=== PATIENT | male | born 1950 ===

== ENCOUNTER 2016-12-04 10:53 | Emergency (ER) | payer MEDICARE ==
[~2016-12-04] VITALS: Ht 177.8 cm; Wt 156.7 kg
[~2016-12-04 10:53] MED LIST: ALBU6.7H INH; AMLO10TA2 PO; ATOR10TA64 PO; BUSP10TA3 PO; CARV25TA2 PO; CETI-269 PO; EZET10TA PO; HYDR25TA PO; HYDR25TA85 PO; INSU100V12 SQ; INSU100V13 SQ; MELO-267 PO; MOME13HF4 INH; MONT10TA25 PO; OMEP-122 PO; OXYC-533 PO; SERT100T12 PO; TRAZ-170 PO
[2016-12-04 10:55] VITALS: BP 148/71; PULSE 58; RESP 16; TEMP 98.1; O2SAT 94; Ht 177.8 cm; Wt 156.7 kg
--- OUTSIDE RECORDS SUMMARY | 2016-12-04 10:57 | XMS REPORT | Referral Summary ---
Author Author [facility] Organization [facility] Address Unknown Phone Unavailable Encounter [facility] [id number] Date(s): 07/17/16 - 07/18/16 [facility] [address] [place] [id number] [phone] Discharge Diagnosis: Chest pain Discharge Diagnosis: DM (diabetes mellitus), type 2 Discharge Diagnosis: Dyslipidemia Discharge Diagnosis: Tobacco use Discharge Diagnosis: Morbid obesity Discharge Diagnosis: CAD (coronary artery disease) Discharge Disposition: 07 O/P AMA Attending Physician: Nicolas Mendez MD Admitting Physician: Nicolas Mendez MD Vital Signs 1 2 3 Most recent to oldest [Reference Range]: 5.83 ft (07/17/16 8:55 PM) Height FT 177.8 cm (07/17/16 8:55 PM) Height 340.17 lb (07/17/16 8:55 PM) Weight LBS 154.3 kg (07/17/16 8:55 PM) Weight, Measured 146 / 77 (07/18/16 9:26 AM) 129 / 71 (07/18/16 5:23 AM) 133 / 74 (07/18/16 1:53 AM) Blood Pressure Display 48.81 (07/17/16 8:56 PM) BMI 54 bpm *LOW* (07/18/16 9:26 AM) 56 bpm *LOW* (07/18/16 5:23 AM) 55 bpm *LOW* (07/18/16 1:53 AM) Peripheral Pulse Rate [60-100 bpm] 36.5 DegC (07/18/16 9:26 AM) 36.4 DegC (07/18/16 5:23 AM) 36.5 DegC (07/18/16 1:53 AM) Temperature Oral [35.8-37.3 DegC] Problem List Condition Effective Dates Status Health Status Informant CAD (coronary artery Active disease)(Confirmed)1 Hyperlipidemia(Confi Active rmed) Asthma(Confirmed) Active Hypertension(Confirm Active ed) Diabetes mellitus Active type 2, insulin dependent(Confirmed) Myocardial 2007 Resolved infarction(Confirmed ) Depression(Confirmed Active ) Obesity, Class III, Active BMI 40-49.9 (morbid obesity)(Confirmed) DJD (degenerative Active joint disease)(Confirmed) 1Per patient, 40% stenosis in two vessels seen on cath in 2006. No stents placed. Has not followed up with cardiology since. Allergies, Adverse Reactions, Alerts Substance Reaction Severity Status [id number] N&V - Nausea and vomiting Active Indocin N&V - Nausea and vomiting Active morphine N&V - Nausea and vomiting Active naproxen N&V - Nausea and vomiting Active Tape2 Blistering Moderate Active Toradol N&V - Nausea and vomiting Active 1Pt states he "does things he shouldn't do" 2paper tape Medications albuterol 0.083% inhalation solution 2.5 mg=3 mL, INH, q4hr, PRN: as needed for wheezing, # 25 EA, 0 Refill(s) Start Date: 07/17/16 Status: Ordered amLODIPine 10 mg oral tablet 10 mg=1 tab, PO, qDay, # 30 tab, 0 Refill(s) Start Date: 07/17/16 Status: Ordered atorvaSTATin 10 mg oral tablet 10 mg=1 tab, PO, qPM, # 30 tab, 0 Refill(s) Start Date: 07/17/16 Status: Ordered busPIRone 15 mg oral tablet See Instructions, 1 tab QAM, 1 tab QNOON, 2 tabs QHS, 0 Refill(s) Start Date: 07/17/16 Status: Ordered carvedilol 12.5 mg oral tablet 12.5 mg=1 tab, PO, qDay, # 180 tab, 0 Refill(s) Start Date: 07/17/16 Status: Ordered cetirizine 10 mg oral tablet 10 mg=1 tab, PO, qAM, # 30 tab, 0 Refill(s) Start Date: 07/17/16 Status: Ordered Dulera 100 mcg-5 mcg/inh inhalation aerosol 2 puff, INH, BID, # 13 g, 0 Refill(s) Start Date: 07/17/16 Status: Ordered HCTZ 25 mg oral tablet 25 mg=1 tab, PO, qDay, # 30 tab, 0 Refill(s) Start Date: 07/17/16 Status: Ordered hydrOXYzine hydrochloride 25 mg oral tablet 25 mg=1 tab, PO, TID, # 30 tab, 0 Refill(s) Start Date: 07/17/16 Status: Ordered Levemir 40 unit, SQ, qHS, 0 Refill(s) Start Date: 07/17/16 Status: Ordered meloxicam 15 mg oral tablet 15 mg=1 tab, PO, qDay, # 30 tab, 0 Refill(s) Start Date: 07/17/16 Status: Ordered montelukast 10 mg oral tablet 10 mg=1 tab, PO, qHS, # 30 tab, 0 Refill(s) Start Date: 07/17/16 Status: Ordered NovoLOG 15 unit, SQ, TIDac, 0 Refill(s) Start Date: 07/17/16 Status: Ordered omeprazole 20 mg oral delayed release capsule 40 mg=2 cap, PO, acBreakfst, # 30 cap, 0 Refill(s) Start Date: 07/17/16 Status: Ordered Percocet 10/325 oral tablet 1 tab, PO, q4hr, PRN: for pain, # 30 tab, 0 Refill(s) Start Date: 07/17/16 Status: Ordered sertraline 100 mg oral tablet 100 mg=1 tab, PO, qHS, # 30 tab, 0 Refill(s) Start Date: 07/17/16 Status: Ordered traZODone 100 mg oral tablet 100 mg=1 tab, PO, qHS, # 30 tab, 0 Refill(s) Start Date: 07/17/16 Status: Ordered Zetia 10 mg oral tablet 10 mg=1 tab, PO, qHS, # 30 tab, 0 Refill(s) Start Date: 07/17/16 Status: Ordered Results Hematology Most recent to 1 oldest [Reference Range]: WBC Count [4.0-10.5 6.0 x10^3 cmm x10^3 cmm] (07/18/16 6:35 AM) RBC Count [4.50-6.00 4.56 X10^6 cmm X10^6 cmm] (07/18/16 6:35 AM) Hemoglobin 10.4 g/dL [13.0-17.5 g/dL] *LOW* (07/18/16 6:35 AM) Hematocrit 34.4 % [42.0-52.0 %] *LOW* (07/18/16 6:35 AM) MCV [78-100 fL] 75.4 fL *LOW* (07/18/16 6:35 AM) MCH [27.0-31.0 pg] 22.8 pg *LOW* (07/18/16 6:35 AM) MCHC [32.0-36.0 30.2 g/dL g/dL] *LOW* (07/18/16 6:35 AM) RDW [11.5-14.0 %] 15.0 % *HI* (07/18/16 6:35 AM) Platelet Count 142 x10^3 cmm [150-450 x10^3 cmm] *LOW* (07/18/16 6:35 AM) MPV [8.0-11.7 fL] 9.8 fL (07/18/16 6:35 AM) Nucleated RBC's [0 0.4 #/100 WBC #/100 WBC] *HI* (07/17/16 6:58 PM) Nucleated RBC 0.0 x10^3 cmm Absolute [0 x10^3 (07/17/16 6:58 PM) cmm] Neutrophil % 69.9 % [43.0-65.0 %] *HI* (07/18/16 6:35 AM) Lymphocyte % 17.9 % [20.5-45.5 %] *LOW* (07/18/16 6:35 AM) Monocyte % [5.5-11.7 7.3 % %] (07/18/16 6:35 AM) Eosinophil % 4.2 % [0.9-2.9 %] *HI* (07/18/16 6:35 AM) Basophil % [0.2-1.0 0.5 % %] (07/18/16 6:35 AM) Immature Granulocyte 0.2 % (07/18/16 6:35 AM) Immature Grans 0.0 X10^3 Absolute [0.00-0.05 (07/18/16 6:35 AM) X10^3] Neutrophil Abs Auto 4.2 X10^3 [1.72-6.83 X10^3] (07/18/16 6:35 AM) Lymphocyte Abs Auto 1.1 X10^3 [0.84-4.83 X10^3] (07/18/16 6:35 AM) Monocyte Abs Auto 0.4 X10^3 [0.24-1.26 X10^3] (07/18/16 6:35 AM) Eosinophil Abs Auto 0.3 X10^3 [0.04-0.32 X10^3] (07/18/16 6:35 AM) Basophil Abs Auto 0.0 X10^3 [0.00-0.11 X10^3] (07/18/16 6:35 AM) Differential Type AUTOMATED (07/18/16 6:35 AM) Reticulocyte Count 1.4 % Automated [0.5-1.5 (07/17/16 7:00 PM) %] Absolute 62 mm3 Reticulocyte [24-84 (07/17/16 7:00 PM) mm3] Retic. HGB 23.4 pg Equivalent *LOW* [28.2-36.6 pg] (07/17/16 7:00 PM) Immature Retic 37.7 % Fraction [5.5-14.5 *HI* %] (07/17/16 7:00 PM) Retic Slide Review RETICULOCYTE COUNT MAY BE ERRONEOUS DUE TO INTERFERING SUBSTANCES (07/17/16 7:00 PM) Chemistry Most recent to 1 oldest [Reference Range]: Sodium [135-145 140 mmol/L mmol/L] (07/18/16 6:35 AM) Potassium [3.6-5.0 3.7 mmol/L mmol/L] (07/18/16 6:35 AM) Chloride [101-111 100 mmol/L mmol/L] *LOW* (07/18/16 6:35 AM) Carbon Dioxide Total 32 mmol/L [21-31 mmol/L] *HI* (07/18/16 6:35 AM) Anion Gap 8 mmol/L 1 (07/18/16 6:35 AM) Glucose Level 207 mg/dL [70-100 mg/dL] *HI* (07/18/16 6:35 AM) Blood Urea Nitrogen 12 mg/dL [6-20 mg/dL] (07/18/16 6:35 AM) Creatinine [0.5-1.2 0.7 mg/dL mg/dL] (07/18/16 6:35 AM) Calcium [8.5-10.5 8.8 mg/dL mg/dL] (07/18/16 6:35 AM) Total Protein 6.6 g/dL [6.0-8.0 g/dL] (07/17/16 6:58 PM) Albumin [3.2-5.5 3.7 g/dL g/dL] (07/17/16 6:58 PM) Alkaline Phosphatase 97 unit/L [42-121 unit/L] (07/17/16 6:58 PM) AST (SGOT) [10-42 10 unit/L unit/L] (07/17/16 6:58 PM) ALT (SGPT) [10-60 13 unit/L unit/L] (07/17/16 6:58 PM) Bilirubin Total 0.2 mg/dL [0.2-1.0 mg/dL] (07/17/16 6:58 PM) Calculated GFR [>60] >60.0 2 (07/18/16 6:35 AM) Magnesium [1.8-2.5 1.9 mg/dL mg/dL] (07/17/16 6:58 PM) Iron [42-135 mcg/dL] 23 mcg/dL *LOW* (07/17/16 7:00 PM) Total Iron Binding 334 mcg/dL Capacity Calculated (07/17/16 7:00 PM) [250-400 mcg/dL] Transferrin 7 % 3 Saturation (07/17/16 7:00 PM) Ferritin [10-130 14 ng/mL ng/mL] (07/17/16 7:00 PM) 1Result Comment: ANION GAP CALCULATION=NA-(CL+CO2) No reference range has been established. Value needs to be correlated with clinical evaluation. 2Result Comment: AVERAGE GFR FOR 60-69 YEARS OLD=85 mL/min/1.73 square meters CHRONIC KIDNEY DISEASE <60 mL/min/1.73 square meters KIDNEY FAILURE <15 mL/min/1.73 square meters MULTIPLY RESULT BY 1.210 IF PATIENT IS . GFR calculation (based on the modified MDRD Study Equation for IDMS calibrated creatinine) includes creatinine, age and sex only. This may NOT be accurate in cases of acute kidney failure, extremes in body size or muscle mass or unusually low or high creatine intake. 3Result Comment: NO REFERENCE RANGE ESTABLISHED Cardiac Studies Most recent to 1 oldest [Reference Range]: Cholesterol [140-200 132 mg/dL mg/dL] *LOW* (07/18/16 6:35 AM) High Density 28 mg/dL 1 Lipoprotein [40-67 *LOW* mg/dL] (07/18/16 6:35 AM) Triglycerides 169 mg/dL [35-150 mg/dL] *HI* (07/18/16 6:35 AM) VLDL Calculated 34 mg/dL [0-50 mg/dL] (07/18/16 6:35 AM) LDL Calculated 70 mg/dL 2 [0-130 mg/dL] (07/18/16 6:35 AM) LDL/HDL Ratio 2.50 3 (07/18/16 6:35 AM) Chol/HDL Ratio 4.7 4 (07/18/16 6:35 AM) nonHDL Cholesterol 104 mg/dL 5 (07/18/16 6:35 AM) Myoglobin [0-70 26 ng/mL 6 ng/mL] (07/17/16 9:53 PM) Cardiac Troponin T <0.01 ng/mL 7 [0.00-0.02 ng/mL] (07/18/16 6:35 AM) 1Result Comment: HDL CHOLESTEROL CORRELATES INVERSELY WITH RISK OF CORONARY HEART DISEASE. 2Result Comment: LDL CHOLESTEROL CORRELATES DIRECTLY WITH RISK OF CORONARY HEART DISEASE. 3Result Comment: BASED ON LDL/HDL RATIO: VALUE RISK MALES FEMALES 1.00 1.47 1/2 AVERAGE 3.55 3.22 AVERAGE 6.25 5.03 2X AVERAGE 7.99 6.14 3X AVERAGE 4Result Comment: CHOL/HDL RATIO IS MOST USEFUL IN WOMEN AND IN MEN OVER AGE 50. BASED ON CHOL/HDL RATIO: VALUE RISK <3.5 IDEAL <4.5 ACCEPTABLE 5.8 (MALE) AVG. FOR PT. WITH CHD 5.3 (FEMALE) AVG. FOR PT. WITH CHD 10 DOUBLE RISK 20 TRIPLE RISK 5Result Comment: nonHDL GOAL=LDL GOAL for this patient + 30 6Result Comment: DOUBLING OF SERUM MYOGLOBIN LEVEL WITHIN 6 HOURS OF THE ONSET OF SYMPTOMS IS CONSIDERED HIGHLY SUGGESTIVE OF AMI. 7Result Comment: NORMAL RANGE IS </=0.10 ng/mL. DIAGNOSTIC CUTOFF VALUE WHICH IS CONSIDERED POSITIVE FOR AMI IS >0.10 ng/mL. INTERPRET TROPONIN T RESULTS IN LIGHT OF THE TOTAL CLINICAL PRESENTATION, TROPONIN T RESULTS FROM SERIAL SAMPLES, DATA FROM ADDITIONAL TESTS AND OTHER APPROPRIATE INFORMATION. Coagulation Most recent to 1 oldest [Reference Range]: PT [11.5-14.5 13.40 second second] (07/17/16 6:58 PM) INR Calculation 1.05 ratio 1 [0.87-1.16 ratio] (07/17/16 6:58 PM) 1Result Comment: RECOMMENDED INR FOR ORAL ANTICOAGULANT FOR MECHANICAL HEART VALVES AND RECURRENT SYSTEMIC EMBOLISM: 2.5 TO 3.5...FOR ALL OTHER INDICATIONS: 2.0 TO 3.0. 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
--- OUTSIDE RECORDS SUMMARY | 2016-12-04 10:58 | XMS REPORT | Continuity of Care Document ---
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 Type 2 diabetes mellitus without complications 06/14/2016 06/19/2016 [facility] Chest pain, unspecified 06/19/2016 [facility] Hypothyroidism, unspecified 06/14/2016 06/19/2016 [facility] Essential (primary) hypertension 06/14/2016 06/19/2016 [facility] Other chest pain 06/19/2016 [facility] Hypertensive heart disease without heart failure 2015 [facility] Atherosclerotic heart disease of rosebud coronary artery without angina pectoris 06/19/2016 [facility] Old myocardial infarction 06/19/2016 [facility] Hyperlipidemia, unspecified 06/19/2016 [facility] Hypertensive disorder, systemic arterial (disorder) Active Problem 06/19/2016 [facility] Obesity (disorder) Active Problem 06/19/2016 Added based on documentation of BMI=48.2. [facility] Localized edema 06/19/2016 [facility] Type 2 diabetes mellitus with hyperglycemia 06/19/2016 [facility] Unspecified asthma, uncomplicated 06/19/2016 [facility] Other specified hypothyroidism 06/19/2016 [facility] Other specified anxiety disorders 06/19/2016 [facility] Bradycardia, unspecified 06/19/2016 [facility] Atrioventricular block, first degree 06/19/2016 [facility] Unspecified right bundle-branch block 06/19/2016 [facility] Family history of ischemic heart disease and other diseases of the circulatory system 06/19/2016 [facility] 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 Medications Medication Details Route Status Patient Instructions Ordering Provider Order Date Source hydroxyzine hydrochloride 25 mg oral tablet </br>=25 mg, 1 tab, PO, Daily, # 30 tab, 0 Refill(s) Active [facility] albuterol-ipratropium 3 mg-0.5 mg/3 ml inhalation solution </br>3 mL, Inhalation, four times per day, # 30 EA, 0 Refill(s) Active [facility] Dulera 100 mcg-5 mcg/inh inhalation aerosol </br>2 puff, Inhalation, BID, # 13 gm, 0 Refill(s) Active [facility] Acetaminophen 325 MG / Oxycodone Hydrochloride 10 MG Oral Tablet [Percocet 10/ 325] </br>2 tab, PO, Q6H, PRN for pain, 0 Refill(s) Active [facility] Zyrtec </br>Daily, 0 Refill(s) Active [facility] buspirone 10 mg oral tablet </br>=10 mg, 1 tab, PO, TID, # 270 tab, 0 Refill(s) Active [facility] omeprazole 20 mg oral enteric coated capsule </br>=20 mg, 1 cap, PO, BID, # 60 cap, 3 Refill(s) Active [facility] montelukast 10 mg oral tablet </br>=10 mg, 1 tab, PO, QPM, # 30 tab, 0 Refill(s) Active [facility] Sertraline </br>PO, Daily, 0 Refill(s) Active [facility] Hydrochlorothiazide </br>PO, Daily, 0 Refill(s) Active [facility] atorvastatin </br>PO, QHS, 0 Refill(s) Active [facility] meloxicam 15 mg oral tablet </br>=15 mg, 1 tab, PO, Daily, # 30 tab, 0 Refill(s) Active [facility] Amlodipine </br>PO, Daily, 0 Refill(s) Active [facility] carvedilol 25 mg oral tablet </br>=25 mg, 1 tab, PO, BID, # 60 tab, 0 Refill(s) Active [facility] ezetimibe 10 MG Oral Tablet [Zetia] </br>=10 mg, 1 tab, PO, Daily, # 30 tab, 0 Refill(s) Active [facility] trazodone 50 mg oral tablet </br>50 mg 1 tab, PO, QHS, # 30 tab, 0 Refill(s) Active [facility] Levemir </br>Subcutaneous, 0 Refill(s) Active [facility] levothyroxine 0.2 mg oral tablet </br>=200 mcg, 1 tab, PO, Daily, # 30 tab, 0 Refill(s), tab Active [facility] aspirin 81 mg oral tablet, chewable </br>=81 mg, 1 tab, Chewed, Daily, tablet, chewable Active [facility] Humalog 100 unit(s)/ml subcutaneous injection </br>=10 Units, 0.1 mL, Subcutaneous, AC, # 9 mL, 1 Refill(s), injection Active [facility] Aspirin </br>81 mg,=1 tab, tablet, chewable, Daily, Chewed, Start date 06/13/16 9:00:00< br></br>Notes: TIME CRITICAL MED IF SCHEDULED Active [facility] heparin </br>5,000 Units,=1 mL, injection, Q12H, Subcutaneous, Start date 06/12/16 21:00 :00
</br>Notes: TIME CRITICAL MED IF SCHEDULED Active [facility] Insulin Lispro </br>SLIDING SCALE, injection, Subcutaneous, ACHS, Start date 06/12/16 21:00:00< br></br>Notes: TIME CRITICAL MED IF SCHEDULED Active [facility] Albuterol / Ipratropium </br>3 mL, solution, Q4H, Nebulized, Start date 06/12/16 20:00:00 Active [facility] Levoxyl </br>100 mcg,=1 tab, tab, ONCE, PO, Start date 06/14/16 12:44:00, Stop date 12:44:00
</br>Notes: DO NOT ADMINISTER WITH MAGNESIUM, CALCIUM, ALUMINUM, OR IRON PRODUCTS Inactive [facility] Normal Saline 50 mL IVPB Flush </br>25 mL, injection, As Needed, IVPush, PRN Flush, Start date 06/13/16 0:49: 00 Active [facility] Percocet 10/325 </br>2 tab, tab, Q6H, PO, PRN Pain Severe (7-10), Start date 06/12/16 18:43:00< br></br>Notes: Not to exceed 4000 mg of acetaminophen TOTAL in 24 hours. TIME CRITICAL MED IF SCHEDULED Active [facility] Trazodone </br>100 mg,=2 tab, tab, QHS, PO, Start date 06/12/16 21:00:00 Active [facility] pantoprazole </br>40 mg,=1 tab, enteric coated tab, Daily, PO, Start date 06/12/16 18:42:00, No
</br>Notes: DO NOT CRUSH Active [facility] montelukast </br>10 mg,=1 tab, tab, QPM, PO, Start date 06/12/16 17:00:00 Active [facility] Piroxicam </br>20 mg,=2 cap, cap, Daily, PO, Start date 06/12/16 18:40:00
</br>Notes: * TIME CRITICAL MED IF SCHEDULED Active [facility] Insulin Glargine </br>40 Units,=0.4 mL, injection, QHS, Subcutaneous, Start date 06/12/16 21:00: 00
</br>Notes: TIME CRITICAL MED IF SCHEDULED Active [facility] Humalog </br>10 Units,=0.1 mL, injection, AC, Subcutaneous, Start date 06/12/16 18:35:00
</br>Notes: TIME CRITICAL MED IF SCHEDULED Active [facility] Hydroxyzine </br>25 mg,=1 cap, cap, TID, PO, Start date 06/12/16 18:35:00 Active [facility] Budesonide 0.16 MG/ACTUAT / formoterol fumarate 0.0045 MG/ACTUAT Metered Dose Inhaler </br>2 puff, inhaler, BID, Inhalation, Start date 06/12/16 20:00:00
</br> Notes: TIME CRITICAL MED IF SCHEDULED Active [facility] Zetia </br>10 mg,=1 tab, tab, Daily, PO, Start date 06/13/16 9:00:00 Active [facility] Claritin </br>10 mg,=1 tab, tab, Daily, PO, Start date 06/13/16 9:00:00 Active [facility] Buspirone </br>10 mg,=1 tab, tab, TID, PO, Start date 06/12/16 18:29:00 Active [facility] carvedilol </br>12.5 mg,=1 tab, tab, BID, PO, Start date 06/12/16 21:00:00
</br>Notes: TAKE WITH FOOD Active [facility] Thyroxine </br>200 mcg,=1 tab, tab, Daily, PO, Start date 06/13/16 12:02:00
</br>Notes : DO NOT ADMINISTER WITH MAGNESIUM, CALCIUM, ALUMINUM, OR IRON PRODUCTS Active [facility] No Known Medications No known medications Active [facility], [facility] Allergies, Adverse Reactions, Alerts Substance Category Reaction Severity Reaction type Status Date Reported Comments Source Fentanyl Assertion Drug allergy [facility] Indocin Assertion Drug allergy [facility] morphine Assertion Drug allergy [facility] naproxen Assertion Drug allergy [facility] Tape Assertion Drug allergy [facility] Toradol Assertion Drug allergy [facility] Indomethacin Assertion Drug allergy [facility] Morphine Assertion Drug allergy [facility] Naproxen Assertion Drug allergy [facility] Ketorolac Assertion Drug allergy [facility] Immunizations Immunization Date Given Site Status Last Updated Comments Source No data available for this section No data available for this section [facility] Results Order Name Results Value Reference Range Date Interpretation Comments Source Point Of Care-Glucose Glucose POC 205 mg/dL 64 - 108 [facility] Discharge Summary Discharge Summary Patient: ESSIE LOPEZ Age: 66 years Sex: Male : 54 Associated Diagnoses: None Author: Hernán Rivera Discharge Information Date of Admission: Admitted 06/12/2016, 06/14/2016. Attending Physician: Lawson Mckeon Primary Service: Green Medicine. Primary Diagnosis present or suspected on admission: Chest pain - [id number] R07.9 Secondary Diagnosis present or suspected on admission: Benign essential hypertension - [id number] I10 Type 2 diabetes mellitus with hemoglobin A1c goal of less than 7.0% - [id number] E11.9 Diagnosis aquired during hospitalization Subclinical hypothyroidism - [id number] E03.9 Discharge or Transfer Condition: At discharge, Improved and stable. Disposition: Left AMA or Discontinued Care. Services Provided in Hospital Procedures Stress echo Allergies Allergic Reactions (Selected) Severity Not Documented FentaNYL- No reactions were documented. Indocin- No reactions were documented. Morphine- No reactions were documented. Naproxen- No reactions were documented. Tape- No reactions were documented. Toradol- No reactions were documented. Medications OTHER MEDICATIONS (Selected) Inpatient Medications Ordered Claritin: 10 mg, 1 tab, PO, Daily HCTZ: 25 mg, 1 tab, PO, Daily HumaLO Units, 0.1 mL, Subcutaneous, AC Insulin Sliding Scale 1: SLIDING SCALE, Subcutaneous, ACHS Levoxyl: 100 mcg, 1 tab, PO, ONCE Normal Saline 50 mL IVPB Flush: 25 mL, IVPush, As Needed, PRN: Flush Percocet 10/325: 2 tab, PO, Q6H, PRN: Pain Severe (7-10) Symbicort 160 mcg - 4.5 mcg inh: 2 puff, Inhalation, BID Zetia: 10 mg, 1 tab, PO, Daily albuterol-ipratropium: 3 mL, Nebulized, Q4H amlodipine: 10 mg, 1 tab, PO, Daily aspirin: 81 mg, 1 tab, Chewed, Daily atorvastatin: 10 mg, 1 tab, PO, QHS busPIRone: 10 mg, 1 tab, PO, TID carvedilol: 12.5 mg, 1 tab, PO, BID heparin: 5,000 Units, 1 mL, Subcutaneous, Q12H hydrOXYzine: 25 mg, 1 cap, PO, TID insulin glargine: 40 Units, 0.4 mL, Subcutaneous, QHS levothyroxine: 200 mcg, 1 tab, PO, Daily montelukast: 10 mg, 1 tab, PO, QPM pantoprazole: 40 mg, 1 tab, PO, Daily piroxicam: 20 mg, 2 cap, PO, Daily sertraline: 100 mg, 1 tab, PO, Daily trazodone: 100 mg, 2 tab, PO, QHS Prescriptions Prescribed Humalog 100 unit(s)/ml subcutaneous injection: 10 Units, 0.1 mL, Subcutaneous, AC, 9 mL, 1 Refill(s) levothyroxine 0.2 mg oral tablet: 200 mcg, 1 tab, PO, Daily, 30 tab, 0 Refill(s) Documented Medications Documented Dulera 100 mcg-5 mcg/inh inhalation aerosol: 2 puff, Inhalation, BID, 13 gm, 0 Refill(s) HCTZ: PO, Daily, 0 Refill(s) Levemir: Subcutaneous, 0 Refill(s) Percocet-10/325 oral tablet: 2 tab, PO, Q6H, PRN: for pain, 0 Refill(s) Zetia 10 mg oral tablet: 10 mg, 1 tab, PO, Daily, 30 tab, 0 Refill(s) Zyrtec: Daily, 0 Refill(s) albuterol-ipratropium 3 mg-0.5 mg/3 ml inhalation solution: 3 mL, Inhalation, four times per day, 30 EA, 0 Refill(s) amlodipine: PO, Daily, 0 Refill(s) aspirin 81 mg oral tablet, chewable: 81 mg, 1 tab, Chewed, Daily atorvastatin: PO, QHS, 0 Refill(s) buspirone 10 mg oral tablet: 10 mg, 1 tab, PO, TID, 270 tab, 0 Refill(s) carvedilol 25 mg oral tablet: 25 mg, 1 tab, PO, BID, 60 tab, 0 Refill(s) hydroxyzine hydrochloride 25 mg oral tablet: 25 mg, 1 tab, PO, Daily, 30 tab, 0 Refill(s) meloxicam 15 mg oral tablet: 15 mg, 1 tab, PO, Daily, 30 tab, 0 Refill(s) montelukast 10 mg oral tablet: 10 mg, 1 tab, PO, QPM, 30 tab, 0 Refill(s) omeprazole 20 mg oral enteric coated capsule: 20 mg, 1 cap, PO, BID, 60 cap, 3 Refill(s) sertraline: PO, Daily, 0 Refill(s) trazodone 50 mg oral tablet: 50 mg, 1 tab, PO, QHS, 30 tab, 0 Refill(s). Discharge Diet: Diet Type: Cardiac. Activity: Ambulate. Discharge Activity Level: Resume as tolerated. Patient may: [employer]. Hospital Course Patient is a 66 year old male with a PMH of type 2 diabetes mellitus, hypertension, hyperlipidemia, CAD with h/o MA in 2007 (underwent cath, likely had 30-40% lesion per patient, no stents) and asthma who presented to the ED on 06/12/16 with chest pain and peripheral edema. In the ED, EKG did not show any ST-T changes, first troponin was negative, and patient was given 325 mg of aspirin. Patient was His troponins were negative x4. Echocardiogram was done due to peripheral edema and showed a left ventricular EF of 50-55%, mild LV hypertrophy, and mild RV dilation. His risk stratification work up included TSH, HbA1c, and FLP. HbA1c returned as 10.5 Patient was continued on his home insulin for his diabetes and SSI with accuchecks. He was told that his insulin regimen would need to be adjusted as outpatient for better control. His TSH returned 10.56 and T4 1.04; patient denied any symptoms of hypothyroidism. He was started on levothyroxine for subclinical hypothyroidism. Patient was continued on his home statin. He was also started on aspirin 81 mg daily which he had not been on at home. Recommend patient be evaluated with an outpatient sleep study for KOLBY. Discussed thoroughly with patient the need for establishing a PCP in [place] as he will need a sleep study, repeat thyroid labs, and better control of his diabetes. He and his daughter acknowledged the importance of this. Also discussed that patient will need to take an 81 mg aspirin daily. Risks and benefits of leaving were discussed with patient and daughter as results of the stress test were not back at the time. Both acknowledged this and patient signed form to leave AMA. His stress echo returned shortly after patient left and was negative for ischemia. Medication changes: - Levothyroxine 200 mcg daily for subclinical hypothyroidism - Aspirin 81 mg daily Results pending at discharge: stress echo No follow up appointment was scheduled for patient as he was going straight home to [place] on discharge. Stressed importance of establishing care with a PCP. Hernán Rivera MD PGY1 [phone] I agree with the above documentation. Thanks, Jayesh Mckeon DO 06/14/2016 [facility] Point Of Care-Glucose Glucose POC 277 mg/dL 64 - 108 [facility] Chemistry GFR -Niuean null >=60 mL/min/1.73m2 [facility] Hematology MPV 8.0 FL 7.4 - 10.4 06/14/2016 [facility] Student Note - Education Only Student Note - Education Only Patient: ESSIE LOPEZ Age: 66 years Sex: Male : 54 Associated Diagnoses: None Author: Cb Sena Subjective 14 system ROS negative except as otherwise stated above. Health Status Current medications: (Selected) Documented Medications Documented Dulera 100 mcg-5 mcg/inh inhalation aerosol: 2 puff, Inhalation, BID, 13 gm, 0 Refill(s) HCTZ: PO, Daily, 0 Refill(s) Levemir: Subcutaneous, 0 Refill(s) NovoLog: Subcutaneous, TIDAC, 0 Refill(s) Percocet-10/325 oral tablet: 2 tab, PO, Q6H, PRN: for pain, 0 Refill(s) Zetia 10 mg oral tablet: 10 mg, 1 tab, PO, Daily, 30 tab, 0 Refill(s) Zyrtec: Daily, 0 Refill(s) albuterol-ipratropium 3 mg-0.5 mg/3 ml inhalation solution: 3 mL, Inhalation, four times per day, 30 EA, 0 Refill(s) amlodipine: PO, Daily, 0 Refill(s) atorvastatin: PO, QHS, 0 Refill(s) buspirone 10 mg oral tablet: 10 mg, 1 tab, PO, TID, 270 tab, 0 Refill(s) carvedilol 25 mg oral tablet: 25 mg, 1 tab, PO, BID, 60 tab, 0 Refill(s) hydroxyzine hydrochloride 25 mg oral tablet: 25 mg, 1 tab, PO, Daily, 30 tab, 0 Refill(s) meloxicam 15 mg oral tablet: 15 mg, 1 tab, PO, Daily, 30 tab, 0 Refill(s) montelukast 10 mg oral tablet: 10 mg, 1 tab, PO, QPM, 30 tab, 0 Refill(s) omeprazole 20 mg oral enteric coated capsule: 20 mg, 1 cap, PO, BID, 60 cap, 3 Refill(s) sertraline: PO, Daily, 0 Refill(s) trazodone 50 mg oral tablet: 50 mg, 1 tab, PO, QHS, 30 tab, 0 Refill(s) Objective VS/Measurements Vital Signs 06/13/16 00:00 Temperature Temporal Artery 97.2 DegF Heart Rate 56 bpm LOW (Modified) Resp. Rate 18 BRMIN Systolic BP 148 mmHg HI Diastolic BP 76 mmHg Oxygen Saturation 96 % Oxygen Therapy Room air I/O 540/_ Physical Exam General: Alert and oriented, in no acute distress CV: 2/6 holosystolic murmur on the left sternal border Resp: CTAB Abdomen: Soft, non-distended, non-tender to palpation Results Review General results Today's results 06/14/16 05:30 Sodium 138 mmol/L Potassium 3.9 mmol/L Chloride 99 mmol/L CO2 27 mmol/L Anion Gap 12 mmol/L Glucose 287 mg/dL HI BUN 14 mg/dL Creatinine 0.84 mg/dL LOW 3/cmm Hemoglobin 11.3 g/dL LOW Hematocrit 35.7 % LOW 3/cmm Impression and Plan A/P Patient is a 66 y/o who presents with chest pain Chest pain - DDx: ACS (UA/NSTEMI) vs GERD vs musculoskeletal - EKG no ST-T changes and troponins negative x3 - PATRICK risk score of 97 which is low. - TYE risk score of 2 which is low, suggests 8% risk of all cause mortality/ new or recurrent MA/ severe recurrent ischemia, at 14 days - Pt has a h/o MA 8 yrs back (likely NSTEMI). He does have strong family h/o CAD. He also has not had a recent stress test or cardiology follow up since MA. - Will plan for stress echo today - Continue coreg, atorvastatin, ezetimibe - Hold coreg tomorrow morning for stress test - Continue PPI and his pain meds - NTG PRN for chest pain Pedal edema - Likely from rt heart failure 2/2 KOLBY vs venous insufficiency vs less likely hypothyroidism/renal problems - Echo to evaluate cardiac function. - TSH elevated at 10.56 but T4 wnl; will start levothyroxine 100 mcg daily Subclinical hypothyroidism - TSH elevated at 10.56 but T4 wnl; will start levothyroxine 100 mcg daily Suspected sleep apnea - Will need outpatient sleep study Benign essential hypertension - Continue home meds: coreg, amlodipine, HCTZ, Type 2 diabetes, uncontrolled - HbA1c 10.5 - Continue home insulin: Humalog (changed from novalog) 10 U TIDAC and Lantus ( changed from levemir) 40 U qHS - SSI level 1 and accuchecks - Will adjust insulin doses after one full day of hospitalization but ultimately patient will need follow up with a PCP as an outpatient for optimization Dyslipidemia - Continue atorvastatin 10 mg qHS and ezetimibe 10 mg daily Asthma - Not in exacerbation - Continue symbicort while inpatient and duonebs q4h PRN Depression/Anxiety - Continue home meds: Sertrailne, buspirone, trazodone, OA bilateral knee s/p TKR s/p wound infection - Follows with his orthopedics in [place] - Continue pain meds: Percocet 10-325 2 tabs q6h PRN CODE: FULL Diet: cardiac/consistent carb DVT ppx: Heparin, SCDs IVF: none Antibiotics: None Disposition: pending stress test today Cb LORENZO 06/14/2016 [facility] Inpatient Progress Note Inpatient Progress Note Patient: ESSIE LOPEZ Age: 66 years Sex: Male : 54 Associated Diagnoses: None Author: Hernán Rivera Subjective Patient sleeping comfortably in chair. Reports he did not sleep well last night as the unit was noisy. Denies chest pain. No other complaints. 10 point ROS completed and negative except as stated above. Health Status Allergies: Allergic Reactions (Selected) Severity Not Documented FentaNYL- No reactions were documented. Indocin- No reactions were documented. Morphine- No reactions were documented. Naproxen- No reactions were documented. Tape- No reactions were documented. Toradol- No reactions were documented. Objective VS/Measurements Vital Signs 06/14/16 06:00 Temperature Oral 98.5 DegF Heart Rate 68 bpm Resp. Rate 19 BRMIN Systolic BP 135 mmHg Diastolic BP 78 mmHg Mean Arterial Pressure 97 mmHg Oxygen Saturation 97 % Oxygen Therapy Room air General: Alert and oriented, No acute distress. Eye: Pupils are equal, round and reactive to light, Extraocular movements are intact, Normal conjunctiva. HENT: Normocephalic, Normal hearing, Oral mucosa is moist. Respiratory: Lungs are clear to auscultation, Respirations are non-labored, Breath sounds are equal. Cardiovascular: Normal rate, Regular rhythm, No murmur, 1+ pitting peripheral edema. Gastrointestinal: Soft, Non-tender, Non-distended, Normal bowel sounds. Integumentary: Warm, Dry. Neurologic: Alert, Oriented, No focal defects. Results Review Last Vital Signs 06/14/16 05:38:25 Heart Rate 61 bpm Respiratory Rate 16 BRMIN 98.5 DegF BP Primary (Right Arm) 135/78 BP Optional () / Height 177.5 cm Weight 155.5 kg BMI 49.4 kg/m2 Last Lab Results BMP: (Date 06/14/16 ) Hematology Tests: (Date) Others: (Date) Lipid Profile: ( Date 06/13/16) Sodium 138 mmol/L Hgb 11.3 (06/14/16) TSH 10.79 (06/13/16) Triglycerides 140 mg/ dL Potassium 3.9 mmol/L HgbA1C 10.5 (06/13/16) CPK () Cholesterol 151 mg/dL Phosphorus WBC 5.70 (06/14/16) AST 15 /ALT 21 (06/13/16) HDL 34 mg/dL Magnesium 1.9 mg/dL PLT 160 (06/14/16) Tropinin () LDL 89 mg/dL Creatinine 0.84 mg/dL INR 1.0 (06/12/16) Albumin 4.2 (06/13/16) BUN 14 mg/dL Ur MAB/Cr () CrCl 0.74 ml/min Impression and Plan 66 yo M with h/o HTN, DM, HLD, h/o MA 8 yrs ago presented with chest pain: Chest pain - DDx: ACS (UA/NSTEMI) vs GERD vs musculoskeletal - EKG no ST-T changes and troponins negative x3 - PATRICK risk score of 97 which is low. - 1.2% risk of mortality in current admission - 3.2-3.5% risk of mortality in 6 months - 6.8% risk of MA or in 1 yr - TYE risk score of 2 which suggests 8% risk of all cause mortality/ new or recurrent MA/ severe recurrent ischemia, at 14 days - Pt has a h/o MA 8 yrs back (likely NSTEMI). He does have strong family h/o CAD. He also has not had a recent stress test or cardiology follow up since MA. - Continue coreg, atorvastatin, ezetimibe - Coreg held this morning for stress test today - Continue PPI and his pain meds - NTG PRN for chest pain Pedal edema - Likely from rt heart failure (? 2/2 KOLBY) vs venous insufficiency vs less likely hypothyroidism/renal problems - Echo to evaluate cardiac function, results pending. - TSH elevated at 10.56 but T4 wnl; increased levothyroxine to 200 mcg daily Subclinical hypothyroidism - TSH elevated at 10.56 but T4 wnl; increased levothyroxine dose to 200 mcg daily Suspected sleep apnea - Will need outpatient sleep study Benign essential hypertension - Continue home meds: coreg, amlodipine, HCTZ, Type 2 diabetes, uncontrolled - HbA1c 10.5 - Continue home insulin: Humalog (changed from novalog) 10 U TIDAC and Lantus ( changed from levemir) 40 U qHS - SSI level 1 and accuchecks - Patient will need to follow up with PCP to adjust home regimen Dyslipidemia - Continue atorvastatin 10 mg qHS and ezetimibe 10 mg daily Asthma - Not in exacerbation - Continue symbicort while inpatient and duonebs q4h PRN Depression/Anxiety - Continue home meds: Sertrailne, buspirone, trazodone, OA bilateral knee s/p TKR s/p wound infection - Follows with his orthopedics in [place] - Continue pain meds: Percocet 10-325 2 tabs q6h PRN CODE: FULL Diet: cardiac/consistent carb DVT ppx: Heparin, SCDs IVF: none Antibiotics: None Disposition: pending stress test today Hernán Rivera MD PGY1 [phone] 06/14/2016 [facility] Point Of Care-Glucose Oper ID [id number] 06/14/2016 [facility] Point Of Care-Glucose Glucose POC 278 mg/dL 64 - 108 08/2016 [facility] Urinalysis UA Bacteria 3+ *ABN* (06/13/16 1:53 PM) 2015 [facility] Urine Drug Screen U Oxycodone Positive *NA* (06/13/16 1:53 PM) 2015 [facility] Student Note - Education Only Student Note - Education Only Patient: ESSIE LOPEZ Age: 66 years Sex: Male : 54 Associated Diagnoses: None Author: Cb Sena Discharge Information Date of Admission: Admitted 06/12/2016. Attending Physician: Lawson Mckeon Primary Service: Green Medicine. Discharge or Transfer Condition: At discharge. Services Provided in Hospital Procedures Order Profile (Selected) Inpatient Orders Ordered Echocardiogram Nurse Notification: Completed Perform EKG: Hospital Course Mr Lopez is a 66 yo M with a PMH of HTN, DM type 2, dyslipidemia, CAD with h/ o MA in 2007 (underwent cath, likely had 30-40% lesion per patient, no stents), asthma, depression, anxiety, OA s/p bilateral TKR with h/o hardware infection Rt knee (MSSA). He presents to the ED with complaints of chest pain which started this afternoon. His pain is retrosternal, started when he was resting and watching TV, 7/10 when it started and 3/10 now, pressure like sensation and felt like his previous MA, radiating along his left arm/forearm, lasted for 15 min and then resolved spontaneously but came back again after an hour and is persisting now even though it has decreased in intensity. This was associated with some SOB which the patient thinks is from his asthma. He was treated with symbicort. His EKG, troponins, and CXR were unremarkable. PATRICK score of 97 low , TYE score of 2 low. Aspirin, and NTG were given. TSH was elevated and treated with levothyroxine. A stress echo was completed Recommend sleep study done outpatient. Cb Sena MSV 06/13/2016 [facility] Chemistry Troponin-T null <=0.03 ng/mL 06/13/2016 [facility] Endocrinology Labs T4 Free 1.01 ng/dL 0.60 - 1.60 2015 [facility] Inpatient Progress Note Inpatient Progress Note Patient: ESSIE LOPEZ Age: 66 years Sex: Male : [birth year] Associated Diagnoses: None Author: Hernán Rivera Subjective Patient doing well this morning. No complaints. Denies chest pain since admission. He is from [place] and reports he does not have a PCP; also states he has not been on aspirin in the past. 10 point ROS completed and negative except as stated above. Health Status Allergies: Allergic Reactions (Selected) Severity Not Documented FentaNYL- No reactions were documented. Indocin- No reactions were documented. Morphine- No reactions were documented. Naproxen- No reactions were documented. Tape- No reactions were documented. Toradol- No reactions were documented. Objective VS/Measurements Vital Signs 06/13/16 05:00 Temperature Oral 98.2 DegF Heart Rate 55 bpm LOW Resp. Rate 17 BRMIN Systolic BP 125 mmHg Diastolic BP 75 mmHg Mean Arterial Pressure 92 mmHg BP Site Left Arm Cuff Size Adult Long Cuff Oxygen Saturation 94 % Oxygen Therapy Room air General: Alert and oriented, No acute distress. Eye: Pupils are equal, round and reactive to light, Extraocular movements are intact, Normal conjunctiva. HENT: Normocephalic, Normal hearing, Oral mucosa is moist. Respiratory: Lungs are clear to auscultation, Respirations are non-labored, Breath sounds are equal. Cardiovascular: Normal rate, Regular rhythm, No murmur, 1+ pitting peripheral edema. Gastrointestinal: Soft, Non-tender, Non-distended, Normal bowel sounds. Integumentary: Warm, Dry. Neurologic: Alert, Oriented, No focal defects. Results Review Last Vital Signs 06/13/16 04:55:48 Heart Rate 53 bpm Respiratory Rate 14 BRMIN 98.2 DegF BP Primary (Left Arm) 125/75 BP Optional () / Height 177.5 cm Weight 155.5 kg BMI 49.4 kg/m2 Last Lab Results BMP: (Date 06/13/16 ) Hematology Tests: (Date) Others: (Date) Lipid Profile: ( Date 06/13/16) Sodium 138 mmol/L Hgb 12.1 (06/13/16) TSH 10.79 (06/13/16) Triglycerides 140 mg/ dL Potassium 3.5 mmol/L HgbA1C 10.5 (06/13/16) CPK () Cholesterol 151 mg/dL Phosphorus WBC 6.30 (06/13/16) AST 15 /ALT 21 (06/13/16) HDL 34 mg/dL Magnesium 1.9 mg/dL PLT 147 (06/13/16) Tropinin () LDL 89 mg/dL Creatinine 0.74 mg/dL INR 1.0 (06/12/16) Albumin 4.2 (06/13/16) BUN 12 mg/dL Ur MAB/Cr () CrCl 103.74 ml/min Impression and Plan 66 yo M with h/o HTN, DM, HLD, h/o MA 8 yrs ago presented with chest pain: Chest pain - DDx: ACS (UA/NSTEMI) vs GERD vs musculoskeletal - EKG no ST-T changes and troponins negative x3 - PATRICK risk score of 97 which is low. - 1.2% risk of mortality in current admission - 3.2-3.5% risk of mortality in 6 months - 6.8% risk of MA or in 1 yr - TYE risk score of 2 which suggests 8% risk of all cause mortality/ new or recurrent MA/ severe recurrent ischemia, at 14 days - Pt has a h/o MA 8 yrs back (likely NSTEMI). He does have strong family h/o CAD. He also has not had a recent stress test or cardiology follow up since MA. - Will plan for stress echo tomorrow - Continue coreg, atorvastatin, ezetimibe - Hold coreg tomorrow morning for stress test - Continue PPI and his pain meds - NTG PRN for chest pain Pedal edema - Likely from rt heart failure (? 2/2 KOLBY) vs venous insufficiency vs less likely hypothyroidism/renal problems - Echo to evaluate cardiac function. - TSH elevated at 10.56 but T4 wnl; will start levothyroxine 100 mcg daily Subclinical hypothyroidism - TSH elevated at 10.56 but T4 wnl; will start levothyroxine 100 mcg daily Suspected sleep apnea - Will need outpatient sleep study Benign essential hypertension - Continue home meds: coreg, amlodipine, HCTZ, Type 2 diabetes, uncontrolled - HbA1c 10.5 - Continue home insulin: Humalog (changed from novalog) 10 U TIDAC and Lantus ( changed from levemir) 40 U qHS - SSI level 1 and accuchecks - Will adjust insulin doses after one full day of hospitalization but ultimately patient will need follow up with a PCP as an outpatient for optimization Dyslipidemia - Continue atorvastatin 10 mg qHS and ezetimibe 10 mg daily Asthma - Not in exacerbation - Continue symbicort while inpatient and duonebs q4h PRN Depression/Anxiety - Continue home meds: Sertrailne, buspirone, trazodone, OA bilateral knee s/p TKR s/p wound infection - Follows with his orthopedics in [place] - Continue pain meds: Percocet 10-325 2 tabs q6h PRN CODE: FULL Diet: cardiac/consistent carb DVT ppx: Heparin, SCDs IVF: none Antibiotics: None Disposition: pending stress test tomorrow Hernán Rivera MD PGY1 [phone] I agree with the above documentation. 06/13/2016 [facility] Chemistry ALBUMIN 4.2 g/dL 3.5 - 4.8 06/13/2016 [facility] Endocrinology Labs HGB A1C 10.5 % 4.6 - 6.2 06/13/2016 [facility] Hematology [place] % 7.9 % 1.0 - 9.0 06/13/2016 [facility] Chemistry Troponin-T null <=0.03 ng/mL 06/13/2016 [facility] Chemistry Pro B-Type Natriuretic Peptide 9 pg/mL 2015 [facility] Coagulation APTT 33.9 s 24.0 - 36.5 06/12/2016 [facility] Hematology WBC 6.30 10^3/cmm 4.30 - [id number] 06/12/2016 [facility] Point Of Care-Glucose Oper ID [id number] 06/12/2016 [facility] History and Physical History and Physical Patient: ESSIE LOPEZ Age: 66 years Sex: Male : [birth year] Associated Diagnoses: None Author: Paloma Sweeney Visit Information Visit type: New symptom. Accompanied by: Family member. Source of history: Self, Family member. Referral source: Emergency department. History limitation: None. Chief Complaint Chest pain x 4 hrs History of Present Illness Mr Lopez is a 66 yo M with a PMH of HTN, DM type 2, dyslipidemia, CAD with h/ o MA in 2007 (underwent cath, likely had 30-40% lesion per patient, no stents), asthma, depression, anxiety, OA s/p bilateral TKR with h/o hardware infection Rt knee (MSSA). He presents to the ED with complaints of chest pain which started this afternoon. His pain is retrosternal, started when he was resting and watching TV, 7/10 when it started and 3/10 now, pressure like sensation and felt like his previous MA, radiating along his left arm/forearm, lasted for 15 min and then resolved spontaneously but came back again after an hour and is persisting now even though it has decreased in intensity. This was associated with some SOB which the patient thinks is from his asthma. He denies any palpitations, syncope, dizziness, easy fatiguability. He thinks that his leg swellling is getting worse. He denies any nausea, vomiting, pain abdomen, urinary problems. Pt gives h/o snoring at night and waking up in morning with headaches. Per daughter she has heard him on oneor two occasions where he stops breathing for some time. Patient is from [place] and is visiting his daughter and friends here. He last saw a physician 3 months ago. He is not on aspirin as he takes NSAIDs for his knee pain. PMH: HTN, DM type 2, dyslipidemia, CAD with h/o MA in 2007 (underwent cath, likely had 30-40% lesion per patient, no stents), asthma, depression, anxiety, OA s/p bilateral TKR with h/o hardware infection Rt knee (MSSA) PSH: TKS, foot surgery for fracture Allergies: Morphine, fentanyl (vomiting), paper tape (rash), naproxen/toradol/ indomethacin (vomiting) Meds: As below FH: Significant family history of CAD in mom (diagnosed in her 50s), dad ( diagnosed in his 50s), brothers, uncles. DM, HTN and stroke in family. SH: Denies tobacco use, quit alcohol 25 yrs ago, denies any drug use. Visiting his daughter here from [place]. Review of Systems Constitutional: No fever, No chills. Eye: No recent visual problem. Ear/Nose/Mouth/Throat: No decreased hearing, No sore throat. Respiratory: Shortness of air, No cough, No sputum production, No hemoptysis. Cardiovascular: Peripheral edema, No tachycardia, No syncope. Chest pain: Midsternal. Gastrointestinal: No nausea, No vomiting, No diarrhea, No constipation, No heartburn, No abdominal pain. Genitourinary: No dysuria. Hematology/Lymphatics: No bruising tendency, No bleeding tendency. Endocrine: No excessive thirst, No polyuria, No cold intolerance, No heat intolerance, No excessive hunger. Immunologic: No recurrent fevers. Musculoskeletal: Joint pain. Integumentary: No rash. Neurologic: Alert and oriented X4, No confusion, No numbness, No tingling, No headache. Psychiatric: Anxiety, Depression, Not suicidal. Health Status Allergies: Allergic Reactions (Selected) Severity Not Documented FentaNYL- No reactions were documented. Indocin- No reactions were documented. Morphine- No reactions were documented. Naproxen- No reactions were documented. Tape- No reactions were documented. Toradol- No reactions were documented. Current medications: (Selected) Inpatient Medications Ordered Normal Saline Flush: 10 mL, IVPush, As Needed, PRN: Flush Documented Medications Documented Dulera 100 mcg-5 mcg/inh inhalation aerosol: 2 puff, Inhalation, BID, 13 gm, 0 Refill(s) HCTZ: PO, Daily, 0 Refill(s) Levemir: Subcutaneous, 0 Refill(s) NovoLog: Subcutaneous, TIDAC, 0 Refill(s) Percocet-10/325 oral tablet: 2 tab, PO, Q6H, PRN: for pain, 0 Refill(s) Zetia 10 mg oral tablet: 10 mg, 1 tab, PO, Daily, 30 tab, 0 Refill(s) Zyrtec: Daily, 0 Refill(s) albuterol-ipratropium 3 mg-0.5 mg/3 ml inhalation solution: 3 mL, Inhalation, four times per day, 30 EA, 0 Refill(s) amlodipine: PO, Daily, 0 Refill(s) atorvastatin: PO, QHS, 0 Refill(s) buspirone 10 mg oral tablet: 10 mg, 1 tab, PO, TID, 270 tab, 0 Refill(s) carvedilol 25 mg oral tablet: 25 mg, 1 tab, PO, BID, 60 tab, 0 Refill(s) hydroxyzine hydrochloride 25 mg oral tablet: 25 mg, 1 tab, PO, Daily, 30 tab, 0 Refill(s) meloxicam 15 mg oral tablet: 15 mg, 1 tab, PO, Daily, 30 tab, 0 Refill(s) montelukast 10 mg oral tablet: 10 mg, 1 tab, PO, QPM, 30 tab, 0 Refill(s) omeprazole 20 mg oral enteric coated capsule: 20 mg, 1 cap, PO, BID, 60 cap, 3 Refill(s) sertraline: PO, Daily, 0 Refill(s) trazodone 50 mg oral tablet: 50 mg, 1 tab, PO, QHS, 30 tab, 0 Refill(s) Problem list: All Problems Obesity, unspecified / E66.9 / Confirmed Histories Family History: No family history items have been selected or recorded. Procedure history: No active procedure history items have been selected or recorded. Social History No Data Available . Physical Examination VS/Measurements Vital Signs 06/12/16 14:42 Temperature Route Oral Temperature Oral 98.0 DegF Heart Rate 66 bpm Resp. Rate 18 BRMIN Systolic BP 120 mmHg Diastolic BP 71 mmHg Oxygen Saturation 93 % Oxygen Therapy Room air , Bariatric Measurements : Bariatric View 06/12/16 14:42 Weight 152 kg Height 177.5 cm Body Mass Index 48.2 kg/m2 , Measurements from flowsheet : Weights and Measurements 06/12/16 14:42 Weight 152 kg Height 177.5 cm Body Mass Index 48.2 kg/m2 Weight Obtained Stated Weight General: Alert and oriented, No acute distress. Eye: Pupils are equal, round and reactive to light. HENT: Normocephalic. Neck: Supple, No carotid bruit, No jugular venous distention, No thyromegaly. Respiratory: Lungs are clear to auscultation, Respirations are non-labored, Breath sounds are equal. Cardiovascular: Normal rate, Regular rhythm, No murmur, 2+ edema. Gastrointestinal: Soft, Non-tender, Non-distended, Normal bowel sounds. Genitourinary: No costovertebral angle tenderness. Musculoskeletal s/p TKR bilateral. Small ulceration over Rt knee. . Integumentary: Warm. Neurologic: Alert, Oriented, No focal defects. Cognition and Speech: Oriented. Health Maintenance Health Maintenance Pending (in the next year) OverDue Immunization - Influenza due 05/03/16 and every 1 yr Due Immunization - Tetanus due 06/12/16 and every 10 yr Immunization - Zoster due 06/12/16 One-time only Screening - Colorectal Cancer due 06/12/16 Variable frequency Screening - Depression due 06/12/16 Variable frequency Screening - HIV due 06/12/16 One-time only Satisfied (in the past 1 year) Satisfied Screening - Diabetes on 06/12/16. Satisfied by SYSTEM Review / Management Results review: Lab results 06/12/16 15:02 Sodium 138 mmol/L Potassium 4.0 mmol/L Chloride 97 mmol/L CO2 25 mmol/L Anion Gap 16 mmol/L GLUCOSE 222 mg/dL HI BUN 16 mg/dL Creatinine 0.78 mg/dL LOW BUN/CREA RATIO 20.5 HI GFR -Niuean >90 mL/min/1.73m2 GFR Non -Niuean >90 mL/min/1.73m2 CALCIUM 9.1 mg/dL CALC. OSMO 294 mOsm/kg MAGNESIUM 1.9 mg/dL Pro B-Type Natriuretic Peptide 9 pg/mL NA Troponin-T <0.01 ng/mL 3/cmm 6/cmm Hemoglobin 11.9 g/dL LOW Hematocrit 36.8 % LOW MCV 76.5 FL LOW MCH 24.6 PG LOW MCHC 32.2 g/dL 3/cmm MPV 8.7 FL RDW 16.6 % HI Gran % 68.7 % Lymph % 19.2 % LOW [place] % 7.7 % Eos % 3.5 % Baso % 0.9 % 3/cmm 3/cmm 3/cmm 3/cmm 3/cmm NRBC Auto 0.0 /100WBC NA PROTHROMBIN 10.6 sec INR 1.0 NA APTT 33.9 sec 06/12/16 14:39 GLUCOSE 255 mg/dL HI Oper ID [id number] . XR chest Impression: Low lung volume. Bibasilar subsegmental atelectasis. No consolidation. EKG: Rate 66 bpm, normal sinus rhythm, left axis deviation, normal durations and intervals, left anterior fascicular block, no evidence of chamber enlargement, no ST-T changes Impression and Plan 66 yo M with h/o HTN, DM, HLD, h/o MA 8 yrs ago presented with chest pain: Chest pain - DDx: ACS (UA/NSTEMI) vs GERD vs musculoskeletal - Vitals stable, EKG no ST-T changes and trop x 1 negative - PATRICK risk score of 97 which is low. - 1.2% risk of mortality in current admission - 3.2-3.5% risk of mortality in 6 months - 6.8% risk of MA or in 1 yr - TYE risk score of 2 which suggests 8% risk of all cause mortality/ new or recurrent MA/ severe recurrent ischemia, at 14 days - Pt has a h/o MA 8 yrs back (likely NSTEMI). He does have strong family h/o CAD. Based on the risk scores and these history, he needs admission to rule out ACS. He will need an ischemic eval with either stress echo/MPI as outpatient. - Pt received 324 mg ASA in ED - Will do serial EKGs and trend trops - Will risk stratify with A1c, TSH and lipid panel - Will continue coreg, atorvastatin, ezetimibe - Will also continue PPI and his pain meds - NTG PRN for chest pain Pedal edema - Likely from rt heart failure (? 2/2 KOLBY) vs venous insufficiency vs less likely hypothyroidism/renal problems - Will get echo to evaluate cardiac function. Will also check TSH, UA for proteinuria Suspected sleep apnea - Pt will need outpatient sleep study Benign essential hypertension - BP normal in ED - Will continue home meds: coreg, amlodipine, HCTZ, Type 2 diabetes - Will check A1c - Will continue home insulin: Humalog (changed from novalog) 10 U TIDAC and Lantus (changed from levemir) 40 U qHS - SSI level 1 Dyslipidemia - Will continue atorvastatin 10 mg qHS and ezetimibe 10 mg daily Asthma - Not in exacerbation - Will change his home dulera to symbicort while he is inpatient. Will add duonebs q4h PRN Depression/Anxiety - Will continue home meds : Sertrailne, buspirone, trazodone, OA bilateral knee s/p TKR s/p wound infection - Follows with his orthopedician in [place] - Continue pain meds: Percocet 10 q4h PRN CODE: FULL Diet: cardiac/consistent carb DVT ppx: Heparin, SCDs IVFluids: none Abx: None Nicotine replacement: Not required as patient does not smoke Paloma Sweeney MD PGY2 Internal medicine [phone] 06/12/2016 [facility] XR Chest 2 Views [id number] XR Chest 2 Views [id number] Name: ESSIE LOPEZ Diagnostic Radiology Accession Number Exam Exam Date/Time Ordering Physician [id number] XR Chest 2 Views 06/12/2016 16:55 CDT Peter Prieto Prasad CPT code 85563 Reason For Exam (XR Chest 2 Views) chest pain Report XR Chest 2 Views [id number] Reason for exam: chest pain Comparison: None. Findings: Low lung volume. Bibasilar subsegmental atelectasis. No consolidation. No pleural effusion or pneumothorax. Normal cardiac size. Tortuous and atherosclerotic thoracic aorta. Mild multilevel degenerative changes of the spine. No acute osseous abnormality. Impression: Low lung volume. Bibasilar subsegmental atelectasis. No consolidation. Dr. Thony Dawson and the staff radiologist have jointly reviewed and interpreted the above examination. Final Report Dictating Physician: Thony Dawson Resident Physician: Thony Dawson ELECTRONIC SIGNATURE Signed: 06.13.2016 13:51 Signed by: Antelmo Bass M.D. Technologist: Jackie Parsons RT(R)(CT),Bertha Mcgraw RT(R)(CT) 06/12/2016 [facility] ED Note - Provider ED Note - Provider Patient: ESSIE LOPEZ Age: 66 years Sex: Male : [birth year] Associated Diagnoses: None Author: Tyson Rosales Basic Information History source: Patient. History limitation: None. Additional information: Chief Complaint from Nursing Triage Note : Chief Complaint 06/12/16 14:42 Chief Complaint PT C/O CHEST PAIN THAT RADIATES DOWN LEFT ARM, DIAPHORESIS. . 1500 Provider in Triage Evaluation CC: _Chest pain x 1/2 hr ago HPI: _While sitting and watching TV, developed pressure-type chest pain with nausea and sob. But has sob always due to asthma. Radiates to Left arm. Diaphoresis +. No leg pain. Had MA 8 yrs ago. Pain better now. PE: _Lungs - CTA(b), no r,r,w; Heart - S1S2, no m,r,g; LEs - NT calf, no pitting edema. Impression: _ Orders: _EKG, CXR, labs ordered Disposition: _ History of Present Illness 52-year-old male with past medical history significant for MA 8 years ago (no stents placed ) as well as diabetes, hypertension, dyslipidemia, who is from [place] currently here visiting friends presents to ER chief complaint of chest pain that he describes as a pressure-like sensation that is midsternal radiating down his left arm which began approximately 30 minutes prior to arrival all he was sitting on the couch watching TV. He notes that this pain is similar to his previous MA. Pain is nonpositional, nonpleuritic, nonexertional. He has not taken any medications at home. He denies any numbness, tingling, weakness, nausea, vomiting, abdominal pain. Review of Systems Constitutional symptoms: Negative except as documented in HPI. Skin symptoms: Negative except as documented in HPI. Eye symptoms: Negative except as documented in HPI. Respiratory symptoms: Negative except as documented in HPI. Cardiovascular symptoms: Negative except as documented in HPI. Gastrointestinal symptoms: Negative except as documented in HPI. Genitourinary symptoms: Negative except as documented in HPI. Musculoskeletal symptoms: Negative except as documented in HPI. Neurologic symptoms: Negative except as documented in HPI. Psychiatric symptoms: Negative except as documented in HPI. Health Status Allergies: Allergic Reactions (Selected) Severity Not Documented FentaNYL- No reactions were documented. Indocin- No reactions were documented. Morphine- No reactions were documented. Naproxen- No reactions were documented. Tape- No reactions were documented. Toradol- No reactions were documented.. Past Medical/ Family/ Social History PMH: MA in 2007, DM, HTN, DLD PSH: R total knee 1 year ago Tobacco: denies Alcohol: denies Drugs: denies Physical Examination Vital Signs Vital Signs 06/12/16 14:42 Temperature Route Oral Temperature Oral 98.0 DegF Heart Rate 66 bpm Resp. Rate 18 BRMIN Systolic BP 120 mmHg Diastolic BP 71 mmHg Oxygen Saturation 93 % Oxygen Therapy Room air . Weights and Measurements 06/12/16 14:42 Weight 152 kg Height 177.5 cm Body Mass Index 48.2 kg/m2 Weight Obtained Stated Weight . Oxygen Saturation 06/12/16 14:42 Oxygen Saturation 93 % . General: Alert, no acute distress. Skin: Warm, dry, intact. Head: Normocephalic, atraumatic. Neck: Supple, trachea midline, no JVD. Eye: Pupils are equal, round and reactive to light, extraocular movements are intact, normal conjunctiva. Ears, nose, mouth and throat: Oral mucosa moist, no pharyngeal erythema or exudate. Cardiovascular: Regular rate and rhythm, No murmur. Respiratory: Lungs are clear to auscultation, respirations are non-labored, breath sounds are equal, Symmetrical chest wall expansion. Gastrointestinal: Soft, Nontender, Non distended, Normal bowel sounds, No organomegaly, obese abdomen. Back: Normal range of motion, Normal alignment, no step-offs. Neurological: Alert and oriented to person, place, time, and situation, No focal neurological deficit observed, CN II-XII intact, normal sensory observed, normal motor observed, normal speech observed, normal coordination observed. Medical Decision Making Documents reviewed: Emergency department nurses' notes, emergency department records, prior records. Orders Launch Orders Laboratory: PT/APTT (Order): Stat, 06/12/16 14:59, Blood, Nurse Collect BNP (Order): Stat, ST, 06/12/16 14:59, Blood Troponin-T (Order): Stat, 06/12/16 14:59, Blood, Nurse Collect Magnesium level (Order): Stat, 06/12/16 14:59, Blood, Nurse Collect BMP (Order): Stat, 06/12/16 14:59, Blood, Nurse Collect CBC w/auto diff (Order): Stat, 06/12/16 14:59, Blood, Nurse Collect Radiology: XR Chest 2 Views [id number] (Order): Stat, 06/12/16 14:59, chest pain, ED Location Triage/Lobby, Launch Orders Dietary: Diet Order (Order): 06/12/16 17:35, NPO (Nothing by Mouth), Except Meds Patient Care: Chest Pain, AMI Quality Measures (Order): 06/12/16 17:35 Blood Pressure (Order): 06/12/16 17:35, ONCE, Manual blood pressure in both arms Peripheral IV Insertion (Order): 06/12/16 17:35 Oxygen Non-RT (Order): Routine, 06/12/16 17:35, 2, Minimum Pulse Ox (%): 96, Nasal Cannula, Titrate to oxygen saturation greater than 95%. Use non- rebreather mask if oxygen saturation is less than 90%., Constant Indicator O2 Sat Nursing (Order): 06/12/16 17:35 Geospatial Program Management Officer (Order): 06/12/16 17:35 Pharmacy: aspirin (Order): 324 mg, Chewed, ONCE . Results review: Lab results : All Laboratory 06/12/16 15:02 Sodium 138 mmol/L Potassium 4.0 mmol/L Chloride 97 mmol/L CO2 25 mmol/L Anion Gap 16 mmol/L Glucose 222 mg/dL HI BUN 16 mg/dL Creatinine 0.78 mg/dL LOW BUN/Creat Ratio 20.5 HI GFR -Niuean >90 mL/min/1.73m2 GFR Non -Ni[place]an >90 mL/min/1.73m2 Calcium 9.1 mg/dL Osmo (Calc) 294 mOsm/kg Magnesium 1.9 mg/dL Pro B-Type Natriuretic Peptide 9 pg/mL NA Troponin-T <0.01 ng/mL 3/cmm 6/cmm Hemoglobin 11.9 g/dL LOW Hematocrit 36.8 % LOW MCV 76.5 FL LOW MCH 24.6 PG LOW MCHC 32.2 g/dL 3/cmm MPV 8.7 FL RDW 16.6 % HI Gran % 68.7 % Lymph % 19.2 % LOW [place] % 7.7 % Eos % 3.5 % Baso % 0.9 % 3/cmm 3/cmm 3/cmm 3/cmm 3/cmm NRBC Auto 0.0 /100WBC NA Protime 10.6 sec INR 1.0 NA APTT 33.9 sec 06/12/16 14:39 Glucose POC 255 mg/dL HI Road Tester ID [id number] . Chest X-Ray: No acute disease process, interpretation by Emergency Physician, Impression: Low lung volume. Bibasilar subsegmental atelectasis. No consolidation. Dr. Thony Dawson . Reexamination/ Reevaluation Time: 06/12/16 17:43:00 . Assessment: Labs and diagnostic studies as above. These results have been discussed with the patient. Plan to admit to medicine for further evaluation. Medicine [facility] has been consulted and will accept admission. This plan has been discussed with the patient who verbalizes agreement and understanding. . Time: 06/12/16 18:44:00 . Assessment: BRITTNY to inpatient medicine team. Tyson Rosales MD Emergency Medicine PGY-2 . Impression and Plan Other chest pain (LRL27-OB R07.89) CAD Plan Condition: Improved. Disposition: Admit: Time 06/12/16 18:44:00, to Inpatient Unit. Counseled: Patient, Regarding diagnosis, Regarding diagnostic results, Regarding treatment plan, Regarding prescription, Patient indicated understanding of instructions. Attending Attestation Teaching-Supervisory Addendum I participated in the following activities of this patients care: the medical history, the physical exam, medical decision making. I personally performed: supervision of the patient's care, the medical history, the physical exam, the medical decision making. The case was discussed with: the resident. Results interpretation: I agree with the study interpretation in this patient's care. pt here [facility] , hx of CAD- states MA in 2007, no intervention. notes l sided cp starting at rest today that was similar to prior MA, minmal pain now. vitals noted, On exam, afebrile, non toxic, VSS. CTA B, RRR, no edema, ecg - no acute findings, trop neg, however given multiple risks and hx of MA will admit for ACS r/o Attending Signature: Gabi Bhandari Attending Physical Exam Vital Signs Vital Signs 06/12/16 14:42 Temperature Route Oral Temperature Oral 98.0 DegF Heart Rate 66 bpm Resp. Rate 18 BRMIN Systolic BP 120 mmHg Diastolic BP 71 mmHg Oxygen Saturation 93 % Oxygen Therapy Room air . Weights and Measurements 06/12/16 14:42 Weight 152 kg Height 177.5 cm Body Mass Index 48.2 kg/m2 Weight Obtained Stated Weight . Oxygen Saturation 06/12/16 14:42 Oxygen Saturation 93 % . 06/12/2016 [facility] Vital Signs Vital Sign Value Date Comments Source Oxygen Saturation 94 % 2015 [facility] Resp. Rate 16 BRMIN 2015 [facility] Heart Rate 80 bpm 06/14/2016 [facility] Systolic BP 136 mmHg 2015 [facility] Diastolic BP 88 mmHg 2015 [facility] Oxygen Therapy Room air
</br>(06/14/16 12:26 PM) 06/14/2016 [facility] Oxygen Saturation 94 % 2015 [facility] Temperature Oral 97.5 [degF] 06/14/2016 [facility] Heart Rate 78 bpm 06/14/2016 [facility] Resp. Rate 16 BRMIN 2015 [facility] Systolic BP 133 mmHg 2015 [facility] Diastolic BP 84 mmHg 2015 [facility] Oxygen Therapy Room air
</br>(06/14/16 8:58 AM) 06/14/2016 [facility] Temperature Oral 97.5 [degF] 06/14/2016 [facility] Resp. Rate 17 BRMIN 2015 [facility] Oxygen Saturation 97 % 2015 [facility] Oxygen Therapy Room air
</br>(06/14/16 6:00 AM) 06/14/2016 [facility] Mean Arterial Pressure 97 mmHg 06/14/2016 [facility] Temperature Oral 98.5 [degF] 06/14/2016 [facility] Systolic BP 135 mmHg 2015 [facility] Diastolic BP 78 mmHg 2015 [facility] Mean Arterial Pressure 105 mmHg 06/14/2016 [facility] Cuff Size Adult Long Cuff
</br>(06/14/16 12:00 AM ) 06/14/2016 [facility] BP Site Right Arm
</br>(06/14/16 12:00 AM) 06/14/2016 [facility] Mean Arterial Pressure 112 mmHg 06/14/2016 [facility] Cuff Size Adult Long Cuff
</br>(06/13/16 8:00 PM) 06/14/2016 [facility] BP Site Right Arm
</br>(06/13/16 8:00 PM) 06/14/2016 [facility] Cuff Size Adult Long Cuff
</br>(06/13/16 4:42 PM) 06/13/2016 [facility] BP Site Right Arm
</br>(06/13/16 4:42 PM) 06/13/2016 [facility] Temperature Temporal Artery 97.2 [degF] 06/13/2016 [facility] Temperature Temporal Artery 98.5 [degF] 06/13/2016 [facility] Mean Arterial Pressure 85 mmHg 06/12/2016 [facility] Systolic BP 115 mmHg 2015 [facility] Diastolic BP 70 mmHg 2015 [facility] Heart Rate 77 bpm 06/12/2016 [facility] Oxygen Therapy Room air
</br>(06/12/16 6:19 PM) 06/12/2016 [facility] Oxygen Saturation 96 % 2015 [facility] Resp. Rate 20 BRMIN 2015 [facility] Heart Rate 66 bpm 06/12/2016 [facility] Resp. Rate 18 BRMIN 2015 [facility] Oxygen Saturation 93 % 2015 [facility] Systolic BP 120 mmHg 2015 [facility] Diastolic BP 71 mmHg 2015 [facility] Temperature Oral 98.0 [degF] 06/12/2016 [facility] Temperature Route Oral
</br>(06/12/16 2:42 PM) 06/12/2016 [facility] Oxygen Therapy Room air
</br>(06/12/16 2:42 PM) 06/12/2016 [facility] Encounters Location Location Details Encounter Type Encounter Number Reason For Visit Attending Provider ADM Date DC Date Status Source [facility] Emergency [id number] Fátima Bhandari 06/12/2016 06/13/2016 [facility] OBSERVATION [id number] Lawson Mckeon 201506/14/2016 [facility] [id number] Inpatient [id number] Jane Everardo 07/08/2016 07/10/2016 Active Randolph MD[facility] Procedures Procedure Code Date Perfomer Comments Source No data available for this section [facility] Echo [facility] Nuc Stress test [facility] Plan of Care Social History Assessment and Plan Date Assessment and Plan Source Author:Rani Mistry Title:ED Discharge Instructions Date:06/12/[address] [address] Emergency Department [phone] Emergency Department Discharge Instructions Name : ESSIE LOPEZ Visit Date: 06/12/2016 2:37 PM Reason For Visit: Headache; Chest pain; CP Case Management Discharge: [employer] Discharge Form Disposition: Admitted Admission Type: Med/Tele Admission Transport Mode: Wheelchair Inpatient Room Number: 228 Acuity at Disposition: Stable Diagnosis: chest pain Vital Signs Assessed: Recently assessed Pain Assessed: Recently assessed ED IV Discontinuation: No Valuables and Belongings v1 Valuables/Belongings Check On: Arrival Valuables and Belongings Admit/DC Clothing: With patient Weapons Declared (Valuables/Belongings): No Comment: Emergency Department Care Providers: Thank you for the opportunity to provide your emergency medical care. It is important that you understand that emergency medical services are not a substitute for complete medical care. For your protection, make arrangements to see the doctor indicated below. All smokers are encouraged to stop smoking. If you would like help, talk to your doctor or call The [place] Tobacco Quitline at 3-242-YZRVNOW (3-234-114- 3206). If you have thoughts about committing suicide or otherwise hurting yourself, please call 791 or call Crisis Line at . If your primary care provider is a [facility] physician or you would like to establish care at [facility] please call [phone] to schedule an appointment. If you are a new patient you may have to wait up to 60 days for a scheduled appointment. If you need to establish care sooner, you may want to look for other options. PAYMENT GUIDELINES FOR [facility] PATIENTS: [facility] now requires all self-pay and partial [facility] discount patients to make a down payment before receiving non-emergency care. In most cases, your down payment will be 25 percent of your charges. If you currently receive a 100% [facility] discount , these new guidelines do not apply to you. We accept puente, check, Visa and MasterCard. If you are a self-pay patient and would like to discuss discounted services or Medicaid, please contact [facility] at [phone]. Remember: at the time of your appointment, you must present a photo ID as well as your insurance card or the required down payment, or your appointment will be rescheduled for another day. If you have commercial insurance and [facility] is not on your list of providers, please call your insurance company and make your follow-up appointment with your PCP or a provider who takes your insurance. ESSIE LOPEZ has been given the following list of patient education materials, prescriptions and follow-up instructions: Follow-up Instructions: Patient Education Materials : Prescription leaflets: Prescriptions : No Prescriptions given this visit Comment: Your Upcoming Appointments/Erin proximas citas Please bring all home medications to every visit with us at [facility]. Your safety and education around medications is our goal. (Prescription , non prescription and herbal supplements) Date Time Location Appointment Type Provider No Appointments found Future Orders Placed Today/ Ordenes de Doctor Order Name Details Ordering Provider EKG 12 Lead Requested Start Date/Time: 06/12/16 20:00:00 Cardiology Reason For Exam: Chest Pain 786.50 EKG Priority: Routine Future Order: No Schedule on Requested Date: No Stop Date/Time: 06/12/16 20:00:00 Paloma Sweeney EKG 12 Lead Requested Start Date/Time: 06/12/16 14:35:00 Cardiology Reason For Exam: Chest Pain 786.50 EKG Priority: Stat Future Order: No Schedule on Requested Date: No Stop Date/Time: 06/12/16 14:35:00 [facility], Protocol Major procedures/tests performed during your ED visit: Laboratory Orders Name Status Details APTT/PT Completed Stat, 06/12/16 14:59:00, Blood, 152 kg BMP Completed Stat, 06/12/16 14:59:00, Blood, 152 kg CBC Completed Stat, 06/12/16 14:59:00, Blood, 152 kg Mg level Completed Stat, 06/12/16 14:59:00, Blood, 152 kg POC Glu Completed Blood, Collected Y/N, 06/12/16 14:39:53, Stat, RT, 06/12/16 14:39:53 ProBNP Completed Stat, ST, 06/12/16 14:59:00, Blood Troponin-T Completed Stat, 06/12/16 14:59:00, Blood, 152 kg Radiology Orders Name Status Details XR Chest 2 Views [id number] Ordered Stat, 06/12/16 14:59:00, chest pain, ED Location Triage/Lobby [ ] (If checked) Do not drive or operate heavy machinery for 12 hours. The exam and treatment that you received today has been provided on an emergency basis only. If your problem worsens or new symptoms appear, contact your doctor or return to this facility for further care. YOU MUST MAKE A FOLLOW-UP APPOINTMENT IN THE CLINIC LISTED ABOVE TO RECEIVE YOUR TEST RESULTS! [facility] with [facility] Sign up today for [facility] for access to your health records 25/03. [employer] allows you to: Request an appointment Check your lab results Communicate with your providers and care team See provider notes from your visit View immunization records View current medication Sign up Today! Ask your healthcare provider or a [facility] associate for help, or email [email or web address]. [email or web address] JOHN Kaba DANIEL M, have received the attached patient education materials/ instructions and have verbalized understanding/Yo recibi educacion, materiales instrucciones de paciente y se me a explicado verbalmente para mi propia comprension: Patient/Guardian Signature Date Firma de paciente/guardian Fecha Witness Signature Date Firma de Testigo Fecha [facility] Author:Tyson Rosales Title:Chest Pain *ED Date:06/12/16 Impression and Plan Other chest pain (MQZ45-OR R07.89) CAD Plan Condition: Improved. Disposition: Admit: Time 06/12/16 18:44:00, to Inpatient Unit. Counseled: Patient, Regarding diagnosis, Regarding diagnostic results, Regarding treatment plan, Regarding prescription, Patient indicated understanding of instructions. [facility] Author:Hernán Rivera Title:Discharge Summary* ([facility]) Date:06/14/16 Patient: ESSIE LOPEZ Age: 66 years Sex: Male : 54 Associated Diagnoses: None Author: Hernán Rivera Discharge Information Date of Admission: Admitted 06/12/2016, 06/14/2016. Attending Physician: Lawson Mckeon Primary Service: Green Medicine. Primary Diagnosis present or suspected on admission: Chest pain - CZZ95-[id number] R07.9 Secondary Diagnosis present or suspected on admission: Benign essential hypertension - [id number] I10 Type 2 diabetes mellitus with hemoglobin A1c goal of less than 7.0% - [id number]-[id number] E11.9 Diagnosis aquired during hospitalization Subclinical hypothyroidism - BPU60-GP E03.9 Discharge or Transfer Condition: At discharge, Improved and stable. Disposition: Left AMA or Discontinued Care. Services Provided in Hospital Procedures Stress echo Allergies Allergic Reactions (Selected) Severity Not Documented FentaNYL- No reactions were documented. Indocin- No reactions were documented. Morphine- No reactions were documented. Naproxen- No reactions were documented. Tape- No reactions were documented. Toradol- No reactions were documented. Medications OTHER MEDICATIONS (Selected) Inpatient Medications Ordered Claritin: 10 mg, 1 tab, PO, Daily HCTZ: 25 mg, 1 tab, PO, Daily HumaLO Units, 0.1 mL, Subcutaneous, AC Insulin Sliding Scale 1: SLIDING SCALE, Subcutaneous, ACHS Levoxyl: 100 mcg, 1 tab, PO, ONCE Normal Saline 50 mL IVPB Flush: 25 mL, IVPush, As Needed, PRN: Flush Percocet 10/325: 2 tab, PO, Q6H, PRN: Pain Severe (7-10) Symbicort 160 mcg - 4.5 mcg inh: 2 puff, Inhalation, BID Zetia: 10 mg, 1 tab, PO, Daily albuterol-ipratropium: 3 mL, Nebulized, Q4H amlodipine: 10 mg, 1 tab, PO, Daily aspirin: 81 mg, 1 tab, Chewed, Daily atorvastatin: 10 mg, 1 tab, PO, QHS busPIRone: 10 mg, 1 tab, PO, TID carvedilol: 12.5 mg, 1 tab, PO, BID heparin: 5,000 Units, 1 mL, Subcutaneous, Q12H hydrOXYzine: 25 mg, 1 cap, PO, TID insulin glargine: 40 Units, 0.4 mL, Subcutaneous, QHS levothyroxine: 200 mcg, 1 tab, PO, Daily montelukast: 10 mg, 1 tab, PO, QPM pantoprazole: 40 mg, 1 tab, PO, Daily piroxicam: 20 mg, 2 cap, PO, Daily sertraline: 100 mg, 1 tab, PO, Daily trazodone: 100 mg, 2 tab, PO, QHS Prescriptions Prescribed Humalog 100 unit(s)/ml subcutaneous injection: 10 Units, 0.1 mL, Subcutaneous, AC, 9 mL, 1 Refill(s) levothyroxine 0.2 mg oral tablet: 200 mcg, 1 tab, PO, Daily, 30 tab, 0 Refill(s) Documented Medications Documented Dulera 100 mcg-5 mcg/inh inhalation aerosol: 2 puff, Inhalation, BID, 13 gm, 0 Refill(s) HCTZ: PO, Daily, 0 Refill(s) Levemir: Subcutaneous, 0 Refill(s) Percocet-10/325 oral tablet: 2 tab, PO, Q6H, PRN: for pain, 0 Refill(s) Zetia 10 mg oral tablet: 10 mg, 1 tab, PO, Daily, 30 tab, 0 Refill(s) Zyrtec: Daily, 0 Refill(s) albuterol-ipratropium 3 mg-0.5 mg/3 ml inhalation solution: 3 mL, Inhalation, four times per day, 30 EA, 0 Refill(s) amlodipine: PO, Daily, 0 Refill(s) aspirin 81 mg oral tablet, chewable: 81 mg, 1 tab, Chewed, Daily atorvastatin: PO, QHS, 0 Refill(s) buspirone 10 mg oral tablet: 10 mg, 1 tab, PO, TID, 270 tab, 0 Refill(s) carvedilol 25 mg oral tablet: 25 mg, 1 tab, PO, BID, 60 tab, 0 Refill(s) hydroxyzine hydrochloride 25 mg oral tablet: 25 mg, 1 tab, PO, Daily, 30 tab, 0 Refill(s) meloxicam 15 mg oral tablet: 15 mg, 1 tab, PO, Daily, 30 tab, 0 Refill(s) montelukast 10 mg oral tablet: 10 mg, 1 tab, PO, QPM, 30 tab, 0 Refill(s) omeprazole 20 mg oral enteric coated capsule: 20 mg, 1 cap, PO, BID, 60 cap, 3 Refill(s) sertraline: PO, Daily, 0 Refill(s) trazodone 50 mg oral tablet: 50 mg, 1 tab, PO, QHS, 30 tab, 0 Refill(s). Discharge Diet: Diet Type: Cardiac. Activity: Ambulate. Discharge Activity Level: Resume as tolerated. Patient may: Fred Méndez Shampoo. Hospital Course Patient is a 66 year old male with a PMH of type 2 diabetes mellitus, hypertension, hyperlipidemia, CAD with h/o MA in 2007 (underwent cath, likely had 30-40% lesion per patient, no stents) and asthma who presented to the ED on 06/12/16 with chest pain and peripheral edema. In the ED, EKG did not show any ST-T changes, first troponin was negative, and patient was given 325 mg of aspirin. Patient was His troponins were negative x4. Echocardiogram was done due to peripheral edema and showed a left ventricular EF of 50-55%, mild LV hypertrophy, and mild RV dilation. His risk stratification work up included TSH, HbA1c, and FLP. HbA1c returned as 10.5 Patient was continued on his home insulin for his diabetes and SSI with accuchecks. He was told that his insulin regimen would need to be adjusted as outpatient for better control. His TSH returned 10.56 and T4 1.04; patient denied any symptoms of hypothyroidism. He was started on levothyroxine for subclinical hypothyroidism. Patient was continued on his home statin. He was also started on aspirin 81 mg daily which he had not been on at home. Recommend patient be evaluated with an outpatient sleep study for KOLBY. Discussed thoroughly with patient the need for establishing a PCP in [place] as he will need a sleep study, repeat thyroid labs, and better control of his diabetes. He and his daughter acknowledged the importance of this. Also discussed that patient will need to take an 81 mg aspirin daily. Risks and benefits of leaving were discussed with patient and daughter as results of the stress test were not back at the time. Both acknowledged this and patient signed form to leave AMA. His stress echo returned shortly after patient left and was negative for ischemia. Medication changes: - Levothyroxine 200 mcg daily for subclinical hypothyroidism - Aspirin 81 mg daily Results pending at discharge: stress echo No follow up appointment was scheduled for patient as he was going straight home to [place] on discharge. Stressed importance of establishing care with a PCP. Hernán Rivera MD PGY1 [phone] I agree with the above documentation. Thanks, Jayesh Mckeon DO Addendum by Lawson Mckeon on June 14, 2016 20:08 [facility] Author:Hernán Rivera Title:Inpatient Clinical Summary Date:06/14/16 [facility] Patient Discharge Instructions Visit Information/Informacion de Visita Name/Nombre:ESSIE LOPEZ Date of /Fecha de Nacimiento: 1950 12:00 AM Current Date/Time/Fecha/Hora Actual: 06/14/16 13:36:46 Physicians/Medicos Clinic Provider/Proveedor de Clinica: Resident Provider: Paloma Sweeney Attending Provider: Lawson Mckeon Discharge Diagnosis/Diagnstico al ser dado de mauri: Benign essential hypertension; Chest pain; Subclinical hypothyroidism; Type 2 diabetes mellitus with hemoglobin A1c goal of less than 7.0% [facility] would like to thank you for allowing us to assist you with your healthcare needs. The following includes patient education materials and information regarding your injury/illness. [facility] quisieran agradecerle por permitirnos ayudarlo con erin necesidades sobre omer cuidado de kurt. A continuacin incluimos materiales para la educacin al paciente e informacin sobre omer candice/enfermedad. Medication List/Lista de Medicamentos Please take only the medications listed below/Por favor tome slo los medicamentos mostrados a continuacin Continue These Medications: acetaminophen-oxycodone (Percocet-10/325 oral tablet) 2 tab By Mouth Every 6 Hours as needed for for pain albuterol-ipratropium (albuterol-ipratropium 3 mg-0.5 mg/3 ml inhalation solution) 3 mL Inhalation four times per day amlodipine By Mouth daily aspirin (aspirin 81 mg oral tablet, chewable) 81 mg Chewed daily atorvastatin By Mouth at bedtime busPIRone (buspirone 10 mg oral tablet) 10 mg By Mouth 3 times per day carvedilol (carvedilol 25 mg oral tablet) 25 mg By Mouth twice per day cetirizine (Zyrtec) daily ezetimibe (Zetia 10 mg oral tablet) 10 mg By Mouth daily formoterol-mometasone (Dulera 100 mcg-5 mcg/inh inhalation aerosol) 2 puff Inhalation twice per day hydrochlorothiazide (HCTZ) By Mouth daily hydrOXYzine (hydroxyzine hydrochloride 25 mg oral tablet) 25 mg By Mouth daily insulin detemir (Levemir) SC meloxicam (meloxicam 15 mg oral tablet) 15 mg By Mouth daily montelukast (montelukast 10 mg oral tablet) 10 mg By Mouth every evening omeprazole (omeprazole 20 mg oral enteric coated capsule) 20 mg By Mouth twice per day 3 Refills sertraline By Mouth daily trazodone (trazodone 50 mg oral tablet) 50 mg By Mouth at bedtime Fill New Prescriptions: insulin lispro (Humalog 100 unit(s)/ml subcutaneous injection) 10 Units SC before meals 1 Refills levothyroxine (levothyroxine 0.2 mg oral tablet) 200 mcg By Mouth daily Please contact your primary care physician to discuss all medications. Por favor comunquese con omer doctor de cabecera para discutir todos erin medicamentos Additional Patient Information/Informacion Adicional del Paciente: Height: 5 ft 10 in Weight: 342 lb 13 oz Blood Pressure: 136/88 mmHg Future Orders Placed Today/Ordenes de Doctor Order Name Details Ordering Provider Discharge Patient Request Requested Start Date/Time: 06/14/16 13:36:00 Discharge Location: Left AMA Discharge Diet: Low Sodium Diet Discharge Activity: Frequent Rest Periods Hernán Rivera If you haven't been contacted for an appointment within two weeks, please call for [facility] or for [place]. Por favor llame al [facility] o [place] , en cristobal no lo hayan llamado dentro de dos semanas para darle kathy marek. Your Upcoming Appointments/Erin proximas citas Please bring all home medications to every visit with us at [facility]. Your safety and education around medications is our goal. (Prescription , non prescription and herbal supplements) Date Time Location Appointment Type Provider No Appointments found ESSIE LOPEZ has been given the following list of follow-up instructions, prescriptions, and patient education materials/ se le holloway dado la siguiente lista de instrucciones de seguimiento, recetas y materiales de educacin al paciente: Patient Follow-up Information/Informacion de seguimiento del paciente Prescription leaflets, if any, will display below/ Si hay algunas recetas, se mostrarn a continuacin Patient Instructions/Instrucciones para el Paciente All smokers are encouraged to stop smoking. If you would like help, talk to your doctor or call The [place] Tobacco Quitline at 0-667-VXDINOW (6-624-475- 8411). If you have thoughts about committing suicide or otherwise hurting yourself, please call 911 or call Crisis Line at . Take Charge of Your Health with [facility] Sign up today for [facility] for access to your health records 25/03. [facility] allows you to: Request an appointment Check your lab results Communicate with your providers and care team See provider notes from your visit View immunization records View current medication Sign up Today! Ask your healthcare provider or a [facility] associate for help, or email [email or web address]. [email or web address] Author:Hernán Rivera Title:Progress Note Date:06/14/16 Impression and Plan 66 yo M with h/o HTN, DM, HLD, h/o MA 8 yrs ago presented with chest pain: Chest pain - DDx: ACS (UA/NSTEMI) vs GERD vs musculoskeletal - EKG no ST-T changes and troponins negative x3 - PATRICK risk score of 97 which is low. - 1.2% risk of mortality in current admission - 3.2-3.5% risk of mortality in 6 months - 6.8% risk of MA or in 1 yr - TYE risk score of 2 which suggests 8% risk of all cause mortality/ new or recurrent MA/ severe recurrent ischemia, at 14 days - Pt has a h/o MA 8 yrs back (likely NSTEMI). He does have strong family h/o CAD. He also has not had a recent stress test or cardiology follow up since MA. - Continue coreg, atorvastatin, ezetimibe - Coreg held this morning for stress test today - Continue PPI and his pain meds - NTG PRN for chest pain Pedal edema - Likely from rt heart failure (? 2/2 KOLBY) vs venous insufficiency vs less likely hypothyroidism/renal problems - Echo to evaluate cardiac function, results pending. - TSH elevated at 10.56 but T4 wnl; increased levothyroxine to 200 mcg daily Subclinical hypothyroidism - TSH elevated at 10.56 but T4 wnl; increased levothyroxine dose to 200 mcg daily Suspected sleep apnea - Will need outpatient sleep study Benign essential hypertension - Continue home meds: coreg, amlodipine, HCTZ, Type 2 diabetes, uncontrolled - HbA1c 10.5 - Continue home insulin: Humalog (changed from novalog) 10 U TIDAC and Lantus ( changed from levemir) 40 U qHS - SSI level 1 and accuchecks - Patient will need to follow up with PCP to adjust home regimen Dyslipidemia - Continue atorvastatin 10 mg qHS and ezetimibe 10 mg daily Asthma - Not in exacerbation - Continue symbicort while inpatient and duonebs q4h PRN Depression/Anxiety - Continue home meds: Sertrailne, buspirone, trazodone, OA bilateral knee s/p TKR s/p wound infection - Follows with his orthopedics in [place] - Continue pain meds: Percocet 10-325 2 tabs q6h PRN CODE: FULL Diet: cardiac/consistent carb DVT ppx: Heparin, SCDs IVF: none Antibiotics: None Disposition: pending stress test today Hernán Rivera MD PGY1 [phone] [facility] Author:Paloma Sweeney Title:ACS rule out Date:06/12/16 Patient: ESSIE LOPEZ Age: 66 years Sex: Male : 54 Associated Diagnoses: None Author: Paloma Sweeney Visit Information Visit type: New symptom. Accompanied by: Family member. Source of history: Self, Family member. Referral source: Emergency department. History limitation: None. Chief Complaint Chest pain x 4 hrs History of Present Illness Mr John is a 66 yo M with a PMH of HTN, DM type 2, dyslipidemia, CAD with h/ o MA in 2007 (underwent cath, likely had 30-40% lesion per patient, no stents), asthma, depression, anxiety, OA s/p bilateral TKR with h/o hardware infection Rt knee (MSSA). He presents to the ED with complaints of chest pain which started this afternoon. His pain is retrosternal, started when he was resting and watching TV, 7/10 when it started and 3/10 now, pressure like sensation and felt like his previous MA, radiating along his left arm/forearm, lasted for 15 min and then resolved spontaneously but came back again after an hour and is persisting now even though it has decreased in intensity. This was associated with some SOB which the patient thinks is from his asthma. He denies any palpitations, syncope, dizziness, easy fatiguability. He thinks that his leg swellling is getting worse. He denies any nausea, vomiting, pain abdomen, urinary problems. Pt gives h/o snoring at night and waking up in morning with headaches. Per daughter she has heard him on oneor two occasions where he stops breathing for some time. Patient is from [place] and is visiting his daughter and friends here. He last saw a physician 3 months ago. He is not on aspirin as he takes NSAIDs for his knee pain. PMH: HTN, DM type 2, dyslipidemia, CAD with h/o MA in 2007 (underwent cath, likely had 30-40% lesion per patient, no stents), asthma, depression, anxiety, OA s/p bilateral TKR with h/o hardware infection Rt knee (MSSA) PSH: TKS, foot surgery for fracture Allergies: Morphine, fentanyl (vomiting), paper tape (rash), naproxen/toradol/ indomethacin (vomiting) Meds: As below FH: Significant family history of CAD in mom (diagnosed in her 50s), dad ( diagnosed in his 50s), brothers, uncles. DM, HTN and stroke in family. SH: Denies tobacco use, quit alcohol 25 yrs ago, denies any drug use. Visiting his daughter here from [place]. Review of Systems Constitutional: No fever, No chills. Eye: No recent visual problem. Ear/Nose/Mouth/Throat: No decreased hearing, No sore throat. Respiratory: Shortness of air, No cough, No sputum production, No hemoptysis. Cardiovascular: Peripheral edema, No tachycardia, No syncope. Chest pain: Midsternal. Gastrointestinal: No nausea, No vomiting, No diarrhea, No constipation, No heartburn, No abdominal pain. Genitourinary: No dysuria. Hematology/Lymphatics: No bruising tendency, No bleeding tendency. Endocrine: No excessive thirst, No polyuria, No cold intolerance, No heat intolerance, No excessive hunger. Immunologic: No recurrent fevers. Musculoskeletal: Joint pain. Integumentary: No rash. Neurologic: Alert and oriented X4, No confusion, No numbness, No tingling, No headache. Psychiatric: Anxiety, Depression, Not suicidal. Health Status Allergies: Allergic Reactions (Selected) Severity Not Documented FentaNYL- No reactions were documented. Indocin- No reactions were documented. Morphine- No reactions were documented. Naproxen- No reactions were documented. Tape- No reactions were documented. Toradol- No reactions were documented. Current medications: (Selected) Inpatient Medications Ordered Normal Saline Flush: 10 mL, IVPush, As Needed, PRN: Flush Documented Medications Documented Dulera 100 mcg-5 mcg/inh inhalation aerosol: 2 puff, Inhalation, BID, 13 gm, 0 Refill(s) HCTZ: PO, Daily, 0 Refill(s) Levemir: Subcutaneous, 0 Refill(s) NovoLog: Subcutaneous, TIDAC, 0 Refill(s) Percocet-10/325 oral tablet: 2 tab, PO, Q6H, PRN: for pain, 0 Refill(s) Zetia 10 mg oral tablet: 10 mg, 1 tab, PO, Daily, 30 tab, 0 Refill(s) Zyrtec: Daily, 0 Refill(s) albuterol-ipratropium 3 mg-0.5 mg/3 ml inhalation solution: 3 mL, Inhalation, four times per day, 30 EA, 0 Refill(s) amlodipine: PO, Daily, 0 Refill(s) atorvastatin: PO, QHS, 0 Refill(s) buspirone 10 mg oral tablet: 10 mg, 1 tab, PO, TID, 270 tab, 0 Refill(s) carvedilol 25 mg oral tablet: 25 mg, 1 tab, PO, BID, 60 tab, 0 Refill(s) hydroxyzine hydrochloride 25 mg oral tablet: 25 mg, 1 tab, PO, Daily, 30 tab, 0 Refill(s) meloxicam 15 mg oral tablet: 15 mg, 1 tab, PO, Daily, 30 tab, 0 Refill(s) montelukast 10 mg oral tablet: 10 mg, 1 tab, PO, QPM, 30 tab, 0 Refill(s) omeprazole 20 mg oral enteric coated capsule: 20 mg, 1 cap, PO, BID, 60 cap, 3 Refill(s) sertraline: PO, Daily, 0 Refill(s) trazodone 50 mg oral tablet: 50 mg, 1 tab, PO, QHS, 30 tab, 0 Refill(s) Problem list: All Problems Obesity, unspecified / E66.9 / Confirmed Histories Family History: No family history items have been selected or recorded. Procedure history: No active procedure history items have been selected or recorded. Social History Social & Psychosocial Habits No Data Available . Physical Examination VS/Measurements Vital Signs 06/12/16 14:42 Temperature Route Oral Temperature Oral 98.0 DegF Heart Rate 66 bpm Resp. Rate 18 BRMIN Systolic BP 120 mmHg Diastolic BP 71 mmHg Oxygen Saturation 93 % Oxygen Therapy Room air , Bariatric Measurements : Bariatric View 06/12/16 14:42 Weight 152 kg Height 177.5 cm Body Mass Index 48.2 kg/m2 , Measurements from flowsheet : Weights and Measurements 06/12/16 14:42 Weight 152 kg Height 177.5 cm Body Mass Index 48.2 kg/m2 Weight Obtained Stated Weight General: Alert and oriented, No acute distress. Eye: Pupils are equal, round and reactive to light. HENT: Normocephalic. Neck: Supple, No carotid bruit, No jugular venous distention, No thyromegaly. Respiratory: Lungs are clear to auscultation, Respirations are non-labored, Breath sounds are equal. Cardiovascular: Normal rate, Regular rhythm, No murmur, 2+ edema. Gastrointestinal: Soft, Non-tender, Non-distended, Normal bowel sounds. Genitourinary: No costovertebral angle tenderness. Musculoskeletal s/p TKR bilateral. Small ulceration over Rt knee. . Integumentary: Warm. Neurologic: Alert, Oriented, No focal defects. Cognition and Speech: Oriented. Psychiatric: Cooperative, Appropriate mood & affect, Non-suicidal. Health Maintenance Health Maintenance Pending (in the next year) OverDue Immunization - Influenza due 05/03/16 and every 1 yr Due Immunization - Tetanus due 06/12/16 and every 10 yr Immunization - Zoster due 06/12/16 One-time only Screening - Colorectal Cancer due 06/12/16 Variable frequency Screening - Depression due 06/12/16 Variable frequency Screening - HIV due 06/12/16 One-time only Satisfied (in the past 1 year) Satisfied Screening - Diabetes on 06/12/16. Satisfied by SYSTEM Review / Management Results review: Lab results 06/12/16 15:02 Sodium 138 mmol/L Potassium 4.0 mmol/L Chloride 97 mmol/L CO2 25 mmol/L Anion Gap 16 mmol/L GLUCOSE 222 mg/dL HI BUN 16 mg/dL Creatinine 0.78 mg/dL LOW BUN/CREA RATIO 20.5 HI GFR -[place] >90 mL/min/1.73m2 GFR Non -[place] >90 mL/min/1.73m2 CALCIUM 9.1 mg/dL CALC. OSMO 294 mOsm/kg MAGNESIUM 1.9 mg/dL Pro B-Type Natriuretic Peptide 9 pg/mL NA Troponin-T WBC 6.30 10^3/cmm RBC 4.81 10^6/cmm Hemoglobin 11.9 g/dL LOW Hematocrit 36.8 % LOW MCV 76.5 FL LOW MCH 24.6 PG LOW MCHC 32.2 g/dL Plt 166 10^3/cmm MPV 8.7 FL RDW 16.6 % HI Gran % 68.7 % Lymph % 19.2 % LOW [place] % 7.7 % Eos % 3.5 % Baso % 0.9 % Gran 4.3 10^3/cmm Lymph 1.2 10^3/cmm [place] 0.5 10^3/cmm Eos 0.20 10^3/cmm Baso 0.10 10^3/cmm NRBC Auto 0.0 /100WBC NA PROTHROMBIN 10.6 sec INR 1.0 NA APTT 33.9 sec 06/12/16 14:39 GLUCOSE 255 mg/dL RI Oper ID [id number] . XR chest Impression: Low lung volume. Bibasilar subsegmental atelectasis. No consolidation. EKG: Rate 66 bpm, normal sinus rhythm, left axis deviation, normal durations and intervals, left anterior fascicular block, no evidence of chamber enlargement, no ST-T changes Impression and Plan 66 yo M with h/o HTN, DM, HLD, h/o MA 8 yrs ago presented with chest pain: Chest pain - DDx: ACS (UA/NSTEMI) vs GERD vs musculoskeletal - Vitals stable, EKG no ST-T changes and trop x 1 negative - PATRICK risk score of 97 which is low. - 1.2% risk of mortality in current admission - 3.2-3.5% risk of mortality in 6 months - 6.8% risk of MA or in 1 yr - TYE risk score of 2 which suggests 8% risk of all cause mortality/ new or recurrent MA/ severe recurrent ischemia, at 14 days - Pt has a h/o MA 8 yrs back (likely NSTEMI). He does have strong family h/o CAD. Based on the risk scores and these history, he needs admission to rule out ACS. He will need an ischemic eval with either stress echo/MPI as outpatient. - Pt received 324 mg ASA in ED - Will do serial EKGs and trend trops - Will risk stratify with A1c, TSH and lipid panel - Will continue coreg, atorvastatin, ezetimibe - Will also continue PPI and his pain meds - NTG PRN for chest pain Pedal edema - Likely from rt heart failure (? 2/2 KOLBY) vs venous insufficiency vs less likely hypothyroidism/renal problems - Will get echo to evaluate cardiac function. Will also check TSH, UA for proteinuria Suspected sleep apnea - Pt will need outpatient sleep study Benign essential hypertension - BP normal in ED - Will continue home meds: coreg, amlodipine, HCTZ, Type 2 diabetes - Will check A1c - Will continue home insulin: Humalog (changed from novalog) 10 U TIDAC and Lantus (changed from levemir) 40 U qHS - SSI level 1 Dyslipidemia - Will continue atorvastatin 10 mg qHS and ezetimibe 10 mg daily Asthma - Not in exacerbation - Will change his home dulera to symbicort while he is inpatient. Will add duonebs q4h PRN Depression/Anxiety - Will continue home meds : Sertrailne, buspirone, trazodone, OA bilateral knee s/p TKR s/p wound infection - Follows with his orthopedician in [place] - Continue pain meds: Percocet 10 q4h PRN CODE: FULL Diet: cardiac/consistent carb DVT ppx: Heparin, SCDs IVFluids: none Abx: None Nicotine replacement: Not required as patient does not smoke Paloma Sweeney MD PGY2 Internal medicine [phone] I have reviewed the history, physical, impression and plan with the resident and/or student team while at the patient's bedside during rounds. I have interviewed and examined the patient. I have directed the plan of care. Please see resident note for further details. Please see admission H&P for PMHx, PSHx, FHx, SHx, ROS. I agree with the above documentation. Pt with CP, lots of rf's & poor fu (no insurance). Will order stress test. Addendum by Lawson Mckeon on June 13, 2016 16:45 [facility] Family History Value Date Source Advance Directives Order Name Results Value Date Source
--- OUTSIDE RECORDS SUMMARY | 2016-12-04 10:59 | XMS REPORT ---
Author Author [facility] Organization [facility] Address [address] [place], [place] [id number] Phone [phone] Summary purpose CCDA Sent to [facility] Chief Complaint and Reason for Visit Admit Diagnosis 1 PAIN IN CHEST Problem list No authorized problems tracked for continuity of care are available for this visit. Encounters No authorized problems tracked for encounter diagnoses are available for this visit. Medications No medications recorded for this patient visit Allergies, adverse reactions, alerts Allergen Category Ingredient Status Reaction Severity Onset naproxen Drug naproxen Active Indocin Drug Indocin Active Indocin Drug indomethacin Active Toradol Drug Toradol Active Toradol Drug ketorolac Active morphine Drug morphine Active fentanyl Drug fentanyl Active paper tape Miscellaneous paper tape Active Immunizations No immunizations recorded for this patient visit Relevant diagnostic tests and/or laboratory data RESULTS CBC [id number]:25:00 Result Normal Range Units WBC 7.23 4.5-10.5 x 103/uL Lymphocyte % L 19.1 20.5-51.1 % Monocyte % 7.6 1.7-9.3 % Neutrophil % 70.1 42.2-75.2 % Lymphocyte # 1.38 1.2-3.4 x 103/uL Monocyte # 0.55 0.1-0.6 x 103/uL Neutrophil # 5.07 1.4-6.5 x 103/uL RBC 4.70 4.00-6.00 x 106/uL Hemoglobin 11.0 11.0-18.0 g/dl Hematocrit 35.1 35.0-60.0 % MCV L 74.7 80.0-99.9 FL MCH L 23.4 27.0-31.0 pg MCHC L 31.3 33.0-37.0 g/dl RDW 15.5 % Platelets 181 150-450 x 103/uL MPV 10.7 7.8-11.0 FL Chemistry Group [id number]:00 Result Normal Range Units Sodium 137 128-145 mmol/L Potassium L 3.0 3.6-5.1 mmol/L CO2 28 18-33 mmol/L Chloride 98 98-108 mmol/L Glucose H 175 73-118 mg/dl Calcium 8.5 8.0-10.3 mg/dl BUN 12 7-22 mg/dl Creatinine 0.8 0.6-1.2 mg/dl CKMB < 1.0 0.0-4.3 ng/ml Myoglobin 50.0 0.0-107 ng/ml Troponin < 0.05 0.00-0.40 ng/ml History of procedures Procedure Code Code Type Description Date Performed Performing Physician 16054 CPT-4 ELECTROCARDIOGRAM, TRACING 07-14-2016 NOEMI BIANCHI 05859 CPT-4 COMPLETE CBC W/AUTO DIFF WBC 07-14-2016 NOEMI BIANCHI 12230 CPT-4 METABOLIC PANEL TOTAL CA 07-14-2016 NOEMI BIANCHI 64648 CPT-4 CREATINE, MB FRACTION 07-14-2016 NOEMI BIANCHI 49540 CPT-4 ASSAY OF TROPONIN, QUANT 07-14-2016 NOEMI BIANCHI 80060 CPT-4 ASSAY OF MYOGLOBIN 07-14-2016 NOEMI BIANCHI 65435 CPT-4 CHEST X-RAY 07-14-2016 NOEMI BIANCHI 10013 CPT-4 ROUTINE VENIPUNCTURE 07-14-2016 NOEMI BIANCHI 25622 CPT-4 EMERGENCY DEPT VISIT 07-14-2016 NOEMI BIANCHI 23033 CPT-4 PLACE NEEDLE IN VEIN 07-14-2016 NOEMI BIANCHI Functional status Cognitive Status Finding Observation Time Level of Consciousne Alert [id number]:00 Oriented to Person Yes 56-90-388140:[address] Yes 70-28-195443:00 Oriented to Time Yes 81-00-985477:00 Vital signs Type Value Date Respirations 20 [id number]:00 Pulse 52 70-67-604252:00 O2 Saturation 92% 27-37-837023:00 Systolic Blood Press 138mm/HG 51-58-633213:00 Diastolic Blood Pres 68mm/HG 77-75-651230:00 Temperature (Fahr) 97.9Degrees 05-22-449825:00 Height 70in 41-95-930523:00 Weight 335LB 54-43-222729:00 Social history Type Value Smoking Status NEVER SMOKER Treatment Plan No treatment plan text is available for this visit. Hospital discharge instructions No discharge instruction text is available for this visit.
--- OUTSIDE RECORDS SUMMARY | 2016-12-04 10:59 | XMS REPORT | Continuity of Care Document ---
Author Author Hien Turner [facility] Hien Turner [facility] Address Unknown Phone Unavailable Support Name Relationship Address Phone CHLOE HERNANDEZ D.O. Caregiver [employer] [address] [place] [address] Unavailable BHUPENDRA LOPEZ Next Of Kin [address] [facility] [id number] [place] [address] Insurance Providers Guarantor Lazaro Lopez Address [address] [place] [address] Payer [employer] Medicare Policy Number [id number] Subscriber's Name Lazaro Lopez Relationship 01 Self / Same As Patient Chief Complaint and Reason for Visit Chief Complaint Knee Injury Reason for Visit Contusion of right knee Problems Active Problems Medical Problem Onset Date Status CAD (coronary artery disease) Unknown Chronic Contusion of right knee Unknown Acute Diabetes Unknown Chronic Hyperlipidemia Unknown Hypertension Unknown Chronic Hypoxia Unknown Morbid obesity Unknown Past Problems Medical Problem Onset Date Chest pain Unknown Chest pain Unknown Chest pain Unknown Hx of coronary artery disease Unknown Hx of coronary artery disease Unknown Hx of diabetes mellitus Unknown Hx of diabetes mellitus Unknown Hx of essential hypertension Unknown Medications Current Home Medications Medication Dose Units Route Directions Days Qty Instructions Start Date Albuterol (Proventil Inhaler Hfa) 6.7 Gm Aers 6.7 Gm Inhalation Daily as needed for Wheezing 05/30/16 Amlodipine Besylate 10 Mg Tab 10 Mg Oral Daily 05/30/16 Atorvastatin Calcium 10 Mg Tab 10 Mg Oral Bedtime 05/30/16 Buspirone Hcl 10 Mg Tab 10 Mg Oral Three Times A Day for Not Specified 1 am and noon, 2 hs 05/30/16 Carvedilol 12.5 Mg Tab 12.5 Mg Oral Daily 05/30/16 Cetirizine Hcl 10 Mg Tab 10 Mg Oral Daily 09/28/16 Ezetimibe (Zetia) 10 Mg Tab 10 Mg Oral Bedtime 05/30/16 Hydrochlorothiazide (Hctz) 25 Mg Tab 25 Mg Oral Daily 05/30/16 Hydrocodone-Acetaminophen ([place]) 5/325 Tab 1 Tab Oral Three Times A Day as needed for 10 Tablet 10/15/16 Hydroxyzine Hcl 25 Mg Tab 25 Mg Oral Three Times A Day as needed for Itching 05/30/16 Insulin Aspart (Novolog Flexpen) Flexpen Inj 10 Unit Subcutaneously Three Times Daily With Meals 05/30/16 Insulin Detemir (Levemir Insulin) 100 Units/1 Ml Inj 40 Units Subcutaneously Bedtime 05/30/16 Meloxicam 15 Mg Tab 15 Mg Oral Daily 05/30/16 Mometasone Furoate/Formoterol Fumar (Dulera 100MCG/5MCG) 13 Gm Inh 2 Aer Inhalation Twice A Day 13 Gram 05/30/16 Montelukast Sodium 10 Mg Tab 10 Mg Oral Bedtime 05/30/16 Omeprazole 40 Mg Cap 40 Mg Oral Daily 05/30/16 Sertraline Hcl 100 Mg Tab 100 Mg Oral Daily 05/30/16 Trazodone Hcl 100 Mg Tab 100 Mg Oral Bedtime 05/30/16 Social History Social History Problem Response Recorded Date/Time Onset Date Status Hx Alcohol Use Yes 05/30/2016 12:14pm Not Applicable Not Applicable Smoking Status Never smoker 10/15/2016 11:50am Not Applicable Not Applicable Query Response Start Date Stop Date Smoking Status Never smoker Hospital Discharge Instructions No hospital discharge instructions. Plan of Care Discharge Date 10/15/16 12:35pm Disposition 01 HOME, SELF-CARE Condition at Discharge Stable Instructions/Education Provided Contusion in Adults (ED) Prescriptions See Medication Section Additional Instructions/Education Patient instructed to elevate and ice the knee is much as possible. Bear weight as possible. Tylenol for pain take other medications as prescribed. Followup with PCP in one to 5 days. Functional Status No functional status results. Allergies, Adverse Reactions, Alerts Allergen Type Severity Reaction Status Last Updated Fentanyl ([id number]) Adverse Reaction Unknown Nausea/Vomiting Active Indomethacin ([id number]) Adverse Reaction Unknown Nausea/Vomiting Active 05/31/16 Morphine ([id number]) Adverse Reaction Unknown Nausea/Vomiting Active Naproxen ([id number]) Adverse Reaction Unknown Nausea/Vomiting Active Ketorolac Tromethamine ([id number]) Adverse Reaction Unknown Nausea/ Vomiting Active 05/30/16 Paper tape Adverse Reaction Unknown BLISTERS Active 05/30/16 Immunizations No immunization records. Vital Signs Acute Vital Signs Vital Response Date/Time Blood Pressure 175/85 mm Hg 10/15/2016 12:32pm Blood Pressure Mean 115 mm Hg 10/15/2016 12:32pm Temperature (Fahrenheit) 97.9 degrees F (96.0 - 99.9) 10/15/2016 11:41am Temperature (Calculated Celsius) 36.82715 degrees C 10/15/2016 11:41am Temperature Source Oral 06/01/2016 4:00pm Temperature Source Oral 10/15/2016 11:41am Pulse Pulse Rate (adult) 67 bpm (60 - 100) 07/06/2016 6:24pm Pulse Rate: ED 56 bpm 10/15/2016 12:32pm Respiratory Rate 17 breaths per minute (10 - 20) 10/15/2016 12:32pm Height (Feet) 5 ft 10/15/2016 11:41am Height (Inches) 10.0 in. 10/15/2016 11:41am Weight (Pounds) 330.0 lbs 10/15/2016 11:41am Height 5 ft 10 in 10/15/2016 11:41am Weight 330 lb 10/15/2016 11:41am Body Mass Index 47.3 kg/m^2 10/15/2016 11:41am Results Laboratory Results Test Name Result Units Flags Reference Collection Date/Time Result Date/ Time Comments Prothrombin Time 10.8 SECONDS 9.0-12.0 05/30/2016 10:00am 05/30/2016 10 :41am Prothromb Time International Ratio 1.00 L 2.0-3.0 THERAPEUTIC 2015 10:00am 05/30/2016 10:41am Activated Partial Thromboplast Time 29.2 SECONDS 24.0-37.0 05/30/2016 10 :00am 05/30/2016 10:41am D-Dimer Quantitative (PE/DVT) 354 ng/mL <230 05/30/2016 10:00am 2015 10:41am Results <230 ng/mL yeild a negative predictability for DVT or PE Bedside Glucose 307 mg/dL H 70-120 06/01/2016 2:03pm 06/01/2016 2:05pm Notify Nurse Cholesterol Level 139 mg/dL 120-200 05/31/2016 5:30am 05/31/2016 6: 22am Triglycerides Level 116 mg/dL 45-150 05/31/2016 5:30am 05/31/2016 6: 22am LDL Cholesterol 83 mg/dL 25-100 05/31/2016 5:30am 05/31/2016 6:22am HDL Cholesterol 33 mg/dL L 40-80 05/31/2016 5:30am 05/31/2016 6:22am VLDL Cholesterol 23.2 5-40 05/31/2016 5:30am 05/31/2016 6:22am Cholesterol Ratio (LDL/HDL) 4.212 05/31/2016 5:30am 05/31/2016 6: 22am Lipase 27 U/L 8-57 05/30/2016 10:00am 05/30/2016 10:41am Total Creatine Kinase 50 U/L 10-180 05/30/2016 9:45pm 05/30/2016 10: 05pm Creatine Kinase MB 0.9 ng/mL 0.0-6.0 05/30/2016 9:45pm 05/30/2016 10: 14pm White Blood Count 6.8 K/uL 5.0-10.0 07/06/2016 7:28pm 07/06/2016 7: 42pm Red Blood Count 4.85 M/uL 4.60-5.40 07/06/2016 7:28pm 07/06/2016 7: 42pm Hemoglobin 11.6 g/dL L 14.0-18.0 07/06/2016 7:28pm 07/06/2016 7:42pm Hematocrit 36.5 % L 40.0-54.0 07/06/2016 7:28pm 07/06/2016 7:42pm Mean Corpuscular Volume 75.3 fL L 80.0-94.0 07/06/2016 7:28pm 2015 7:42pm Mean Corpuscular Hemoglobin 23.9 pg L 26.0-33.0 07/06/2016 7:28pm 2015 7:42pm Mean Corpuscular Hemoglobin Concent 31.8 g/dL 31.0-36.0 07/06/2016 7: 07/06/2016 7:42pm Red Cell Distribution Width 15.1 % H 11.5-14.5 07/06/2016 7:2015 7:42pm RDW Standard Deviation 41.1 fL 35.1-43.9 07/06/2016 7:07/06/2016 7 :42pm Platelet Count 190 K/uL 130-400 07/06/2016 7:07/06/2016 7:42pm Mean Platelet Volume 10.4 fL 7.0-11.0 07/06/2016 7:07/06/2016 7: 42pm Neutrophils (%) (Auto) 67.8 % 42.0-75.0 07/06/2016 7:07/06/2016 7: 42pm Lymphocytes (%) (Auto) 20.7 % 16.0-44.0 07/06/2016 7:07/06/2016 7: 42pm Monocytes (%) (Auto) 7.2 % 2.0-9.0 07/06/2016 7:07/06/2016 7:42pm Eosinophils (%) (Auto) 3.4 % 0-7.0 07/06/2016 7:07/06/2016 7:42pm Basophils (%) (Auto) 0.6 % 0-1 07/06/2016 7:07/06/2016 7:42pm Immature Granulocyte % (Auto) 0.3 % 0-0.5 07/06/2016 7:07/06/2016 7:42pm Nucleated Red Blood Cells % 0.0 /100WBC 0-0 07/06/2016 7:2015 7:42pm Neutrophils # (Auto) 4.6 K/uL 1.9-8.0 07/06/2016 7:07/06/2016 7: 42pm Lymphocytes # (Auto) 1.4 K/uL 0.9-5.2 07/06/2016 7:07/06/2016 7: 42pm Monocytes # (Auto) 0.5 K/uL 0.16-1.0 07/06/2016 7:07/06/2016 7: 42pm Eosinophils # (Auto) 0.2 K/uL 0-0.8 07/06/2016 7:28pm 07/06/2016 7: 42pm Basophils # (Auto) 0.0 K/uL 0-0.2 07/06/2016 7:28pm 07/06/2016 7:42pm Immature Granulocyte # (Auto) 0.02 K/uL 0-0.40 07/06/2016 7:28pm 2015 7:42pm Nucleated Red Blood Cells # 0.00 K/uL 0.0-0.012 07/06/2016 7:28pm 07/06 7:42pm Random Glucose 285 mg/dL H 65-115 07/06/2016 7:28pm 07/06/2016 8:16pm Blood Urea Nitrogen 25 mg/dL 8-25 07/06/2016 7:pm 07/06/2016 8:16pm Creatinine 0.92 mg/dL 0.9-1.6 07/06/2016 7:28pm 07/06/2016 8:16pm Glomerular Filtration Rate Calc 82.83 mL/min 07/06/2016 7:2015 8:16pm MULTIPLY RESULT BY 1.210 IF THE PATIENT IS -SAO [place]OMEAN Units are mL/min/1.73 m2 > 60 Normal kidney function 30-59 Moderately decreased kidney function 15-29 Severely decreased kidney function <15 End-stage kidney failure BUN/Creatinine Ratio 27.2 07/06/2016 7:28pm 07/06/2016 8:16pm Sodium Level 136 mEq/L 133-145 07/06/2016 7:07/06/2016 8:16pm Potassium Level 3.3 mEq/L L 3.5-5.1 07/06/2016 7:07/06/2016 8:16pm Chloride Level 102 mEq/L 98-116 07/06/2016 7:07/06/2016 8:16pm Carbon Dioxide Level 27 mEq/L 22-34 07/06/2016 7:07/06/2016 8: 16pm Anion Gap 10.3 6-13 07/06/2016 7:07/06/2016 8:16pm Calcium Level 9.0 mg/dL 8.2-10.6 07/06/2016 7:2807/06/2016 8:16pm Total Protein 7.1 gm/dL 6.0-8.4 07/06/2016 7:28pm 07/06/2016 8:16pm Albumin 3.9 gm/dL 3.2-5.0 07/06/2016 7:28pm 07/06/2016 8:16pm Globulin 3.2 gm/dL H 2.0-3.0 07/06/2016 7:28pm 07/06/2016 8:16pm Albumin/Globulin Ratio 1.2 L 1.4-2.4 07/06/2016 7:28pm 07/06/2016 8: 16pm Total Bilirubin 0.4 mg/dL 0.1-1.3 07/06/2016 7:28pm 07/06/2016 8:16pm Alkaline Phosphatase 90 U/L 35-125 07/06/2016 7:28pm 07/06/2016 8:16pm Aspartate Amino Transf (AST/SGOT) 17 U/L 5-40 07/06/2016 7:28pm 2015 8:16pm Alanine Aminotransferase (ALT/SGPT) 20 U/L 5-40 07/06/2016 7:28pm 07/06 8:16pm Troponin I 0.00 ng/mL 0.0-0.02 07/06/2016 7:28pm 07/06/2016 8:21pm Procedures Procedure Status Date Provider(s) THER/PROPH/DIAG INJ IV PUSH Completed 05/30/16 BUDDY SANCHES M.D. Encounters Encounter Location Arrival/Admit Date Discharge/Depart Date Attending Provider Departed Emergency Room [facility] 10/15/16 11:41am 12:35pm CHLOE HERNANDEZ D.O. Departed Emergency Room [facility] 07/06/16 6:12pm 9:28pm CARLTON HUTSON M.D. Discharged Inpatient (obs) [facility] 05/30/16 12:14pm 5:55pm JUAN BOWDEN M.D. Recent Diagnosis
--- OUTSIDE RECORDS SUMMARY | 2016-12-04 10:59 | XMS REPORT | Continuity of Care Document ---
Author Author [facility] Organization [facility] Address Unknown Phone Unavailable Care Team Providers Care Coil Winder Strap Name Role Phone No Pcp, Na Primary Care Physician Unavailable Source Comments Some departments are not documenting in the electronic medical record. If you do not see the information that you expected, contact Release of Information in the Health Information Management department at [phone] for further assistance in locating additional records.[facility] Active Allergies and Adverse Reactions Allergen Noted Date Severity Reactions Comments Fentanyl 07/07/2016 Low VOMITING Indomethacin 07/07/2016 Low VOMITING Morphine 07/07/2016 Low HEADACHE, VOMITING Naproxen 07/07/2016 Low VOMITING Other 07/07/2016 High BLISTERS Paper tape Toradol 07/07/2016 Low VOMITING Current Medications Prescription Sig. Disp. Refills Start End Date Status Date oxyCODONE/acetaminophen Take 2 Tabs by mouth Active (PERCOCET; ENDOCET) every 4 hours as needed 10/325 mg tablet for Pain insulin aspart (NOVOLOG Inject 10 Units under the Active FLEXPEN) 100 unit/mL skin three times daily injection PEN with meals. traZODone (DESYREL) 100 Take 100 mg by mouth at Active mg tablet bedtime daily. ezetimibe (ZETIA) 10 mg Take 10 mg by mouth at Active tablet bedtime daily. carvedilol (COREG) 12.5 Take 12.5 mg by mouth Active mg tablet daily. Take with food. amLODIPine (NORVASC) 10 Take 10 mg by mouth Active mg tablet daily. meloxicam (MOBIC) 15 mg Take 15 mg by mouth Active tablet daily. atorvastatin (LIPITOR) 10 Take 10 mg by mouth at Active mg tablet bedtime daily. hydroCHLOROthiazide Take 25 mg by mouth Active (HYDRODIURIL) 25 mg daily. tablet sertraline (ZOLOFT) 100 Take 100 mg by mouth at Active mg tablet bedtime daily. montelukast (SINGULAIR) Take 10 mg by mouth at Active 10 mg tablet bedtime daily. omeprazole DR(+) Take 40 mg by mouth daily Active (PRILOSEC) 20 mg capsule before breakfast. busPIRone (BUSPAR) 10 mg Take 1 tablet by mouth Active tablet daily in the morning, 1 tablet by mouth daily at noon, and 2 tablets by mouth daily at bedtime cetirizine (ZYRTEC) 10 mg Take 10 mg by mouth Active tablet daily. Mometasone-Formoterol Inhale 2 Puffs by mouth Active 100-5 mcg/actuation HFAA into the lungs twice daily. albuterol 0.5% Inhale 2.5 mg solution by Active (PROVENTIL; VENTOLIN) 2.5 nebulizer as directed mg/0.5 mL nebulizer every 4 hours as needed solution for Shortness of Breath or Wheezing. hydrOXYzine pamoate Take 25 mg by mouth three Active (VISTARIL) 25 mg capsule times daily. insulin detemir(+) Inject 40 Units under the Active (LEVEMIR) 100 unit/mL skin at bedtime daily. soln Active Problems Not on file Social History Tobacco Use Types Packs/Day Years Used Date Never Smoker Alcohol Use Drinks/Week oz/Week Comments No ETOH 15 years ago Last Filed Vital Signs Vital Sign Reading Time Taken Blood Pressure 109/79 07/24/2016 2:30 PM [employer]IST Pulse 59 07/24/2016 2:30 PM [employer]IST Temperature 36.8 C (98.2 F) 07/24/2016 12:48 PM A[employer]IST Respiratory Rate - - Height 1.778 m (5' 10") 07/07/2016 12:53 AM CDT Weight 151.955 kg (335 lb) 07/07/2016 12:53 AM CDT Body Mass Index 48.07 07/07/2016 12:53 AM CDT Oxygen Saturation 94% 07/24/2016 2:29 PM [employer]IST Plan of Care Health Maintenance Due Date Last Done Comments Hepatitis C Screening 1952 Physical (Comprehensive) 1959 Exam Pertussis Vaccine 1963 Tetanus Vaccine 1969 Colorectal Cancer 2002 Screening Shingles Vaccine 2012 Influenza Vaccine 05/03/2017 Results from Last 3 Months Not on file
--- OUTSIDE RECORDS SUMMARY | 2016-12-04 10:59 | XMS REPORT | Continuity of Care Document ---
Author Author [facility] Address [address] [place] [address] Care Team Providers Care Senior Medical Director Name Role Phone Unavailable Unavailable Insurance Providers Payer Name Policy Number Subscriber Name Relationship Self-Pay Self-Pay LAZARO WEBB Self Advance Directives Directive Response Recorded Date/Time Advance Directive Information: AD BROCHURE GIVEN TO PT 06/05/16 5:01pm Chief Complaint and Reason for Visit Reason for Visit CHESTPAINS Problems Active Medical Problems Problem Onset Date Recorded Date Status Unstable angina Unknown 06/05/16 Active Medications Current Home Medications Medication Dose Units Route Directions Days/Qty Instructions Start Date MEDICATION RECONCILIATION (Medication Reconciliation) 1 EACH EA 1 EACH BY MOUTH ONE TIME ONLY Albuterol Sulfate (Proair Hfa) 8.5 GM HFA.AER.AD 2 PUFF IH EVERY 4 HOURS PRN DYSPNEA/WHEEZING Amlodipine Besylate* (Norvasc*) 10 MG TABLET 10 MG BY MOUTH DAILY Atorvastatin (Lipitor) 10 MG TABLET 10 MG BY MOUTH BEDTIME Buspirone (Buspar) 10 MG TAB 10 MG BY MOUTH MORNIGN/NOON PT ALSO TAKES 20 MG AT BEDTIME Buspirone (Buspar) 10 MG TAB 20 MG BY MOUTH BEDTIME PT ALSO TAKES 10 MG IN MORNING AND AT NOON Carvedilol* (Coreg*) 6.25 MG UD.TAB 6.25 MG BY MOUTH TWICE DAILY WITH MEALS Cetirizine HCl (Zyrtec) 10 MG TABLET 10 MG BY MOUTH DAILY Ezetimibe (Zetia) 10 MG TAB 10 MG BY MOUTH BEDTIME Hctz* (Hydrochlorothiazide*) 25 MG TABLET 25 MG BY MOUTH MORNING INSULIN ASPART 100 Units/ML (Novolog=Humalog) 100 UNITS/ML INJ 10 UNITS SUBCUTANEO THREE TIMES DAILY BEFORE MEALS Insulin Detemir (Levemir) 100 UNITS/ML UNITS 40 UNITS SUBCUTANEO BEDTIME Isosorbide Mononitrate ER (Imdur) 15 MG TAB.ER.24H 15 MG BY MOUTH DAILY Losartan* (Cozaar*) 50 MG TABLET 50 MG BY MOUTH DAILY Meloxicam* (Mobic*) 15 MG TABLET 15 MG BY MOUTH MORNING Mometasone/Formoterol (Dulera 100 Mcg/5 Mcg Inhaler) 13 GM HFA.AER.AD 2 PUFF IH TWICE DAILY Montelukast* (Singulair*) 10 MG TAB 10 MG BY MOUTH BEDTIME Nitroglycerin (Nitro-Dur) 0.4 MG/HR PATCH.TD24 1 PATCH TOPICALLY DAILY Nitroglycerin Sl (Nitrostat) 0.4 MG TAB.SUBL 0.4 MG SUBLINGUAL 1 TABLET PRN Q 5 MIN X 3 PRN CHEST PAIN Omeprazole (Prilosec 20MG CAP) 20 MG UD.CAP 40 MG BY MOUTH DAILY AT 0600 Sertraline HCl (Zoloft) 100 MG TABLET 100 MG BY MOUTH BEDTIME Tramadol HCl 50 MG TABLET 1 TAB BY MOUTH Q8H PRN PRN MILD TO MODERATE PAIN Social History No social history. Hospital Discharge Instructions No hospital discharge instructions. Plan of Care Discharge Date 06/07/16 Disposition HOME/SELF CARE Prescriptions See Medications Section Functional Status Query Response Date Recorded Mobility: Independent June 06, 2016 7:15pm Toileting: Independent June 05, 2016 5:09pm Bath: Independent June 05, 2016 5:09pm Oral Care: Independent June 05, 2016 5:09pm Dressing: Independent June 05, 2016 5:09pm Eating: Independent June 05, 2016 5:09pm Food Preparation: Independent June 05, 2016 5:09pm Housekeeping: Independent June 05, 2016 5:09pm Transportation: Independent June 05, 2016 5:09pm Allergies, Adverse Reactions, Alerts Allergen Type Severity Reaction Status Last Updated MORPHINE Allergy Unknown Active 06/05/16 INDOMETHACIN Allergy Unknown Active 06/05/16 NAPROXEN Allergy Unknown Active 06/05/16 FENTANYL Allergy Unknown Active 06/05/16 KETOROLAC Allergy Unknown Active 06/05/16 PAPER TAPE Allergy Unknown Active 06/05/16 Immunizations Name Date Given Type *Flu Shot: Historical *Tetanus Shot: Less than 5 Years Historical Vital Signs Vital Reading Collection Date/Time Result Blood Pressure 06/07/16 1:17am 138/75 Blood Pressure Source 06/07/16 1:17am Brachial Patient Temperature 06/07/16 1:17am 97.6 Temperature Source 06/07/16 1:17am Temporal Respiratory Rate 06/07/16 1:17am 20 Pulse Rate 06/07/16 1:17am 63 Pulse Location 06/07/16 1:17am Monitor Bedside Pulse Oximetry 06/07/16 1:17am 90 Height 06/06/16 10:19am 177.8 cm Height 06/06/16 10:19am 5 ft 10 in Weight 06/06/16 10:19am 154.221 kg Weight 06/06/16 10:19am 340 lb Body Mass Index 06/06/16 10:19am 48.8 Results [place] [id number] ED PHYSICIAN DOCUMENTATION Patient Name: LAZARO WEBB : 54 Unit #: [id number] Patient's Service Date: 06/05/16 ED Physician: Prasad Martinez MD Primary Physician: History of Present Illness General Chief Complaint Chest Pain Stated Complaint CHESTPAINS Time Seen by Provider 1519 Source patient Exam Limitations no limitations History of Present Illness Initial Comments Lazaro was sitting in his chair when he had chest pain that felt like his previous GA. this was 8 years ago. He says there was not sufficient blockage to need a stent. He also has diabetes. Location chest Context present at rest Quality pressure Severity moderate Duration minutes Timing one episode, continuous Modifying Factors nothing worsens, improved with ntg. Associated Symptoms arm pain Allergies Coded Allergies: FENTANYL (06/05/16) INDOMETHACIN (From INDOCIN) (06/05/16) KETOROLAC (From TORADOL) (06/05/16) MORPHINE (06/05/16) NAPROXEN (06/05/16) Uncoded Allergies: PAPER TAPE (06/05/16) Review of Systems Review of Systems Was ROS Completed? Yes Constitutional Denies fever, Denies chills, Denies diaphoresis Eyes Denies eye pain ENT Denies ear pain, Denies nose pain, Denies throat pain Respiratory Denies cough, Denies short of breath Cardiovascular Reports chest pain, Denies palpitations Gastrointestinal Reports nausea, Denies abdominal pain, Denies constipation, Denies diarrhea, Denies vomiting Genitourinary Denies dysuria Musculoskeletal Denies neck pain, Denies back pain Skin Denies rash Neurological Denies headache, Denies numbness, Denies weakness (focal) Psychiatric Reports anxiety, Reports depression Hematologic/Lymphatic Denies easy bleeding, Denies easy bruising, Denies other (anemia) Past Medical History Past Medical History Medical History asthma, diabetes, hyperlipemia, hypertension, anxiety, insomnia , depression Surgical History two total knee, and bilateral elbows, and a wrist and ankle, and a heart cath. Psychosocial History depression Family History Significant Family History asthma, cancer, diabetes, heart disease < age 50, hypertension, heart disease > age 50, lung disease, renal disease, seizures, stroke, vascular disease Social History Smoker Never smoker Alcohol (Age 13 & Up) quit drinking Drugs (Age 13 & Up) denies drug use Physical Exam Physical Exam Exam Limitations no limitations Nursing Assessment Reviewed Yes Initial Vital Signs Vital Signs Result Date Time Pulse Ox 94 06/05 1507 B/P 157/79 06/05 1507 Temp 97.8 06/05 1507 Pulse 64 06/05 1507 Resp 16 06/05 1507 O2 Delivery Nasal Cannula 06/05 1530 O2 Flow Rate 2 06/05 1530 Constitutional no apparent distress Eyes bilateral eyes PERRL, bilateral eyes EOMI, bilateral eyes pupils equal Ear, Nose, Throat hearing grossly normal, normal TM (R), normal TM (L), nasal exam WNL, oral exam WNL Respiratory no respiratory distress, normal breath sounds, no accessory muscle use, chest non-tender Cardiovascular regular rate/rhythm, no murmur, no edema Gastrointestinal soft, non tender, normal bowel sounds Musculoskeletal gait WNL, normal strength, no vertebral tenderness Skin normal color, warm/dry, good capillary refill Neurological no motor deficit, no sensory deficit Results Results Labs Laboratory Tests 06/05 06/05 06/05 06/05 1510 1510 1510 1515 Chemistry Sodium (135 - 150 mmol/L) 139 Potassium (3.4 - 5.2 mmol/L) 3.5 Chloride (100 - 112 mmol/L) 100 Carbon Dioxide (21 - 33 meq/L) 31 Anion Gap (8 - 16 mmol/L) 8 BUN (5 - 21 mg/dl) 14 Creatinine (0.60 - 1.30 mg/dl) 0.96 GFR Calculation (> 60 mL/Min) > 60 Glucose (70 - 99 mg/dl) 338 H POC Glucose (70 - 99 mg/dl) 346 H Calcium (8.6 - 10.5 mg/dl) 8.4 L Total Bilirubin (0.0 - 1.2 mg/dl) 0.3 AST (6 - 37 U/L) 18 ALT (12 - 78 U/L) 31 Alkaline Phosphatase (46 - 116 U/L) 107 Troponin I (0.00 - 0.05 ng/ml) < 0.02 B-Natriuretic Peptide (<100 pg/ml) 27.9 Total Protein (6.4 - 8.2 g/dl) 6.9 Albumin (3.3 - 4.5 g/dl) 3.6 Albumin/Globulin Ratio (0.7 - 2.0) 1.1 Coagulation PT (11.9 - 14.4 Seconds) 12.0 INR (0.87 - 1.13) 0.89 APTT (23.9 - 34.0 Seconds) 22.6 L Hematology WBC (4.5 - 11.0 10^3/uL) 7.6 RBC (4.70 - 6.00 10^6/uL) 5.19 Hgb (13.5 - 17.5 g/dl) 12.6 L Hct (41 - 53 %) 39.5 L MCV (80 - 100 fL) 76.1 L MCH (25.0 - 34.0 pg) 24.2 L MCHC (31.0 - 36.0 g/dL) 31.8 RDW (11.0 - 15.0 %) 16.4 H Plt Count (130 - 400 10^3/uL) 128 L MPV (7.0 - 11.0 fL) 8.3 Neutrophils (Manual) (50 - 65 %) 77 H Neutrophils # (1.0 - 8.0 #) 5.9 Lymphocytes (Manual) (15 - 45 %) 16 Lymphocytes # (1.0 - 3.0 #) 1.2 Monocytes (Manual) (0 - 10 %) 5 Monocytes # (0.0 - 1.0 #) 0.4 Eosinophils (Manual) (0 - 5 %) 2 Eosinophils # (0.0 - 0.4 #) 0.2 Basophils # (0.0 - 0.2 #) 0.0 Hypochromasia 2+ Anisocytosis 1+ Microcytosis 1+ EKG EKG Time of EKG 1508 Rate 67 Rhythm normal sinus Merom normal axis ST Findings nonspecific ST findings Intervals normal QRS interval, normal QT interval, long UT interval Summary nonspecific findings Progress Note Medications Medications Medications Given in ED Sig/Tolu Start time Last Medication Dose Route Stop Time Status Admin/ Admin Dose Aspirin 324 MG ONE ONE 06/05 1516 DC (Aspirin Chewable 81 BY MOUTH 06/05 1517 1524 MG TAB) 324 MG Clopidogrel Bisulfate 300 MG X1ED STA 06/05 1521 DC (Plavix) BY MOUTH 06/05 1522 1526 300 MG PRN Medications Given in ED Sig/Tolu Start time Last Medication Dose Route Stop Time Status Admin/ Admin Dose Nitroglycerin 0.4 MG Q 5 MIN PRN 06/05 1516 AC (Nitrostat 0.4 MG SL SUBLINGUAL 1525 TAB) 0.4 MG Consults Consults Time of Consult 1617 Discussed With Wilmer Paul Departure Departure Clinical Impression Primary Impression: Unstable angina Time of Disposition 1618 Disposition [facility] Condition Improved Smoking Education Indicated No Prasad Martinez MD Electronically Signed 06/05/16 1618 Procedures No Known History of Procedures. Encounters Encounter Location Arrival/Admit Date Discharge/Depart Date Attending Provider Discharged Inpatient [facility] 06/05/16 3:06pm 06/07/16 2:20am Wilmer Paul Encounter Diagnosis Onset Date Unstable angina
--- OUTSIDE RECORDS SUMMARY | 2016-12-04 11:00 | XMS REPORT | Referral Summary ---
Author Author [facility] Organization [facility] Address Unknown Phone Unavailable Care Team Providers Care Fiberglasser Name Role Phone No PCP, States Primary Care Physician [phone] Encounter VC Date(s): 10/10/16 - 10/10/16 [facility] [address] [place] [address] Discharge Diagnosis: Chest pain Discharge Diagnosis: Chest pain Discharge Diagnosis: Left against medical advice Discharge Disposition: Left Against Medical Advice Attending Physician: Rupert Shrestha MD Admitting Physician: Zoran Marin III, MD Vital Signs Most recent to 1 oldest [Reference Range]: Temperature Oral 36.5 degC [35.8-37.3 degC] (10/10/16 12:02 PM) Peripheral Pulse 63 bpm Rate [60-100 bpm] (10/10/16 12:02 PM) Heart Rate Monitored 62 bpm [60-100 bpm] (10/10/16 3:33 PM) Respiratory Rate 16 br/min [14-20 br/min] (10/10/16 3:33 PM) Blood Pressure 159/98 mmHg [90-140/60-90 mmHg] *HI* (10/10/16 3:33 PM) Mean Arterial 119 mmHg Pressure, Cuff (10/10/16 3:33 PM) SpO2 97 % (10/10/16 3:33 PM) Problem List Condition Effective Dates Status Health Status Informant Acute myocardial Active patient infarction(Confirmed ) Acute Active pain(Confirmed) Anxiety(Confirmed) Active patient Arthritis(Confirmed) Active patient Asthma(Confirmed) Active patient At risk for unstable Active blood glucose level(Confirmed)1 Bleeding Active precautions(Confirme d)2 Depression(Confirmed Active patient ) Diabetes(Confirmed) Active patient High Active patient cholesterol(Confirme d) HTN Active patient (hypertension)(Confi rmed) Insomnia(Confirmed) Active patient Knowledge Active deficit(Confirmed)3 Tissue perfusion Active alteration(Confirmed )4 1Problem added automatically by system based on initiation of At Risk for Unstable Blood Glucose Plan of Care 2Problem added automatically by system based on initiation of Bleeding Precautions Plan of Care 3Problem added automatically by system based on initiation of Knowledge Deficit Plan of Care 4Problem added automatically by system based on initiation of Tissue Perfusion Cerebral Plan of Care Allergies, Adverse Reactions, Alerts Substance Reaction Severity Status fentaNYL violently ill and ORTEGA Active Indocin Vomit Severe Active morphine violently ill and ORTEGA Active naproxen Vomit Severe Active Tape1 Active Toradol vomit Severe Active 1paper tape Medications albuterol 2.5 mg/3 mL (0.083%) inhalation solution 2.5 mg 3 mL, NEB, q4hr, as needed for wheezing, 0 Refill(s) Start Date: 01/16/16 Status: Ordered amLODIPine 10 mg, Oral, Daily, 0 Refill(s) Start Date: 02/23/15 Status: Ordered aspirin 81 mg oral tablet, chewable 81 mg 1 tabs, Oral, Daily, 0 Refill(s) Start Date: 01/17/16 Status: Ordered atorvastatin 10 mg, Oral, Bedtime (once a day), 0 Refill(s) Start Date: 06/28/16 Status: Ordered busPIRone 10 mg, Oral, BID, qAM & Noon, 0 Refill(s) Start Date: 10/07/14 Status: Ordered busPIRone 20 mg, Oral, Bedtime (once a day), 0 Refill(s) Start Date: 01/14/16 Status: Ordered carvedilol 25 mg, Oral, Daily, 0 Refill(s) Start Date: 06/28/16 Status: Ordered cetirizine 10 mg, Oral, Daily, 0 Refill(s) Start Date: 10/07/14 Status: Ordered Dulera 100 mcg-5 mcg/inh inhalation aerosol 2 puffs, Inhalation, BID, # 13 g, 0 Refill(s) Start Date: 02/23/15 Status: Ordered ezetimibe 10 mg, Oral, Bedtime (once a day), 0 Refill(s) Start Date: 06/28/16 Status: Ordered hydrochlorothiazide 25 mg, Oral, Daily, 0 Refill(s) Start Date: 10/07/14 Status: Ordered Levemir 40 units, SubCutaneous, Bedtime (once a day), 0 Refill(s) Start Date: 06/28/16 Status: Ordered montelukast 10 mg, Oral, Bedtime (once a day), 0 Refill(s) Start Date: 10/07/14 Status: Ordered NovoLOG 15 units, SubCutaneous, TIDAC, 0 Refill(s) Start Date: 06/28/16 Status: Ordered omeprazole 40 mg, Oral, Daily, 0 Refill(s) Start Date: 10/07/14 Status: Ordered Percocet 10/325 oral tablet 2 tabs, Oral, q4hr, as needed for pain, 0 Refill(s) Start Date: 06/28/16 Status: Ordered Proventil HFA 2 puffs, Inhalation, q6hr, as needed for wheezing, 0 Refill(s) Start Date: 02/23/15 Status: Ordered sertraline 100 mg, Oral, Bedtime (once a day), 0 Refill(s) Start Date: 10/07/14 Status: Ordered traZODone 100 mg, Oral, Bedtime (once a day), 0 Refill(s) Start Date: 06/28/16 Status: Ordered Vistaril 25 mg, Oral, TID, 0 Refill(s) Start Date: 10/07/14 Status: Ordered Results Hematology Most recent to 1 oldest [Reference Range]: WBC [4.8-10.8 7.6 10*3/uL 10*3/uL] (10/10/16 12:19 PM) RBC [4.60-6.20] 5.18 (10/10/16 12:19 PM) Hgb [14.0-18.0 10.9 gm/dL gm/dL] *LOW* (10/10/16 12:19 PM) Hct [42.0-52.0 %] 36.9 % *LOW* (10/10/16 12:19 PM) MCV [82.0-99.0 fL] 71.2 fL *LOW* (10/10/16 12:19 PM) MCH [27.0-32.0 pg] 21.0 pg *LOW* (10/10/16 12:19 PM) MCHC [32.0-36.0 29.5 gm/dL gm/dL] *LOW* (10/10/16) RDW [11.5-14.5 %] 17.1 % *HI* (10/10/16 PM) Platelet [150-400 182 10*3/uL 10*3/uL] (10/10/16) MPV [9.4-12.3 fL] 10.2 fL (10/10/16 PM) Immature 0.1 % Granulocytes (10/10/16) [0.0-1.0 %] Neutrophils [51-75 77 % %] *HI* (10/10/16) Lymphocytes [20-46 15 % %] *LOW* (10/10/16) Monocytes [4-11 %] 6 % (10/10/16 PM) Eosinophils [0-4 %] 2 % (10/10/16) Basophils [0-2 %] 0 % (10/10/16 PM) Neutro Absolute 5.87 [1.90-7.00] (10/10/16 PM) Lymph Absolute 1.14 [0.80-3.30] (10/10/16 PM) [place]orne Absolute 0.45 [0.30-1.00] (10/10/16 PM) Eos Absolute 0.13 [0.00-0.50] (10/10/16 PM) Baso Absolute 0.02 [0.00-0.20] (10/10/16 PM) Hypochrom Occasional *ABN* (10/10/16 PM) Microcyte Present *ABN* (10/10/16 PM) Ovalocytes Occasional *ABN* (10/10/16 PM) Nucleated RBC 0.0 /100 WBC Automated [0 /100 (10/10/16: PM) WBC] Differential Scanned Slide (10/10/16) Chemistry Most recent to 1 oldest [Reference Range]: Sodium Lvl [136-144 138 mEq/L mEq/L] (10/10/16 PM) Potassium Lvl 3.3 mEq/L [3.6-5.1 mEq/L] *LOW* (10/10/16) Chloride [99-109 104 mEq/L mEq/L] (10/10/16 PM) CO2 [22-32 mEq/L] 26 mEq/L (10/10/16 PM) AGAP [3-20] 8 (10/10/16 PM) BUN [4-20 mg/dL] 12 mg/dL (10/10/16 PM) Glucose Lvl [70-100 246 mg/dL mg/dL] *HI* (10/10/16) Creatinine Lvl 0.68 mg/dL [0.64-1.27 mg/dL] (10/10/16 PM) eGFR [>60] >60 1 (10/10/16) Calcium Lvl 8.8 mg/dL [8.6-10.0 mg/dL] (10/10/16 PM) Albumin Lvl [3.5-4.8 3.7 gm/dL gm/dL] (10/10/16 PM) Total Protein 6.9 gm/dL [6.1-7.9 gm/dL] (10/10/16 PM) Globulin [1.9-4.3 3.2 gm/dL gm/dL] (10/10/16 PM) ALT [17-63 U/L] 14 U/L *LOW* (10/10/16) AST [15-41 U/L] 15 U/L (10/10/16 PM) Alk Phos [26-104 97 U/L U/L] (10/10/16 PM) Bili Total [0.2-1.2 0.4 mg/dL 2 mg/dL] (10/10/16 PM) Troponin [<0.06 <0.05 ng/mL ng/mL] (10/10/16 PM) 1Result Comment: Multiply eGFR results by 1.21 for race. 2Result Comment: Naproxen, specifically the metabolite O-desmethylnaproxen, may cause spurious elevation in Total Bilirubin levels. Immunizations No data available for this section Procedures Procedure Date Related Diagnosis Body Site Catheterization Left Heart with Coronary 01/16/16 Angiography1 Cardiac catheterization2 Elbow joint operations Foot joint operations Total knee replacement3 1auto-populated from documented surgical case 2x2 3bilateral Social History Social History Type Response Smoking Status Never smoker Assessment and Plan No data available for this section
--- OUTSIDE RECORDS SUMMARY | 2016-12-04 11:00 | XMS REPORT | Continuity of Care Document ---
Author Author [facility] Address Unknown Phone Unavailable Support Name Relationship Address Phone BUDDY SANCHES M.D. Caregiver [facility] [address], [address] [address] Unavailable SALLIE BURRELL M.D. Caregiver [address] [place] [address] Unavailable JUAN BOWDEN M.D. Caregiver Unknown Unavailable BHUPENDRA LOPEZ Next Of Kin [address] [facility] [address] [place] [address] Insurance Providers Guarantor Lazaro Lopez Address [address] [place] [address] Payer [facility] Medicare Policy Number [id number] Subscriber's Name Lazaro Lopez Relationship 01 Self / Same As Patient Advance Directives Directive Response Recorded Date/Time Patient Resuscitation Status Full Code 05/30/16 12:14pm Advance Directives Yes 05/30/16 12:14pm Living Will Yes 05/30/16 12:14pm Health Care Power of Excel Specialist Yes 05/30/16 12:14pm Problems Active Problems Medical Problem Onset Date Status CAD (coronary artery disease) Unknown Chronic Diabetes Unknown Chronic Hyperlipidemia Unknown Hypertension Unknown Chronic Hypoxia Unknown Morbid obesity Unknown Past Problems Medical Problem Onset Date Chest pain Unknown Chest pain Unknown Hx [...] Mg Tab 10 Mg Oral Daily 05/30/16 Ezetimibe (Zetia) 10 Mg Tab 10 Mg Oral Bedtime 05/30/16 Hydrochlorothiazide (Hctz) 25 Mg Tab 25 Mg Oral Daily 05/30/16 Hydroxyzine Hcl 25 Mg Tab 25 Mg [...] Mg Cap 40 Mg Oral Daily 05/30/16 Oxycodone/Acetaminophen (Percocet 10/325 Mg) 1 Ea Tab 2 Ea Oral Q4-6HRPRN as needed for Pain 50 Tablet for pain 05/30/16 Sertraline Hcl 100 Mg Tab 100 Mg Oral Daily 05/30/16 Trazodone Hcl 100 Mg Tab 100 Mg Oral Bedtime 05/30/16 Social History Social History Problem Response Recorded Date/Time Onset Date Status Hx Alcohol Use Yes 05/30/2016 12:14pm Not Applicable Not Applicable Smoking Status Never smoker 05/30/2016 1:40pm Not Applicable Not Applicable Query Response Start Date Stop Date Smoking Status Never smoker Hospital Discharge Instructions Medication Information Medication information Medications taken today: hctz hydroxyzine humalog meloxicam furoate omeprazole sertraline buspar percocet aspirin Discharge Instructions Provider Instructions Dismiss Date: Jun 01, 2016 Dismiss: Home Diet: Return to Previous Activity: As Tolerated F/U Appt: 7-10 Days Discharge Instructions 1.CAD stable 2.Hypoxia arrangements pending for home O2 3. 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 Prescription for Tramadol 50mg provied in place of the Percocet until this can be obtained from personal physician Nursing Instructions Physician Follow-up Appointment: pcp Call for Appointment: Yes Other reasons to notify your Doctor: suggest stress test but could not be done in a timely manor see [place] lead caster helper Diet: Return to Previous Activity: As Tolerated Chest Pain handouts: How can I manage stress, HD: On the road/recovery Smoking Cessation Brochure given to patient: No Pain Management Brochure given: Yes Medications returned: N/A Valuables returned from Safe: N/A Hearing Aid(s) returned: N/A Assisstive Device(s) Returned: N/A Glasses returned: N/A Denture(s) Returned: N/A Handouts Given: [employer] Plan(s) based on screenings Preventative Blood Pressure Follow-up plan: BP is Pre-Hypertensive, follow-up with Primary Care Provider Plan of Care Discharge Date 06/01/16 5:55pm Disposition 01 HOME, SELF-CARE Prescriptions See Medication Section Care Plan and Goals See Discharge Instructions Section Functional Status Query Response Date Recorded Overall Activities Daily Living Ability/Staff Support Independ/No setup help May 30, 2016 12:14pm Toileting Ability/Staff Support Independ/No setup help June 01, 2016 4:30pm Oral Care Ability/Staff Support Independ/No setup help June 01, 2016 4:30pm Upper Body Dressing Ability/Staff Support Independ/No setup help June 01, 2016 4:30pm Lower Body Dressing Ability/Staff Support Independ/No setup help June 01, 2016 4:30pm Memory Description 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 June 01, 2016 4:30pm Cognitive Skills Independent June 01, 2016 4:30pm Making self understood Understood June 01, 2016 4:30pm Allergies, Adverse Reactions, Alerts Allergen Type Severity Reaction Status Last Updated Fentanyl ([id number]) Adverse Reaction Unknown Nausea/Vomiting Active Indomethacin ([id number]) Adverse Reaction Unknown Nausea/Vomiting Active 05/31/16 Morphine ([id number]) Adverse Reaction Unknown Nausea/Vomiting Active Naproxen ([id number]) Adverse Reaction Unknown Nausea/Vomiting Active Ketorolac Tromethamine ([id number]) Adverse Reaction Unknown Nausea/ Vomiting Active 05/30/16 Paper tape Adverse Reaction Unknown BLISTERS Active 05/30/16 Immunizations Query Response on File Recorded Date/Time History Of Heart Disease Diabetes 05/30/16 12:14pm Pneumonia Vaccine Received Yes 05/30/16 12:14pm Had a Tetanus Toxoid Vaccination less than 10yrs ago Yes 05/30/16 12:14pm Vital Signs Acute Vital Signs Vital Response Date/Time Blood Pressure 151/82 mm Hg 06/01/2016 4:00pm Blood Pressure Mean 105 mm Hg 06/01/2016 4:00pm Temperature (Fahrenheit) 98.3 degrees F (96.0 - 99.9) 06/01/2016 4:00pm Temperature (Calculated Celsius) 36.37664 degrees C 06/01/2016 4:00pm Temperature Source Oral 06/01/2016 4:00pm Temperature Source Oral 05/30/2016 9:55am Pulse Pulse Rate (adult) 66 bpm (60 - 100) 06/01/2016 4:00pm Pulse Rate: ED 63 bpm 05/30/2016 12:00pm Respiratory Rate 33 breaths per minute (10 - 20) 06/01/2016 4:00pm Height (Feet) 5 ft 05/30/2016 12:14pm Height (Inches) 10.0 in. 05/30/2016 12:14pm Weight (Pounds) 340.0 lbs 06/01/2016 4:00am Height 5 ft 10 in 05/30/2016 9:55am Weight 340 lb 06/01/2016 4:00am Body Mass Index 48.8 kg/m^2 06/01/2016 4:00am Results Laboratory Results Test Name Result Units Flags Reference Collection Date/Time Result Date/ Time Comments White Blood Count 6.4 K/uL 5.0-10.0 05/30/2016 10:00am 05/30/2016 10: 43am Red Blood Count 4.92 M/uL 4.60-5.40 05/30/2016 10:00am 05/30/2016 10: 43am Hemoglobin 12.1 g/dL L 14.0-18.0 05/30/2016 10:00am 05/30/2016 10:43am Hematocrit 38.1 % L 40.0-54.0 05/30/2016 10:0005/30/2016 10:43am Mean Corpuscular Volume 77.4 fL L 80.0-94.0 05/30/2016 10:002015 10:43am Mean Corpuscular Hemoglobin 24.6 pg L 26.0-33.0 05/30/2016 10:0005/30 10:43am Mean Corpuscular Hemoglobin Concent 31.8 g/dL 31.0-36.0 05/30/2016 10: 00am 05/30/2016 10:43am Red Cell Distribution Width 14.8 % H 11.5-14.5 05/30/2016 10:002015 10:43am RDW Standard Deviation 41.0 fL 35.1-43.9 05/30/2016 10:0005/30/2016 10:43am Platelet Count 156 K/uL 130-400 05/30/2016 10:0005/30/2016 10:43am Mean Platelet Volume 10.5 fL 7.0-11.0 05/30/2016 10:00am 05/30/2016 10: 43am Neutrophils (%) (Auto) 74.2 % 42.0-75.0 05/30/2016 10:0005/30/2016 10:43am Lymphocytes (%) (Auto) 16.5 % 16.0-44.0 05/30/2016 10:00am 05/30/2016 10:43am Monocytes (%) (Auto) 4.9 % 2.0-9.0 05/30/2016 10:00am 05/30/2016 10: 43am Eosinophils (%) (Auto) 3.3 % 0-7.0 05/30/2016 10:0005/30/2016 10: 43am Basophils (%) (Auto) 0.6 % 0-1 05/30/2016 10:0005/30/2016 10:43am Immature Granulocyte % (Auto) 0.5 % 0-0.5 05/30/2016 10:002015 10:43am Nucleated Red Blood Cells % 0.0 /100WBC 0-0 05/30/2016 10:002015 10:43am Neutrophils # (Auto) 4.7 K/uL 1.9-8.0 05/30/2016 10:00am 05/30/2016 10: 43am Lymphocytes # (Auto) 1.1 K/uL 0.9-5.2 05/30/2016 10:00am 05/30/2016 10: 43am Monocytes # (Auto) 0.3 K/uL 0.16-1.0 05/30/2016 10:00am 05/30/2016 10: 43am Eosinophils # (Auto) 0.2 K/uL 0-0.8 05/30/2016 10:00am 05/30/2016 10: 43am Basophils # (Auto) 0.0 K/uL 0-0.2 05/30/2016 10:00am 05/30/2016 10: 43am Immature Granulocyte # (Auto) 0.03 K/uL 0-0.40 05/30/2016 10:00am 05/30 10:43am Nucleated Red Blood Cells # 0.00 K/uL 0.0-0.012 05/30/2016 10:00am 10:43am Prothrombin Time 10.8 SECONDS 9.0-12.0 05/30/2016 10:00am 05/30/2016 10 :41am Prothromb Time International Ratio 1.00 L 2.0-3.0 THERAPEUTIC 2015 10:00am 05/30/2016 10:41am Activated Partial Thromboplast Time 29.2 SECONDS 24.0-37.0 05/30/2016 10 :00am 05/30/2016 10:41am D-Dimer Quantitative (PE/DVT) 354 ng/mL <230 05/30/2016 10:00am 2015 10:41am Results <230 ng/mL valdemar a negative predictability for DVT or PE Random Glucose 425 mg/dL H 65-115 05/30/2016 10:00am 05/30/2016 10:41am Bedside Glucose 307 mg/dL H 70-120 06/01/2016 2:03pm 06/01/2016 2:05pm Notify Nurse Blood Urea Nitrogen 19 mg/dL 8-25 05/30/2016 10:00am 05/30/2016 10: 41am Creatinine 0.74 mg/dL L 0.9-1.6 05/30/2016 10:0005/30/2016 10:41am Glomerular Filtration Rate Calc 106.83 mL/min 05/30/2016 10:00 10:41am MULTIPLY RESULT BY 1.210 IF THE PATIENT IS -BRAZILIAN Units are mL/min/1.73 m2 > 60 Normal kidney function 30-59 Moderately decreased kidney function 15-29 Severely decreased kidney function <15 End-stage kidney failure BUN/Creatinine Ratio 25.7 05/30/2016 10:0005/30/2016 10:41am Sodium Level 135 mEq/L 133-145 05/30/2016 10:0005/30/2016 10:41am Potassium Level 3.5 mEq/L 3.5-5.1 05/30/2016 10:0005/30/2016 10: 41am Chloride Level 102 mEq/L 98-116 05/30/2016 10:00am 05/30/2016 10:41am Carbon Dioxide Level 27 mEq/L 22-34 05/30/2016 10:00am 05/30/2016 10: 41am Anion Gap 9.5 6-13 05/30/2016 10:00am 05/30/2016 10:41am Calcium Level 8.5 mg/dL 8.2-10.6 05/30/2016 10:00am 05/30/2016 10:41am Cholesterol Level 139 mg/dL 120-200 05/31/2016 5:30am 05/31/2016 6: 22am Triglycerides Level 116 mg/dL 45-150 05/31/2016 5:30am 05/31/2016 6: 22am LDL Cholesterol 83 mg/dL 25-100 05/31/2016 5:30am 05/31/2016 6:22am HDL Cholesterol 33 mg/dL L 40-80 05/31/2016 5:30am 05/31/2016 6:22am VLDL Cholesterol 23.2 5-40 05/31/2016 5:30am 05/31/2016 6:22am Cholesterol Ratio (LDL/HDL) 4.212 05/31/2016 5:3005/31/2016 6: 22am Total Protein 7.0 gm/dL 6.0-8.4 05/30/2016 10:00am 05/30/2016 10:41am Albumin 3.7 gm/dL 3.2-5.0 05/30/2016 10:00am 05/30/2016 10:41am Globulin 3.3 gm/dL H 2.0-3.0 05/30/2016 10:00am 05/30/2016 10:41am Albumin/Globulin Ratio 1.1 L 1.4-2.4 05/30/2016 10:00am 05/30/2016 10: 41am Total Bilirubin 0.4 mg/dL 0.1-1.3 05/30/2016 10:00am 05/30/2016 10: 41am Alkaline Phosphatase 87 U/L 35-125 05/30/2016 10:00am 05/30/2016 10: 41am Aspartate Amino Transf (AST/SGOT) 17 U/L 5-40 05/30/2016 10:00am 2015 10:41am Alanine Aminotransferase (ALT/SGPT) 22 U/L 5-40 05/30/2016 10:00am 10:41am Troponin I 0.00 ng/mL 0.0-0.02 05/30/2016 9:45pm 05/30/2016 10:14pm Lipase 27 U/L 8-57 05/30/2016 10:00am 05/30/2016 10:41am Total Creatine Kinase 50 U/L 10-180 05/30/2016 9:45pm 05/30/2016 10: 05pm Creatine Kinase MB 0.9 ng/mL 0.0-6.0 05/30/2016 9:45pm 05/30/2016 10: 14pm Procedures No known history of procedures. Encounters Encounter Location Arrival/Admit Date Discharge/Depart Date Attending Provider Discharged Inpatient (obs) Hien Turner [facility] 05/30/16 12:14pm 5:55pm JUAN BOWDEN M.D.
--- OUTSIDE RECORDS SUMMARY | 2016-12-04 11:00 | XMS REPORT | Referral Summary ---
Author Author [facility] Organization [facility] Address Unknown Phone Unavailable Care Team Providers Care Embedded Processor Name Role Phone No PCP, Pt States Primary Care Physician [phone] Encounter Date(s): 10/28/16 - 10/28/[address] [facility] [address], [place] [address] Discharge Diagnosis: Injury of left knee Discharge Disposition: -Home or Self Care Attending Physician: Hugo Wells DO Admitting Physician: Hugo Wells DO Vital Signs Most recent to 1 oldest [Reference Range]: Temperature Oral 36.7 degC [35.8-37.3 degC] (10/28/16 2:29 PM) Peripheral Pulse 64 bpm Rate [60-100 bpm] (10/28/16 2:29 PM) Respiratory Rate 18 br/min [14-20 br/min] (10/28/16 2:29 PM) Blood Pressure 128/80 mmHg [90-140/60-90 mmHg] (10/28/16 2:29 PM) SpO2 93 % (10/28/16 2:29 PM) Problem List Condition Effective Dates Status [...] 0 Refill(s) Start Date: 10/07/14 Status: Ordered oxyCODONE-acetaminophen 5 mg-325 mg oral tablet 1 tabs, Oral, q4hr, Pain, X 2 days, # 12 tabs, 0 Refill(s) Start Date: 10/28/16 Stop Date: 10/30/16 Status: Ordered Percocet 10/325 oral tablet 2 [...] Refill(s) Start Date: 10/07/14 Status: Ordered Results No data available for this section Immunizations No data available for this section [...]
--- OUTSIDE RECORDS SUMMARY | 2016-12-04 11:01 | XMS REPORT | Referral Summary ---
Author Author [facility] Organization [facility] Address Unknown Phone Unavailable Care Team Providers Care Adult Family Home Program Manager Name Role Phone No PCP, States Primary Care Physician [phone] Encounter VC Date(s): 07/13/16 - 07/13/16 [facility] [address] [place] [id number] Discharge Diagnosis: Chest pain Discharge Disposition: 01-Home or Self Care Attending Physician: Katie Alan MD Admitting Physician: Katie Alan MD Vital Signs Most recent to 1 oldest [Reference Range]: Temperature Oral 36.8 degC [35.8-37.3 degC] (07/13/16 4:41 PM) Peripheral Pulse 57 bpm Rate [60-100 bpm] *LOW* (07/13/16 8:31 PM) Heart Rate Monitored 62 bpm [60-100 bpm] (07/13/16 7:35 PM) Respiratory Rate 18 br/min [14-20 br/min] (07/13/16 8:31 PM) Blood Pressure 133/78 mmHg [90-140/60-90 mmHg] (07/13/16 8:31 PM) Mean Arterial 91 mmHg Pressure, Cuff (07/13/16 7:35 PM) SpO2 97 % (07/13/16 8:31 PM) Problem List Condition Effective Dates Status Health Status Informant Acute myocardial Active patient infarction(Confirmed ) Acute Active pain(Confirmed) Anxiety(Confirmed) Active patient Arthritis(Confirmed) Active patient Asthma(Confirmed) Active patient At risk for unstable Active blood glucose level(Confirmed)1 Bleeding Active precautions(Confirme d)2 Depression(Confirmed Active patient ) Diabetes(Confirmed) Active patient High Active patient cholesterol(Confirme d) HTN Active patient (hypertension)(Confi rmed) Insomnia(Confirmed) Active patient Knowledge Active deficit(Confirmed)3 1Problem added automatically by system based on initiation of At Risk for Unstable Blood Glucose Plan of Care 2Problem added automatically by system based on initiation of Bleeding Precautions Plan of Care 3Problem added automatically by system based on initiation of Knowledge Deficit Plan of Care Allergies, Adverse Reactions, Alerts Substance Reaction Severity Status Indocin Vomit Severe Active naproxen Vomit Severe Active Tape1 Active Toradol vomit Severe Active 1paper tape Medications albuterol 2.5 mg/3 mL (0.083%) inhalation solution 2.5 mg 3 mL, Inhalation, q4hr, as needed for wheezing, 0 Refill(s) [...] 0 Refill(s) Start Date: 06/28/16 Status: Ordered meloxicam 15 mg, Oral, Daily, 0 Refill(s) Start Date: 10/07/14 Status: Ordered montelukast 10 mg, Oral, Bedtime (once a day), 0 Refill(s) Start Date: 10/07/14 Status: Ordered NovoLOG 10 units, SubCutaneous, TIDAC, 0 Refill(s) Start Date: [...] to 1 oldest [Reference Range]: WBC [4.8-10.8 6.5 10*3/uL 10*3/uL] (07/13/16 5:22 PM) RBC [4.60-6.20] 4.82 (07/13/16 5:22 PM) Hgb [14.0-18.0 11.3 gm/dL gm/dL] *LOW* (07/13/16 5:22 PM) Hct [42.0-52.0 %] 36.0 % *LOW* (07/13/16 5:22 PM) MCV [82.0-99.0 fL] 74.7 fL *LOW* (07/13/16 5:22 PM) MCH [27.0-32.0 pg] 23.4 pg *LOW* (07/13/16 5:22 PM) MCHC [32.0-36.0 31.4 gm/dL gm/dL] *LOW* (07/13/16 5:22 PM) RDW [11.5-14.5 %] 15.1 % *HI* (07/13/16 5:22 PM) Platelet [150-400 190 10*3/uL 10*3/uL] (07/13/16 5:22 PM) MPV [9.4-12.3 fL] 10.6 fL (07/13/16 5:22 PM) Immature 0.2 % Granulocytes (07/13/16:22 PM) [0.0-1.0 %] Neutrophils [51-75 69 % %] (07/13/16 5:22 PM) Lymphocytes [20-46 19 % %] *LOW* (07/13/16:22 PM) Monocytes [4-11 %] 8 % (07/13/16:22 PM) Eosinophils [0-4 %] 3 % (07/13/16:22 PM) Basophils [0-2 %] 1 % (07/13/16:22 PM) Neutro Absolute 4.51 10*3 [1.90-7.00 10*3] (07/13/16:22 PM) Lymph Absolute 1.26 10*3 [0.80-3.30 10*3] (07/13/16 5:22 PM) [place] Absolute 0.51 10*3 [0.30-1.00 10*3] (07/13/16 5:22 PM) Eos Absolute 0.20 10*3 [0.00-0.50 10*3] (07/13/16 5:22 PM) Baso Absolute 0.03 10*3 [0.00-0.20 10*3] (07/13/16:22 PM) Chemistry Most recent to 1 oldest [Reference Range]: Sodium Lvl [136-144 138 mEq/L mEq/L] (07/13/16:22 PM) Potassium Lvl 3.3 mEq/L [3.6-5.1 mEq/L] *LOW* (07/13/16:22 PM) Chloride [99-109 104 mEq/L mEq/L] (07/13/16 5:22 PM) CO2 [22-32 mEq/L] 26 mEq/L (07/13/16:22 PM) AGAP [3-20] 8 (07/13/16 5:22 PM) BUN [4-20 mg/dL] 13 mg/dL (07/13/16 5:22 PM) Glucose Lvl [70-100 156 mg/dL mg/dL] *HI* (07/13/16 5:22 PM) Creatinine Lvl 0.77 mg/dL [0.64-1.27 mg/dL] (07/13/16 5:22 PM) eGFR [>60] >60 1 (07/13/16 5:22 PM) Calcium Lvl 8.7 mg/dL [8.6-10.0 mg/dL] (07/13/16 5:22 PM) Albumin Lvl [3.5-4.8 3.7 gm/dL gm/dL] (07/13/16 5:22 PM) Total Protein 6.6 gm/dL [6.1-7.9 gm/dL] (07/13/16 5:22 PM) Globulin [1.9-4.3 2.9 gm/dL gm/dL] (07/13/16 5:22 PM) ALT [17-63 U/L] 18 U/L (07/13/16 5:22 PM) AST [15-41 U/L] 16 U/L (07/13/16 5:22 PM) Alk Phos [26-104 90 U/L U/L] (07/13/16 5:22 PM) Bili Total [0.2-1.2 0.4 mg/dL 2 mg/dL] (07/13/16 5:22 PM) Troponin [<0.06 <0.05 ng/mL ng/mL] (07/13/16 5:22 PM) Troponin-POC Negative (07/13/16 7:54 PM) 1Result Comment: Multiply eGFR results by [...]
--- OUTSIDE RECORDS SUMMARY | 2016-12-04 11:01 | XMS REPORT ---
Author Author [facility] Organization [facility] Address [address] [place], [place] [id number] Phone [phone] Summary purpose CCDA Sent to [facility] Chief Complaint and Reason for Visit Admit Diagnosis 1 CHEST PAIN Problem list Condition Status Certainty Chronicity Onset Discharge Planning Active Practical Matters - Inadequate/impractical home care resources and support Active Encounters The following conditions tracked for encounter diagnoses were recorded for this visit: Finding or Diagnosis Status Certainty Chronicity Onset Cardiovascular - Actual/potential for altered Active Medications Discharge Medications Status Medication Directions Current albuterol sulfate 5 mg/mL (0.5 %) solution for nebulization 1 each inhalation FOUR TIMES A DAY Current amLODIPine (NORVASC) 10 mg: TABLET 10 MG oral ONE TIME A DAY Current amLODIPine 10 mg tablet 1 tab(s) oral ONE TIME A DAY Current atorvastatin 10 mg tablet 1 tab(s) oral BEDTIME Current busPIRone 10 mg tablet 1 tab(s) oral BEFORE BREAKFAST AND LUNCH Current busPIRone 10 mg tablet 2 tab(s) oral BEDTIME Current carvedilol 25 mg tablet 1 tab(s) oral ONE TIME A DAY Current cetirizine 10 mg tablet 1 tab(s) oral ONE TIME A DAY Current Dulera 100 mcg-5 mcg/actuation HFA aerosol inhaler 2 puff(s) inhalation TWO TIMES A DAY Current hydrochlorothiazide 25 mg tablet 1 tab(s) oral ONE TIME A DAY Current hydrOXYzine HCl 25 mg tablet 1 tab(s) oral THREE TIMES A DAY Current Levemir 100 unit/mL subcutaneous solution 40 unit(s) subcutaneous BEDTIME Current meloxicam 15 mg tablet 1 tab(s) oral ONE TIME A DAY Current montelukast 10 mg tablet 1 tab(s) oral BEDTIME Current Novolog 100 unit/mL subcutaneous solution 10 unit(s) subcutaneous AFTER MEALS Current omeprazole 20 mg capsule,delayed release 2 capsule(s) oral ONE TIME A DAY Current Percocet 10 mg-325 mg tablet 2 tab(s) oral oral EVERY FOUR HOURS NEEDED for pain Current sertraline 100 mg tablet 1 tab(s) oral BEDTIME Current traZODone 50 mg tablet 2 tab(s) oral BEDTIME Current Zetia 10 mg tablet 1 tab(s) oral BEDTIME Allergies, adverse reactions, alerts Allergen Category Ingredient Status Reaction Severity Onset naproxen Drug naproxen Active Indocin Drug Indocin Active Indocin Drug indomethacin Active Toradol Drug Toradol Active Toradol Drug ketorolac Active morphine Drug morphine Active fentanyl Drug fentanyl Active paper tape Miscellaneous paper tape Active Immunizations No immunizations recorded for this patient visit Relevant diagnostic tests and/or laboratory data RESULTS CBC :35:00 Result Normal Range Units WBC 5.21 4.5-10.5 x 103/uL Lymphocyte % 21.7 20.5-51.1 % Monocyte % 8.1 1.7-9.3 % Neutrophil % 65.0 42.2-75.2 % Lymphocyte # L 1.13 1.2-3.4 x 103/uL Monocyte # 0.42 0.1-0.6 x 103/uL Neutrophil # 3.39 1.4-6.5 x 103/uL RBC 4.47 4.00-6.00 x 106/uL Hemoglobin L 10.7 11.0-18.0 g/dl Hematocrit L 34.4 35.0-60.0 % MCV L 77.0 80.0-99.9 FL MCH L 23.9 27.0-31.0 pg MCHC L 31.1 33.0-37.0 g/dl RDW 15.6 % Platelets 153 150-450 x 103/uL MPV 11.0 7.8-11.0 FL :30:00 Result Normal Range Units WBC 6.54 4.5-10.5 x 103/uL Lymphocyte % L 16.5 20.5-51.1 % Monocyte % 8.0 1.7-9.3 % Neutrophil % 70.7 42.2-75.2 % Lymphocyte # L 1.08 1.2-3.4 x 103/uL Monocyte # 0.52 0.1-0.6 x 103/uL Neutrophil # 4.63 1.4-6.5 x 103/uL RBC 4.52 4.00-6.00 x 106/uL Hemoglobin 11.0 11.0-18.0 g/dl Hematocrit L 34.9 35.0-60.0 % MCV L 77.2 80.0-99.9 FL MCH L 24.3 27.0-31.0 pg MCHC L 31.5 33.0-37.0 g/dl RDW 15.6 % Platelets 160 150-450 x 103/uL MPV 10.0 7.8-11.0 FL Chemistry Group :35:00 Result Normal Range Units Sodium 134 128-145 mmol/L Potassium 3.8 3.6-5.1 mmol/L CO2 26 18-33 mmol/L Chloride 102 98-108 mmol/L Glucose H 195 73-118 mg/dl Calcium 8.5 8.0-10.3 mg/dl BUN 11 7-22 mg/dl Creatinine 0.8 0.6-1.2 mg/dl ALP 75 42-141 U/L ALT 20 10-47 U/L AST 22 11-38 U/L Bilirubin Total 0.5 0.2-1.6 mg/dl Albumin 3.4 3.3-5.5 g/dl Protein Total 6.4 6.4-8.1 g/dl CKMB < 1.0 0.0-4.3 ng/ml Myoglobin 47.6 0.0-107 ng/ml Troponin < 0.05 0.00-0.40 ng/ml :05:00 Result Normal Range Units CKMB < 1.0 0.0-4.3 ng/ml Myoglobin 54.9 0.0-107 ng/ml Troponin < 0.05 0.00-0.40 ng/ml :30:00 Result Normal Range Units Sodium 142 128-145 mmol/L Potassium 4.0 3.6-5.1 mmol/L CO2 27 18-33 mmol/L Chloride 99 98-108 mmol/L Glucose H 142 73-118 mg/dl Calcium 8.9 8.0-10.3 mg/dl BUN 12 7-22 mg/dl Creatinine 0.9 0.6-1.2 mg/dl ALP 75 42-141 U/L ALT 34 10-47 U/L AST 20 11-38 U/L Bilirubin Total 0.6 0.2-1.6 mg/dl Albumin 3.7 3.3-5.5 g/dl Protein Total 7.0 6.4-8.1 g/dl CKMB < 1.0 0.0-4.3 ng/ml Myoglobin 56.6 0.0-107 ng/ml Troponin < 0.05 0.00-0.40 ng/ml Coagulation Group [id number]:30:00 Result Normal Range Units Protime 10.5 9.5-12.5 Sec INR 1.0 < 2.0 Reference Lab [id number]:35:00 Result Normal Range Units Protein Total 6.4 6.4-8.1 g/dl [id number]:30:00 Result Normal Range Units Protein Total 7.0 6.4-8.1 g/dl History of procedures Procedure Code Code Type Description Date Performed Performing Physician [id number] CPT-4 HOSPITAL OBSERVATION PER [place] 07-01-2016 [place] [id number] CPT-4 EMERGENCY DEPT VISIT 07-01-2016 [place] [id number] CPT-4 PLACE NEEDLE IN VEIN 07-01-2016 [place] [id number] CPT-4 THER/PROPH/DIAG INJ, SC/IM 07-02-2016 [place] [id number] CPT-4 THER/PROPH/DIAG INJ, SC/IM 07-02-2016 [place] [id number] CPT-4 THER/PROPH/DIAG INJ, SC/IM 07-02-2016 [place] [id number] CPT-4 COMPLETE CBC W/AUTO DIFF WBC 07-02-2016 [place] [id number] CPT-4 COMPREHEN METABOLIC PANEL 07-02-2016 [place] [id number] CPT-4 ELECTROCARDIOGRAM, TRACING 07-02-2016 K[place]T SHAYE [id number] CPT-4 CREATINE, MB FRACTION 07-02-2016 K[place]T SHAYE 07317 CPT-4 ASSAY OF TROPONIN, QUANT 07-02-2016 [place] [id number] CPT-4 ASSAY OF MYOGLOBIN 07-02-2016 [place] [id number] CPT-4 COMPLETE CBC W/AUTO DIFF WBC 07-01-2016 [place] [id number] CPT-4 COMPREHEN METABOLIC PANEL 07-01-2016 [place] [id number] CPT-4 PROTHROMBIN TIME 07-01-2016 [place] [id number] CPT-4 CREATINE, MB FRACTION 07-01-2016 [place] [id number] CPT-4 ASSAY OF TROPONIN, QUANT 07-01-2016 [place] [id number] CPT-4 ASSAY OF MYOGLOBIN 07-01-2016 [place] [id number] CPT-4 CREATINE, MB FRACTION 07-01-2016 [place] [id number] CPT-4 ASSAY OF TROPONIN, QUANT 07-01-2016 [place] [id number] CPT-4 ASSAY OF MYOGLOBIN 07-01-2016 [place] [id number] CPT-4 CHEST X-RAY 07-01-2016 KURT CR [id number] CPT-4 INSULIN INJECTION 07-02-2016 KURT CR [id number] CPT-4 ENOXAPARIN NA INJ 07-02-2016 KURT CR [id number] CPT-4 ENOXAPARIN NA INJ 07-02-2016 [place] [id number] CPT-4 ROUTINE VENIPUNCTURE 07-02-2016 [place] [id number] CPT-4 ROUTINE VENIPUNCTURE 07-01-2016 [place] [id number] CPT-4 ROUTINE VENIPUNCTURE 07-01-2016 KURT CR [id number] CPT-4 INSULIN INJECTION 07-01-2016 KURT CR [id number] CPT-4 ENOXAPARIN NA INJ 07-01-2016 KURT CR [id number] CPT-4 ENOXAPARIN NA INJ 07-01-2016 KURT CR Functional status Cognitive Status Finding Observation Time Level of Consciousne Alert :30 Oriented to Person Yes [id number]:[address] Yes [id number] Oriented to Time Yes [id number]:30 Vital signs Type Value Date Respirations 20 [id number]:20 Pulse 60 09-12-749020:34 O2 Saturation 96% :30 Systolic Blood Press 132mm/HG :20 Diastolic Blood Pres 75mm/HG :20 Temperature (Fahr) 98.1Degrees :20 Height 70in 67-90-640855:55 Weight 335LB 29-51-995704:55 Social history Type Value Smoking Status NEVER SMOKER Treatment Plan No treatment plan text is available for this visit. Hospital discharge instructions Diagnosis Chest pain Diet 1800 DAMARI ADA Activity Level Up as tolerated Flu Vaccine Given Current/Not Needed Pneumonia Vaccine Gi Current/Not Needed Follow up with PCP Appointment Date and within 72 hours
--- OUTSIDE RECORDS SUMMARY | 2016-12-04 11:01 | XMS REPORT ---
Author Author [employer], SYSTEM Organization Unknown Address Unknown Phone Unavailable Care Team Providers Care Computer Information Systems Instructor Name Role Phone PP Unavailable Reason For Visit Chief Complaint FALL RT KNEE PAIN Social History Functional Status Vital Signs Results DX Radiology from 12/05/2015 8:00 PMKNEE RIGHT 3 VIEWS History: s/p TKA with fall and right knee pain . Technique: 3 view knee performed. Priors: None. Findings: No acute fractures or subluxations are identified. There is no joint effusion. There postsurgical change of a total knee arthroplasty which appears intact Impression: Total knee arthroplasty without evidence of acute fracture. Electronically signed by: Moises Corrigan MD Dictated: 12/06/2015 09:57 Problems Encounter Diagnosis No relevant problems exist. Encounters Encounter Diagnosis No relevant problems exist. Plan of Care Procedures No relevant procedures performed. Immunizations No immunizations administered or ordered. Hospital Course Hospital Discharge Instructions Allergies, Adverse Reactions, Alerts * Latex Allergy has not been assessed. * IV Contrast Allergy has not been assessed. Medication Medication reconciliation has not been performed.
--- OUTSIDE RECORDS SUMMARY | 2016-12-04 11:02 | XMS REPORT | Continuity Of Care Document ---
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 Name Role Phone Mayito LUJAN MD AT UNASSIGNED, PHYSICIAN Unavailable Unavailable Results Lab Results Visit/Account #[id number] (July 13, 2016 10:05pm - July 14, 2016 12: 25am) Test Result Date/Time 86236-3: COMPLETE BLOOD COUNT WITH DIFF WHITE BLOOD COUNT(4.0-11.0 10E3/UL) 7.1 10E3/UL July 13, 2016 10:12pm RED BLOOD COUNT(4.50-5.90 10E6/UL) 5.08 10E6/UL July 13, 2016 10:12pm HEMOGLOBIN(13.5-17.5 G/DL) 11.5 G/DL July 13, 2016 10:12pm HEMATOCRIT(41.0-53.0 %) 37.8 % July 13, 2016 10:12pm MEAN CORPUSCULAR VOLUME(82.0-100.0 FL) 74.4 FL July 13, 2016 10:12pm 35966-4: MEAN CORPUSCULAR HEMOGLOBIN(26.0-34.0 PG) 22.6 PG July 13, 2016 10:12pm MEAN CORPUSCULAR HGB CONC(31.5-36.5 G/DL) 30.4 G/DL July 13, 2016 10:12pm RED CELL DISTRIBUTION WIDTH(11.5-14.5 %) 15.0 % July 13, 2016 10:12pm 777-3: PLATELET COUNT(150-450 10E3/UL) 179 10E3/UL July 13, 2016 10:12pm MEAN PLATELET VOLUME(8.2-12.4 FL) 10.1 FL July 13, 2016 10:12pm 770-8: NEUTROPHILS % (AUTO)(40-70 %) 66 % July 13, 2016 10:12pm LYMPHOCYTES % (AUTO)(15-45 %) 23 % July 13, 2016 10:12pm 5905-5: MONOCYTES % (AUTO)(2-10 %) 6 % July 13, 2016 10:12pm 713-8: EOSINOPHILS % (AUTO)(0-6 %) 4 % July 13, 2016 10:12pm 706-2: BASOPHILS % (AUTO)(0-1 %) 1 % July 13, 2016 10:12pm 50343-0: IMMATURE GRANS % (AUTO)(0-0 %) 0 % July 13, 2016 10:12pm NUCLEATED RBCS (AUTO)(0-0 %) 0 % July 13, 2016 10:12pm 751-8: NEUTROPHILS # (AUTO)(2.5-7.5 10E3/UL) 4.7 10E3/UL July 13, 2016 10:12pm 22015-8: LYMPHOCYTES # (AUTO)(1.0-4.0 10E3/UL) 1.7 10E3/UL July 13, 2016 10:12pm 742-7: MONOCYTES # (AUTO)(0.2-0.8 10E3/UL) 0.5 10E3/UL July 13, 2016 10:12pm 711-2: EOSINOPHILS # (AUTO)(0.0-0.4 10E3/UL) 0.3 10E3/UL July 13, 2016 10:12pm 704-7: BASOPHILS # (AUTO)(0.0-0.2 10E3/UL) 0.0 10E3/UL July 13, 2016 10:12pm IMMATURE GRANS # (AUTO)(0.0-0.0 10E3/UL) 0.0 10E3/UL July 13, 2016 10:12pm DIFF TYPE AUTOMATED July 13, 2016 10:12p 05739-9: PROTHROMBIN TIME WITH INR PROTHROMBIN TIME(12.1-14.0 SEC) 12.9 SEC July 13, 2016 10:12pm 09503-9: INR 0.97 Result Comments: INR reference interval applies to patients on anticoagulant therapy. Suggested INR therapeutic range for oral anticoagulant therapy: (Stabilized anticoagulated patients) Routine Therapy: 2.0 to 3.0 Recurrent Myocardial Infarction: 2.5 to 3.5 Mechanical Prosthetic Valves: 2.5 to 3.5 July 13, 2016 10:12pm PARTIAL THROMBOPLASTIN TIME PARTIAL THROMBOPLASTIN TIME(22.2-37.4 SEC) 29.5 SEC July 13, 2016 10:12p 35019-9: COMPLETE METABOLIC PROFILE GLUCOSE(70-110 MG/DL) 158 MG/DL July 13, 2016 10:12pm BLOOD UREA NITROGEN(6-20 MG/DL) 12 MG/DL July 13, 2016 10:12pm CREATININE(0.50-1.20 MG/DL) 0.78 MG/DL July 13, 2016 10:12p 60038-3: EST GLOMERULAR FILTRATION RATE(Greater than or equal to 60) Greater than or equal to 60 Result Comments: If the patient is of -[place]ian descent/extraction multiply the eGFR value by 1.212 to obtain the actual eGFR. >=60 mg/dL Normal 30-59 mg/dL Moderate Kidney Disease 15-29 mg/dL Severe Kidney Disease <15 mg/dL Kidney Failure July 13, 2016 10:12pm BUN CREATININE RATIO(10.0-20.0 RATIO) 15.0 RATIO July 13, 2016 10:12pm SODIUM(135-145 MMOL/L) 140 MMOL/L July 13, 2016 10:12pm POTASSIUM(3.6-5.0 MMOL/L) 3.6 MMOL/L July 13, 2016 10:12pm CHLORIDE(101-111 MMOL/L) 103 MMOL/L July 13, 2016 10:12pm CO2(21-31 MMOL/L) 28 MMOL/L July 13, 2016 10:12pm ANION GAP(8-18) 13 July 13, 2016 10:12pm OSMO CALCULATED(270.0-290.0) 282.5 July 13, 2016 10:12pm CALCIUM(8.5-10.5 MG/DL) 9.1 MG/DL July 13, 2016 10:12pm BILIRUBIN,TOTAL(0.1-1.2 MG/DL) 0.6 MG/DL July 13, 2016 10:12pm ALKALINE PHOSPHATASE(42-121 IU/L) 87 IU/L July 13, 2016 10:12pm ASPARTATE AMINO TRANSFERASE(10-42 IU/L) 22 IU/L July 13, 2016 10:12pm ALANINE AMINOTRANSFERASE(10-60 IU/L) 18 IU/L July 13, 2016 10:12pm TOTAL PROTEIN(6.4-8.2 G/DL) 7.5 G/DL July 13, 2016 10:12pm ALBUMIN(3.5-5.5 G/DL) 4.0 G/DL July 13, 2016 10:12pm GLOBULIN(2.4-3.6) 3.5 July 13, 2016 10:12pm ALBUMIN/GLOBULIN RATIO(0.9-1.8 RATIO) 1.1 RATIO July 13, 2016 10:12pm 53329-0: CARDIAC TROPONIN I 33045-4: CARDIAC TROPONIN I(0.01-0.04 NG/ML) Less than 0.01 NG/ML Result Comments: REFERENCE RANGES: NEGATIVE < 0.04 NG/ML POSSIBLE MYCARDIAL INVOLVEMENT >/=0.04 NG/ML INTERPRET TROPONIN I RESULT IN LIGHT OF THE TOTAL CLINICAL PRESENTATION INCLUDING CLINICAL HISTORY. ANY CONDITION RESULTING IN MYOCARDIAL INJURY CAN POTENTIALLY ELEVATE TROPONIN I LEVELS ABOVE EXPECTED NORMAL RANGES. NOTE NEW REFERENCE RANGE July 13, 2016 10:12pm Allergies and Adverse Reactions Allergies and Adverse Reactions Patient Unit Number: [id number] Agent Type Reaction Severity Status MORPHINE Drug Allergy Unknown Unknown Active INDOMETHACIN Drug Allergy Unknown Unknown Active NAPROXEN Drug Allergy Unknown Unknown Active FENTANYL Drug Allergy Unknown Unknown Active KETOROLAC Drug Allergy Unknown Unknown Active PAPER TAPE Allergy Unknown Unknown Active Problem List Problem List No problem list recorded. Plan of Care Plan Of Care No Plan Of Care Data. Vital Signs Vital Signs Visit/Account #[id number] (July 13, 2016 10:05pm - July 14, 2016 12: 25am) Sign First Result Last Result Code(s) Temperature in Fahrenheit Temperature (Fahrenheit): 97.7 [degF] On July 13, 2016 10:02pm 8310-5 Body Temperature Weight in Kilograms Weight (Kilograms): 152.6 kg On July 13, 2016 10:02pm 3141-9 Weight Measured 04847-6 Body weight measured in kilograms Functional Status Functional and Cognitive Status No Functional Status Data Medications Home Medications - Medications that the patient was taking prior to arrival at the hospital Visit/Account #[id number] (July 13, 2016 10:05pm - July 14, 2016 12: 25am) Medication Route Sig/Schedule Precondition/Indication Comments/Instructions Codes NOVOLOG(INSULIN ASPART) 1000 UNIT/10 ML INJECTION Dose: 10 UNIT SUBCUTANEOUSLY 3 TIMES DAILY WITH MEALS Insulin, Aspart, Human 100 UNT/ML Injectable Solution [NovoLog] (RxNorm): 534298 NOVOLOG (INSULIN ASPART) NDC: 07939072006 LEVEMIR FLEXTOUCH(INSULIN DETEMIR) 100 UNIT/1 ML INSULN.PEN Dose: 40 UNIT SUBCUTANEOUSLY AT BEDTIME 3 ML insulin detemir 100 UNT/ML Pen Injector [Levemir] (RxNorm): 910483 LEVEMIR FLEXTOUCH (INSULIN DETEMIR) NDC: 17419860729 DESYREL(TraZODone HCL) 50 MG TABLET Dose: 100 MG ORAL AT BEDTIME Trazodone Hydrochloride 50 MG Oral Tablet (RxNorm): 670853 DESYREL (TraZODone HCL) NDC: 35751775475 ZETIA(EZETIMIBE) 10 MG TAB Dose: 10 MG ORAL DAILY ezetimibe 10 MG Oral Tablet [Zetia] (RxNorm): 104440 ZETIA (EZETIMIBE) NDC: 90855449251 COREG(CARVEDILOL) 25 MG TABLET Dose: 25 MG ORAL DAILY AT BKFST carvedilol 25 MG Oral Tablet [Coreg] (RxNorm): 164281 COREG (CARVEDILOL) NDC: 78779176316 NORVASC(AmLODIpine BESYLATE) 10 MG TAB Dose: 10 MG ORAL DAILY Amlodipine 10 MG Oral Tablet [Norvasc] (RxNorm): 765936 NORVASC (AmLODIpine BESYLATE) NDC: 28852364806 MOBIC(MELOXICAM) 15 MG TABLET Dose: 15 MG ORAL DAILY meloxicam 15 MG Oral Tablet [Mobic] (RxNorm): 806405 MOBIC (MELOXICAM) NDC: 57847477188 LIPITOR(ATORVASTATIN) 10 MG TAB Dose: 10 MG ORAL AT BEDTIME atorvastatin 10 MG Oral Tablet [Lipitor] (RxNorm): 193493 LIPITOR (ATORVASTATIN) NDC: 44555047363 MICROZIDE(HYDROCHLOROTHIAZIDE) 25 MG TABLET Dose: 25 MG ORAL DAILY Hydrochlorothiazide 25 MG Oral Tablet (RxNorm): 609496 MICROZIDE (HYDROCHLOROTHIAZIDE) NDC: 43037677720 ZOLOFT(SERTRALINE HCL) 100 MG TAB Dose: 100 MG ORAL AT BEDTIME Sertraline 100 MG Oral Tablet [Zoloft] (RxNorm): 862077 ZOLOFT (SERTRALINE HCL) NDC: 57841897113 MONTELUKAST SODIUM(MONTELUKAST SODIUM) 10 MG TABLET Dose: 10 MG ORAL AT BEDTIME montelukast 10 MG Oral Tablet (RxNorm): 530889 MONTELUKAST SODIUM (MONTELUKAST SODIUM) NDC: 08125755283 OMEPRAZOLE(OMEPRAZOLE) 20 MG CAPSULE.DR Dose: 40 MG ORAL DAILY Omeprazole 20 MG Delayed Release Oral Capsule (RxNorm): 451120 OMEPRAZOLE (OMEPRAZOLE) NDC: 35540361683 BUSPAR(BusPIRone) 10 MG TAB Dose: 10 MG ORAL TWICE A DAY Rx Instructions: *TAKES AM AND NOON* buspirone hydrochloride 10 MG Oral Tablet (RxNorm): 152315 BUSPAR (BusPIRone) NDC: 15059099354 BUSPAR(BusPIRone) 10 MG TAB Dose: 20 MG ORAL AT BEDTIME buspirone hydrochloride 10 MG Oral Tablet (RxNorm): 348526 BUSPAR (BusPIRone) NDC: 57602204377 CETIRIZINE HCL(CETIRIZINE HCL) 10 MG TABLET Dose: 10 MG ORAL DAILY cetirizine hydrochloride 10 MG Oral Tablet (RxNorm): 3461469 CETIRIZINE HCL (CETIRIZINE HCL) NDC: 67713248439 PERCOCET 10-325 MG TABLET(OxyCODONE HCL/ACETAMINOPHEN) 1 EACH TABLET Dose: 2 TAB ORAL EVERY 4 HOURS Acetaminophen 325 MG / Oxycodone Hydrochloride 10 MG Oral Tablet (RxNorm): 4813178 PERCOCET 10-325 MG TABLET (OxyCODONE HCL/ACETAMINOPHEN) NDC: 18616227085 Dulera 100 Mcg/5 Mcg Inhaler(MOMETASONE/FORMOTEROL) 13 GM HFA.AER.AD Dose: 2 PUFF INHALATION TWICE A DAY Dulera 100 Mcg/5 Mcg Inhaler (MOMETASONE/FORMOTEROL) NDC: 32166690539 PROVENTIL 0.083 % NEB (for Prescriptions)(ALBUTEROL SULF) 2.5 MG/3 ML VIAL.NEB Dose: 2.5 MG INHALED 4 TIMES DAILY Albuterol 0.83 MG/ML Inhalant Solution (RxNorm): 981647 PROVENTIL 0.083 % NEB (for Prescriptions) (ALBUTEROL SULF) NDC: 73317406298 Hydroxyzine(HydrOXYzine HCL) 25 MG TAB Dose: 25 MG ORAL 3 TIMES A DAY Hydroxyzine (HydrOXYzine HCL) NDC: 32793952236 COREG(CARVEDILOL) 12.5 MG TABLET Dose: 12.5 MG ORAL DAILY carvedilol 12.5 MG Oral Tablet [Coreg] (RxNorm): 962502 COREG (CARVEDILOL) NDC: 39960369246 Inpatient/Ordered Medications - Medications administered during hospital visit Visit/Account #[id number] (July 13, 2016 10:05pm - July 14, 2016 12: 25am) Medication Route Sig/Schedule Precondition/Indication Comments/Instructions Codes ASPIRIN 324 MG TAB Dose: 324 MG ORAL NOW Special Dose Instructions: CHEW Aspirin 81 MG Chewable Tablet (RxNorm): 241179 (ASPIRIN) NDC: 66703762991 NITROQUICK(NITROGLYCERIN) 0.4 MG/TAB TAB Dose: 1 TAB SUBLINGUAL Q5M PRN Reason: CHEST PAIN Label Comments: MAY INCREASE FALL RISK Special Dose Instructions: X 3 DOSES Nitroglycerin 0.4 MG Sublingual Tablet [Nitrostat] (RxNorm): 887997 NITROQUICK (NITROGLYCERIN) NDC: 65850867341 NITROBID 2% OINT(NITROGLYCERIN) 1 GM OINTMENT Dose: 0 GM TOPICALLY NOW Label Comments: MAY INCREASE FALL RISK Special Dose Instructions: APPLY 1 INCH TO CHEST WALL Nitroglycerin 0.02 MG/MG Topical Ointment [Nitro-Bid] (RxNorm): 580774 NITROBID 2% OINT (NITROGLYCERIN) NDC: 53245063551 PERCOCET 10/325 MG(OxyCODONE/ACETAMINOPHEN) 1 TAB TAB Dose: 1 TAB ORAL NOW Label Comments: MAX REC DOSE ACETAMINOPHEN: 4000MG/24HRS MAY INCREASE FALL RISK Acetaminophen 325 MG / Oxycodone Hydrochloride 10 MG Oral Tablet (RxNorm): 3813537 PERCOCET 10/325 MG (OxyCODONE/ACETAMINOPHEN) [facility]: [id number] History Of Encounters Encounters Visit/Account #[id number] (July 13, 2016 10:05pm - July 14, 2016 12: 25am) Account Status Physican Of Record Reason For Visit Visit Diagnosis Start Date/Time Stop Date/Time ER MARIA D LUJAN MD CHEST PRESSURE Not Available Jul 13, 2016 10:05pm Jul 14, 2016 12:25am History of Procedures Procedure List No procedures recorded. Discharge Instructions Discharge Instructions Visit/Account #[id number] (July 13, 2016 10:05pm - July 14, 2016 12: 25am) DISCHARGE INSTRUCTIONS Physician Documentation Social History Social History No Social History Data. Immunizations Immunizations Patient Unit Number: [id number] Immunizations No immunizations recorded.
--- OUTSIDE RECORDS SUMMARY | 2016-12-04 11:03 | XMS REPORT ---
Author Author GENERATED, SYSTEM Organization Unknown Address Unknown Phone Unavailable Care Team Providers Care Air Quality Instrument Specialist Name Role Phone UNASSIGNED DOCTOR , DOCTOR PP [phone] Reason For Visit Reason for Visit from 05/17/2016 4:47 PM:* Pt Stated Reason for Adm : chest pain Chief Complaint CHEST PAIN Social History Social History from 05/17/2016 4:47 PM:* Tobacco Use? : Never Smoker Functional Status Functional Status from 05/17/2016 11:52 PM:* LOC : Alert * Oriented To : Person,Place,Time,Event * Weight Bearing Status : Full * Assist Level : Independent * # Assists : Independent Functional Status from 05/17/2016 4:47 PM:* LOC : Alert * Oriented To : Person,Place,Time,Event * Weight Bearing Status : Full * Assist Level : Independent * # Assists : Independent Vital Signs Hospital Vital Signs from 05/18/2016 8:11 AM:* Height : 5/10 ft,in Hospital Vital Signs from 05/18/2016 7:43 AM:* Height : 5/10 ft,in * Temperature : 98.0 F * Pulse : 56 * Respirations : 18 * BP : 137/83 Hospital Vital Signs from 05/18/2016 2:02 AM:* Height : 5/10 ft,in * Temperature : 98.1 F * Pulse : 53 * Respirations : 18 * BP : 137/74 Hospital Vital Signs from 05/17/2016 11:52 PM:* Heart Rate : 55 Hospital Vital Signs from 05/17/2016 11:14 PM:* Height : 5/10 ft,in * Temperature : 98.2 F * Pulse : 62 * Respirations : 20 * BP : 129/70 Hospital Vital Signs from 05/17/2016 7:35 PM:* Height : 5/10 ft,in Hospital Vital Signs from 05/17/2016 4:47 PM:* Weight : 154.7/ kg * Height : 5/10 ft,in Hospital Vital Signs from 05/17/2016 4:25 PM:* Weight : 154.7/ kg * Height : 5/10 ft,in * Temperature : 96.6 F * Pulse : 48 * Respirations : 20 * BP : 139/71 Results Chemistry from 05/18/2016 1:28 AMSODIUM 140 MMOL/L (136-145 MMOL/L) POTASSIUM 3.3 MMOL/L L (3.5-5.1 MMOL/L) CHLORIDE 101 MMOL/L (98-107 MMOL/L) TCO2 34.3 MMOL/L H (21.0-32.0 MMOL/L) *ANION GAP 4.7 MMOL/L L (8.0-16.0 MMOL/L) BUN 11 MG/DL (7-18 MG/DL) CREATININE 0.85 MG/DL (0.70-1.30 MG/DL) *BUN/CREATININE RATIO 12.9 (9.1-17.0 ) GLUCOSE 244 MG/DL H (65-99 MG/DL) *GFR EST NON AFR DJIBOUTIAN >90 ML/MIN *GFR EST AFR AMER >90 ML/MIN CALCIUM 8.5 MG/DL (8.5-10.1 MG/DL) TROPONIN-I <0.017 NG/ML (0.000-0.056 NG/ML) Chemistry from 05/17/2016 8:03 PMTROPONIN-I <0.017 NG/ML (0.000-0.056 NG/ML) CHOLESTEROL 128 MG/DL (50-199 MG/DL) TRIGLYCERIDES 149 MG/DL (0-149 MG/DL) HDL CHOLESTEROL 34 MG/DL L (40-60 MG/DL) *LDL (CALCULATED) CHOL 64 MG/DL (0-99 MG/DL) Hematology from 05/18/2016 1:28 AMWBC 6.3 X10e3/UL (3.6-11.2 X10e3/UL) RBC 4.94 X10e6/UL (4.06-5.63 X10e6/UL) HEMOGLOBIN 12.2 G/DL L (12.5-16.3 G/DL) HEMATOCRIT 38.6 % (36.7-47.1 %) *MCV 78.1 FL L (80.0-100.0 FL) *MCH 24.6 PG L (27.0-33.0 PG) *MCHC 31.5 G/DL L (32.0-36.0 G/DL) *RDW 16.0 % (12.3-17.0 %) *RDWSD 43.8 (37.1-47.8 ) PLATELET 139 X10e3/UL L (159-386 X10e3/UL) *MPV 8.6 FL (7.4-10.4 FL) AUTOMATED DIFF PERFORMED SEGS 69.2 % *LYMPHOCYTES 18.8 % *MONOCYTES 7.3 % *EOSINOPHILS 3.6 % *BASOPHILS 1.1 % *ABSOLUTE NEUTROPHILS 4.40 X10e3/UL (1.80-7.80 X10e3/UL) *ABSOLUTE LYMPHOCYTES 1.20 X10e3/UL (1.00-3.00 X10e3/UL) *ABSOLUTE MONOCYTES 0.50 X10e3/UL (0.30-1.00 X10e3/UL) *ABSOLUTE EOSINOPHILS 0.20 X10e3/UL (0.00-0.50 X10e3/UL) *ABSOLUTE BASOPHILS 0.10 X10e3/UL (0.00-0.20 X10e3/UL) MICROCYTIC 1+ Problems Encounter Diagnosis * Acute Pain Status:Active. * Fall Risk Status:Active. * Skin Integrity Impairment Risk Status:Active. Encounters Encounter Diagnosis * Acute Pain Status:Active. * Fall Risk Status:Active. * Skin Integrity Impairment Risk Status:Active. Plan of Care Treatment Plan from 05/18/2016 9:00 AM:* Care Management Note : Patient admitted under outpatient observation status after presenting to the ED w/ c/o chest pain w/ radiation to L arm associated w/ nausea et diaphoresis. POC will include cardiac monitoring w/ serial troponins, which are negative x 3. Will await further POC from Dr. Anaya. Patient is outpatient observation status appropriate at this time. Treatment Plan from 05/17/2016 4:45 PM:* Care Management Note : Pt is from [place] and is known to ED staff due to visits by pt and pt's adult daughter and pt getting angry when his demands are not met. Pt and daughter known to travel to multiple providers in [place] and [place]. [employer] on pt shows in the past year, he has received 25 narcotic prescriptions from 23 different providers filled at 12 different pharmacies. PCP is at [facility] in [place]. Today, pt states they have no money and he refuses to eat anything at the hospital unless we feed daughter too. Pt expects his daughter to stay in hospital with him. Pt also states they have a vehicle here but do not have gas money to get back home. JONA Moreno, Freight Elevator Operator and SW updated. Procedures No relevant procedures performed. Immunizations No immunizations administered or ordered. Hospital Course Hospital Discharge Instructions Allergies, Adverse Reactions, Alerts * paper tape (as Environmental allergen) causes Rash. * naproxen causes Moderate Nausea. * Indocin causes Moderate Nausea. * fentanyl causes Moderate Nausea. * Toradol causes Moderate Nausea. * morphine causes Moderate Nausea. * No Latex Allergy. * No IV Contrast Allergy. Medication Medication reconciliation has not been performed.
--- OUTSIDE RECORDS SUMMARY | 2016-12-04 11:03 | XMS REPORT | Continuity Of Care Document ---
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50-5.90 10E6/UL) 4.78 10E6/UL June 29, 2016 5:40pm 4.58 10E6/UL June 30, 2016 8:36am HEMOGLOBIN(13.5-17.5 G/DL) 11.5 G/DL June 29, 2016 5:40pm 10.8 G/DL June 30, 2016 8:36am HEMATOCRIT(41.0-53.0 %) 36.5 % June 29, 2016 5:40pm 34.7 % June 30, 2016 8:36am MEAN CORPUSCULAR VOLUME(82.0-100.0 FL) 76.4 FL June 29, 2016 5:40pm 75.8 FL June 30, 2016 8:36am 07734-4: MEAN CORPUSCULAR HEMOGLOBIN(26.0-34.0 PG) 24.1 PG June 29, 2016 5:40pm 23.6 PG June 30, 2016 8:36am MEAN CORPUSCULAR HGB CONC(31.5-36.5 G/DL) 31.5 G/DL June 29, 2016 5:40pm 31.1 G/DL June 30, 2016 8:36am RED CELL DISTRIBUTION WIDTH(11.5-14.5 %) 15.3 % June 29, 2016 5:40pm 15.4 % June 30, 2016 8:36am 777-3: PLATELET COUNT(150-450 10E3/UL) 167 10E3/UL June 29, 2016 5:40pm 135 10E3/UL June 30, 2016 8:36am MEAN PLATELET VOLUME(8.2-12.4 FL) 10.9 FL June 29, 2016 5:40pm 10.0 FL June 30, 2016 8:36am 770-8: NEUTROPHILS % (AUTO)(40-70 %) 67 % June 29, 2016 5:40pm 66 % June 30, 2016 8:36am LYMPHOCYTES % (AUTO)(15-45 %) 20 % June 29, 2016 5:40pm 21 % June 30, 2016 8:36am 5905-5: MONOCYTES % (AUTO)(2-10 %) 9 % June 29, 2016 5:40pm 8 % June 30, 2016 8:36am 713-8: EOSINOPHILS % (AUTO)(0-6 %) 4 % June 29, 2016 5:40pm 4 % June 30, 2016 8:36am 706-2: BASOPHILS % (AUTO)(0-1 %) 1 % June 29, 2016 5:40pm 1 % June 30, 2016 8:36am 60743-5: IMMATURE GRANS % (AUTO)(0-0 %) 1 % June 29, 2016 5:40pm 0 % June 30, 2016 8:36am NUCLEATED RBCS (AUTO)(0-0 %) 0 % June 29, 2016 5:40pm 0 % June 30, 2016 8:36am 751-8: NEUTROPHILS # (AUTO)(2.5-7.5 10E3/UL) 4.2 10E3/UL June 29, 2016 5:40pm 3.1 10E3/UL June 30, 2016 8:36am 99486-8: LYMPHOCYTES # (AUTO)(1.0-4.0 10E3/UL) 1.2 10E3/UL June 29, 2016 5:40pm 1.0 10E3/UL June 30, 2016 8:36am 742-7: MONOCYTES # (AUTO)(0.2-0.8 10E3/UL) 0.6 10E3/UL June 29, 2016 5:40pm 0.4 10E3/UL June 30, 2016 8:36am 711-2: EOSINOPHILS # (AUTO)(0.0-0.4 10E3/UL) 0.2 10E3/UL June 29, 2016 5:40pm 0.2 10E3/UL June 30, 2016 8:36am 704-7: BASOPHILS # (AUTO)(0.0-0.2 10E3/UL) 0.0 10E3/UL June 29, 2016 5:40pm 0.0 10E3/UL June 30, 2016 8:36am IMMATURE GRANS # (AUTO)(0.0-0.0 10E3/UL) 0.0 10E3/UL June 29, 2016 5:40pm 0.0 10E3/UL June 30, 2016 8:36am DIFF TYPE AUTOMATED June 29, 2016 5:40pm AUTOMATED June 30, 2016 8:36am 81163-0: PROTHROMBIN TIME WITH INR PROTHROMBIN TIME(12.1-14.0 SEC) 13.1 SEC June 29, 2016 5:40pm 89452-8: INR 0.99 Result Comments: INR reference interval applies to patients on anticoagulant therapy. Suggested INR therapeutic range for oral anticoagulant therapy: (Stabilized anticoagulated patients) Routine Therapy: 2.0 to 3.0 Recurrent Myocardial Infarction: 2.5 to 3.5 Mechanical Prosthetic Valves: 2.5 to 3.5 June 29, 2016 5:40pm PARTIAL THROMBOPLASTIN TIME PARTIAL THROMBOPLASTIN TIME(22.2-37.4 SEC) 31.2 SEC June 29, 2016 5:40pm 70363-3: COMPLETE METABOLIC PROFILE GLUCOSE(70-110 MG/DL) 225 MG/DL June 29, 2016 5:40pm 240 MG/DL June 30, 2016 8:36am BLOOD UREA NITROGEN(6-20 MG/DL) 16 MG/DL June 29, 2016 5:40pm 15 MG/DL June 30, 2016 8:36am CREATININE(0.50-1.20 MG/DL) 0.87 MG/DL June 29, 2016 5:40pm 0.74 MG/DL June 30, 2016 8:36am 38888-4: EST GLOMERULAR FILTRATION RATE(Greater than or equal to 60) Greater than or equal to 60 Result Comments: If the patient is of -[place] descent/extraction multiply the eGFR value by 1.212 to obtain the actual eGFR. >=60 mg/dL Normal 30-59 mg/dL Moderate Kidney Disease 15-29 mg/dL Severe Kidney Disease <15 mg/dL Kidney Failure June 29, 2016 5:40pm Greater than or equal to 60 Result Comments: If the patient is of -[place] descent/extraction multiply the eGFR value by 1.212 to obtain the actual eGFR. >=60 mg/dL Normal 30-59 mg/dL Moderate Kidney Disease 15-29 mg/dL Severe Kidney Disease <15 mg/dL Kidney Failure June 30, 2016 8:36am BUN CREATININE RATIO(10.0-20.0 RATIO) 18.0 RATIO June 29, 2016 5:40pm 20.0 RATIO June 30, 2016 8:36am SODIUM(135-145 MMOL/L) 137 MMOL/L June 29, 2016 5:40pm 136 MMOL/L June 30, 2016 8:36am POTASSIUM(3.6-5.0 MMOL/L) 3.7 MMOL/L June 29, 2016 5:40pm 3.5 MMOL/L June 30, 2016 8:36am CHLORIDE(101-111 MMOL/L) 100 MMOL/L June 29, 2016 5:40pm 100 MMOL/L June 30, 2016 8:36am CO2(21-31 MMOL/L) 29 MMOL/L June 29, 2016 5:40pm 29 MMOL/L June 30, 2016 8:36am ANION GAP(8-18) 12 June 29, 2016 5:40pm 11 June 30, 2016 8:36am OSMO CALCULATED(270.0-290.0) 282.0 June 29, 2016 5:40pm 280.7 June 30, 2016 8:36am CALCIUM(8.5-10.5 MG/DL) 9.1 MG/DL June 29, 2016 5:40pm 8.7 MG/DL June 30, 2016 8:36am BILIRUBIN,TOTAL(0.1-1.2 MG/DL) 0.4 MG/DL June 29, 2016 5:40pm 0.4 MG/DL June 30, 2016 8:36am ALKALINE PHOSPHATASE(42-121 IU/L) 78 IU/L June 29, 2016 5:40pm 72 IU/L June 30, 2016 8:36am ASPARTATE AMINO TRANSFERASE(10-42 IU/L) 23 IU/L June 29, 2016 5:40pm 16 IU/L June 30, 2016 8:36am ALANINE AMINOTRANSFERASE(10-60 IU/L) 25 IU/L June 29, 2016 5:40pm 23 IU/L June 30, 2016 8:36am TOTAL PROTEIN(6.4-8.2 G/DL) 7.2 G/DL June 29, 2016 5:40pm 6.7 G/DL June 30, 2016 8:36am ALBUMIN(3.5-5.5 G/DL) 3.9 G/DL June 29, 2016 5:40pm 3.5 G/DL June 30, 2016 8:36am GLOBULIN(2.4-3.6) 3.3 June 29, 2016 5:40pm 3.2 June 30, 2016 8:36am ALBUMIN/GLOBULIN RATIO(0.9-1.8 RATIO) 1.2 RATIO June 29, 2016 5:40pm 1.1 RATIO June 30, 2016 8:36am 54717-4: [place]IAC [place] I 29132-8: CARDIAC TROPONIN I(0.01-0.04 NG/ML) Less than 0.01 NG/ML Result Comments: REFERENCE RANGES: NEGATIVE < 0.04 NG/ML POSSIBLE MYCARDIAL INVOLVEMENT >/=0.04 NG/ML INTERPRET TROPONIN I RESULT IN LIGHT OF THE TOTAL CLINICAL PRESENTATION INCLUDING CLINICAL HISTORY. ANY CONDITION RESULTING IN MYOCARDIAL INJURY CAN POTENTIALLY ELEVATE TROPONIN I LEVELS ABOVE EXPECTED NORMAL RANGES. NOTE NEW REFERENCE RANGE June 29, 2016 5:40pm Less than 0.01 NG/ML Result Comments: REFERENCE RANGES: NEGATIVE < 0.04 NG/ML POSSIBLE MYCARDIAL INVOLVEMENT >/=0.04 NG/ML INTERPRET TROPONIN I RESULT IN LIGHT OF THE TOTAL CLINICAL PRESENTATION INCLUDING CLINICAL HISTORY. ANY CONDITION RESULTING IN MYOCARDIAL INJURY CAN POTENTIALLY ELEVATE TROPONIN I LEVELS ABOVE EXPECTED NORMAL RANGES. NOTE NEW REFERENCE RANGE June 30, 2016 8:36am Less than 0.01 NG/ML Result Comments: REFERENCE RANGES: NEGATIVE < 0.04 NG/ML POSSIBLE MYCARDIAL INVOLVEMENT >/=0.04 NG/ML INTERPRET TROPONIN I RESULT IN LIGHT OF THE TOTAL CLINICAL PRESENTATION INCLUDING CLINICAL HISTORY. ANY CONDITION RESULTING IN MYOCARDIAL INJURY CAN POTENTIALLY ELEVATE TROPONIN I LEVELS ABOVE EXPECTED NORMAL RANGES. NOTE NEW REFERENCE RANGE June 30, 2016 3:13pm Less than 0.01 NG/ML Result Comments: REFERENCE RANGES: NEGATIVE < 0.04 NG/ML POSSIBLE MYCARDIAL INVOLVEMENT >/=0.04 NG/ML INTERPRET TROPONIN I RESULT IN LIGHT OF THE TOTAL CLINICAL PRESENTATION INCLUDING CLINICAL HISTORY. ANY CONDITION RESULTING IN MYOCARDIAL INJURY CAN POTENTIALLY ELEVATE TROPONIN I LEVELS ABOVE EXPECTED NORMAL RANGES. NOTE NEW REFERENCE RANGE June 30, 2016 8:23pm 61760-6: LIPID PROFILE TRIGLYCERIDES(35-160 MG/DL) 214 MG/DL June 30, 2016 6:22am CHOLESTEROL(0-200 MG/DL) 129 MG/DL June 30, 2016 6:22am LDL CHOLESTEROL,DIRECT(0-99 MG/DL) 68 MG/DL June 30, 2016 6:22am VLDL CHOLESTEROL(1-53 MG/DL) 43 MG/DL June 30, 2016 6:22am HDL CHOLESTEROL(29-71 MG/DL) 23 MG/DL June 30, 2016 6:22am CHOL/HDL RATIO(0.0-4.4 RATIO) 5.6 RATIO June 30, 2016 6:22am 02983-5: GLYCOHEMOGLOBIN A1C 4548-4: %A1C(4.6-6.2 %) 10.2 % June 30, 2016 6:22am Allergies and Adverse Reactions Allergies and Adverse Reactions Patient Unit Number: [id number] Agent Type Reaction Severity Status MORPHINE Drug Allergy Unknown Unknown Active INDOMETHACIN Drug Allergy Unknown Unknown Active NAPROXEN Drug Allergy Unknown Unknown Active FENTANYL Drug Allergy Unknown Unknown Active KETOROLAC Drug Allergy Unknown Unknown Active PAPER TAPE Allergy Unknown Unknown Active Problem List Problem List Visit/Account #[id number] (June 29, 2016 5:30pm - July 01, 2016 4:49pm) Acute Problems: Code/Condition Comments Documented Start Date Documented Resolved Date Code (s) Chest pain ICD10: R07.9 Chest pain ICD9: 786.50 Chest pain SNOMED: 05043959 Chest pain Plan of Care Plan Of Care Visit/Account #[id number] (June 29, 2016 5:30pm - July 01, 2016 4:49pm) Patient Instructions Instructions Cardiac Stress Test DI for Chest Pain Nitroglycerin Sublingual Vital Signs Vital Signs Visit/Account #[id number] (June 29, 2016 5:30pm - July 01, 2016 4:49pm) Sign First Result Last Result Code(s) Body Mass Index Body Mass Index (BMI): 48.0 kg/m2 On June 29, 2016 5:36pm 06297-4 BMI (body mass index) Body Mass Index as a Calculated Value 48.2 kg/m2 On June 29, 2016 5:36pm 09245-6 BMI (body mass index) Blood Pressure 141/ 78 mm[Hg] On June 30, 2016 12:15am 130/ 80 mm[Hg] On July 01, 2016 10:30am 8480-6 BP Systolic Body Surface Area as a Calculated Value 2.6 m2 On June 29, 2016 5:36pm 3140-1 BSA (body surface area) Height (Feet/Inches) 5 [ft_us] 10 [in_us] On June 29, 2016 5:36pm Heart Rate/Pulse Pulse Rate (adult): 63 /min On June 30, 2016 12:15am Pulse Rate (adult): 52 /min On July 01, 2016 10:30am 8867-4 Heart Rate 8893-0 Pulse rate Respiratory Rate Respiratory Rate: 18 /min On June 30, 2016 12:15am Respiratory Rate: 16 /min On July 01, 2016 6:12am 9279-1 Respiratory rate Temperature in Fahrenheit Temperature (Fahrenheit): 98.0 [degF] On June 29, 2016 5:36pm Temperature (Fahrenheit): 97.8 [degF] On July 01, 2016 10:30am 8310-5 Body Temperature Weight in Kilograms Weight (Kilograms): 152.27 kg On June 29, 2016 5:36pm 3141-9 Weight Measured 94373-9 Body weight measured in kilograms Functional Status Functional and Cognitive Status No Functional Status Data Medications Home Medications - Medications that the patient was taking prior to arrival at the hospital Visit/Account #[id number] (June 29, 2016 5:30pm - July 01, 2016 4:49pm) Medication Route Sig/Schedule Precondition/Indication Comments/Instructions Codes NOVOLOG(INSULIN ASPART) 1000 UNIT/10 ML INJECTION Dose: 10 UNIT SUBCUTANEOUSLY 3 TIMES DAILY WITH MEALS Insulin, Aspart, Human 100 UNT/ML Injectable Solution [NovoLog] (RxNorm): 785067 NOVOLOG (INSULIN ASPART) NDC: 23625643016 LEVEMIR FLEXTOUCH(INSULIN DETEMIR) 100 UNIT/1 ML INSULN.PEN Dose: 40 UNIT SUBCUTANEOUSLY AT BEDTIME 3 ML insulin detemir 100 UNT/ML Pen Injector [Levemir] (RxNorm): 170100 LEVEMIR FLEXTOUCH (INSULIN DETEMIR) NDC: 16704342558 DESYREL(TraZODone HCL) 50 MG TABLET Dose: 100 MG ORAL AT BEDTIME Trazodone Hydrochloride 50 MG Oral Tablet (RxNorm): 834900 DESYREL (TraZODone HCL) NDC: 21037046694 ZETIA(EZETIMIBE) 10 MG TAB Dose: 10 MG ORAL DAILY ezetimibe 10 MG Oral Tablet [Zetia] (RxNorm): 130136 ZETIA (EZETIMIBE) NDC: 64912891722 COREG(CARVEDILOL) 25 MG TABLET Dose: 25 MG ORAL DAILY AT [facility] carvedilol 25 MG Oral Tablet [Coreg] (RxNorm): 542999 COREG (CARVEDILOL) NDC: 78403468356 NORVASC(AmLODIpine BESYLATE) 10 MG TAB Dose: 10 MG ORAL DAILY Amlodipine 10 MG Oral Tablet [Norvasc] (RxNorm): 384756 NORVASC (AmLODIpine BESYLATE) NDC: 17285900003 MOBIC(MELOXICAM) 15 MG TABLET Dose: 15 MG ORAL DAILY meloxicam 15 MG Oral Tablet [Mobic] (RxNorm): 888552 MOBIC (MELOXICAM) NDC: 49529387606 LIPITOR(ATORVASTATIN) 10 MG TAB Dose: 10 MG ORAL AT BEDTIME atorvastatin 10 MG Oral Tablet [Lipitor] (RxNorm): 199828 LIPITOR (ATORVASTATIN) NDC: 30669886418 MICROZIDE(HYDROCHLOROTHIAZIDE) 25 MG TABLET Dose: 25 MG ORAL DAILY Hydrochlorothiazide 25 MG Oral Tablet (RxNorm): 643012 MICROZIDE (HYDROCHLOROTHIAZIDE) NDC: 09672133659 ZOLOFT(SERTRALINE HCL) 100 MG TAB Dose: 100 MG ORAL AT BEDTIME Sertraline 100 MG Oral Tablet [Zoloft] (RxNorm): 340971 ZOLOFT (SERTRALINE HCL) NDC: 51911301373 MONTELUKAST SODIUM(MONTELUKAST SODIUM) 10 MG TABLET Dose: 10 MG ORAL AT BEDTIME montelukast 10 MG Oral Tablet (RxNorm): 962270 MONTELUKAST SODIUM (MONTELUKAST SODIUM) NDC: 19688759235 OMEPRAZOLE(OMEPRAZOLE) 20 MG CAPSULE.DR Dose: 40 MG ORAL DAILY Omeprazole 20 MG Delayed Release Oral Capsule (RxNorm): 464202 OMEPRAZOLE (OMEPRAZOLE) NDC: 05615499582 BUSPAR(BusPIRone) 10 MG TAB Dose: 10 MG ORAL TWICE A DAY Rx Instructions: *TAKES AM AND NOON* buspirone hydrochloride 10 MG Oral Tablet (RxNorm): 076125 BUSPAR (BusPIRone) NDC: 09869918115 BUSPAR(BusPIRone) 10 MG TAB Dose: 20 MG ORAL AT BEDTIME buspirone hydrochloride 10 MG Oral Tablet (RxNorm): 468978 BUSPAR (BusPIRone) NDC: 99817321579 CETIRIZINE HCL(CETIRIZINE HCL) 10 MG TABLET Dose: 10 MG ORAL DAILY cetirizine hydrochloride 10 MG Oral Tablet (RxNorm): 4460002 CETIRIZINE HCL (CETIRIZINE HCL) NDC: 69420219856 PERCOCET 10-325 MG TABLET(OxyCODONE HCL/ACETAMINOPHEN) 1 EACH TABLET Dose: 2 TAB ORAL EVERY 4 HOURS Acetaminophen 325 MG / Oxycodone Hydrochloride 10 MG Oral Tablet (RxNorm): 8877284 PERCOCET 10-325 MG TABLET (OxyCODONE HCL/ACETAMINOPHEN) NDC: 21808305660 Dulera 100 Mcg/5 Mcg Inhaler(MOMETASONE/FORMOTEROL) 13 GM HFA.AER.AD Dose: 2 PUFF INHALATION TWICE A DAY Dulera 100 Mcg/5 Mcg Inhaler (MOMETASONE/FORMOTEROL) NDC: 36388301439 PROVENTIL 0.083 % NEB (for Prescriptions)(ALBUTEROL SULF) 2.5 MG/3 ML VIAL.NEB Dose: 2.5 MG INHALED 4 TIMES DAILY Albuterol 0.83 MG/ML Inhalant Solution (RxNorm): 102895 PROVENTIL 0.083 % NEB (for Prescriptions) (ALBUTEROL SULF) NDC: 25105724080 Hydroxyzine(HydrOXYzine HCL) 25 MG TAB Dose: 25 MG ORAL 3 TIMES A DAY Hydroxyzine (HydrOXYzine HCL) NDC: 73364400246 Inpatient/Ordered Medications - Medications administered during hospital visit Visit/Account #[id number] (June 29, 2016 5:30pm - July 01, 2016 4:49pm) Medication Route Sig/Schedule Precondition/Indication Comments/Instructions Codes ASPIRIN 324 MG TAB Dose: 324 MG ORAL NOW Label Comments: Chewed if no intolerance to aspirin and not aspirin taken today Aspirin 81 MG Chewable Tablet (RxNorm): 042229 (ASPIRIN) NDC: 49344131606 NITROQUICK(NITROGLYCERIN) 0.4 MG/TAB TAB Dose: 1 TAB SUBLINGUAL NOW Label Comments: *DOSE 1* Do NOT give until approved by physician. Give every 3-5 minutes if needed for ongoing symptons. Max of 3 doses. Do NOT give unless: Heart rate 50-100 beats per minute SBP is greater than 90 mmHg and/or no lower than 20 mmHg below baseline Do NOT give if: inferior AL or RV infarction recent phosphodesterase inhibito use (e.g. Viagra, Levitra, Revatio) within last 24 hours or Cialis within last 48 hours. Nitroglycerin 0.4 MG Sublingual Tablet [Nitrostat] (RxNorm): 541017 NITROQUICK (NITROGLYCERIN) NDC: 59472696143 NITROQUICK(NITROGLYCERIN) 0.4 MG/TAB TAB Dose: 1 TAB SUBLINGUAL NOW Label Comments: *DOSE 3* Give every 3-5 minutes if needed for ongoing symptons. Max of 3 doses. Do NOT give unless: Heart rate 50-100 beats per minute SBP is greater than 90 mmHg and/or no lower than 20 mmHg below baseline Do NOT give if: inferior AL or RV infarction recent phosphodesterase inhibito use (e.g. Viagra, Levitra, Revatio) within last 24 hours or Cialis within last 48 hours. Nitroglycerin 0.4 MG Sublingual Tablet [Nitrostat] (RxNorm): 131010 NITROQUICK (NITROGLYCERIN) NDC: 89826310783 PERCOCET 10/325 MG(OxyCODONE/ACETAMINOPHEN) 1 TAB TAB Dose: 1 TAB ORAL NOW Label Comments: MAX REC DOSE ACETAMINOPHEN: 4000MG/24HRS MAY INCREASE FALL RISK Acetaminophen 325 MG / Oxycodone Hydrochloride 10 MG Oral Tablet (RxNorm): 4604356 PERCOCET 10/325 MG (OxyCODONE/ACETAMINOPHEN) NDC: 10244135010 LIPITOR(ATORVASTATIN) 10 MG TAB Dose: 10 MG ORAL AT BEDTIME Label Comments: TERATOGENIC. WOMEN SHOULD NOT HANDLE OR CRUSH. atorvastatin 10 MG Oral Tablet [Lipitor] (RxNorm): 291261 LIPITOR (ATORVASTATIN) NDC: 62128177209 ZETIA(EZETIMIBE) 10 MG TAB Dose: 10 MG ORAL DAILY ezetimibe 10 MG Oral Tablet [Zetia] (RxNorm): 383675 ZETIA (EZETIMIBE) NDC: 76501520652 COREG(CARVEDILOL) 25 MG TAB Dose: 25 MG ORAL WITH BREAKFAST & SUPPER Label Comments: MAY INCREASE FALL RISK TAKE WITH FOOD carvedilol 25 MG Oral Tablet [Coreg] (RxNorm): 649502 COREG (CARVEDILOL) NDC: 62751754588 NORVASC(AmLODIpine BESYLATE) 10 MG TAB Dose: 10 MG ORAL DAILY Label Comments: MAY INCREASE FALL RISK Amlodipine 10 MG Oral Tablet [Norvasc] (RxNorm): 875767 NORVASC (AmLODIpine BESYLATE) NDC: 25239887021 LEVEMIR(INSULIN DETEMIR) 1000 UNITS/10 ML INJECTION Dose: 0.4 ML SUBCUTANEOUSLY AT BEDTIME Label Comments: Do NOT refrigerate. * Syringe expires in 24 hours. insulin detemir 100 UNT/ML Injectable Solution [Levemir] (RxNorm): 949717 LEVEMIR (INSULIN DETEMIR) NDC: 51935425092 DESYREL(TraZODone HCL) 100 MG TAB Dose: 100 MG ORAL AT BEDTIME Label Comments: MAY INCREASE FALL RISK Trazodone Hydrochloride 100 MG Oral Tablet (RxNorm): 681438 DESYREL (TraZODone HCL) NDC: 91306029299 ZOLOFT(SERTRALINE HCL) 100 MG TAB Dose: 100 MG ORAL DAILY Label Comments: MAY INCREASE FALL RISK Sertraline 100 MG Oral Tablet [Zoloft] (RxNorm): 240631 ZOLOFT (SERTRALINE HCL) NDC: 11340191316 BUSPAR(BusPIRone) 10 MG TAB Dose: 10 MG ORAL TWICE A DAY Label Comments: MAY INCREASE FALL RISK Special Dose Instructions: Takes AM and noon buspirone hydrochloride 10 MG Oral Tablet (RxNorm): 282312 BUSPAR (BusPIRone) NDC: 35805036324 PERCOCET 10/325 MG(OxyCODONE/ACETAMINOPHEN) 1 TAB TAB Dose: 2 TAB ORAL Q4H PRN Reason: MODERATE TO SEVERE PAIN Label Comments: MAX REC DOSE ACETAMINOPHEN: 4000MG/24HRS MAY INCREASE FALL RISK Acetaminophen 325 MG / Oxycodone Hydrochloride 10 MG Oral Tablet (RxNorm): 6139873 PERCOCET 10/325 MG (OxyCODONE/ACETAMINOPHEN) NDC: 75388391365 HumaLOG(INSULIN HUM LISPRO) 300 UNIT/3 ML INJECTION Dose: 0.1 ML SUBCUTANEOUSLY 3 TIMES DAILY WITH MEALS Label Comments: <rapid acting insulin> *protect from light* Give IMMEDIATELY before a meal. *expires 28 days after dispense date* Insulin Lispro 100 UNT/ML Injectable Solution [Humalog] (RxNorm): 760980 HumaLOG (INSULIN HUM LISPRO) NDC: 52278417902 PROTONIX(PANTOPRAZOLE SOD) 40 MG TAB Dose: 40 MG ORAL 60 MIN BEFORE BKFST pantoprazole 40 MG Delayed Release Oral Tablet [Protonix] (RxNorm): 082517 PROTONIX (PANTOPRAZOLE SOD) NDC: 19390756214 VENTOLIN 0.5% NEB(ALBUTEROL SULF) 2.5 MG/0.5 ML INHALER Dose: 0.5 ML INHALED 4 TIMES DAILY Albuterol 1 MG/ML Inhalant Solution (RxNorm): 617911 VENTOLIN 0.5% NEB (ALBUTEROL SULF) NDC: 83743397810 SYMBICORT 160(BUDESONIDE/FORMOTEROL) 60 PUFF/6 GM INHALER Dose: 0.2 GM INHALED TWICE DAILY Label Comments: SHAKE WELL FOR 5 SECONDS BEFORE EACH USE Special Dose Instructions: substitution for dulera SYMBICORT 160 (BUDESONIDE/FORMOTEROL) NDC: 55111179315 ASPIRIN 81 MG TAB Dose: 81 MG ORAL DAILY Aspirin 81 MG Chewable Tablet (RxNorm): 187905 (ASPIRIN) NDC: 02713139372 HEPARIN PF 5000 UNIT/0.5 ML SYRINGE Dose: 0.5 ML SUBCUTANEOUSLY EVERY 12 HOURS 0.5 ML heparin sodium, porcine 00049 UNT/ML Cartridge (RxNorm): 0489141 (HEPARIN PF) NDC: 84931932542 Discharge Medications - Medications that patient should continue to take. Review with physician Visit/Account #[id number] (June 29, 2016 5:30pm - July 01, 2016 4:49pm) Medication Route Sig/Schedule Precondition/Indication Comments/Instructions Codes NOVOLOG(INSULIN ASPART) 1000 UNIT/10 ML INJECTION Dose: 10 UNIT SUBCUTANEOUSLY 3 TIMES DAILY WITH MEALS Insulin, Aspart, Human 100 UNT/ML Injectable Solution [NovoLog] (RxNorm): 071136 NOVOLOG (INSULIN ASPART) NDC: 32524991213 LEVEMIR FLEXTOUCH(INSULIN DETEMIR) 100 UNIT/1 ML INSULN.PEN Dose: 40 UNIT SUBCUTANEOUSLY AT BEDTIME 3 ML insulin detemir 100 UNT/ML Pen Injector [Levemir] (RxNorm): 043034 LEVEMIR FLEXTOUCH (INSULIN DETEMIR) NDC: 76782130432 DESYREL(TraZODone HCL) 50 MG TABLET Dose: 100 MG ORAL AT BEDTIME Trazodone Hydrochloride 50 MG Oral Tablet (RxNorm): 920236 DESYREL (TraZODone HCL) NDC: 48734206570 ZETIA(EZETIMIBE) 10 MG TAB Dose: 10 MG ORAL DAILY ezetimibe 10 MG Oral Tablet [Zetia] (RxNorm): 308168 ZETIA (EZETIMIBE) NDC: 56849258478 COREG(CARVEDILOL) 25 MG TABLET Dose: 25 MG ORAL DAILY AT BKFST carvedilol 25 MG Oral Tablet [Coreg] (RxNorm): 534096 COREG (CARVEDILOL) NDC: 29058030561 NORVASC(AmLODIpine BESYLATE) 10 MG TAB Dose: 10 MG ORAL DAILY Amlodipine 10 MG Oral Tablet [Norvasc] (RxNorm): 305568 NORVASC (AmLODIpine BESYLATE) NDC: 34005734954 MOBIC(MELOXICAM) 15 MG TABLET Dose: 15 MG ORAL DAILY meloxicam 15 MG Oral Tablet [Mobic] (RxNorm): 282200 MOBIC (MELOXICAM) NDC: 71263137595 LIPITOR(ATORVASTATIN) 10 MG TAB Dose: 10 MG ORAL AT BEDTIME atorvastatin 10 MG Oral Tablet [Lipitor] (RxNorm): 431129 LIPITOR (ATORVASTATIN) NDC: 43826978887 MICROZIDE(HYDROCHLOROTHIAZIDE) 25 MG TABLET Dose: 25 MG ORAL DAILY Hydrochlorothiazide 25 MG Oral Tablet (RxNorm): 279239 MICROZIDE (HYDROCHLOROTHIAZIDE) NDC: 97157279612 ZOLOFT(SERTRALINE HCL) 100 MG TAB Dose: 100 MG ORAL AT BEDTIME Sertraline 100 MG Oral Tablet [Zoloft] (RxNorm): 893849 ZOLOFT (SERTRALINE HCL) NDC: 23256124398 MONTELUKAST SODIUM(MONTELUKAST SODIUM) 10 MG TABLET Dose: 10 MG ORAL AT BEDTIME montelukast 10 MG Oral Tablet (RxNorm): 607091 MONTELUKAST SODIUM (MONTELUKAST SODIUM) NDC: 67656030596 OMEPRAZOLE(OMEPRAZOLE) 20 MG CAPSULE.DR Dose: 40 MG ORAL DAILY Omeprazole 20 MG Delayed Release Oral Capsule (RxNorm): 644068 OMEPRAZOLE (OMEPRAZOLE) NDC: 87332395466 BUSPAR(BusPIRone) 10 MG TAB Dose: 10 MG ORAL TWICE A DAY Rx Instructions: *TAKES AM AND NOON* buspirone hydrochloride 10 MG Oral Tablet (RxNorm): 057643 BUSPAR (BusPIRone) NDC: 09977087950 BUSPAR(BusPIRone) 10 MG TAB Dose: 20 MG ORAL AT BEDTIME buspirone hydrochloride 10 MG Oral Tablet (RxNorm): 600002 BUSPAR (BusPIRone) NDC: 80691830623 CETIRIZINE HCL(CETIRIZINE HCL) 10 MG TABLET Dose: 10 MG ORAL DAILY cetirizine hydrochloride 10 MG Oral Tablet (RxNorm): 1505962 CETIRIZINE HCL (CETIRIZINE HCL) NDC: 07729966598 PERCOCET 10-325 MG TABLET(OxyCODONE HCL/ACETAMINOPHEN) 1 EACH TABLET Dose: 2 TAB ORAL EVERY 4 HOURS Acetaminophen 325 MG / Oxycodone Hydrochloride 10 MG Oral Tablet (RxNorm): 2326547 PERCOCET 10-325 MG TABLET (OxyCODONE HCL/ACETAMINOPHEN) NDC: 78049404543 Dulera 100 Mcg/5 Mcg Inhaler(MOMETASONE/FORMOTEROL) 13 GM HFA.AER.AD Dose: 2 PUFF INHALATION TWICE A DAY Dulera 100 Mcg/5 Mcg Inhaler (MOMETASONE/FORMOTEROL) NDC: 32261197573 PROVENTIL 0.083 % NEB (for Prescriptions)(ALBUTEROL SULF) 2.5 MG/3 ML VIAL.NEB Dose: 2.5 MG INHALED 4 TIMES DAILY Albuterol 0.83 MG/ML Inhalant Solution (RxNorm): 700720 PROVENTIL 0.083 % NEB (for Prescriptions) (ALBUTEROL SULF) NDC: 00194990200 Hydroxyzine(HydrOXYzine HCL) 25 MG TAB Dose: 25 MG ORAL 3 TIMES A DAY Hydroxyzine (HydrOXYzine HCL) NDC: 93275118724 NITROGLYCERIN(NITROGLYCERIN) 0.4 MG TAB.SUBL Dose: 0.4 MG SUBLINGUAL Q5M CHEST PAIN Nitroglycerin 0.4 MG Sublingual Tablet [Nitrostat] (RxNorm): 898260 NITROGLYCERIN (NITROGLYCERIN) NDC: 33221005641 History Of Encounters Encounters Visit/Account #[id number] (June 29, 2016 5:30pm - July 01, 2016 4:49pm) Account Status 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 Discharge Instructions Discharge Instructions Visit/Account #[id number] (June 29, 2016 5:30pm - July 01, 2016 4:49pm) DISCHARGE INSTRUCTIONS Physician Documentation PROVIDER INSTRUCTIONS Discharge Diet ADA 1800 Joseph Discharge Activity/Weight Bearing Status As tolerated Other Discharge Instructions A prescription for nitroglycerin has been faxed to the local [facility] (listed as sure preferred pharmacy). If you have more chest discomfort you should sit down or lie down and put one nitroglycerin under your tongue. If the pain has not resolved and 5 minutes (by the clock goes) he may repeat the nitroglycerin does but if it is still persisting after 5 more minutes go to the closest emergency room. REASON TO CALL PROVIDER Notify Physician if: Increase shortness of breath, fever over 100.5 by mouth, recurring chest pain or other problems. FOLLOW UP APPOINTMENTS Follow Up Appointment Date/Time: Dr. Faria in [place], preferably within the next 2 weeks. Records from this hospitalization may be obtained by signing an information release request from your doctor. The fax number for health information is [phone]. Social History Social History No Social History Data. Immunizations Immunizations Patient Unit Number: [id number] Immunizations No immunizations recorded.
--- OUTSIDE RECORDS SUMMARY | 2016-12-04 11:03 | XMS REPORT | Continuity of Care Document ---
Author Author [facility] Hien Turner [facility] Address Unknown Phone Unavailable Support Name Relationship Address Phone SALLIE BURRELL M.D. Caregiver [address] [place] [address] Unavailable SALLIE BURRELL M.D. Caregiver [address] [place] [address] Unavailable CARLTON HUTSON M.D. Caregiver [facility] [address] [address] Unavailable BHUPENDRA LOPEZ Next Of Kin [address] [facility] [address] [place] [address] Insurance Providers Guarantor Lazaro Lopez Address [address] [place] [address] Payer [employer] Medicare Policy Number [id number] Subscriber's Name Lazaro Lopez Relationship 01 Self / Same As Patient Chief Complaint and Reason for Visit Chief Complaint Chest Pain Reason for Visit CAD (coronary artery disease) Chest pain Problems Active Problems Medical Problem Onset Date [...] Applicable Not Applicable Smoking Status Never smoker 07/06/2016 6:16pm Not Applicable Not Applicable Query Response Start Date Stop Date Smoking Status Never smoker Hospital Discharge Instructions No hospital discharge instructions. Plan of Care Discharge Date 07/06/16 9:28pm Disposition 07 AGAINST MEDICAL ADVICE Condition at Discharge Improved/Stable Prescriptions See Medication Section Functional Status No functional status results. Allergies, Adverse Reactions, Alerts Allergen Type Severity Reaction Status Last Updated Fentanyl ([id number]) Adverse Reaction Unknown Nausea/Vomiting Active Indomethacin ([id number]) Adverse Reaction Unknown Nausea/Vomiting Active 05/31/16 Morphine ([id number]) Adverse Reaction Unknown Nausea/Vomiting Active Naproxen ([id number]) Adverse Reaction Unknown Nausea/Vomiting Active Ketorolac Tromethamine ([id number]) Adverse Reaction Unknown Nausea/ Vomiting Active 05/30/16 Paper tape Adverse Reaction Unknown BLISTERS Active 05/30/16 Immunizations No immunization records. Vital Signs Acute Vital Signs Vital Response Date/Time Blood Pressure 135/74 mm Hg 07/06/2016 9:15pm Blood Pressure Mean 94 mm Hg 07/06/2016 9:15pm Temperature (Fahrenheit) 97.6 degrees F (96.0 - 99.9) 07/06/2016 6:13pm Temperature (Calculated Celsius) 36.61266 degrees C 07/06/2016 6:13pm Temperature Source Oral 06/01/2016 4:00pm Temperature Source Oral 07/06/2016 6:13pm Pulse Pulse Rate (adult) 67 bpm (60 - 100) 07/06/2016 6:24pm Pulse Rate: ED 74 bpm 07/06/2016 9:15pm Respiratory Rate 18 breaths per minute (10 - 20) 07/06/2016 9:15pm Height (Feet) 5 ft 07/06/2016 6:13pm Height (Inches) 10.0 in. 07/06/2016 6:13pm Weight (Pounds) 335.0 lbs 07/06/2016 6:13pm Height 5 ft 10 in 07/06/2016 6:13pm Weight 335 lb 07/06/2016 6:13pm Body Mass Index 48.1 kg/m^2 07/06/2016 6:13pm Results Laboratory Results Test Name Result Units [...] Random Glucose 285 mg/dL H 65-115 07/06/2016 7:pm 07/06/2016 8:16pm Blood Urea Nitrogen 25 mg/dL 8-25 07/06/2016 7:07/06/2016 8:16pm Creatinine 0.92 mg/dL 0.9-1.6 07/06/2016 7:28pm 07/06/2016 8:16pm Glomerular Filtration Rate Calc 82.83 mL/min 07/06/2016 7:2015 8:16pm MULTIPLY RESULT BY 1.210 IF THE PATIENT IS -POLISH Units are mL/min/1.73 m2 > 60 Normal [...] 8: 16pm Anion Gap 10.3 6-13 07/06/2016 7:2807/06/2016 8:16pm Calcium Level 9.0 mg/dL 8.2-10.6 07/06/2016 [...] Discharge/Depart Date Attending Provider Departed Emergency Room [facility] 07/06/16 6:12pm 9:28pm SALLIE BURRELL M.D. Discharged Inpatient (obs) [facility] 05/30/16 12:14pm 5:55pm JUAN BOWDEN M.D. Recent Diagnosis
--- OUTSIDE RECORDS SUMMARY | 2016-12-04 11:03 | XMS REPORT | Referral Summary ---
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 Role Phone No PCP, Pt States Primary Care Physician [phone] Encounter VC Date(s): 06/28/16 - 06/29/16 [facility] [address] [place] [address] [phone] Discharge Disposition: 01-Home or Self Care Attending Physician: Devyn Sellers MD Admitting Physician: Devyn Sellers MD Vital Signs Most recent to 1 oldest [Reference Range]: Temperature Temporal 36.2 degC Artery [36.3-37.8 *LOW* degC] (06/29/16 3:30 PM) Peripheral Pulse 54 bpm Rate [60-100 bpm] *LOW* (06/28/16 8:41 PM) Heart Rate Monitored 89 bpm [60-100 bpm] (06/29/16 3:30 PM) Respiratory Rate 22 br/min [14-20 br/min] *HI* (06/29/16 1:00 PM) Blood Pressure 128/68 mmHg [90-140/60-90 mmHg] (06/29/16 3:30 PM) Mean Arterial 97 mmHg Pressure, Cuff (06/29/16 12:00 PM) SpO2 98 % (06/29/16 3:30 PM) Problem List Condition Effective Dates Status [...] to 1 oldest [Reference Range]: WBC [4.8-10.8 6.8 10*3/uL 10*3/uL] (06/29/16 3:34 AM) RBC [4.60-6.20] 4.63 (06/29/16 3:34 AM) Hgb [14.0-18.0 11.1 gm/dL gm/dL] *LOW* (06/29/16 3:34 AM) Hct [42.0-52.0 %] 35.6 % *LOW* (06/29/16 3:34 AM) MCV [82.0-99.0 fL] 76.9 fL *LOW* (06/29/16 3:34 AM) MCH [27.0-32.0 pg] 24.0 pg *LOW* (06/29/16 3:34 AM) MCHC [32.0-36.0 31.2 gm/dL gm/dL] *LOW* (06/29/16 3:34 AM) RDW [11.5-14.5 %] 15.4 % *HI* (06/29/16 3:34 AM) Platelet [150-400 138 10*3/uL 10*3/uL] *LOW* (06/29/16 3:34 AM) MPV [9.4-12.3 fL] 10.2 fL (06/29/16 3:34 AM) Coagulation Most recent to 1 oldest [Reference Range]: INR [0.9-1.2] 1.1 (06/28/16 8:50 PM) PTT [25.0-35.0 43.7 seconds seconds] *HI* (06/29/16 9:14 AM) Chemistry Most recent to 1 oldest [Reference Range]: Sodium Lvl [136-144 138 mEq/L mEq/L] (06/29/16 3:34 AM) Potassium Lvl 3.5 mEq/L [3.6-5.1 mEq/L] *LOW* (06/29/16 3:34 AM) Chloride [99-109 102 mEq/L mEq/L] (06/29/16 3:34 AM) CO2 [22-32 mEq/L] 29 mEq/L (06/29/16 3:34 AM) AGAP [3-20] 7 (06/29/16 3:34 AM) BUN [4-20 mg/dL] 13 mg/dL (06/29/16 3:34 AM) Glucose Lvl [70-100 211 mg/dL mg/dL] *HI* (06/29/16 3:34 AM) Creatinine Lvl 0.81 mg/dL [0.64-1.27 mg/dL] (06/29/16 3:34 AM) eGFR [>60] >60 1 (06/29/16 3:34 AM) Calcium Lvl 9.1 mg/dL [8.6-10.0 mg/dL] (06/29/16 3:34 AM) Albumin Lvl [3.5-4.8 3.6 gm/dL gm/dL] (06/28/16 8:50 PM) Total Protein 6.3 gm/dL [6.1-7.9 gm/dL] (06/28/16 8:50 PM) Globulin [1.9-4.3 2.7 gm/dL gm/dL] (06/28/16 8:50 PM) ALT [17-63 U/L] 21 U/L (06/28/16 8:50 PM) AST [15-41 U/L] 20 U/L (06/28/16 8:50 PM) Alk Phos [26-104 79 U/L U/L] (06/28/16 8:50 PM) Bili Total [0.2-1.2 0.6 mg/dL 2 mg/dL] (06/28/16 8:50 PM) Magnesium Lvl 1.8 mg/dL [1.8-2.5 mg/dL] (06/28/16 8:50 PM) BNP [0-99 pg/mL] 48 pg/mL (06/28/16 8:50 PM) Troponin [<0.06 <0.05 ng/mL ng/mL] (06/29/16 9:14 AM) Blood Glucose, 209 mg/dL Capillary [74-106 *HI* mg/dL] (06/29/16 12:27 PM) Chol [0-200 mg/dL] 132 mg/dL (06/29/16 3:34 AM) Trig [0-150 mg/dL] 219 mg/dL *HI* (06/29/16 3:34 AM) HDL [>40 mg/dL] 26 mg/dL *ABN* (06/29/16 3:34 AM) LDL [0-100 mg/dL] 62 mg/dL (06/29/16 3:34 AM) VLDL Cholesterol 44 mg/dL [0-30 mg/dL] *HI* (06/29/16 3:34 AM) Cardiac Risk 5.1 [0.0-5.7] (06/29/16 3:34 AM) T4 Free [0.6-1.1 0.9 ng/dL ng/dL] (06/28/16 8:50 PM) TSH with Reflex Free 6.50 T4 [0.35-5.50] *HI* (06/28/16 8:50 PM) Hgb A1c [4.1-5.6 %] 10.7 % *HI* (06/28/16 8:50 PM) eAvg Glucose 260.4 mg/dL (06/28/16 8:50 PM) 1Result Comment: Multiply eGFR results by [...]
--- OUTSIDE RECORDS SUMMARY | 2016-12-04 11:03 | XMS REPORT | Referral Summary ---
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 Name Role Phone No PCP, States Primary Care Physician [phone] Encounter VC Date(s): 09/01/16 - 09/02/16 [facility] [address] [place] [address] Discharge Disposition: 01-Home or Self Care Attending Physician: Maia Flynn MD Admitting Physician: Maia Flynn MD Vital Signs Most recent to 1 oldest [Reference Range]: Temperature Oral 36.8 degC [35.8-37.3 degC] (09/02/16 10:04 AM) Peripheral Pulse 60 bpm Rate [60-100 bpm] (09/02/16 10:04 AM) Heart Rate Monitored 57 bpm [60-100 bpm] *LOW* (09/01/16 12:00 PM) Respiratory Rate 18 br/min [14-20 br/min] (09/02/16 10:04 AM) Blood Pressure 110/64 mmHg [90-140/60-90 mmHg] (09/02/16 10:04 AM) Mean Arterial 95 mmHg Pressure, Cuff (09/01/16 12:00 PM) SpO2 93 % (09/02/16 10:04 AM) Remote Telemetry Ongoing (09/02/16 10:12 AM) Problem List Condition Effective Dates Status Health [...] to 1 oldest [Reference Range]: WBC [4.8-10.8 5.5 10*3/uL 10*3/uL] (09/01/16 9:45 AM) RBC [4.60-6.20] 4.59 *LOW* (09/01/16 9:45 AM) Hgb [14.0-18.0 10.3 gm/dL gm/dL] *LOW* (09/01/16 9:45 AM) Hct [42.0-52.0 %] 34.1 % *LOW* (09/01/16 9:45 AM) MCV [82.0-99.0 fL] 74.3 fL *LOW* (09/01/16 9:45 AM) MCH [27.0-32.0 pg] 22.4 pg *LOW* (09/01/16 9:45 AM) MCHC [32.0-36.0 30.2 gm/dL gm/dL] *LOW* (09/01/16 9:45 AM) RDW [11.5-14.5 %] 16.5 % *HI* (09/01/16 9:45 AM) Platelet [150-400 168 10*3/uL 10*3/uL] (09/01/16 9:45 AM) MPV [9.4-12.3 fL] 9.6 fL (09/01/16 9:45 AM) Neutrophils [51-75 70 % %] (09/01/16 9:45 AM) Lymphocytes [20-46 18 % %] *LOW* (09/01/16 9:45 AM) Monocytes [4-11 %] 6 % (09/01/16 9:45 AM) Eosinophils [0-4 %] 4 % (09/01/16 9:45 AM) Basophils [0-2 %] 2 % (09/01/16 9:45 AM) Neutro Absolute 3.85 [1.90-7.00] (09/01/16 9:45 AM) Lymph Absolute 0.99 [0.80-3.30] (09/01/16 9:45 AM) Granite Absolute 0.33 [0.30-1.00] (09/01/16 9:45 AM) Eos Absolute 0.22 [0.00-0.50] (09/01/16 9:45 AM) Baso Absolute 0.11 [0.00-0.20] (09/01/16 9:45 AM) Giant Platelets Occasional *ABN* (09/01/16 9:45 AM) Hypochrom Occasional *ABN* (09/01/16 9:45 AM) Polychrom Occasional *ABN* (09/01/16 9:45 AM) Microcyte Present *ABN* (09/01/16 9:45 AM) Ovalocytes Occasional *ABN* (09/01/16 9:45 AM) Nucleated RBC 0.0 /100 WBC Automated [0 /100 (09/01/16 9:45 AM) WBC] Differential Reviewed (09/01/16 9:45 AM) Chemistry Most recent to 1 oldest [Reference Range]: Sodium Lvl [136-144 138 mEq/L mEq/L] (09/01/16 9:45 AM) Potassium Lvl 3.7 mEq/L [3.6-5.1 mEq/L] (09/01/16 9:45 AM) Chloride [99-109 104 mEq/L mEq/L] (09/01/16 9:45 AM) CO2 [22-32 mEq/L] 26 mEq/L (09/01/16 9:45 AM) AGAP [3-20] 8 (09/01/16 9:45 AM) BUN [4-20 mg/dL] 15 mg/dL (09/01/16 9:45 AM) Glucose Lvl [70-100 217 mg/dL mg/dL] *HI* (09/01/16 9:45 AM) Creatinine Lvl 0.79 mg/dL [0.64-1.27 mg/dL] (09/01/16 9:45 AM) eGFR [>60] >60 1 (09/01/16 9:45 AM) Calcium Lvl 8.8 mg/dL [8.6-10.0 mg/dL] (09/01/16 9:45 AM) Albumin Lvl [3.5-4.8 3.6 gm/dL gm/dL] (09/01/16 9:45 AM) Total Protein 6.5 gm/dL [6.1-7.9 gm/dL] (09/01/16 9:45 AM) Globulin [1.9-4.3 2.9 gm/dL gm/dL] (09/01/16 9:45 AM) ALT [17-63 U/L] 16 U/L *LOW* (09/01/16 9:45 AM) AST [15-41 U/L] 16 U/L (09/01/16 9:45 AM) Alk Phos [26-104 81 U/L U/L] (09/01/16 9:45 AM) Bili Total [0.2-1.2 0.5 mg/dL 2 mg/dL] (09/01/16 9:45 AM) Troponin [<0.06 <0.05 ng/mL ng/mL] (09/01/16 6:22 PM) Blood Glucose, 229 mg/dL Capillary [74-106 *HI* mg/dL] (09/02/16 11:19 AM) Chol [0-200 mg/dL] 117 mg/dL (09/02/16 9:28 AM) Trig [0-150 mg/dL] 211 mg/dL *HI* (09/02/16 9:28 AM) HDL [>40 mg/dL] 26 mg/dL *ABN* (09/02/16 9:28 AM) LDL [0-100 mg/dL] 49 mg/dL (09/02/16 9:28 AM) VLDL Cholesterol 42 mg/dL [0-30 mg/dL] *HI* (09/02/16 9:28 AM) Cardiac Risk 4.5 [0.0-5.7] (09/02/16 9:28 AM) TSH with Reflex Free 2.17 T4 [0.35-5.50] (09/02/16 9:28 AM) Hgb A1c [4.1-5.6 %] 9.5 % *HI* (09/02/16 9:28 AM) eAvg Glucose 226.0 mg/dL (09/02/16 9:28 AM) 1Result Comment: Multiply eGFR results by 1.21 [...]
[2016-12-04] MEDS ORDERED: CARV6.252 PO (11:17)
--- NOTE | 2016-12-04 11:28 | NUR ---
DR MENDOZA IN
--- OUTSIDE RECORDS SUMMARY | 2016-12-04 11:33 | XMS REPORT | Continuity of Care Document ---
Author Author Pili Urrutia Pili Address Unknown Phone Unavailable Care Team Providers Care Staff Training And Development Manager Name Role Phone [employer] Unavailable Unavailable Problems Problem Status Onset Date Classification Date Reported Comments Source Chest pain (finding) 2015 Diagnosis 07/14/2016 [facility]. Type 2 diabetes mellitus without complications 06/14/2016 06/19/2016 [facility] Chest pain, unspecified 06/19/2016 [facility] Hypothyroidism, unspecified 06/14/2016 06/19/2016 [facility] Essential (primary) hypertension 06/14/2016 06/19/2016 [facility] Other chest pain 06/19/2016 [facility] Hypertensive heart disease without heart failure 2015 [facility] Atherosclerotic heart disease of [place] coronary artery without angina pectoris 06/19/2016 [facility] Old myocardial infarction 06/19/2016 [facility] Hyperlipidemia, unspecified 06/19/2016 [facility] Hypertensive disorder, systemic arterial (disorder) Active Problem 06/19/2016 [facility] Obesity (disorder) Active Problem 06/19/2016 Added based on documentation of BMI=48.2. [facility] Localized edema 06/19/2016 [facility] Type 2 diabetes mellitus with hyperglycemia 06/19/2016 [facility] Unspecified asthma, uncomplicated 06/19/2016 [facility] Other specified hypothyroidism 06/19/2016 [facility] Other specified anxiety disorders 06/19/2016 [facility] Bradycardia, unspecified 06/19/2016 [facility] Atrioventricular block, first degree 06/19/2016 [facility] Unspecified right bundle-branch block 06/19/2016 [facility] Family history of ischemic heart disease and other diseases of the circulatory system 06/19/2016 [facility] 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 Medications Medication Details Route Status Patient Instructions Ordering Provider Order Date Source hydroxyzine hydrochloride 25 mg oral tablet </br>=25 mg, 1 tab, PO, Daily, # 30 tab, 0 Refill(s) Active [facility] albuterol-ipratropium 3 mg-0.5 mg/3 ml inhalation solution </br>3 mL, Inhalation, four times per day, # 30 EA, 0 Refill(s) Active [facility] Dulera 100 mcg-5 mcg/inh inhalation aerosol </br>2 puff, Inhalation, BID, # 13 gm, 0 Refill(s) Active [facility] Acetaminophen 325 MG / Oxycodone Hydrochloride 10 MG Oral Tablet [Percocet 10/ 325] </br>2 tab, PO, Q6H, PRN for pain, 0 Refill(s) Active [facility] Zyrtec </br>Daily, 0 Refill(s) Active [facility] buspirone 10 mg oral tablet </br>=10 mg, 1 tab, PO, TID, # 270 tab, 0 Refill(s) Active [facility] omeprazole 20 mg oral enteric coated capsule </br>=20 mg, 1 cap, PO, BID, # 60 cap, 3 Refill(s) Active [facility] montelukast 10 mg oral tablet </br>=10 mg, 1 tab, PO, QPM, # 30 tab, 0 Refill(s) Active [facility] Sertraline </br>PO, Daily, 0 Refill(s) Active [facility] Hydrochlorothiazide </br>PO, Daily, 0 Refill(s) Active [facility] atorvastatin </br>PO, QHS, 0 Refill(s) Active [facility] meloxicam 15 mg oral tablet </br>=15 mg, 1 tab, PO, Daily, # 30 tab, 0 Refill(s) Active [facility] Amlodipine </br>PO, Daily, 0 Refill(s) Active [facility] carvedilol 25 mg oral tablet </br>=25 mg, 1 tab, PO, BID, # 60 tab, 0 Refill(s) Active [facility] ezetimibe 10 MG Oral Tablet [Zetia] </br>=10 mg, 1 tab, PO, Daily, # 30 tab, 0 Refill(s) Active [facility] trazodone 50 mg oral tablet </br>50 mg 1 tab, PO, QHS, # 30 tab, 0 Refill(s) Active [facility] Levemir </br>Subcutaneous, 0 Refill(s) Active [facility] levothyroxine 0.2 mg oral tablet </br>=200 mcg, 1 tab, PO, Daily, # 30 tab, 0 Refill(s), tab Active [facility] aspirin 81 mg oral tablet, chewable </br>=81 mg, 1 tab, Chewed, Daily, tablet, chewable Active [facility] Humalog 100 unit(s)/ml subcutaneous injection </br>=10 Units, 0.1 mL, Subcutaneous, AC, # 9 mL, 1 Refill(s), injection Active [facility] Aspirin </br>81 mg,=1 tab, tablet, chewable, Daily, Chewed, Start date 06/13/16 9:00:00< br></br>Notes: TIME CRITICAL MED IF SCHEDULED Active [facility] heparin </br>5,000 Units,=1 mL, injection, Q12H, Subcutaneous, Start date 06/12/16 21:00 :00
</br>Notes: TIME CRITICAL MED IF SCHEDULED Active [facility] Insulin Lispro </br>SLIDING SCALE, injection, Subcutaneous, ACHS, Start date 06/12/16 21:00:00< br></br>Notes: TIME CRITICAL MED IF SCHEDULED Active [facility] Albuterol / Ipratropium </br>3 mL, solution, Q4H, Nebulized, Start date 06/12/16 20:00:00 Active [facility] Levoxyl </br>100 mcg,=1 tab, tab, ONCE, PO, Start date 06/14/16 12:44:00, Stop date 12:44:00
</br>Notes: DO NOT ADMINISTER WITH MAGNESIUM, CALCIUM, ALUMINUM, OR IRON PRODUCTS Inactive [facility] Normal Saline 50 mL IVPB Flush </br>25 mL, injection, As Needed, IVPush, PRN Flush, Start date 06/13/16 0:49: 00 Active [facility] Percocet 10/325 </br>2 tab, tab, Q6H, PO, PRN Pain Severe (7-10), Start date 06/12/16 18:43:00< br></br>Notes: Not to exceed 4000 mg of acetaminophen TOTAL in 24 hours. TIME CRITICAL MED IF SCHEDULED Active [facility] Trazodone </br>100 mg,=2 tab, tab, QHS, PO, Start date 06/12/16 21:00:00 Active [facility] pantoprazole </br>40 mg,=1 tab, enteric coated tab, Daily, PO, Start date 06/12/16 18:42:00, No
</br>Notes: DO NOT CRUSH Active [facility] montelukast </br>10 mg,=1 tab, tab, QPM, PO, Start date 06/12/16 17:00:00 Active [facility] Piroxicam </br>20 mg,=2 cap, cap, Daily, PO, Start date 06/12/16 18:40:00
</br>Notes: * TIME CRITICAL MED IF SCHEDULED Active [facility] Insulin Glargine </br>40 Units,=0.4 mL, injection, QHS, Subcutaneous, Start date 06/12/16 21:00: 00
</br>Notes: TIME CRITICAL MED IF SCHEDULED Active [facility] Humalog </br>10 Units,=0.1 mL, injection, AC, Subcutaneous, Start date 06/12/16 18:35:00
</br>Notes: TIME CRITICAL MED IF SCHEDULED Active [facility] Hydroxyzine </br>25 mg,=1 cap, cap, TID, PO, Start date 06/12/16 18:35:00 Active [facility] Budesonide 0.16 MG/ACTUAT / formoterol fumarate 0.0045 MG/ACTUAT Metered Dose Inhaler </br>2 puff, inhaler, BID, Inhalation, Start date 06/12/16 20:00:00
</br> Notes: TIME CRITICAL MED IF SCHEDULED Active [facility] Zetia </br>10 mg,=1 tab, tab, Daily, PO, Start date 06/13/16 9:00:00 Active [facility] Claritin </br>10 mg,=1 tab, tab, Daily, PO, Start date 06/13/16 9:00:00 Active [facility] Buspirone </br>10 mg,=1 tab, tab, TID, PO, Start date 06/12/16 18:29:00 Active [facility] carvedilol </br>12.5 mg,=1 tab, tab, BID, PO, Start date 06/12/16 21:00:00
</br>Notes: TAKE WITH FOOD Active [facility] Thyroxine </br>200 mcg,=1 tab, tab, Daily, PO, Start date 06/13/16 12:02:00
</br>Notes : DO NOT ADMINISTER WITH MAGNESIUM, CALCIUM, ALUMINUM, OR IRON PRODUCTS Active [facility] No Known Medications No known medications Active [facility] Allergies, Adverse Reactions, Alerts Substance Category Reaction Severity Reaction type Status Date Reported Comments Source Fentanyl Assertion Drug allergy [facility] Indocin Assertion Drug allergy [facility] morphine Assertion Drug allergy [facility] naproxen Assertion Drug allergy [facility] Tape Assertion Drug allergy [facility] Toradol Assertion Drug allergy [facility] Indomethacin Assertion Drug allergy [facility] Morphine Assertion Drug allergy [facility] Naproxen Assertion Drug allergy [facility] Ketorolac Assertion Drug allergy [facility] Immunizations Immunization Date Given Site Status Last Updated Comments Source No data available for this section No data available for this section [facility] Results Order Name Results Value Reference Range Date Interpretation Comments Source Point Of Care-Glucose Glucose POC 205 mg/dL 64 - 108 [facility] Discharge Summary Discharge Summary Patient: ESSIE LOPEZ Age: 66 years Sex: Male : 52 Associated Diagnoses: None Author: Hernán Rivera Discharge Information Date of Admission: Admitted 06/12/2016, 06/14/2016. Attending Physician: Lawson Mckeon Primary Service: Green Medicine. Primary Diagnosis present or suspected on admission: Chest pain - EKH10-DW R07.9 Secondary Diagnosis present or suspected on admission: Benign essential hypertension - ZDS80-CY I10 Type 2 diabetes mellitus with hemoglobin A1c goal of less than 7.0% - ROP21-QU E11.9 Diagnosis aquired during hospitalization Subclinical hypothyroidism - ATZ46-LT E03.9 Discharge or Transfer Condition: At discharge, [...] diabetes mellitus, hypertension, hyperlipidemia, CAD with h/o MO in 2007 (underwent cath, likely had 30-40% [...] the need for establishing a PCP in [place] as he will need a sleep study, [...] as he was going straight home to [place] on discharge. Stressed importance of establishing care with a PCP. Hernán Rivera MD PGY1 [phone] I agree with the above documentation. Thanks, Jayesh Mckeon DO 06/14/2016 [facility] Point Of Care-Glucose Glucose POC 277 mg/dL 64 - 108 [facility] Chemistry GFR -Chinese null >=60 mL/min/1.73m2 [facility] Hematology MPV 8.0 FL 7.4 - 10.4 06/14/2016 [facility] Student Note - Education Only Student [...] of all cause mortality/ new or recurrent MO/ severe recurrent ischemia, at 14 days - Pt has a h/o MO 8 yrs back (likely NSTEMI). He does have strong family h/o CAD. He also has not had a recent stress test or cardiology follow up since MO. - Will plan for stress echo today [...] pending stress test today Cb LORENZO 06/14/2016 [facility] Inpatient Progress Note Inpatient Progress Note [...] M with h/o HTN, DM, HLD, h/o MO 8 yrs ago presented with chest pain: Chest pain - DDx: ACS (UA/NSTEMI) vs GERD vs musculoskeletal - EKG no ST-T changes and troponins negative x3 - PATRICK risk score of 97 which is low. - 1.2% risk of mortality in current admission - 3.2-3.5% risk of mortality in 6 months - 6.8% risk of MO or in 1 yr - TYE risk score of 2 which suggests 8% risk of all cause mortality/ new or recurrent MO/ severe recurrent ischemia, at 14 days - Pt has a h/o MO 8 yrs back (likely NSTEMI). He does have strong family h/o CAD. He also has not had a recent stress test or cardiology follow up since MO. - Continue coreg, atorvastatin, ezetimibe - Coreg [...] stress test today Hernán Rivera MD PGY1 [phone] 06/14/2016 [facility] Point Of Care-Glucose Oper ID [id number] 06/14/2016 [facility] Point Of Care-Glucose Glucose POC 278 mg/dL 64 - 108 08/2016 [facility] Urinalysis UA Bacteria 3+ *ABN* (06/13/16 1:53 PM) 2015 [facility] Urine Drug Screen U Oxycodone Positive *NA* (06/13/16 1:53 PM) 2015 [facility] Student Note - Education Only Student [...] type 2, dyslipidemia, CAD with h/ o MO in 2007 (underwent cath, likely had 30-40% [...] like sensation and felt like his previous MO, radiating along his left arm/forearm, lasted for 15 min and then resolved spontaneously but came back again after an hour and is persisting now even though it has decreased in intensity. This was associated with some SOB which the patient thinks is from his asthma. He was treated with symbicort. His EKG, troponins, and CXR were unremarkable. PATRIKC score of 97 low , TYE score of 2 low. Aspirin, and NTG were given. TSH was elevated and treated with levothyroxine. A stress echo was completed Recommend sleep study done outpatient. Cb Sena MSV 06/13/2016 [facility] Chemistry Troponin-T null <=0.03 ng/mL 06/13/2016 [facility] Endocrinology Labs T4 Free 1.01 ng/dL 0.60 - 1.60 2015 [facility] Inpatient Progress Note Inpatient Progress Note Patient: ESSIE LOPEZ Age: 66 years Sex: Male : [birth year] Associated Diagnoses: None Author: Hernán Rivera Subjective Patient doing well this morning. No complaints. Denies chest pain since admission. He is from [place] and reports he does not have a [...] M with h/o HTN, DM, HLD, h/o MO 8 yrs ago presented with chest pain: Chest pain - DDx: ACS (UA/NSTEMI) vs GERD vs musculoskeletal - EKG no ST-T changes and troponins negative x3 - PATRICK risk score of 97 which is low. - 1.2% risk of mortality in current admission - 3.2-3.5% risk of mortality in 6 months - 6.8% risk of MO or in 1 yr - TYE risk score of 2 which suggests 8% risk of all cause mortality/ new or recurrent MO/ severe recurrent ischemia, at 14 days - Pt has a h/o MO 8 yrs back (likely NSTEMI). He does have strong family h/o CAD. He also has not had a recent stress test or cardiology follow up since MO. - Will plan for stress echo tomorrow [...] stress test tomorrow Hernán Rivera MD PGY1 [phone] I agree with the above documentation. 06/13/2016 [facility] Chemistry ALBUMIN 4.2 g/dL 3.5 - 4.8 06/13/2016 [facility] Endocrinology Labs HGB A1C 10.5 % 4.6 - 6.2 06/13/2016 [facility] Hematology Graves % 7.9 % 1.0 - 9.0 06/13/2016 [facility] Chemistry Troponin-T null <=0.03 ng/mL 06/13/2016 [facility] Chemistry Pro B-Type Natriuretic Peptide 9 pg/mL 2015 [facility] Coagulation APTT 33.9 s 24.0 - 36.5 06/12/2016 [facility] Hematology WBC 6.30 10^3/cmm 4.30 - [phone] 06/12/2016 [facility] Point Of Care-Glucose Oper ID [id number] 06/12/2016 [facility] History and Physical History and Physical [...] type 2, dyslipidemia, CAD with h/ o MO in 2007 (underwent cath, likely had 30-40% [...] like sensation and felt like his previous MO, radiating along his left arm/forearm, lasted for [...] breathing for some time. Patient is from [place] and is visiting his daughter and friends here. He last saw a physician 3 months ago. He is not on aspirin as he takes NSAIDs for his knee pain. PMH: HTN, DM type 2, dyslipidemia, CAD with h/o MO in 2007 (underwent cath, likely had 30-40% [...] mg/dL LOW BUN/CREA RATIO 20.5 HI GFR -Chinese >90 mL/min/1.73m2 GFR Non -Chinese >90 mL/min/1.73m2 CALCIUM 9.1 mg/dL CALC. OSMO 294 mOsm/kg MAGNESIUM 1.9 mg/dL Pro B-Type Natriuretic Peptide 9 pg/mL NA Troponin-T <0.01 ng/mL 3/cmm 6/cmm Hemoglobin 11.9 g/dL LOW Hematocrit 36.8 % LOW MCV 76.5 FL LOW MCH 24.6 PG LOW MCHC 32.2 g/dL 3/cmm MPV 8.7 FL RDW 16.6 % HI Gran % 68.7 % Lymph % 19.2 % LOW Graves % 7.7 % Eos % 3.5 % Baso % 0.9 % 3/cmm 3/cmm 3/cmm 3/cmm 3/cmm NRBC Auto 0.0 /100WBC NA PROTHROMBIN 10.6 sec INR 1.0 NA APTT 33.9 sec 06/12/16 14:39 GLUCOSE 255 mg/dL HI Oper ID [id number] . XR chest Impression: Low lung volume. Bibasilar subsegmental atelectasis. No consolidation. EKG: Rate 66 bpm, normal sinus rhythm, left axis deviation, normal durations and intervals, left anterior fascicular block, no evidence of chamber enlargement, no ST-T changes Impression and Plan 66 yo M with h/o HTN, DM, HLD, h/o MO 8 yrs ago presented with chest pain: Chest pain - DDx: ACS (UA/NSTEMI) vs GERD vs musculoskeletal - Vitals stable, EKG no ST-T changes and trop x 1 negative - PATRICK risk score of 97 which is low. - 1.2% risk of mortality in current admission - 3.2-3.5% risk of mortality in 6 months - 6.8% risk of MO or in 1 yr - TYE risk score of 2 which suggests 8% risk of all cause mortality/ new or recurrent MO/ severe recurrent ischemia, at 14 days - Pt has a h/o MO 8 yrs back (likely NSTEMI). He does [...] smoke Paloma Sweeney MD PGY2 Internal medicine [phone] 06/12/2016 [facility] XR Chest 2 Views [id number] XR Chest 2 Views [id number] Name: ESSIE LOPEZ Diagnostic Radiology Accession Number Exam Exam Date/Time Ordering Physician [id number] XR Chest 2 Views 06/12/2016 16:55 CDT Peter Prieto Prasad CPT code 95934 Reason For Exam (XR Chest 2 Views) chest pain Report XR Chest 2 Views [id number] Reason for exam: chest pain Comparison: None. [...] Technologist: Jackie Parsons RT(R)(CT),Bertha Mcgraw RT(R)(CT) 06/12/2016 [facility] ED Note - Provider ED Note [...] arm. Diaphoresis +. No leg pain. Had MO 8 yrs ago. Pain better now. PE: _Lungs - CTA(b), no r,r,w; Heart - S1S2, no m,r,g; LEs - NT calf, no pitting edema. Impression: _ Orders: _EKG, CXR, labs ordered Disposition: _ History of Present Illness 52-year-old male with past medical history significant for MO 8 years ago (no stents placed ) as well as diabetes, hypertension, dyslipidemia, who is from [place] currently here visiting friends presents to ER chief complaint of chest pain that he describes as a pressure-like sensation that is midsternal radiating down his left arm which began approximately 30 minutes prior to arrival all he was sitting on the couch watching TV. He notes that this pain is similar to his previous MO. Pain is nonpositional, nonpleuritic, nonexertional. He has [...] documented.. Past Medical/ Family/ Social History PMH: MO in 2007, DM, HTN, DLD PSH: R [...] Nurse Collect Radiology: XR Chest 2 Views [id number] (Order): Stat, 06/12/16 14:59, chest pain, ED [...] Indicator O2 Sat Nursing (Order): 06/12/16 17:35 Hospital Cook (Order): 06/12/16 17:35 Pharmacy: aspirin (Order): 324 mg, Chewed, ONCE . Results review: Lab results : All Laboratory 06/12/16 15:02 Sodium 138 mmol/L Potassium 4.0 mmol/L Chloride 97 mmol/L CO2 25 mmol/L Anion Gap 16 mmol/L Glucose 222 mg/dL HI BUN 16 mg/dL Creatinine 0.78 mg/dL LOW BUN/Creat Ratio 20.5 HI GFR -Chinese >90 mL/min/1.73m2 GFR Non -Chinese >90 mL/min/1.73m2 Calcium 9.1 mg/dL Osmo (Calc) 294 mOsm/kg Magnesium 1.9 mg/dL Pro B-Type Natriuretic Peptide 9 pg/mL NA Troponin-T <0.01 ng/mL 3/cmm 6/cmm Hemoglobin 11.9 g/dL LOW Hematocrit 36.8 % LOW MCV 76.5 FL LOW MCH 24.6 PG LOW MCHC 32.2 g/dL 3/cmm MPV 8.7 FL RDW 16.6 % HI Gran % 68.7 % Lymph % 19.2 % LOW Graves % 7.7 % Eos % 3.5 % Baso % 0.9 % 3/cmm 3/cmm 3/cmm 3/cmm 3/cmm NRBC Auto 0.0 /100WBC NA Protime 10.6 sec INR 1.0 NA APTT 33.9 sec 06/12/16 14:39 Glucose POC 255 mg/dL HI Software Requirements Engineer ID [id number] . Chest X-Ray: No acute disease process, [...] . Impression and Plan Other chest pain (LHV31-TL R07.89) CAD Plan Condition: Improved. Disposition: Admit: [...] from [place] , hx of CAD- states MO in 2007, no intervention. notes l sided cp starting at rest today that was similar to prior MO, minmal pain now. vitals noted, On exam, afebrile, non toxic, VSS. CTA B, RRR, no edema, ecg - no acute findings, trop neg, however given multiple risks and hx of MO will admit for ACS r/o Attending Signature: [...] 14:42 Oxygen Saturation 93 % . 06/12/2016 [facility] Vital Signs Vital Sign Value Date Comments Source Oxygen Saturation 94 % 2015 [facility] Resp. Rate 16 BRMIN 2015 [facility] Heart Rate 80 bpm 06/14/2016 [facility] Systolic BP 136 mmHg 2015 [facility] Diastolic BP 88 mmHg 2015 [facility] Oxygen Therapy Room air
</br>(06/14/16 12:26 PM) 06/14/2016 [facility] Oxygen Saturation 94 % 2015 [facility] Temperature Oral 97.5 [degF] 06/14/2016 [facility] Heart Rate 78 bpm 06/14/2016 [facility] Resp. Rate 16 BRMIN 2015 [facility] Systolic BP 133 mmHg 2015 [facility] Diastolic BP 84 mmHg 2015 [facility] Oxygen Therapy Room air
</br>(06/14/16 8:58 AM) 06/14/2016 [facility] Temperature Oral 97.5 [degF] 06/14/2016 [facility] Resp. Rate 17 BRMIN 2015 [facility] Oxygen Saturation 97 % 2015 [facility] Oxygen Therapy Room air
</br>(06/14/16 6:00 AM) 06/14/2016 [facility] Mean Arterial Pressure 97 mmHg 06/14/2016 [facility] Temperature Oral 98.5 [degF] 06/14/2016 [facility] Systolic BP 135 mmHg 2015 [facility] Diastolic BP 78 mmHg 2015 [facility] Mean Arterial Pressure 105 mmHg 06/14/2016 [facility] Cuff Size Adult Long Cuff
</br>(06/14/16 12:00 AM ) 06/14/2016 [facility] BP Site Right Arm
</br>(06/14/16 12:00 AM) 06/14/2016 [facility] Mean Arterial Pressure 112 mmHg 06/14/2016 [facility] Cuff Size Adult Long Cuff
</br>(06/13/16 8:00 PM) 06/14/2016 [facility] BP Site Right Arm
</br>(06/13/16 8:00 PM) 06/14/2016 [facility] Cuff Size Adult Long Cuff
</br>(06/13/16 4:42 PM) 06/13/2016 [facility] BP Site Right Arm
</br>(06/13/16 4:42 PM) 06/13/2016 [facility] Temperature Temporal Artery 97.2 [degF] 06/13/2016 [facility] Temperature Temporal Artery 98.5 [degF] 06/13/2016 [facility] Mean Arterial Pressure 85 mmHg 06/12/2016 [facility] Systolic BP 115 mmHg 2015 [facility] Diastolic BP 70 mmHg 2015 [facility] Heart Rate 77 bpm 06/12/2016 [facility] Oxygen Therapy Room air
</br>(06/12/16 6:19 PM) 06/12/2016 [facility] Oxygen Saturation 96 % 2015 [facility] Resp. Rate 20 BRMIN 2015 [facility] Heart Rate 66 bpm 06/12/2016 [facility] Resp. Rate 18 BRMIN 2015 [facility] Oxygen Saturation 93 % 2015 [facility] Systolic BP 120 mmHg 2015 [facility] Diastolic BP 71 mmHg 2015 [facility] Temperature Oral 98.0 [degF] 06/12/2016 [facility] Temperature Route Oral
</br>(06/12/16 2:42 PM) 06/12/2016 [facility] Oxygen Therapy Room air
</br>(06/12/16 2:42 PM) 06/12/2016 [facility] Encounters Location Location Details Encounter Type Encounter Number Reason For Visit Attending Provider ADM Date DC Date Status Source [facility] Emergency [id number] Fátima Bhandari 06/12/2016 06/13/2016 [facility] OBSERVATION [id number] Lawson Mckeon 201506/14/2016 [facility] [id number] Inpatient [id number] Jane Everardo 07/08/2016 07/10/2016 [facility] Procedures Procedure Code Date Perfomer Comments Source No data available for this section [facility] Echo [facility] Nuc Stress test [facility] Plan of Care Social History Assessment and Plan Date Assessment and Plan Source Author:Rani Mistry Title:ED Discharge Instructions Date:06/12/[address] [address] Emergency Department [phone] Emergency Department Discharge Instructions Name : ESSIE [...] talk to your doctor or call [employer] [place] [employer] at 7-475-DIGRNOW ([phone]- [phone]). If you have thoughts about committing suicide or otherwise hurting yourself, please call 441 or call Crisis Line at . If your primary care provider is a [facility] physician or you would like to establish care at [facility] please call [phone] to schedule an appointment. If you are a new patient you may have to wait up to 60 days for a scheduled appointment. If you need to establish care sooner, you may want to look for other options. PAYMENT GUIDELINES FOR [facility] PATIENTS: [facility] now requires all self-pay and partial [facility] discount patients to make a down payment before receiving non-emergency care. In most cases, your down payment will be 25 percent of your charges. If you currently receive a 100% [facility] discount , these new guidelines do not apply to you. We accept puente, check, Visa and MasterCard. If you are a self-pay patient and would like to discuss discounted services or Medicaid, please contact [facility] at [phone]. Remember: at the time of your appointment, you must present a photo ID as well as your insurance card or the required down payment, or your appointment will be rescheduled for another day. If you have commercial insurance and [facility] is not on your list of providers, [...] medications to every visit with us at [facility]. Your safety and education around medications [...] Name Status Details XR Chest 2 Views [id number] Ordered Stat, 06/12/16 14:59:00, chest pain, ED [...] RESULTS! [facility] Sign up today for [facility] for access to your health records 25/03. [employer] allows you to: Request an appointment Check your lab results Communicate with your providers and care team See provider notes from your visit View immunization records View current medication Sign up Today! Ask your healthcare provider or a [facility] associate for help, or email [email or web address]. [email or web address] JOHN Kaba DANIEL M, have received the attached patient education materials/ instructions and have verbalized understanding/Yo recibi educacion, materiales instrucciones de paciente y se me a explicado verbalmente para mi propia comprension: Patient/Guardian Signature Date Firma de paciente/guardian Fecha Witness Signature Date Firma de Testigo Fecha [facility] Author:Tyson Rosales Title:Chest Pain *ED Date:06/12/16 Impression and Plan Other chest pain ([id number] R07.89) CAD Plan Condition: Improved. Disposition: Admit: Time 06/12/16 18:44:00, to Inpatient Unit. Counseled: Patient, Regarding diagnosis, Regarding diagnostic results, Regarding treatment plan, Regarding prescription, Patient indicated understanding of instructions. [facility] Author:Hernán Rivera Title:Discharge Summary* ([facility]) Date:06/14/16 Patient: ESSIE LOPEZ Age: 66 years Sex: Male : 54 Associated Diagnoses: None Author: Hernán Rivera Discharge Information Date of Admission: Admitted 06/12/2016, 06/14/2016. Attending Physician: Lawson Mckeon Primary Service: Green Medicine. Primary Diagnosis present or suspected on admission: Chest pain - [id number] R07.9 Secondary Diagnosis present or suspected on admission: Benign essential hypertension - [id number] I10 Type 2 diabetes mellitus with hemoglobin A1c goal of less than 7.0% - [id number]-SL E11.9 Diagnosis aquired during hospitalization Subclinical hypothyroidism - EUB71-BA E03.9 Discharge or Transfer Condition: At discharge, [...] diabetes mellitus, hypertension, hyperlipidemia, CAD with h/o MO in 2007 (underwent cath, likely had 30-40% [...] the need for establishing a PCP in [place] as he will need a sleep study, [...] as he was going straight home to [place] on discharge. Stressed importance of establishing care with a PCP. Hernán Rivera MD PGY1 [phone] I agree with the above documentation. Thanks, Jayesh Mckeon DO Addendum by Lawson Mckeon on June 14, 2016 20:08 [facility] Author:Hernán Rivera Title:Inpatient Clinical Summary Date:06/14/16 [facility] Patient Discharge Instructions Visit Information/Informacion de Visita Name/Nombre:ESSIE LOPEZ Date of /Fecha de Nacimiento: 1950 12:00 AM Current Date/Time/Fecha/Hora Actual: 06/14/16 13:36:46 Physicians/Medicos Clinic Provider/Proveedor de Clinica: Resident Provider: Paloma Sweeney Attending Provider: Lawson Mckeon Discharge Diagnosis/Diagnstico al ser dado de mauri: Benign essential hypertension; Chest pain; Subclinical hypothyroidism; Type 2 diabetes mellitus with hemoglobin A1c goal of less than 7.0% The [facility] would like to thank you for allowing us to assist you with your healthcare needs. The following includes patient education materials and information regarding your injury/illness. [facility] [place] quisieran agradecerle por permitirnos ayudarlo con erin [...] appointment within two weeks, please call for [facility] or for [facility]. Por favor llame al [facility] o [facility] , en cristobal no lo hayan llamado dentro de dos semanas para darle kathy marek. Your Upcoming Appointments/Erin proximas citas Please bring all home medications to every visit with us at [facility]. Your safety and education around medications [...] talk to your doctor or call [employer] [place] [employer] at 4-918-OSFYNOW ([phone]- [phone]). If you have thoughts about committing suicide or otherwise hurting yourself, please call 911 or call Crisis Line at . Take Charge of Your Health with [facility] Sign up today for [facility] for access to your health records 25/03. [facility] allows you to: Request an appointment Check your lab results Communicate with your providers and care team See provider notes from your visit View immunization records View current medication Sign up Today! Ask your healthcare provider or a [facility] associate for help, or email [email or web address]. [email or web address] Author:Hernán Rivera Title:Progress Note Date:06/14/16 Impression and Plan 66 yo M with h/o HTN, DM, HLD, h/o MO 8 yrs ago presented with chest pain: Chest pain - DDx: ACS (UA/NSTEMI) vs GERD vs musculoskeletal - EKG no ST-T changes and troponins negative x3 - PATRICK risk score of 97 which is low. - 1.2% risk of mortality in current admission - 3.2-3.5% risk of mortality in 6 months - 6.8% risk of MO or in 1 yr - TYE risk score of 2 which suggests 8% risk of all cause mortality/ new or recurrent MO/ severe recurrent ischemia, at 14 days - Pt has a h/o MO 8 yrs back (likely NSTEMI). He does have strong family h/o CAD. He also has not had a recent stress test or cardiology follow up since MO. - Continue coreg, atorvastatin, ezetimibe - Coreg [...] stress test today Hernán Rivera MD PGY1 [phone] [facility] Author:Paloma Sweeney Title:ACS rule out Date:06/12/16 [...] type 2, dyslipidemia, CAD with h/ o MO in 2007 (underwent cath, likely had 30-40% [...] like sensation and felt like his previous MO, radiating along his left arm/forearm, lasted for [...] breathing for some time. Patient is from [place] and is visiting his daughter and friends here. He last saw a physician 3 months ago. He is not on aspirin as he takes NSAIDs for his knee pain. PMH: HTN, DM type 2, dyslipidemia, CAD with h/o MO in 2007 (underwent cath, likely had 30-40% [...] mg/dL LOW BUN/CREA RATIO 20.5 HI GFR -Chinese >90 mL/min/1.73m2 GFR Non -Chinese >90 mL/min/1.73m2 CALCIUM 9.1 mg/dL CALC. OSMO [...] 68.7 % Lymph % 19.2 % LOW Graves % 7.7 % Eos % 3.5 % Baso % 0.9 % Gran 4.3 10^3/cmm Lymph 1.2 10^3/cmm Graves 0.5 10^3/cmm Eos 0.20 10^3/cmm Baso 0.10 10^3/cmm NRBC Auto 0.0 /100WBC NA PROTHROMBIN 10.6 sec INR 1.0 NA APTT 33.9 sec 06/12/16 14:39 GLUCOSE 255 mg/dL GA Oper ID [id number] . XR chest Impression: Low lung volume. Bibasilar subsegmental atelectasis. No consolidation. EKG: Rate 66 bpm, normal sinus rhythm, left axis deviation, normal durations and intervals, left anterior fascicular block, no evidence of chamber enlargement, no ST-T changes Impression and Plan 66 yo M with h/o HTN, DM, HLD, h/o MO 8 yrs ago presented with chest pain: Chest pain - DDx: ACS (UA/NSTEMI) vs GERD vs musculoskeletal - Vitals stable, EKG no ST-T changes and trop x 1 negative - PATRICK risk score of 97 which is low. - 1.2% risk of mortality in current admission - 3.2-3.5% risk of mortality in 6 months - 6.8% risk of MO or in 1 yr - TYE risk score of 2 which suggests 8% risk of all cause mortality/ new or recurrent MO/ severe recurrent ischemia, at 14 days - Pt has a h/o MO 8 yrs back (likely NSTEMI). He does [...] smoke Paloma Sweeney MD PGY2 Internal medicine [phone] I have reviewed the history, physical, impression [...] Lawson Mckeon on June 13, 2016 16:45 [facility] Family History Value Date Source Advance Directives Order Name Results Value Date Source
--- OUTSIDE RECORDS SUMMARY | 2016-12-04 11:35 | XMS REPORT | Continuity of Care Document ---
Author Author [facility] Organization [facility] Address Unknown Phone Unavailable Care Team Providers Care Driver Messenger Name Role Phone No Pcp, Na Primary Care Physician Unavailable Source Comments Some departments are not documenting in the electronic medical record. If you do not see the information that you expected, contact Release of Information in the Health Information Management department at [phone] for further assistance in locating additional records.[facility] Active Allergies and Adverse Reactions Allergen Noted [...] Taken Blood Pressure 109/79 07/24/2016 2:30 PM CORROSION CONTROL ENGINEER Pulse 59 07/24/2016 2:30 PM CORROSION CONTROL ENGINEER Temperature 36.8 C (98.2 F) 07/24/2016 12:48 PM CORROSION CONTROL ENGINEER Respiratory Rate - - Height 1.778 m (5' 10") 07/07/2016 12:53 AM CDT Weight 151.955 kg (335 lb) 07/07/2016 12:53 AM CDT Body Mass Index 48.07 07/07/2016 12:53 AM CDT Oxygen Saturation 94% 07/24/2016 2:29 PM CORROSION CONTROL ENGINEER Plan of Care Health Maintenance Due Date Last Done Comments Hepatitis C Screening 1950 Physical (Comprehensive) 1959 Exam Pertussis Vaccine 1963 Tetanus Vaccine 1969 Colorectal Cancer 2002 Screening Shingles Vaccine 2012 Influenza Vaccine 05/03/2017 Results from Last 3 Months Not on file
--- OUTSIDE RECORDS SUMMARY | 2016-12-04 11:37 | XMS REPORT ---
Author Author [employer] Organization Unknown Address Unknown Phone Unavailable Care Team Providers Care Supervisor White Sugar Name Role Phone PP Unavailable Reason For [...]
--- OUTSIDE RECORDS SUMMARY | 2016-12-04 11:39 | XMS REPORT ---
Author Author [employer] Organization Unknown Address Unknown Phone Unavailable Care Team Providers Care Cap Jewel Plate Assembler Name Role Phone UNASSIGNED DOCTOR , DOCTOR PP [phone] Reason For Visit Reason for Visit from [...] H (65-99 MG/DL) *GFR EST NON AFR NAURUAN >90 ML/MIN *GFR EST AFR AMER >90 [...] Care Management Note : Pt is from [place] and is known to ED staff due to visits by pt and pt's adult daughter and pt getting angry when his demands are not met. Pt and daughter known to travel to multiple providers in [place] and [place]. K-Tracs on pt shows in the past year, he has received 25 narcotic prescriptions from 23 different providers filled at 12 different pharmacies. PCP is at [facility] in [place]. Today, pt states they have no money and he refuses to eat anything at the hospital unless we feed daughter too. Pt expects his daughter to stay in hospital with him. Pt also states they have a vehicle here but do not have gas money to get back home. JONA Moreno, Ammonia Solution Preparer and SW updated. Procedures No relevant procedures [...]
--- NOTE | 2016-12-04 11:40 | NUR ---
TO [facility] PER CART
--- NOTE | 2016-12-04 11:56 | NUR ---
RETURNED FROM [facility]
--- NOTE | 2016-12-04 12:05 | DI ---
Indication: ITS.REASON: right knee pain PROCEDURE: KNEE RIGHT 3 VIEWS: Encounter: Initial Comparison: None Findings: There is no acute fracture, dislocation or malalignment identified. Total knee replacement appears intact. Impression: No acute osseous abnormality. .
--- NOTE | 2016-12-04 12:15 | NUR ---
TOMÁS MENDOZA WAS IN ROOM DISCUSSING WITH PT. ALL THE MEDICATIONS HE HAD FILLED RECENTLY. PT. BRINGS UP HIS CALENDER WIND UP TENDER'S LICENSE WAS STOLEN. DR. MENDOZA OFFERS TO CALL THE POLICE ABOUT THIS. PT. GETS UPSET AND PULLS HIS ARM BAND OFF AND WALKS OUT OF THE ED AND GOES TO THE BATHROOM. WHEN OUT OF BATHROOM ASK HIM TO SIGN THE AMA FORM AND HE REFUSES AND WALKS ON OUT OF THE HOSPITAL.
--- NOTE | 2016-12-04 12:30 | ERPDOC ---
Departure Disposition Decision Date: Dec 04, 2016 Disposition Decision Time: 12:24 Disposition: 07 AGAINST MEDICAL ADVICE Impression Impression Impression: Primary Impression: Drug-seeking behavior Additional Impressions: Knee pain Laterality: right Chronicity: acute Qualified Codes: M25.561 - Pain in right knee Left against medical advice Severity: Mild Condition: Stable Seen By: Physician only Referrals: Your Doctor Call for appointment Patient Instructions: Knee Pain (ED) Problems/Meds/Labs Reviewed?: Yes Medications reviewed and manag: Yes Follow up care ordered?: Yes Mental Status: Alert, Oriented HPI General Chief Complaint: Lower Extremity Injury Stated Complaint: FELL, RIGHT KNEE PAIN Time Seen by Provider: 11:24 Source: patient (Patient presents to the ER following a fall at home. Patient complains of pain to the RIght knee with ROM and has a small abrasion. The abrasion seem older than the stated fall. Mild pain with ROM. Patient denies any other complaint, no other trauma is noted, patient denies striking his head. ) Exam Limitations: no limitations HPI Knee Occurred At: home Onset: Changing over time Duration: 1-3 hrs Pain Scale: Now & Worst: 5/10 Severity: mild Method of Injury: direct blow Modifying Factors: WORSENES WITH: movement, weight bearing Associated Symptoms: denies symptoms Allergies: Coded Allergies: fentanyl (Verified Allergy, Unknown, VOMITING, 12/04/16) indomethacin (Verified Allergy, Unknown, 12/04/16) ketorolac (Verified Allergy, Unknown, 12/04/16) morphine (Verified Allergy, Unknown, 12/04/16) naproxen (Verified Allergy, Unknown, 12/04/16) Uncoded Allergies: PAPER TAPE (Allergy, Unknown, SKIN BLISTERS, 05/14/16) Past History Patient Surgical History Bilateral knee replacements Bilateral elbow surgeries Removal of ganglion cyst from left wrist Surgery on left foot Past Medical History Metabolic: diabetes, hypercholesterolemia, hypertension Cardiac: CAD, DC Respiratory: asthma Musculoskeletal: osteoarthritis Psychological: anxiety, depression Surgical History Joint: knee Family History Family PMH: FOUND: CAD, depression Vaccines Hx Influenza Vaccination: Yes (2015) Hx Pneumococcal Vaccination: No Social History Smoking Status: Unknown if ever smoked Does patient use chewing tobac: No Second Hand Exposure: No Substance Use Type: does not use Alcohol Intake: none Marital Status: Single Housing: house Service: No Occupational Hazard: No Record Review Pertinent history updated: Yes Review of Systems Constitutional Constitutional: DENIES: chills, fever Eyes Lids/Accessories: DENIES: erythema, swelling ENMT Ears: DENIES: erythema, pain Balance: DENIES: ataxia, vertigo Sinuses: DENIES: congestion, rhinorrhea Mouth/Throat: DENIES: sore throat Cardiovascular Cardiac: DENIES: chest pain, dyspnea on exertion, orthopnea Rhythm/Rate: DENIES: tachycardia Pulmonary Respiratory: DENIES: cough, dyspnea, sputum GI Upper Abdomen: DENIES: nausea, pain, vomiting Lower Abdomen: DENIES: constipation, diarrhea, pain General: DENIES: dysuria Musculoskeletal General: joint pain, pain, see HPI, tenderness, DENIES: cramps, weakness Integumentary Skin: other, see HPI, DENIES: color change, itching, rash Neurological General: DENIES: ataxia, change in strength, headache, numbness, poor coordination, seizures, syncope, vertigo, weakness Psychiatric Psychiatric: DENIES: anxiety, depression, nervousness Hematologic/Lymphatic Hematologic/Lymphatic: DENIES: anemia Allergic/Immunological Allergic/Immunoligical: DENIES: sneezing All other Systems All Other Systems: Reviewed and Negative Exam General General Nourishment: well nourished, well developed, appears stated age, adult General Body Habitus: well groomed Vital Signs: Temperature: 98.1, Source: Oral, Heart Rate: 58, Respiratory Rate : 16, BP: 148/71, Pulse Oximetry: 94 Height (Feet): 5 Height (Inches): 10.00 Fastrak Knee Knee : Knee: Right Inspection: discoloration (Abrasion to right anterior knee. Wound appears older than stated injury), NOT FOUND: erythema, swelling Palpation: tender lat. joint line, tender med. joint line, tender patella, warm ROM: extension to 180 degrees, flexion to 0 degrees, NOT FOUND: clicking, popping Neuro: soft touch intact, strength ((+)5) Posterior Tibial pulse: 2+ Dorsalis Pedis pulse: 2+ Eyes (brief) Eyes Brief: found: EOMI, PERRL ENMT (brief) ENMT Brief: FOUND: TM clear, TM good light reflex, mucosa moist Neck (brief) Neck Brief: FOUND: trachea midline, NOT FOUND: tenderness Respiratory (brief) Respiratory Brief: FOUND: clear all luevano, equal bilaterally Cardiovascular (brief) Cardiac Brief: FOUND: regular rate, regular rhythm Capillary Refill: <2 sec Abdomen (brief) Abdominal Brief: FOUND: bowel normo active x4, soft, NOT FOUND: distended, tender Lymphatic (brief) Lymphatic Brief: NOT FOUND: adenopathy, lymphedema Integumentary (brief) Integumentary Brief: FOUND: other (Abrasion to knee. Wound appears older than stated injury), pink, warm Neurologic (brief) Neurological Brief: FOUND: CN w/o gross def to obs, gait w/o gross def to obs, motor-no gross deficits, sensory-no gross deficits, NOT FOUND: ataxia Neurologic RN Documented GCS Eye Opening: Verbal: Motor: Total: Psychiatric (brief) Psychiatric Brief: FOUND: alert, attentive, normal affect, oriented Differential Diagnoses Considering: Contusion, Dislocation, Fracture, Sprain, Strain, Tibial Plateau Fracture, Other Progress Results/Orders Orders Procedure Category Date Status Time Knee Right 3 Views RAD 12/04/16 Resulted Progress Progress Patient refused Motrin or Tylenol for pain Patient states the Percocet he as been taking, he is now out of, apparently this was an "old" Prescription post Knee Replacement surgery Patient denies any other prescriptions for pain medications, For "Several Months " K-Tracs shows the patient has had several prescriptions for several Months now, from several providers in [place], [place] and [place]. Patient is also filling [facility] I asked if he had received any recent prescriptions for Ultram, and the patient denied, His financial adviser stated "He's allergic". Patient filled 132 tablets of Ultram in October, 203 tablets in October. And similar in the Months Prior When asked about this, the patient stood up, removed his patient bracelet and began walking out of the ER. His financial adviser stated "His ID has been Stolen." I offered to call the Police Department to file a report. The patient declined , then began to walk faster out of the ER Patient refused further care or to sign AMA Xray Xray : Reason for Exam: right knee pain Xray: Knee R Interpretation: Normal, Reviewed Written Report DELANEY MENDOZA DO Dec 04, 2016 12:30
== END 2016-12-04 12:15 | disposition left against medical advice (07) ==
LOC: ED 10:53
DX: M25.561 Pain in right knee (principal); Z76.5 Malingerer [conscious simulation]; W18.30XA Fall on same level, unspecified, initial encounter; Y93.9 Activity, unspecified; Y92.009 Unspecified place in unspecified non-institutional (private) residence as the place of occurrence of the external cause; Y99.8 Other external cause status

== ENCOUNTER 2017-01-27 16:13 | Emergency (ER) | payer MEDICARE ==
[~2017-01-27] VITALS: Ht 177.8 cm; Wt 155.6 kg
[~2017-01-27 16:13] MED LIST changes: -CARV25TA2 PO; +CARV6.252 PO; -MOME13HF4 INH
--- OUTSIDE RECORDS SUMMARY | 2017-01-27 16:20 | XMS REPORT | Continuity of Care Document ---
Author Author [facility] Organization [facility] Address Unknown Phone Unavailable Care Team Providers Care Renewable Energy Division Manager Name Role Phone No Pcp, Na Primary Care Physician Unavailable Source Comments Some departments are not documenting in the electronic medical record. If you do not see the information that you expected, contact Release of Information in the Health Information Management department at [phone] for further assistance in locating additional records.[facility] Active Allergies and Adverse Reactions Allergen [...] Taken Blood Pressure 109/79 07/24/2016 2:[address] MAGISTRATE Pulse 59 07/24/2016 2:[address] MAGISTRATE Temperature 36.8 C (98.2 F) 07/24/2016 12:[address] MAGISTRATE Respiratory Rate - - Height 1.778 m (5' 10") 07/07/2016 12:53 AM CDT Weight 151.955 kg (335 lb) 07/07/2016 12:53 AM CDT Body Mass Index 48.07 07/07/2016 12:53 AM CDT Oxygen Saturation 94% 07/24/2016 2:[address] MAGISTRATE Plan of Care Health Maintenance Due Date Last Done Comments Hepatitis C Screening 1950 Physical (Comprehensive) 1959 Exam Pertussis Vaccine 1963 Tetanus Vaccine 1969 Colorectal Cancer 2002 Screening Shingles Vaccine 2012 Influenza Vaccine 05/03/2017 Results from Last 3 Months Not on file
--- OUTSIDE RECORDS SUMMARY | 2017-01-27 16:20 | XMS REPORT ---
Author Author GENERATED, SYSTEM Organization Unknown Address Unknown Phone Unavailable Care Team Providers Care Education Department Registrar Name Role Phone UNASSIGNED DOCTOR MD RENZO DOCTOR PP [phone] Reason For Visit Chief Complaint RT KNEE PAIN Social History Functional Status Vital Signs Results DX Radiology from 12/04/2016 1:58 PMKNEE RIGHT 3 VIEWS History: knee pain . Technique: 3 view knee performed. Priors: Right knee dated 12/05/2015 Findings: There are intact postsurgical changes of right knee arthroplasty noted. There is no evidence of acute fracture or dislocation. There is a probable small knee joint effusion. Impression: Intact right knee arthroplasty. Probable small knee joint effusion Electronically signed by: Snow Osorio MD Dictated: 12/04/2016 15:39 (Reference Range: not available) Problems Encounter Diagnosis No relevant problems exist. Additional Problems * Acute Pain Comment:Problem resolved by [facility] Workflow upon Discharge, Status :Resolved. * Fall Risk Comment:Problem resolved by [facility] Workflow upon Discharge, Status: Resolved. * Skin Integrity Impairment Risk Comment:Problem resolved by [facility] Workflow upon Discharge, Status:Resolved. Encounters Encounter Diagnosis No relevant problems exist. Plan of Care Procedures No relevant procedures performed. Immunizations No immunizations administered or ordered. Hospital Course Hospital Discharge Instructions Allergies, Adverse Reactions, Alerts This section is insurance sales representative of the current allergy information, at the time of the CCD generation. In the case of regeneration of the CCD, the allergy information may not reflect the state of known allergies at the time of the CCD' s subject visit. * paper tape (as Environmental allergen) causes Rash. * naproxen causes Moderate Nausea. * Indocin causes Moderate Nausea. * fentanyl causes Moderate Nausea. * Toradol causes Moderate Nausea. * morphine causes Moderate Nausea. * Latex Allergy has not been assessed. * IV Contrast Allergy has not been assessed. Medication Medication reconciliation has not been performed.
--- OUTSIDE RECORDS SUMMARY | 2017-01-27 16:20 | XMS REPORT | Continuity of Care Document ---
Author Author [facility] Address Unknown Phone Unavailable Support Name Relationship Address Phone KRISTI MOSER MD Caregiver [address] [place] [address] BHUPENDRA WEBB Next Of Kin [address] [place] [address] Insurance Providers Payer Name Policy Number Subscriber Name Relationship Self Pay Essie Webb 20 Self / Same As Patient Advance Directives Directive Response Recorded Date/Time Advanced Directives Yes 01/04/17 12:47am Chief Complaint and Reason for Visit Chief Complaint Cardiac Complaint Reason for Visit Chest pain Problems Active Problems Medical Problem Onset Date Status Chest pain Unknown Acute Medications Current Home Medications Medication Dose Units Route Directions Days/Qty Instructions Start Date Hydrochlorothiazide 25 Mg 25 Mg ORAL Daily 30 01/04/17 Amlodipine Besylate (Norvasc) 10 Mg 10 Mg ORAL As Directed 30 01/04/17 Buspirone Hcl (Buspar) 15 Mg 10 Mg ORAL As Directed 80 01/04/17 Carvedilol (Coreg) 6.25 Mg 6.25 Mg ORAL As Directed 60 01/04/17 Meloxicam 7.5 Mg 7.5 Mg ORAL As Directed 60 01/04/17 Atorvastatin Calcium 10 Mg 10 Mg ORAL As Directed 30 01/04/17 Social History Query Response Start Date Stop Date Smoking Status Never smoker Hospital Discharge Instructions No hospital discharge instructions. Plan of Care Discharge Date 01/04/17 4:50am Disposition 02 XFER SHT-TRM HOSP - ACUTE Prescriptions See Medication Section Additional Instructions/Education Some of your test results may not be complete prior to your leaving the Emergency Department. The Emergency Department is not authorized to give test results over the phone. Please contact the doctor's office listed in this packet of information for your final results. Follow up with your primary care physician or return to the Emergency Department for worsening or worrisome symptoms. * Emergency Department phone number: [phone], x [phone]* MEDICAL RECORD If you need copies of your X-rays, call [phone]. If you need copies of your medical record, including lab results, a signed authorization for release of records will be required. A telephone call for release of Health Information is not allowed. BILLING Billing can sometimes be confusing and frustrating. To help avoid confusion in the future, please take a moment to acquaint yourself with the billing parties for services. [employer] Emergency Room Services [facility] Physician Services [facility] X-rays [facility] Patients will receive bills for services from the appropriate provider. If you have any questions about your [facility] bill, our staff will be happy to assist you. Please call [phone], and ask for the billing department. THANK YOU for choosing [facility] as your emergency care provider! Care Plan and Goals ~~Discharge Care Plan~~ Problem: Chest, epigastric or chest wall pain Goal: Decreased pain Instructions: Take medication(s) as directed. Follow home discharge instructions. Follow up with primary care physician or dulite machine bluer as directed. Functional Status No functional status results. Allergies, Adverse Reactions, Alerts Allergen Type Severity Reaction Status Last Updated Morphine Allergy Unknown Vomiting Active 01/04/17 Indomethacin Allergy Unknown Vomiting Active 01/04/17 Naproxen Allergy Unknown Vomiting Active 01/04/17 ketorolac Allergy Unknown Vomiting Active 01/04/17 Immunizations No immunization records. Vital Signs Acute Vital Signs Vital Response Date/Time Temperature (Fahrenheit) 97.4 01/04/2017 4:29am Pulse 55 bpm 01/04/2017 4:29am Respirations 18 01/04/2017 4:29am Height 5 ft 10 in Weight 335 lb Body Mass Index 48.0 kg/m^2 Results Laboratory Results Test Name Result Units Flags Reference Collection Date/Time Result Date/ Time Comments White Blood Count 5.32 10^3uL 4.0-11.0 01/04/2017 12:45am 01/04/2017 1: 38am Red Blood Count 4.47 10^6uL L 4.50-5.50 01/04/2017 12:4501/04/2017 1: 38am Hemoglobin 8.8 g/dL L 13.5-17.0 01/04/2017 2:4501/04/2017 3:01am Hematocrit 30.50 % L 39.00-50.00 01/04/2017 2:4501/04/2017 3:01am Mean Corpuscular Volume 68 FL L 80-100 01/04/2017 12:4501/04/2017 1: 38am Mean Corpuscular Hemoglobin 19.7 PG L 26.0-34.0 01/04/2017 12:4501/04 1:38am Mean Corpuscular Hemoglobin Concent 29.1 g/dL L 31.0-37.0 01/04/2017 12: 4501/04/2017 1:38am Red Cell Distribution Width 18.6 % H 11.8-15.6 01/04/2017 12:452016 1:38am Platelet Count 192 10^3uL 150-450 01/04/2017 12:4501/04/2017 1:38am Mean Platelet Volume 10.4 FL H 6.0-9.5 01/04/2017 12:4501/04/2017 1: 38am Differential Total Cells Counted 100 01/04/2017 12:4501/04/2017 1:52am Segmented Neutrophils % 65 % 51-67 01/04/2017 12:4501/04/2017 1: 52am Lymphocytes % (Manual) 25 % 20-46 01/04/2017 12:4501/04/2017 1:52am Monocytes % (Manual) 6 % 3-11 01/04/2017 12:4501/04/2017 1:52am Eosinophils % (Manual) 4 % 0-4 01/04/2017 12:4501/04/2017 1:52am Neutrophils # 3.5 # 01/04/2017 12:45am 01/04/2017 1:52am Lymphocytes # 1.3 # 01/04/2017 12:45am 01/04/2017 1:52am Monocytes # 0.3 # 01/04/2017 12:45am 01/04/2017 1:52am Eosinophils # 0.2 # 01/04/2017 12:45am 01/04/2017 1:52am Blood Morphology Comment SEE REFERENCE NORMAL 01/04/2017 12:45am 12/2016 1:52am Hypochromasia MODERATE 01/04/2017 12:45am 01/04/2017 1:52am Poikilocytosis MODERATE 01/04/2017 12:45am 01/04/2017 1:52am Anisocytosis MODERATE 01/04/2017 12:45am 01/04/2017 1:52am Microcytosis MODERATE 01/04/2017 12:45am 01/04/2017 1:52am Schistocytes PLATELETS APPEAR ADEQUATE 01/04/2017 12:45am 2016 1:52am Prothrombin Time 11.7 SEC 10.0-12.5 01/04/2017 12:45am 01/04/2017 2: 14am Prothromb Time International Ratio 1.1 0.8-1.4 01/04/2017 12:45am 12/2016 2:14am Activated Partial Thromboplast Time 31.3 SEC 26.3-36.8 01/04/2017 12: 45am 01/04/2017 2:14am Sodium Level 141 mmol/L 135-150 01/04/2017 12:45am 01/04/2017 1:39am Potassium Level 3.7 mmol/L 3.5-5.1 01/04/2017 12:45am 01/04/2017 1: 39am Chloride Level 101 mmol/L 98-108 01/04/2017 12:45am 01/04/2017 1:39am Carbon Dioxide Level 29 mmol/L 22-29 01/04/2017 12:45am 01/04/2017 1: 39am Anion Gap 14.9 MEQ/L 3-15 01/04/2017 12:45am 01/04/2017 1:39am Blood Urea Nitrogen 11 mg/dL 7-18 01/04/2017 12:4501/04/2017 1:39am Creatinine 0.77 mg/dL L 0.8-1.5 01/04/2017 12:4501/04/2017 1:39am BUN/Creatinine Ratio 14 10-20 01/04/2017 12:4501/04/2017 1:39am Estimat Glomerular Filtration Rate 123.1 01/04/2017 12:452016 1:39am Estimated GFR (Non- 101.7 01/04/2017 12:452016 1:39am Glucose Level 247 mg/dL H 70-110 01/04/2017 12:4501/04/2017 1:39am Calculated Osmolality 280 mosm/L 280-300 01/04/2017 12:4501/04/2017 1:39am Calcium Level 8.5 mg/dL L 8.8-10.8 01/04/2017 12:4501/04/2017 1:39am Calcium/Ionized Calcium Ratio 3.8 mg/dL 3.8-4.6 01/04/2017 12:4512/2016 1:39am Magnesium Level 1.8 mg/dL 1.6-2.3 01/04/2017 12:4501/04/2017 1:39am Total Bilirubin 0.3 mg/dL 0.1-1.0 01/04/2017 12:4501/04/2017 1:39am Alkaline Phosphatase 87 U/L 38-126 01/04/2017 12:4501/04/2017 1: 39am Aspartate Amino Transf (AST/SGOT) 11 U/L L 15-37 01/04/2017 12:4512/2016 1:39am Alanine Aminotransferase (ALT/SGPT) 21 U/L L 30-65 01/04/2017 12:45 1:39am Total Creatine Kinase 55 U/L 55-170 01/04/2017 12:4501/04/2017 1: 39am Creatine Kinase MB 0.5 ng/mL 0.0-6.0 01/04/2017 12:4501/04/2017 1: 51am Troponin I < 0.012 ng/mL 0.010-0.080 01/04/2017 12:45am 01/04/2017 1: 51am KP-Ahi-W-Type Natriuretic Peptide 284 pg/mL H 0-125 01/04/2017 12:45am 01/04/2017 1:51am <300 ng/mL - HF unlikely Age <50 years, NT-proBNP >450 pg/mL - HF Likely Age 50-75 yrs, NT-proBNP >900 pg/mL - HF Likely Age >75 yrs, NT-proBNP >1800 - HF likely Total Protein 6.8 g/dL 6.4-8.5 01/04/2017 12:45am 01/04/2017 1:39am Albumin 3.7 g/dL 3.4-5.0 01/04/2017 12:45am 01/04/2017 1:39am Albumin/Globulin Ratio 1.193 1.1-1.8 01/04/2017 12:45am 01/04/2017 1: 39am Stool Occult Blood NEGATIVE NEGATIVE 01/04/2017 3:15am 01/04/2017 3: 57am Procedures No known history of procedures. Encounters Encounter Location Arrival/Admit Date Discharge/Depart Date Attending Provider Registered Emergency Room [facility] 01/04/17 12:32am KRISTI MOSER MD Recent Diagnosis
--- OUTSIDE RECORDS SUMMARY | 2017-01-27 16:20 | XMS REPORT | Continuity of Care Document ---
Author Author [facility] Organization [facility] Address Unknown Phone Unavailable Support Name Relationship Address Phone DELANEY MENDOZA DO Caregiver [address] [place] [address] [place] [address] Unavailable BHUPENDRA WEBB Next Of Kin [address] [place] [address] Insurance Providers Guarantor Lazaro Webb Address [address] [place] [address] Email DENIED/NO TO PT PORTAL Payer Medicare Policy Number [id number] Subscriber's Name JohnLazaro Relationship 18 Self Chief Complaint and Reason for Visit Chief Complaint Lower Extremity Injury Reason for Visit Left against medical advice Drug-seeking behavior Knee pain Problems Active Problems Medical Problem Onset Date Status Asthma Unknown Chronic CAD (coronary artery disease) Unknown Chronic COPD (chronic obstructive pulmonary disease) Unknown Chronic Diabetes mellitus Unknown Chronic Essential (primary) hypertension Unknown Chronic Knee contusion Unknown Acute Morbid obesity Unknown Chronic OA (osteoarthritis) Unknown Chronic Sleep apnea Unknown Chronic Past Problems Medical Problem Onset Date Chest pain Unknown Drug-seeking behavior Unknown Knee pain Unknown Left against medical advice Unknown Medications Current Home Medications Medication Dose Units Route Directions Days Qty Instructions Start Date Albuterol Sulfate (Proventil Hfa 90 Mcg/Actuation) 200 Puff/6.7 G Inha 2 Puff Inhalation Every 6 Hours as needed for Asthma 11/10/15 Amlodipine Besylate 10 Mg Tablet 10 Mg Oral Daily 11/10/15 Atorvastatin Calcium 10 Mg Tablet 10 Mg Oral Bedtime 11/10/15 Buspirone Hcl 10 Mg Tablet 10 Mg Oral Twice Daily Breakfast & Lunch 11/10/15 Buspirone Hcl 10 Mg Tablet 20 Mg Oral Bedtime 05/14/16 Carvedilol 6.25 Mg Tablet 6.25 Mg Oral Twice A Day 12/04/16 Cetirizine Hcl 10 Mg Tablet 10 Mg Oral Daily 11/10/15 Ezetimibe (Zetia) 10 Mg Tablet 10 Mg Oral Bedtime 11/10/15 Hydrochlorothiazide 25 Mg Tablet 25 Mg Oral Daily 05/14/16 Hydroxyzine Hcl 25 Mg Tablet 25 Mg Oral Three Times A Day as needed for Itching 11/10/15 Insulin Aspart (Novolog) 100 Unit/Ml Inj 15 Unit Sub-Q Three Times Daily With Meals 05/14/16 Insulin Detemir (Levemir) 100 Unit/Ml Inj 60 Unit Sub-Q Bedtime 05/14/16 Meloxicam 15 Mg Tablet 15 Mg Oral Daily 11/10/15 Montelukast Sodium 10 Mg Tablet 10 Mg Oral Bedtime 11/10/15 Omeprazole 20 Mg Tablet.dr 40 Mg Oral Before Breakfast 11/10/15 Oxycodone Hcl/Acetaminophen (Oxycodone-Acetaminophen 10-325) 10-325 Tablet 2 Tab Oral Every 4-6 Hours as needed for Pain 05/14/16 Sertraline Hcl (Sertraline) 100 Mg Tablet 100 Mg Oral Bedtime 06/17 Trazodone Hcl 50 Mg Tablet 100 Mg Oral Bedtime 05/14/16 Social History Social History Problem Response Recorded Date/Time Onset Date Status Hx Substance Use No 12/04/2016 11:03am Not Applicable Not Applicable Hx Alcohol Use No 12/04/2016 11:03am Not Applicable Not Applicable Tobacco Usage none 11/10/2015 6:50pm Not Applicable Not Applicable Query Response Start Date Stop Date Smoking Status Never smoker Hospital Discharge Instructions No hospital discharge instructions. Plan of Care Discharge Date 12/04/16 12:15pm Disposition 07 AGAINST MEDICAL ADVICE Condition at Discharge Against Medical Advice Instructions/Education Provided Knee Pain (ED) Prescriptions See Medication Section Referrals Your Doctor Note: Call for appointment Functional Status No functional status results. Allergies, Adverse Reactions, Alerts Allergen Type Severity Reaction Status Last Updated Morphine Allergy Unknown Active 12/04/16 Indomethacin Allergy Unknown Active 12/04/16 Naproxen Allergy Unknown Active 12/04/16 Fentanyl Allergy Unknown VOMITING Active 12/04/16 Ketorolac Allergy Unknown Active 12/04/16 PAPER TAPE Allergy Unknown SKIN BLISTERS Active 05/14/16 Immunizations Query Response on File Recorded Date/Time Hx Influenza Vaccination Y 2015 05/14/16 8:06pm Hx Pneumococcal Vaccination No 05/14/16 8:06pm Hx Influenza Vaccination Y APR. 201505/14/16 8:06pm Influenza Vaccine Hx 2016 12/04/16 11:18am Tdap Vaccine Hx HE REPORTS UTD 12/04/16 11:18am Vital Signs Acute Vital Signs Vital Response Date/Time Temperature (Fahrenheit) 98.1 deg F (96.8 - 99.1) 12/04/2016 10:55am Temperature (Calculated Celsius) 36.65340 degrees C (36.0 - 37.3) 12/04/2016 10:55am Pulse Rate (adult) 58 bpm (60 - 100) 12/04/2016 10:55am Respiratory Rate 16 breaths/min (10 - 20) 12/04/2016 10:55am O2 Sat by Pulse Oximetry 94 % (90 - 100) 12/04/2016 10:55am Blood Pressure 148/71 mm Hg 12/04/2016 10:55am Height (Feet) 5 feet 12/04/2016 10:55am Height (Inches) 10.00 inches 12/04/2016 10:55am Weight (Kilograms) 156.700 kg 12/04/2016 10:55am Body Mass Index (BMI) 49.0 12/04/2016 10:55am Results Name: LAZARO WEBB Unit #: [id number] : 1950 Sex: M Admit Date: Loc / Svc: ED Discharge Date: DIAGNOSTIC IMAGING REPORT Report #: [id number] [place], [place] Indication: ITS.REASON: right knee pain PROCEDURE: KNEE RIGHT 3 VIEWS: Encounter: Initial Comparison: None Findings: There is no acute fracture, dislocation or malalignment identified. Total knee replacement appears intact. Impression: No acute osseous abnormality. . Procedures No known history of procedures. Encounters Encounter Location Arrival/Admit Date Discharge/Depart Date Attending Provider Departed Emergency Room [facility] 12/04/16 10:53am 12/04/16 12: 15pm DELANEY MENDOZA DO Recent Diagnosis
--- OUTSIDE RECORDS SUMMARY | 2017-01-27 16:20 | XMS REPORT | Continuity of Care Document ---
Author Author Pili Urrutia Pili Address Unknown Phone Unavailable Care Team Providers Care Lay Brother Name Role Phone [employer] Unavailable Unavailable Problems Problem Status Onset Date Classification Date Reported Comments Source Chest pain (finding) 2015 Diagnosis 07/14/2016 [facility], [facility]. Type 2 diabetes mellitus without complications 06/14/2016 06/19/2016 [facility] Chest pain, unspecified 06/19/2016 [facility] Hypothyroidism, unspecified 06/14/2016 06/19/2016 [facility] Essential (primary) hypertension 06/14/2016 06/19/2016 [facility] Other chest pain 06/19/2016 [facility] Hypertensive heart disease without heart failure 2015 [facility] Atherosclerotic heart disease of [place] coronary artery without angina pectoris 06/19/2016 [facility] Old myocardial infarction 06/19/2016 [facility] Hyperlipidemia, unspecified 06/19/2016 [facility] Hypertensive disorder, systemic arterial (disorder) Active Problem 06/19/2016 [facility] Obesity (disorder) Active Problem 06/19/2016 Added based on documentation of BMI=48.2. [facility] Localized edema 06/19/2016 [facility] Type 2 diabetes mellitus with hyperglycemia 06/19/2016 [facility] Unspecified asthma, uncomplicated 06/19/2016 [facility] Other specified hypothyroidism 06/19/2016 [facility] Other specified anxiety disorders 06/19/2016 [facility] Bradycardia, unspecified 06/19/2016 [facility] Atrioventricular block, first degree 06/19/2016 [facility] Unspecified right bundle-branch block 06/19/2016 [facility] Family history of ischemic heart disease and other diseases of the circulatory system 06/19/2016 [facility] long term care social worker (current) use of aspirin 06/19/2016 [facility] nursing home (current) use of insulin 06/19/2016 [facility] long term care social worker (current) use of anticoagulants 06/19/2016 [facility] Presence of artificial knee joint, bilateral 2015 [facility] Chest pain (finding) Active Problem 07/14/2016 [facility] Medications Medication Details Route Status Patient Instructions Ordering Provider Order Date Source hydroxyzine hydrochloride 25 mg oral tablet </br>=25 mg, 1 tab, PO, Daily, # 30 tab, 0 Refill(s) Active [facility] albuterol-ipratropium 3 mg-0.5 mg/3 ml inhalation solution </br>3 mL, Inhalation, four times per day, # 30 EA, 0 Refill(s) Active [facility] Dulera 100 mcg-5 mcg/inh inhalation aerosol </br>2 puff, Inhalation, BID, # 13 gm, 0 Refill(s) Active [facility] Acetaminophen 325 MG / Oxycodone Hydrochloride 10 MG Oral Tablet [Percocet 10/ 325] </br>2 tab, PO, Q6H, PRN for pain, 0 Refill(s) Active [facility] Zyrtec </br>Daily, 0 Refill(s) Active [facility] buspirone 10 mg oral tablet </br>=10 mg, 1 tab, PO, TID, # 270 tab, 0 Refill(s) Active [facility] omeprazole 20 mg oral enteric coated capsule </br>=20 mg, 1 cap, PO, BID, # 60 cap, 3 Refill(s) Active [facility] montelukast 10 mg oral tablet </br>=10 mg, 1 tab, PO, QPM, # 30 tab, 0 Refill(s) Active [facility] Sertraline </br>PO, Daily, 0 Refill(s) Active [facility] Hydrochlorothiazide </br>PO, Daily, 0 Refill(s) Active [facility] atorvastatin </br>PO, QHS, 0 Refill(s) Active [facility] meloxicam 15 mg oral tablet </br>=15 mg, 1 tab, PO, Daily, # 30 tab, 0 Refill(s) Active [facility] Amlodipine </br>PO, Daily, 0 Refill(s) Active [facility] carvedilol 25 mg oral tablet </br>=25 mg, 1 tab, PO, BID, # 60 tab, 0 Refill(s) Active [facility] ezetimibe 10 MG Oral Tablet [Zetia] </br>=10 mg, 1 tab, PO, Daily, # 30 tab, 0 Refill(s) Active [facility] trazodone 50 mg oral tablet </br>50 mg 1 tab, PO, QHS, # 30 tab, 0 Refill(s) Active [facility] Levemir </br>Subcutaneous, 0 Refill(s) Active [facility] levothyroxine 0.2 mg oral tablet </br>=200 mcg, 1 tab, PO, Daily, # 30 tab, 0 Refill(s), tab Active [facility] aspirin 81 mg oral tablet, chewable </br>=81 mg, 1 tab, Chewed, Daily, tablet, chewable Active [facility] Humalog 100 unit(s)/ml subcutaneous injection </br>=10 Units, 0.1 mL, Subcutaneous, AC, # 9 mL, 1 Refill(s), injection Active [facility] Aspirin </br>81 mg,=1 tab, tablet, chewable, Daily, Chewed, Start date 06/13/16 9:00:00< br></br>Notes: TIME CRITICAL MED IF SCHEDULED Active [facility] heparin </br>5,000 Units,=1 mL, injection, Q12H, Subcutaneous, Start date 06/12/16 21:00 :00
</br>Notes: TIME CRITICAL MED IF SCHEDULED Active [facility] Insulin Lispro </br>SLIDING SCALE, injection, Subcutaneous, ACHS, Start date 06/12/16 21:00:00< br></br>Notes: TIME CRITICAL MED IF SCHEDULED Active [facility] Albuterol / Ipratropium </br>3 mL, solution, Q4H, Nebulized, Start date 06/12/16 20:00:00 Active [facility] Levoxyl </br>100 mcg,=1 tab, tab, ONCE, PO, Start date 06/14/16 12:44:00, Stop date 12:44:00
</br>Notes: DO NOT ADMINISTER WITH MAGNESIUM, CALCIUM, ALUMINUM, OR IRON PRODUCTS Inactive [facility] Normal Saline 50 mL IVPB Flush </br>25 mL, injection, As Needed, IVPush, PRN Flush, Start date 06/13/16 0:49: 00 Active [facility] Percocet 10/325 </br>2 tab, tab, Q6H, PO, PRN Pain Severe (7-10), Start date 06/12/16 18:43:00< br></br>Notes: Not to exceed 4000 mg of acetaminophen TOTAL in 24 hours. TIME CRITICAL MED IF SCHEDULED Active [facility] Trazodone </br>100 mg,=2 tab, tab, QHS, PO, Start date 06/12/16 21:00:00 Active [facility] pantoprazole </br>40 mg,=1 tab, enteric coated tab, Daily, PO, Start date 06/12/16 18:42:00, No
</br>Notes: DO NOT CRUSH Active [facility] montelukast </br>10 mg,=1 tab, tab, QPM, PO, Start date 06/12/16 17:00:00 Active [facility] Piroxicam </br>20 mg,=2 cap, cap, Daily, PO, Start date 06/12/16 18:40:00
</br>Notes: * TIME CRITICAL MED IF SCHEDULED Active [facility] Insulin Glargine </br>40 Units,=0.4 mL, injection, QHS, Subcutaneous, Start date 06/12/16 21:00: 00
</br>Notes: TIME CRITICAL MED IF SCHEDULED Active [facility] Humalog </br>10 Units,=0.1 mL, injection, AC, Subcutaneous, Start date 06/12/16 18:35:00
</br>Notes: TIME CRITICAL MED IF SCHEDULED Active [facility] Hydroxyzine </br>25 mg,=1 cap, cap, TID, PO, Start date 06/12/16 18:35:00 Active [facility] Budesonide 0.16 MG/ACTUAT / formoterol fumarate 0.0045 MG/ACTUAT Metered Dose Inhaler </br>2 puff, inhaler, BID, Inhalation, Start date 06/12/16 20:00:00
</br> Notes: TIME CRITICAL MED IF SCHEDULED Active [facility] Zetia </br>10 mg,=1 tab, tab, Daily, PO, Start date 06/13/16 9:00:00 Active [facility] Claritin </br>10 mg,=1 tab, tab, Daily, PO, Start date 06/13/16 9:00:00 Active [facility] Buspirone </br>10 mg,=1 tab, tab, TID, PO, Start date 06/12/16 18:29:00 Active [facility] carvedilol </br>12.5 mg,=1 tab, tab, BID, PO, Start date 06/12/16 21:00:00
</br>Notes: TAKE WITH FOOD Active [facility] Thyroxine </br>200 mcg,=1 tab, tab, Daily, PO, Start date 06/13/16 12:02:00
</br>Notes : DO NOT ADMINISTER WITH MAGNESIUM, CALCIUM, ALUMINUM, OR IRON PRODUCTS Active [facility] No Known Medications No known medications Active [facility], [facility] Allergies, Adverse Reactions, Alerts Substance Category Reaction Severity Reaction type Status Date Reported Comments Source Fentanyl Assertion Drug allergy [facility] Indocin Assertion Drug allergy [facility] morphine Assertion Drug allergy [facility] naproxen Assertion Drug allergy [facility] Tape Assertion Drug allergy [facility] Toradol Assertion Drug allergy [facility] Indomethacin Assertion Drug allergy [facility] Morphine Assertion Drug allergy [facility] Naproxen Assertion Drug allergy [facility] Ketorolac Assertion Drug allergy [facility] Immunizations Immunization Date Given Site Status Last Updated Comments Source No data available for this section No data available for this section [facility] Results Order Name Results Value Reference Range Date Interpretation Comments Source Point Of Care-Glucose Glucose POC 205 mg/dL 64 - 108 [facility] Discharge Summary Discharge Summary Patient: ESSIE LOPEZ Age: 66 years Sex: Male : 54 Associated Diagnoses: None Author: Hernán Rivera Discharge Information Date of Admission: Admitted 06/12/2016, 06/14/2016. Attending Physician: Lawson cMkeon Primary Service: Green Medicine. Primary Diagnosis present or suspected on admission: Chest pain - [id number] R07.9 Secondary Diagnosis present or suspected on admission: Benign essential hypertension - [id number] I10 Type 2 diabetes mellitus with hemoglobin A1c goal of less than 7.0% - YBL55-OE E11.9 Diagnosis aquired during hospitalization Subclinical hypothyroidism - YRX51-RK E03.9 Discharge or Transfer Condition: At discharge, [...] diabetes mellitus, hypertension, hyperlipidemia, CAD with h/o [place] in 2007 (underwent cath, likely had 30-40% [...] the need for establishing a PCP in [place] as he will need a sleep study, [...] as he was going straight home to [place] on discharge. Stressed importance of establishing care with a PCP. Hernán Rivera MD PGY1 [phone] I agree with the above documentation. Thanks, Jayesh Mckeon DO 06/14/2016 [facility] Point Of Care-Glucose Glucose POC 277 mg/dL 64 - 108 [facility] Chemistry GFR -Spanish null >=60 mL/min/1.73m2 [facility] Hematology MPV 8.0 FL 7.4 - 10.4 06/14/2016 [facility] Student Note - Education Only Student Note [...] ST-T changes and troponins negative x3 - PATRIKC risk score of 97 which is low. - TYE risk score of 2 which is low, suggests 8% risk of all cause mortality/ new or recurrent [place]/ severe recurrent ischemia, at 14 days - Pt has a h/o [place] 8 yrs back (likely NSTEMI). He does have strong family h/o CAD. He also has not had a recent stress test or cardiology follow up since [place]. - Will plan for stress echo today [...] pending stress test today Cb LORENZO 06/14/2016 [facility] Inpatient Progress Note Inpatient Progress Note Patient: [...] M with h/o HTN, DM, HLD, h/o [place] 8 yrs ago presented with chest pain: Chest pain - DDx: ACS (UA/NSTEMI) vs GERD vs musculoskeletal - EKG no ST-T changes and troponins negative x3 - PATRICK risk score of 97 which is low. - 1.2% risk of mortality in current admission - 3.2-3.5% risk of mortality in 6 months - 6.8% risk of [place] or in 1 yr - TYE risk score of 2 which suggests 8% risk of all cause mortality/ new or recurrent [place]/ severe recurrent ischemia, at 14 days - Pt has a h/o [place] 8 yrs back (likely NSTEMI). He does have strong family h/o CAD. He also has not had a recent stress test or cardiology follow up since [place]. - Continue coreg, atorvastatin, ezetimibe - Coreg [...] stress test today Hernán Rivera MD PGY1 [phone] 06/14/2016 [facility] Point Of Care-Glucose Oper ID [id number] 06/14/2016 [facility] Point Of Care-Glucose Glucose POC 278 mg/dL 64 - 108 08/2016 [facility] Urinalysis UA Bacteria 3+ *ABN* (06/13/16 1:53 PM) 2015 [facility] Urine Drug Screen U Oxycodone Positive *NA* (06/13/16 1:53 PM) 2015 [facility] Student Note - Education Only Student Note [...] type 2, dyslipidemia, CAD with h/ o [place] in 2007 (underwent cath, likely had 30-40% [...] like sensation and felt like his previous [place], radiating along his left arm/forearm, lasted for [...] study done outpatient. Cb Sena MSV 06/13/2016 [facility] Chemistry Troponin-T null <=0.03 ng/mL 06/13/2016 [facility] Endocrinology Labs T4 Free 1.01 ng/dL 0.60 - 1.60 2015 [facility] Inpatient Progress Note Inpatient Progress Note Patient: ESSIE LOPEZ Age: 66 years Sex: Male : 54 Associated Diagnoses: None Author: Hernán Rivera Subjective Patient doing well this morning. No complaints. Denies chest pain since admission. He is from [place] and reports he does not have a [...] M with h/o HTN, DM, HLD, h/o [place] 8 yrs ago presented with chest pain: Chest pain - DDx: ACS (UA/NSTEMI) vs GERD vs musculoskeletal - EKG no ST-T changes and troponins negative x3 - PATRICK risk score of 97 which is low. - 1.2% risk of mortality in current admission - 3.2-3.5% risk of mortality in 6 months - 6.8% risk of [place] or in 1 yr - TYE risk score of 2 which suggests 8% risk of all cause mortality/ new or recurrent [place]/ severe recurrent ischemia, at 14 days - Pt has a h/o [place] 8 yrs back (likely NSTEMI). He does have strong family h/o CAD. He also has not had a recent stress test or cardiology follow up since [place]. - Will plan for stress echo tomorrow [...] stress test tomorrow Hernán Rivera MD PGY1 [phone] I agree with the above documentation. 06/13/2016 [facility] Chemistry ALBUMIN 4.2 g/dL 3.5 - 4.8 06/13/2016 [facility] Endocrinology Labs HGB A1C 10.5 % 4.6 - 6.2 06/13/2016 [facility] Hematology [place] % 7.9 % 1.0 - 9.0 06/13/2016 [facility] Chemistry Troponin-T null <=0.03 ng/mL 06/13/2016 [facility] Chemistry Pro B-Type Natriuretic Peptide 9 pg/mL 2015 [facility] Coagulation APTT 33.9 s 24.0 - 36.5 06/12/2016 [facility] Hematology WBC 6.30 10^3/cmm 4.30 - [phone] 06/12/2016 [facility] Point Of Care-Glucose Oper ID [id number] 06/12/2016 [facility] History and Physical History and Physical Patient: [...] type 2, dyslipidemia, CAD with h/ o [place] in 2007 (underwent cath, likely had 30-40% [...] like sensation and felt like his previous [place], radiating along his left arm/forearm, lasted for [...] breathing for some time. Patient is from [place] and is visiting his daughter and friends here. He last saw a physician 3 months ago. He is not on aspirin as he takes NSAIDs for his knee pain. PMH: HTN, DM type 2, dyslipidemia, CAD with h/o [place] in 2007 (underwent cath, likely had 30-40% [...] mg/dL LOW BUN/CREA RATIO 20.5 HI GFR -Spanish >90 mL/min/1.73m2 GFR Non -Spanish >90 mL/min/1.73m2 CALCIUM 9.1 mg/dL CALC. OSMO 294 mOsm/kg MAGNESIUM 1.9 mg/dL Pro B-Type Natriuretic Peptide 9 pg/mL NA Troponin-T <0.01 ng/mL 3/cmm 6/cmm Hemoglobin 11.9 g/dL LOW Hematocrit 36.8 % LOW MCV 76.5 FL LOW MCH 24.6 PG LOW MCHC 32.2 g/dL 3/cmm MPV 8.7 FL RDW 16.6 % HI Gran % 68.7 % Lymph % 19.2 % LOW [place] % 7.7 % Eos % 3.5 % Baso % 0.9 % 3/cmm 3/cmm 3/cmm 3/cmm 3/cmm NRBC Auto 0.0 /100WBC NA PROTHROMBIN 10.6 sec INR 1.0 NA APTT 33.9 sec 06/12/16 14:39 GLUCOSE 255 mg/dL HI Oper ID [id number] . XR chest Impression: Low lung volume. Bibasilar subsegmental atelectasis. No consolidation. EKG: Rate 66 bpm, normal sinus rhythm, left axis deviation, normal durations and intervals, left anterior fascicular block, no evidence of chamber enlargement, no ST-T changes Impression and Plan 66 yo M with h/o HTN, DM, HLD, h/o [place] 8 yrs ago presented with chest pain: Chest pain - DDx: ACS (UA/NSTEMI) vs GERD vs musculoskeletal - Vitals stable, EKG no ST-T changes and trop x 1 negative - PATRICK risk score of 97 which is low. - 1.2% risk of mortality in current admission - 3.2-3.5% risk of mortality in 6 months - 6.8% risk of [place] or in 1 yr - TYE risk score of 2 which suggests 8% risk of all cause mortality/ new or recurrent [place]/ severe recurrent ischemia, at 14 days - Pt has a h/o [place] 8 yrs back (likely NSTEMI). He does [...] smoke Paloma Sweeney MD PGY2 Internal medicine [phone] 06/12/2016 [facility] XR Chest 2 Views [id number] XR Chest 2 Views [id number] Name: ESSIE LOPEZ Diagnostic Radiology Accession Number Exam Exam Date/Time Ordering Physician [id number] XR Chest 2 Views 06/12/2016 16:55 CDT Peter Prieto Prasad CPT code 88279 Reason For Exam (XR Chest 2 Views) chest pain Report XR Chest 2 Views [id number] Reason for exam: chest pain Comparison: None. [...] Technologist: Jackie Parsons RT(R)(CT),Bertha Mcgraw RT(R)(CT) 06/12/2016 [facility] ED Note - Provider ED Note - [...] arm. Diaphoresis +. No leg pain. Had [place] 8 yrs ago. Pain better now. PE: _Lungs - CTA(b), no r,r,w; Heart - S1S2, no m,r,g; LEs - NT calf, no pitting edema. Impression: _ Orders: _EKG, CXR, labs ordered Disposition: _ History of Present Illness 52-year-old male with past medical history significant for [place] 8 years ago (no stents placed ) as well as diabetes, hypertension, dyslipidemia, who is from [place] currently here visiting friends presents to ER chief complaint of chest pain that he describes as a pressure-like sensation that is midsternal radiating down his left arm which began approximately 30 minutes prior to arrival all he was sitting on the couch watching TV. He notes that this pain is similar to his previous [place]. Pain is nonpositional, nonpleuritic, nonexertional. He has [...] documented.. Past Medical/ Family/ Social History PMH: [place] in 2007, DM, HTN, DLD PSH: R [...] Nurse Collect Radiology: XR Chest 2 Views [id number] (Order): Stat, 06/12/16 14:59, chest pain, ED [...] Indicator O2 Sat Nursing (Order): 06/12/16 17:35 [employer] Executive (Order): 06/12/16 17:35 Pharmacy: aspirin (Order): 324 mg, Chewed, ONCE . Results review: Lab results : All Laboratory 06/12/16 15:02 Sodium 138 mmol/L Potassium 4.0 mmol/L Chloride 97 mmol/L CO2 25 mmol/L Anion Gap 16 mmol/L Glucose 222 mg/dL HI BUN 16 mg/dL Creatinine 0.78 mg/dL LOW BUN/Creat Ratio 20.5 HI GFR -Spanish >90 mL/min/1.73m2 GFR Non -Spanish >90 mL/min/1.73m2 Calcium 9.1 mg/dL Osmo (Calc) 294 mOsm/kg Magnesium 1.9 mg/dL Pro B-Type Natriuretic Peptide 9 pg/mL NA Troponin-T <0.01 ng/mL 3/cmm 6/cmm Hemoglobin 11.9 g/dL LOW Hematocrit 36.8 % LOW MCV 76.5 FL LOW MCH 24.6 PG LOW MCHC 32.2 g/dL 3/cmm MPV 8.7 FL RDW 16.6 % HI Gran % 68.7 % Lymph % 19.2 % LOW [place] % 7.7 % Eos % 3.5 % Baso % 0.9 % 3/cmm 3/cmm 3/cmm 3/cmm 3/cmm NRBC Auto 0.0 /100WBC NA Protime 10.6 sec INR 1.0 NA APTT 33.9 sec 06/12/16 14:39 Glucose POC 255 mg/dL HI Clinical Professor ID [id number] . Chest X-Ray: No acute disease process, [...] . Impression and Plan Other chest pain ([id number] R07.89) CAD Plan Condition: Improved. Disposition: Admit: [...] from [facility] , hx of CAD- states [place] in 2007, no intervention. notes l sided cp starting at rest today that was similar to prior [place], minmal pain now. vitals noted, On exam, afebrile, non toxic, VSS. CTA B, RRR, no edema, ecg - no acute findings, trop neg, however given multiple risks and hx of [place] will admit for ACS r/o Attending Signature: [...] 14:42 Oxygen Saturation 93 % . 06/12/2016 [facility] Vital Signs Vital Sign Value Date Comments Source Oxygen Saturation 94 % 2015 [facility] Resp. Rate 16 BRMIN 2015 [facility] Heart Rate 80 bpm 06/14/2016 [facility] Systolic BP 136 mmHg 2015 [facility] Diastolic BP 88 mmHg 2015 [facility] Oxygen Therapy Room air
</br>(06/14/16 12:26 PM) 06/14/2016 [facility] Oxygen Saturation 94 % 2015 [facility] Temperature Oral 97.5 [degF] 06/14/2016 [facility] Heart Rate 78 bpm 06/14/2016 [facility] Resp. Rate 16 BRMIN 2015 [facility] Systolic BP 133 mmHg 2015 [facility] Diastolic BP 84 mmHg 2015 [facility] Oxygen Therapy Room air
</br>(06/14/16 8:58 AM) 06/14/2016 [facility] Temperature Oral 97.5 [degF] 06/14/2016 [facility] Resp. Rate 17 BRMIN 2015 [facility] Oxygen Saturation 97 % 2015 [facility] Oxygen Therapy Room air
</br>(06/14/16 6:00 AM) 06/14/2016 [facility] Mean Arterial Pressure 97 mmHg 06/14/2016 [facility] Temperature Oral 98.5 [degF] 06/14/2016 [facility] Systolic BP 135 mmHg 2015 [facility] Diastolic BP 78 mmHg 2015 [facility] Mean Arterial Pressure 105 mmHg 06/14/2016 [facility] Cuff Size Adult Long Cuff
</br>(06/14/16 12:00 AM ) 06/14/2016 [facility] BP Site Right Arm
</br>(06/14/16 12:00 AM) 06/14/2016 [facility] Mean Arterial Pressure 112 mmHg 06/14/2016 [facility] Cuff Size Adult Long Cuff
</br>(06/13/16 8:00 PM) 06/14/2016 [facility] BP Site Right Arm
</br>(06/13/16 8:00 PM) 06/14/2016 [facility] Cuff Size Adult Long Cuff
</br>(06/13/16 4:42 PM) 06/13/2016 [facility] BP Site Right Arm
</br>(06/13/16 4:42 PM) 06/13/2016 [facility] Temperature Temporal Artery 97.2 [degF] 06/13/2016 [facility] Temperature Temporal Artery 98.5 [degF] 06/13/2016 [facility] Mean Arterial Pressure 85 mmHg 06/12/2016 [facility] Systolic BP 115 mmHg 2015 [facility] Diastolic BP 70 mmHg 2015 [facility] Heart Rate 77 bpm 06/12/2016 [facility] Oxygen Therapy Room air
</br>(06/12/16 6:19 PM) 06/12/2016 [facility] Oxygen Saturation 96 % 2015 [facility] Resp. Rate 20 BRMIN 2015 [facility] Heart Rate 66 bpm 06/12/2016 [facility] Resp. Rate 18 BRMIN 2015 [facility] Oxygen Saturation 93 % 2015 [facility] Systolic BP 120 mmHg 2015 [facility] Diastolic BP 71 mmHg 2015 [facility] Temperature Oral 98.0 [degF] 06/12/2016 [facility] Temperature Route Oral
</br>(06/12/16 2:42 PM) 06/12/2016 [facility] Oxygen Therapy Room air
</br>(06/12/16 2:42 PM) 06/12/2016 [facility] Encounters Location Location Details Encounter Type Encounter Number Reason For Visit Attending Provider ADM Date DC Date Status Source [facility] Emergency [id number] Fátima Bhandari 06/12/2016 06/13/2016 [facility] OBSERVATION [id number] Lawson Mckeon 201506/14/2016 [facility] [id number] Inpatient [id number] Jane Everardo 07/08/2016 07/10/2016 [facility] [employer] [facility] Procedures Procedure Code Date Perfomer Comments Source No data available for this section [facility] Echo [facility] Nuc Stress test [facility] Plan of Care Social History Assessment and Plan Date Assessment and Plan Source Author:Rani Mistry Title:ED Discharge Instructions Date:06/12/[address] [address] Emergency Department [phone] Emergency Department Discharge Instructions Name : ESSIE [...] talk to your doctor or call [employer] [place] [employer] at 0-495-VPYYNOW ([phone]). If you have thoughts about committing suicide or otherwise hurting yourself, please call 531 or call Crisis Line at . If your primary care provider is a [facility] physician or you would like to establish care at [facility] please call [phone] to schedule an appointment. If you are a new patient you may have to wait up to 60 days for a scheduled appointment. If you need to establish care sooner, you may want to look for other options. PAYMENT GUIDELINES FOR [facility] PATIENTS: [facility] now requires all self-pay and partial [facility] discount patients to make a down payment before receiving non-emergency care. In most cases, your down payment will be 25 percent of your charges. If you currently receive a 100% [facility] discount , these new guidelines do not apply to you. We accept puente, check, Visa and MasterCard. If you are a self-pay patient and would like to discuss discounted services or Medicaid, please contact [facility] at [phone]. Remember: at the time of your appointment, you must present a photo ID as well as your insurance card or the required down payment, or your appointment will be rescheduled for another day. If you have commercial insurance and [facility] is not on your list of providers, [...] medications to every visit with us at [facility]. Your safety and education around medications is [...] Name Status Details XR Chest 2 Views [id number] Ordered Stat, 06/12/16 14:59:00, chest pain, ED [...] RESULTS! Take Charge of Your Health with [facility] Sign up today for [facility] for access to your health records 25/03. [employer] allows you to: Request an appointment Check your lab results Communicate with your providers and care team See provider notes from your visit View immunization records View current medication Sign up Today! Ask your healthcare provider or a [facility] associate for help, or email [email or web address] JOHN Kaba DANIEL M, have received the attached patient education materials/ instructions and have verbalized understanding/Yo recibi educacion, materiales instrucciones de paciente y se me a explicado verbalmente para mi propia comprension: Patient/Guardian Signature Date Firma de paciente/guardian Fecha Witness Signature Date Firma de Testigo Fecha [facility] Author:Tyson Rosales Title:Chest Pain *ED Date:06/12/16 Impression and Plan Other chest pain ([id number] R07.89) CAD Plan Condition: Improved. Disposition: Admit: Time 06/12/16 18:44:00, to Inpatient Unit. Counseled: Patient, Regarding diagnosis, Regarding diagnostic results, Regarding treatment plan, Regarding prescription, Patient indicated understanding of instructions. [facility] Author:Hernán Rivera Title:Discharge Summary* ([facility]) Date:06/14/16 Patient: ESSIE LOPEZ Age: 66 years Sex: Male : 54 Associated Diagnoses: None Author: Hernán Rivera Discharge Information Date of Admission: Admitted 06/12/2016, 06/14/2016. Attending Physician: Lawson Mckeon Primary Service: Green Medicine. Primary Diagnosis present or suspected on admission: Chest pain - NUW45-NK R07.9 Secondary Diagnosis present or suspected on admission: Benign essential hypertension - PUH29-NQ I10 Type 2 diabetes mellitus with hemoglobin A1c goal of less than 7.0% - RAE70-IL E11.9 Diagnosis aquired during hospitalization Subclinical hypothyroidism - EIE35-KO E03.9 Discharge or Transfer Condition: At discharge, [...] diabetes mellitus, hypertension, hyperlipidemia, CAD with h/o [place] in 2007 (underwent cath, likely had 30-40% [...] the need for establishing a PCP in [place] as he will need a sleep study, [...] as he was going straight home to [place] on discharge. Stressed importance of establishing care with a PCP. Hernán Rivera MD PGY1 [phone] I agree with the above documentation. Thanks, Jayesh Mckeon DO Addendum by Lawson Mckeon on June 14, 2016 20:08 [facility] Author:Hernán Rivera Title:Inpatient Clinical Summary Date:06/14/16 [facility] Patient Discharge Instructions Visit Information/Informacion de Visita Name/Nombre:ESSIE LOPEZ Date of /Fecha de Nacimiento: 1950 12:00 AM Current Date/Time/Fecha/Hora Actual: 06/14/16 13:36:46 [facility] Provider/Proveedor de Clinica: Resident Provider: Paloma Sweeney Attending Provider: Lawson Mckeon Discharge Diagnosis/Diagnstico al ser dado de mauri: Benign essential hypertension; Chest pain; Subclinical hypothyroidism; Type 2 diabetes mellitus with hemoglobin A1c goal of less than 7.0% [facility] would like to thank you for allowing us to assist you with your healthcare needs. The following includes patient education materials and information regarding your injury/illness. [facility] [place] quisieran agradecerle por permitirnos ayudarlo con erin [...] an appointment within two weeks, please call [phone] for [facility] or for [place]. Por favor llame al [facility] o [place] , en cristobal no lo hayan llamado dentro de dos semanas para darle kathy marek. Your Upcoming Appointments/Erin proximas citas Please bring all home medications to every visit with us at [facility]. Your safety and education around medications is [...] talk to your doctor or call [employer] [place] [employer]uit[employer] at 6-674-XNAMNOW ([phone]). If you have thoughts about committing suicide or otherwise hurting yourself, please call 911 or call Crisis Line at . Take Charge of Your Health with [facility] Sign up today for [facility] for access to your health records 25/03. [facility] allows you to: Request an appointment Check your lab results Communicate with your providers and care team See provider notes from your visit View immunization records View current medication Sign up Today! Ask your healthcare provider or a [facility] associate for help, or email [email or web address] Author:Hernán Rivera Title:Progress Note Date:06/14/16 Impression and Plan 66 yo M with h/o HTN, DM, HLD, h/o [place] 8 yrs ago presented with chest pain: Chest pain - DDx: ACS (UA/NSTEMI) vs GERD vs musculoskeletal - EKG no ST-T changes and troponins negative x3 - PATRICK risk score of 97 which is low. - 1.2% risk of mortality in current admission - 3.2-3.5% risk of mortality in 6 months - 6.8% risk of [place] or in 1 yr - TYE risk score of 2 which suggests 8% risk of all cause mortality/ new or recurrent [place]/ severe recurrent ischemia, at 14 days - Pt has a h/o [place] 8 yrs back (likely NSTEMI). He does have strong family h/o CAD. He also has not had a recent stress test or cardiology follow up since [place]. - Continue coreg, atorvastatin, ezetimibe - Coreg [...] stress test today Hernán Rivera MD PGY1 [phone] [facility] Author:Paloma Sweeney Title:ACS rule out Date:06/12/16 Patient: [...] type 2, dyslipidemia, CAD with h/ o [place] in 2007 (underwent cath, likely had 30-40% [...] like sensation and felt like his previous [place], radiating along his left arm/forearm, lasted for [...] breathing for some time. Patient is from [place] and is visiting his daughter and friends here. He last saw a physician 3 months ago. He is not on aspirin as he takes NSAIDs for his knee pain. PMH: HTN, DM type 2, dyslipidemia, CAD with h/o [place] in 2007 (underwent cath, likely had 30-40% [...] mg/dL LOW BUN/CREA RATIO 20.5 HI GFR -Spanish >90 mL/min/1.73m2 GFR Non -Spanish >90 mL/min/1.73m2 CALCIUM 9.1 mg/dL CALC. OSMO [...] 68.7 % Lymph % 19.2 % LOW [place] % 7.7 % Eos % 3.5 % Baso % 0.9 % Gran 4.3 10^3/cmm Lymph 1.2 10^3/cmm [place] 0.5 10^3/cmm Eos 0.20 10^3/cmm Baso 0.10 10^3/cmm NRBC Auto 0.0 /100WBC NA PROTHROMBIN 10.6 sec INR 1.0 NA APTT 33.9 sec 06/12/16 14:39 GLUCOSE 255 mg/dL LA Oper ID [id number] . XR chest Impression: Low lung volume. Bibasilar subsegmental atelectasis. No consolidation. EKG: Rate 66 bpm, normal sinus rhythm, left axis deviation, normal durations and intervals, left anterior fascicular block, no evidence of chamber enlargement, no ST-T changes Impression and Plan 66 yo M with h/o HTN, DM, HLD, h/o [place] 8 yrs ago presented with chest pain: Chest pain - DDx: ACS (UA/NSTEMI) vs GERD vs musculoskeletal - Vitals stable, EKG no ST-T changes and trop x 1 negative - PATRICK risk score of 97 which is low. - 1.2% risk of mortality in current admission - 3.2-3.5% risk of mortality in 6 months - 6.8% risk of [place] or in 1 yr - TYE risk score of 2 which suggests 8% risk of all cause mortality/ new or recurrent [place]/ severe recurrent ischemia, at 14 days - Pt has a h/o [place] 8 yrs back (likely NSTEMI). He does [...] smoke Paloma Sweeney MD PGY2 Internal medicine [phone] I have reviewed the history, physical, impression [...] Lawson Mckeon on June 13, 2016 16:45 [facility] Family History Value Date Source Advance Directives Order Name Results Value Date Source
--- OUTSIDE RECORDS SUMMARY | 2017-01-27 16:21 | XMS REPORT | Continuity of Care Document ---
Author Author Hien Turner [facility] Hien Turner [facility] Address Unknown Phone Unavailable Support Name Relationship Address Phone NICHOLAS MEDINA M.D. Caregiver [employer] [address], [address] [place] [id number] Unavailable BHUPENDRA LOPEZ Next Of Kin [address] NO ONE ELSE 01/20/17 [place] [address] Insurance Providers Guarantor Lazaro Lopez Address [address] [place] [address] Payer Wps Medicare Policy Number [id number] Subscriber's Name Lazaro Lopez Relationship 01 Self / Same As Patient Payer Other3 Subscriber's Name Lazaro Lopez Relationship 01 Self / Same As Patient Chief Complaint and Reason for Visit Chief Complaint Knee Pain Reason for Visit Contusion of right knee Problems Active Problems Medical Problem Onset Date Status CAD (coronary artery disease) Unknown Chronic Diabetes Unknown Chronic Hyperlipidemia Unknown Hypertension Unknown Chronic Hypoxia Unknown Morbid obesity Unknown Past Problems Medical Problem Onset Date Chest pain Unknown Chest pain Unknown Chest pain Unknown Contusion of right knee Unknown Contusion of right knee Unknown Hx of coronary artery disease Unknown [...] Tab 25 Mg Oral Daily 05/30/16 Hydrocodone-Acetaminophen ([place]) 5/325 Tab 1 Tab Oral Three Times [...] Cap 40 Mg Oral Daily 05/30/16 Oxycodone/Acetaminophen (Percocet) 5/325 Tab 1-2 Ea Oral Q4-6HRPRN as needed for Pain 8 Tablet 01/20/17 Sertraline Hcl 100 Mg Tab 100 Mg Oral Daily 05/30/16 Trazodone Hcl 100 Mg Tab 100 Mg Oral Bedtime 05/30/16 Social History Social History Problem Response Recorded Date/Time Onset Date Status Hx Alcohol Use Yes 05/30/2016 12:14pm Not Applicable Not Applicable Smoking Status Never smoker 01/20/2017 6:29pm Not Applicable Not Applicable Query Response Start Date Stop Date Smoking Status Never smoker Hospital Discharge Instructions No hospital discharge instructions. Plan of Care Discharge Date 01/20/17 8:08pm Disposition 01 HOME, SELF-CARE Condition at Discharge Stable Instructions/Education Provided Knee Pain (ED) Prescriptions See Medication Section Additional Instructions/Education 1. Follow up with your doctor in 2-3 days. 2. Use ice as needed/tolerated to limit swelling. 3. Use Tylenol as needed for pain. Use prescribed medications for more severe pain. 4. Return to ER if worsening pain, or other concerns. Functional Status No functional status results. Allergies, Adverse Reactions, Alerts Allergen Type Severity Reaction Status Last Updated Fentanyl ([id number]) Adverse Reaction Unknown Nausea/Vomiting Active Indomethacin ([id number]) Adverse Reaction Unknown Nausea/Vomiting Active 05/31/16 Morphine ([id number]) Adverse Reaction Unknown Nausea/Vomiting Active Naproxen ([id number]) Adverse Reaction Unknown Nausea/Vomiting Active Ketorolac Tromethamine ([id number]) Adverse Reaction Unknown Nausea/ Vomiting Active 05/30/16 Paper tape Adverse Reaction Unknown BLISTERS Active 05/30/16 Immunizations No immunization records. Vital Signs Acute Vital Signs Vital Response Date/Time Blood Pressure 143/84 mm Hg 01/20/2017 6:29pm Blood Pressure Mean 103 mm Hg 01/20/2017 6:29pm Temperature (Fahrenheit) 97.9 degrees F (96.0 - 99.9) 10/15/2016 11:41am Temperature (Calculated Celsius) 36.31527 degrees C 10/15/2016 11:41am Temperature Source Oral 06/01/2016 4:00pm Temperature Source Oral 01/20/2017 6:29pm Pulse Pulse Rate (adult) 67 bpm (60 - 100) 07/06/2016 6:24pm Pulse Rate: ED 71 bpm 01/20/2017 6:29pm Respiratory Rate 16 breaths per minute (10 - 20) 01/20/2017 6:29pm Height (Feet) 5 ft 01/20/2017 6:29pm Height (Inches) 10.0 in. 01/20/2017 6:29pm Weight (Pounds) 335.0 lbs 01/20/2017 6:29pm Height 5 ft 10 in 01/20/2017 6:29pm Weight 335 lb 01/20/2017 6:29pm Body Mass Index 48.1 kg/m^2 01/20/2017 6:29pm Results Laboratory Results Test Name Result Units [...] Corpuscular Volume 75.3 fL L 80.0-94.0 07/06/2016 7:2015 7:42pm Mean Corpuscular Hemoglobin 23.9 pg L 26.0-33.0 07/06/2016 7:2015 7:42pm Mean Corpuscular Hemoglobin Concent 31.8 g/dL 31.0-36.0 07/06/2016 7: 07/06/2016 7:42pm Red Cell Distribution Width 15.1 % H 11.5-14.5 07/06/2016 7:2015 7:42pm RDW Standard Deviation 41.1 fL 35.1-43.9 07/06/2016 7:07/06/2016 7 :42pm Platelet Count 190 K/uL 130-400 07/06/2016 7:07/06/2016 7:42pm Mean Platelet Volume 10.4 fL 7.0-11.0 07/06/2016 7:2807/06/2016 7: 42pm Neutrophils (%) (Auto) 67.8 % 42.0-75.0 07/06/2016 7:07/06/2016 7: 42pm Lymphocytes (%) (Auto) 20.7 % 16.0-44.0 07/06/2016 7:07/06/2016 7: 42pm Monocytes (%) (Auto) 7.2 % 2.0-9.0 07/06/2016 7:pm 07/06/2016 7:42pm Eosinophils (%) (Auto) 3.4 % 0-7.0 07/06/2016 7:07/06/2016 7:42pm Basophils (%) (Auto) 0.6 % 0-1 07/06/2016 7:07/06/2016 7:42pm Immature Granulocyte % (Auto) 0.3 % 0-0.5 07/06/2016 7:07/06/2016 7:42pm Nucleated Red Blood Cells % 0.0 /100WBC 0-0 07/06/2016 7:28pm 2015 7:42pm Neutrophils # (Auto) 4.6 K/uL 1.9-8.0 07/06/2016 7:07/06/2016 7: 42pm Lymphocytes # (Auto) 1.4 K/uL 0.9-5.2 07/06/2016 7:28pm 07/06/2016 7: 42pm Monocytes # (Auto) 0.5 K/uL 0.16-1.0 07/06/2016 7:28pm 07/06/2016 7: 42pm Eosinophils # (Auto) 0.2 K/uL 0-0.8 07/06/2016 7:28pm 07/06/2016 7: 42pm Basophils # (Auto) 0.0 K/uL 0-0.2 07/06/2016 7:28pm 07/06/2016 7:42pm Immature Granulocyte # (Auto) 0.02 K/uL 0-0.40 07/06/2016 7:28pm 2015 7:42pm Nucleated Red Blood Cells # 0.00 K/uL 0.0-0.012 07/06/2016 7:28pm 07/06 7:42pm Random Glucose 285 mg/dL H 65-115 07/06/2016 7:28pm 07/06/2016 8:16pm Blood Urea Nitrogen 25 mg/dL 8-25 07/06/2016 7:28pm 07/06/2016 8:16pm Creatinine 0.92 mg/dL 0.9-1.6 07/06/2016 7:28pm 07/06/2016 8:16pm Glomerular Filtration Rate Calc 82.83 mL/min 07/06/2016 7:28pm 2015 8:16pm MULTIPLY RESULT BY 1.210 IF THE PATIENT IS -[place] Units are mL/min/1.73 m2 > 60 Normal kidney function 30-59 Moderately decreased kidney function 15-29 Severely decreased kidney function <15 End-stage kidney failure BUN/Creatinine Ratio 27.2 07/06/2016 7:28pm 07/06/2016 8:16pm Sodium Level 136 mEq/L 133-145 07/06/2016 7:28pm 07/06/2016 8:16pm Potassium Level 3.3 mEq/L L 3.5-5.1 07/06/2016 7:28pm 07/06/2016 8:16pm Chloride Level 102 mEq/L 98-116 07/06/2016 7:28pm 07/06/2016 8:16pm Carbon Dioxide Level 27 mEq/L 22-34 07/06/2016 7:28pm 07/06/2016 8: 16pm Anion Gap 10.3 6-13 07/06/2016 7:28pm 07/06/2016 8:16pm Calcium Level 9.0 mg/dL 8.2-10.6 07/06/2016 7:28pm 07/06/2016 8:16pm Total Protein 7.1 gm/dL 6.0-8.4 07/06/2016 [...] Discharge/Depart Date Attending Provider [facility] 6:28pm 8:08pm NICHOLAS MEDINA M.D. [facility] 11:41am 12:35pm GRILLOT, CHLOE G D.O. Departed Emergency Room [facility] 07/06/16 6:12pm 9:28pm CARLTON HUTSON M.D. Discharged Inpatient (obs) [facility] 05/30/16 12:14pm 5:55pm JUAN BOWDEN M.D. Recent Diagnosis
--- OUTSIDE RECORDS SUMMARY | 2017-01-27 16:21 | XMS REPORT ---
Author Author GENERATED, SYSTEM Organization Unknown Address Unknown Phone Unavailable Care Team Providers Care Uranium Processing Supervisor Name Role Phone PP Unavailable Reason For [...]
--- OUTSIDE RECORDS SUMMARY | 2017-01-27 16:21 | XMS REPORT | Continuity Of Care Document ---
Author Author [facility] Organization [facility] Address [address] [place] [address] Phone Care Team Providers Care Integration Software Engineer Name Role Phone UNASSIGNED, PHYSICIAN Unavailable Unavailable JEANA MULLER, KG AT Results Lab Results Visit/Account #[id number] (January 03, 2017 9:15pm - January 03, 2017 11:35pm) Test Result Date/Time CBC WITH MORPHOLOGY WHITE BLOOD COUNT(4.0-11.0 10E3/UL) 5.7 10E3/UL January 03, 2017 9:25pm RED BLOOD COUNT(4.50-5.90 10E6/UL) 4.59 10E6/UL January 03, 2017 9:25pm HEMOGLOBIN(13.5-17.5 G/DL) 8.9 G/DL January 03, 2017 9:25pm HEMATOCRIT(41.0-53.0 %) 31.8 % January 03, 2017 9:25pm MEAN CORPUSCULAR VOLUME(82.0-100.0 FL) 69.3 FL January 03, 2017 9:25pm MEAN CORPUSCULAR HEMOGLOBIN(26.0-34.0 PG) 19.4 PG January 03, 2017 9:25pm MEAN CORPUSCULAR HGB CONC(31.5-36.5 G/DL) 28.0 G/DL January 03, 2017 9:25pm RED CELL DISTRIBUTION WIDTH(11.5-14.5 %) 18.6 % January 03, 2017 9:25pm 777-3: PLATELET COUNT(150-450 10E3/UL) 183 10E3/UL January 03, 2017 9:25pm MEAN PLATELET VOLUME(8.2-12.4 FL) 9.8 FL January 03, 2017 9:25pm NEUTROPHILS % (AUTO)(40-70 %) 63 % January 03, 2017 9:25pm LYMPHOCYTES % (AUTO)(15-45 %) 25 % January 03, 2017 9:25pm MONOCYTES % (AUTO)(2-10 %) 7 % January 03, 2017 9:25pm EOSINOPHILS % (AUTO)(0-6 %) 4 % January 03, 2017 9:25pm BASOPHILS % (AUTO)(0-1 %) 1 % January 03, 2017 9:25pm NEUTROPHILS # (AUTO)(2.5-7.5 10E3/UL) 3.6 10E3/UL January 03, 2017 9:25pm LYMPHOCYTES # (AUTO)(1.0-4.0 10E3/UL) 1.4 10E3/UL January 03, 2017 9:25pm MONOCYTES # (AUTO)(0.2-0.8 10E3/UL) 0.4 10E3/UL January 03, 2017 9:25pm EOSINOPHILS # (AUTO)(0.0-0.4 10E3/UL) 0.3 10E3/UL January 03, 2017 9:25pm BASOPHILS # (AUTO)(0.0-0.2 10E3/UL) 0.0 10E3/UL January 03, 2017 9:25pm DIFF TYPE MORPHOLOGY REVIEW January 03, 2017 9:25pm WBC MORPHOLOGY COMMENT NORMAL January 03, 2017 9:25pm RBC MORPHOLOGY COMMENT 1+ ANISOCYTOSIS January 03, 2017 9:25pm 2+ HYPOCHROMIA January 03, 2017 9:25pm PLATELET MORPHOLOGY COMMENT NORMAL January 03, 2017 9:25pm PROTHROMBIN TIME WITH INR PROTHROMBIN TIME(12.1-14.0 SEC) 13.4 SEC January 03, 2017 9:25pm 88625-6: INR 1.0 January 03, 2017 9:25pm PARTIAL THROMBOPLASTIN TIME PARTIAL THROMBOPLASTIN TIME(22.2-37.4 SEC) 28.1 SEC January 03, 2017 9:25pm D-DIMER D-DIMER(0.00-0.49 UG/ML) 0.93 UG/ML January 03, 2017 9:25pm COMPLETE METABOLIC PROFILE GLUCOSE(70-110 MG/DL) 278 MG/DL January 03, 2017 9:25pm BLOOD UREA NITROGEN(6-20 MG/DL) 11 MG/DL January 03, 2017 9:25pm CREATININE(0.50-1.20 MG/DL) 0.73 MG/DL January 03, 2017 9:25pm EST GLOMERULAR FILTRATION RATE(Greater than or equal to 60) Greater than or equal to 60 Result Comments: If the patient is of -[place] descent/extraction multiply the eGFR value by 1.212 to obtain the actual eGFR. >=60 mg/dL Normal 30-59 mg/dL Moderate Kidney Disease 15-29 mg/dL Severe Kidney Disease <15 mg/dL Kidney Failure January 03, 2017 9:25pm BUN CREATININE RATIO(10.0-20.0 RATIO) 15.0 RATIO January 03, 2017 9:25pm SODIUM(135-145 MMOL/L) 138 MMOL/L January 03, 2017 9:25pm POTASSIUM(3.6-5.0 MMOL/L) 3.5 MMOL/L January 03, 2017 9:25pm CHLORIDE(101-111 MMOL/L) 103 MMOL/L January 03, 2017 9:25pm CO2(21-31 MMOL/L) 29 MMOL/L January 03, 2017 9:25pm ANION GAP(8-18) 10 January 03, 2017 9:25pm OSMO CALCULATED(270.0-290.0) 285.1 January 03, 2017 9:25pm CALCIUM(8.5-10.5 MG/DL) 8.3 MG/DL January 03, 2017 9:25pm BILIRUBIN,TOTAL(0.1-1.2 MG/DL) 0.4 MG/DL January 03, 2017 9:25pm ALKALINE PHOSPHATASE(42-121 IU/L) 84 IU/L January 03, 2017 9:25pm ASPARTATE AMINO TRANSFERASE(10-42 IU/L) 15 IU/L January 03, 2017 9:25pm ALANINE AMINOTRANSFERASE(10-60 IU/L) 12 IU/L January 03, 2017 9:25pm TOTAL PROTEIN(6.4-8.2 G/DL) 6.8 G/DL January 03, 2017 9:25pm ALBUMIN(3.5-5.5 G/DL) 3.8 G/DL January 03, 2017 9:25pm GLOBULIN(2.4-3.6) 3.0 January 03, 2017 9:25pm ALBUMIN/GLOBULIN RATIO(0.9-1.8 RATIO) 1.3 RATIO January 03, 2017 9:25pm CARDIAC TROPONIN I CARDIAC TROPONIN I(0.01-0.04 NG/ML) Less than 0.01 NG/ML Result Comments: REFERENCE RANGES: NEGATIVE < 0.04 NG/ML POSSIBLE MYCARDIAL INVOLVEMENT >/=0.04 NG/ML INTERPRET TROPONIN I RESULT IN LIGHT OF THE TOTAL CLINICAL PRESENTATION INCLUDING CLINICAL HISTORY. ANY CONDITION RESULTING IN MYOCARDIAL INJURY CAN POTENTIALLY ELEVATE TROPONIN I LEVELS ABOVE EXPECTED NORMAL RANGES. NOTE NEW REFERENCE RANGE January 03, 2017 9:25pm Allergies and Adverse Reactions Allergies and Adverse Reactions Patient Unit Number: [id number] Agent Type Reaction Severity Status MORPHINE Drug Allergy Unknown Unknown Active INDOMETHACIN Drug Allergy Unknown Unknown Active NAPROXEN Drug Allergy Unknown Unknown Active FENTANYL Drug Allergy Unknown Unknown Active KETOROLAC Drug Allergy Unknown Unknown Active PAPER TAPE Allergy Unknown Unknown Active Problem List Problem List Visit/Account #[id number] (January 03, 2017 9:15pm - January 03, 2017 11:35pm) Acute Problems: Code/Condition Comments Documented Start Date Documented Resolved Date Code (s) Chest pain ICD10: R07.9 Chest pain SNOMED: 90701094 Chest pain Plan of Care Plan Of Care Visit/Account #[id number] (January 03, 2017 9:15pm - January 03, 2017 11:35pm) Patient Instructions You had an evaluation of your chest pain in the emergency department. Tests included an EKG (heart tracings), chest x-ray, and blood tests. These tests indicate you are at low risk of having a heart problem in the near future. Your D-Dimer, a very sensitive but not as specific test for blood clots, was slightly above the reference range which prompted a CT scan of your chest for further evaluation. This scan was negative for pulmonary emboli (blood clots in the lung) as the source of your pain. Common causes of pain like this included pain for the muscles of the chest, soreness of the chest wall, anxiety and stress-related pain. It can also be linked to discomfort from the stomach, gallbladder or other abdominal problem. Evaluation in the emergency department is preliminary and followup with your physician is essential. There is no test that is perfect for detecting heart disease. It is crucial that your doctor see her in followup to decide if any further testing is needed. It is important that you return to the emergency department if you develop any one of the followin. Increase to recurring chest pain or pain that radiates to the arm, neck or abdomen 2. Chest pain with sweating 3. Severe dizziness or weakness 4. Shortness of breath or coughing up blood 5. Severe back or abdominal pain or vomiting 6. Blood in the stool or black stools 7. Fever After your visit, get plenty of rest and avoid any activity that brings on the pain. Please do not smoke or drink alcohol until symptoms are completely better. Make an appointment to see your doctor within the next 48 hrs. Vital Signs Vital Signs Visit/Account #[id number] (January 03, 2017 9:15pm - January 03, 2017 11:35pm) Sign First Result Last Result Code(s) Body Mass Index Body Mass Index (BMI): 48.0 kg/m2 On January 03, 2017 9:14pm 56375-2 BMI (body mass index) Body Mass Index as a Calculated Value 48.2 kg/m2 On January 03, 2017 9:14pm 05472-9 BMI (body mass index) Body Surface Area as a Calculated Value 2.6 m2 On January 03, 2017 9:14pm 3140-1 BSA (body surface area) Height (Feet/Inches) 5 [ft_us] 10.00 [in_us] On January 03, 2017 9:14pm 8302-2 Height Temperature in Fahrenheit Temperature (Fahrenheit): 98.0 [degF] On January 03, 2017 9:14pm Temperature (Fahrenheit): 97.1 [degF] On January 03, 2017 11:30pm 8310-5 Body Temperature Weight in Kilograms Weight (Kilograms): 152.2700 kg On January 03, 2017 9:14pm 3141-9 Weight Measured Functional Status Functional and Cognitive Status No Functional Status Data Medications Home Medications - Medications that the patient was taking prior to arrival at the hospital Visit/Account #[id number] (January 03, 2017 9:15pm - January 03, 2017 11:35pm) Medication Route Sig/Schedule Precondition/Indication Comments/Instructions Codes Dulera 100 Mcg/5 Mcg Inhaler(MOMETASONE/FORMOTEROL) 13 GM HFA.AER.AD Dose: 2 PUFF INHALATION TWICE A DAY Dulera 100 Mcg/5 Mcg Inhaler (MOMETASONE/FORMOTEROL) NDC: 89212551110 NITROGLYCERIN(NITROGLYCERIN) 0.4 MG TAB.SUBL Dose: 0.4 MG SUBLINGUAL NEEDED CHEST PAIN Rx Instructions: TAKE 1 TABLET EVERY 5 MINUTES UP TO 3 DOSES. CALL MD IF 3 USED AND NO RELIEF. Nitroglycerin 0.4 MG Sublingual Tablet (RxNorm): 858761 NITROGLYCERIN (NITROGLYCERIN) NDC: 70575684225 FERROUS SULFate(FERROUS SULFATE) 325 MG TABLET Dose: 325 MG ORAL DAILY ferrous sulfate 325 MG Oral Tablet (RxNorm): 604531 FERROUS SULFate (FERROUS SULFATE) NDC: 23507630994 Inpatient/Ordered Medications - Medications administered during hospital visit Visit/Account #[id number] (January 03, 2017 9:15pm - January 03, 2017 11:35pm) Medication Route Sig/Schedule Precondition/Indication Comments/Instructions Codes ASPIRIN 324 MG TAB Dose: 324 MG ORAL NOW Label Comments: Chewed if no intolerance to aspirin and not aspirin taken today Aspirin 81 MG Chewable Tablet (RxNorm): 151359 (ASPIRIN) NDC: 98971156642 PERCOCET 5/325(OxyCODONE/ACETAMINOPHEN) 1 TAB TAB Dose: 1 TAB ORAL NOW Label Comments: MAX REC DOSE ACETAMINOPHEN: 4000MG/24HRS MAY INCREASE FALL RISK Acetaminophen 325 MG / Oxycodone Hydrochloride 5 MG Oral Tablet (RxNorm): 3351608 PERCOCET 5/325 (OxyCODONE/ACETAMINOPHEN) NDC: 75064102742 History Of Encounters Encounters Visit/Account #[id number] (January 03, 2017 9:15pm - January 03, 2017 11:35pm) Account Status Physican Of Record Reason For Visit Visit Diagnosis Start Date/Time Stop Date/Time ER [facility] MD CHEST PAIN, HX OR R07.2: PRECORDIAL PAIN ICD10 January 03, 2017 9:15pm January 03, 2017 11:35pm History of Procedures Procedure List No procedures recorded. Discharge Instructions Discharge Instructions Visit/Account #[id number] (January 03, 2017 9:15pm - January 03, 2017 11:35pm) DISCHARGE INSTRUCTIONS Physician Documentation Social History Social History No Social History Data. Immunizations Immunizations Patient Unit Number: [id number] Immunizations No immunizations recorded.
--- OUTSIDE RECORDS SUMMARY | 2017-01-27 16:22 | XMS REPORT | Continuity of Care Document ---
Author Author [facility] Address Unknown Phone Unavailable Support Name Relationship Address Phone Cece Pichardo Caregiver [address] [place] [address] BHUPENDRA LOPEZ Next Of Kin [address] [place] [address] Insurance Providers Payer Name Policy Number Subscriber Name Relationship Self Pay Lazaro Lopez 18 Self / Same As Patient Advance Directives Directive Response Recorded Date/Time Advanced Directives Yes 01/25/17 7:49pm Problems Active Problems Medical Problem Onset Date [...] 10 Mg ORAL As Directed 30 01/04/17 Omeprazole 20 Mg 20 Mg ORAL As Directed 60 01/04/17 Montelukast Sodium (Singulair) 10 Mg 10 Mg ORAL As Directed 30 Fluticasone/Salmeterol 1 Disk 1 Puff RESPIRATORY (INHALATION) As Directed 60 01/04/17 Insulin Aspart 100 Unit/1 Ml Unknown Dose Sub-Q As Directed 15 01/04 Sertraline Hcl 100 Mg 100 Mg ORAL As Directed 30 01/04/17 Trazodone Hcl 50 Mg 50 Mg ORAL As Directed 60 01/04/17 Ezetimibe 10 Mg 10 Mg ORAL As Directed 30 01/04/17 Social History Query Response Start Date Stop Date Smoking Status Never smoker Hospital Discharge Instructions Current inpatient/outpatient. Discharge instructions are currently unavailable. Plan of Care Prescriptions Functional Status No functional status results. Allergies, Adverse Reactions, Alerts Allergen Type Severity Reaction Status Last Updated Morphine Allergy Unknown Vomiting Active 01/25/17 Indomethacin Allergy Unknown Vomiting Active 01/25/17 Naproxen Allergy Unknown Vomiting Active 01/25/17 ketorolac Allergy Unknown Vomiting Active 01/25/17 Immunizations No immunization records. Vital Signs Acute Vital Signs Vital Response Date/Time Temperature (Fahrenheit) 99.2 01/25/2017 11:09pm Pulse 74 bpm 01/25/2017 11:09pm Respirations 20 01/25/2017 11:09pm Results Laboratory Results Test Name Result Units Flags Reference Collection Date/Time Result Date/ Time Comments White Blood Count 5.32 10^3uL 4.0-11.0 01/04/2017 12:45am 01/04/2017 1: 38am Red Blood Count 4.47 10^6uL L 4.50-5.50 01/04/2017 12:45am 01/04/2017 1: 38am Hemoglobin 8.8 g/dL L 13.5-17.0 01/04/2017 2:45am 01/04/2017 3:01am Hematocrit 30.50 % L 39.00-50.00 01/04/2017 2:45am 01/04/2017 3:01am Mean Corpuscular Volume 68 FL L 80-100 01/04/2017 12:45am 01/04/2017 1: 38am Mean Corpuscular Hemoglobin 19.7 PG L 26.0-34.0 01/04/2017 12:45am 01/04 1:38am Mean Corpuscular Hemoglobin Concent 29.1 g/dL L 31.0-37.0 01/04/2017 12: 45am 01/04/2017 1:38am Red Cell Distribution Width 18.6 % H 11.8-15.6 01/04/2017 12:45am 2016 1:38am Platelet Count 192 10^3uL 150-450 01/04/2017 12:45am 01/04/2017 1:38am Mean Platelet Volume 10.4 FL H 6.0-9.5 01/04/2017 12:45am 01/04/2017 1: 38am Differential Total Cells Counted 100 01/04/2017 12:45am 01/04/2017 1:52am Segmented Neutrophils % 65 % 51-67 01/04/2017 12:45am 01/04/2017 1: 52am Lymphocytes % (Manual) 25 % 20-46 01/04/2017 12:45am 01/04/2017 1:52am Monocytes % (Manual) 6 % 3-11 01/04/2017 12:45am 01/04/2017 1:52am Eosinophils % (Manual) 4 % 0-4 01/04/2017 12:45am 01/04/2017 1:52am Neutrophils # 3.5 # 01/04/2017 12:45am [...] 1:39am Potassium Level 3.7 mmol/L 3.5-5.1 01/04/2017 12:4501/04/2017 1: 39am Chloride Level 101 mmol/L 98-108 01/04/2017 12:4501/04/2017 1:39am Carbon Dioxide Level 29 mmol/L 22-29 01/04/2017 12:4501/04/2017 1: 39am Anion Gap 14.9 MEQ/L 3-15 01/04/2017 12:4501/04/2017 1:39am Blood Urea Nitrogen 11 mg/dL 7-18 [...] Transf (AST/SGOT) 11 U/L L 15-37 01/04/2017 12:45am 12/2016 1:39am Alanine Aminotransferase (ALT/SGPT) 21 U/L L 30-65 01/04/2017 12:45am 1:39am Total Creatine Kinase 55 U/L 55-170 01/04/2017 12:45am 01/04/2017 1: 39am Creatine Kinase MB 0.5 ng/mL 0.0-6.0 01/04/2017 12:45am 01/04/2017 1: 51am Troponin I < 0.012 ng/mL 0.010-0.080 01/04/2017 12:45am 01/04/2017 1: 51am GT-Cki-O-Type Natriuretic Peptide 284 pg/mL H 0-125 01/04/2017 [...] NEGATIVE NEGATIVE 01/04/2017 3:15am 01/04/2017 3: 57am Pending Laboratory Results Test Name Collection Date/Time Procedures Procedure Status Date Provider(s) ROUTINE VENIPUNCTURE Completed 01/04/17 CHEST X-RAY 1 VIEW FRONTAL Completed 01/04/17 X-RAY EXAM OF KNEE 3 Completed 01/04/17 COMPREHEN METABOLIC PANEL Completed 01/04/17 ASSAY TEST FOR BLOOD FECAL Completed 01/04/17 ASSAY OF CK (CPK) Completed 01/04/17 CREATINE MB FRACTION Completed 01/04/17 ASSAY OF MAGNESIUM Completed 01/04/17 ASSAY OF NATRIURETIC PEPTIDE Completed 01/04/17 ASSAY OF TROPONIN QUANT Completed 01/04/17 HEMATOCRIT Completed 01/04/17 HEMOGLOBIN Completed 01/04/17 COMPLETE CBC W/AUTO DIFF WBC Completed 01/04/17 PROTHROMBIN TIME Completed 01/04/17 THROMBOPLASTIN TIME PARTIAL Completed 01/04/17 ELECTROCARDIOGRAM TRACING Completed 01/04/17 EMERGENCY DEPT VISIT Completed 01/04/17 Encounters Encounter Location Arrival/Admit Date Discharge/Depart Date Attending Provider Registered [facility] 01/25/17 11:20pm Cece Pichardo Departed Emergency Room [facility] 01/25/17 7:30pm 01/25/17 11:32pm BHARGAVI ALFARO MD Registered Clinic [facility] 01/04/17 4:50am KRISTI MOSER MD Departed Emergency Room [facility] 01/04/17 12:32am 01/04/17 4:50am KRISTI MOSER MD
[2017-01-27 16:23] VITALS: TEMP 98.7; Ht 177.8 cm; Wt 155.6 kg
--- OUTSIDE RECORDS SUMMARY | 2017-01-27 16:23 | XMS REPORT ---
Author Author [facility] Organization Unknown Address Unknown Phone Unavailable Care Team Providers Care Product Development Assistant Name Role Phone UNASSIGNED DOCTOR , DOCTOR PP [phone] Reason For Visit Reason for Visit from [...] H (65-99 MG/DL) *GFR EST NON AFR IRAQI >90 ML/MIN *GFR EST AFR AMER >90 [...] Care Management Note : Pt is from [place] and is known to ED staff due to visits by pt and pt's adult daughter and pt getting angry when his demands are not met. Pt and daughter known to travel to multiple providers in [place] and [place]. [employer] on pt shows in the past year, he has received 25 narcotic prescriptions from 23 different providers filled at 12 different pharmacies. PCP is at [facility] in [place]. Today, pt states they have no money and he refuses to eat anything at the hospital unless we feed daughter too. Pt expects his daughter to stay in hospital with him. Pt also states they have a vehicle here but do not have gas money to get back home. JONA Moreno, Sales And Marketing Manager and SW updated. Procedures No relevant procedures [...]
--- OUTSIDE RECORDS SUMMARY | 2017-01-27 16:23 | XMS REPORT ---
Author Author GENERATED, SYSTEM Organization Unknown Address Unknown Phone Unavailable Care Team Providers Care Tin Pourer Name Role Phone UNASSIGNED DOCTOR MD RENZO DOCTOR PP [phone] Reason For Visit Reason for Visit from 01/04/2017 5:43 AM:* Pt Stated Reason for Adm : CP Chief Complaint CHES PAIN Social History Social History from 01/05/2017 10:45 AM:* Tobacco Use? : Never Smoker Social History from 01/04/2017 5:43 AM:* Tobacco Use? : Never Smoker Functional Status Functional Status from 01/05/2017 10:33 AM:* LOC : Alert * Oriented To : Person,Place,Time,Event * Weight Bearing Status : Full * Assist Level : Independent * # Assists : Independent Functional Status from 01/04/2017 9:09 PM:* LOC : Alert * Oriented To : Person,Place,Time,Event * Weight Bearing Status : Full * Assist Level : Independent * # Assists : Independent Functional Status from 01/04/2017 8:00 AM:* LOC : Alert * LOC : Alert * Oriented To : Person,Place,Time,Event * Oriented To : Person,Place,Time,Event * Weight Bearing Status : Full * Assist Level : Partial * # Assists : 1 Functional Status from 01/04/2017 5:43 AM:* LOC : Alert * Oriented To : Person,Place,Time,Event * Weight Bearing Status : Full * Assist Level : Partial * # Assists : 1 Vital Signs Hospital Vital Signs from 01/05/2017 11:09 AM:* Height : 5/10 ft,in * Temperature : 96.6 F * Pulse : 69 * Respirations : 18 * BP : 126/72 Hospital Vital Signs from 01/05/2017 10:33 AM:* Heart Rate : 88 Hospital Vital Signs from 01/05/2017 7:11 AM:* Height : 5/10 ft,in * Temperature : 97.1 F * Pulse : 61 * Respirations : 18 * BP : 128/68 Hospital Vital Signs from 01/05/2017 2:13 AM:* Height : 5/10 ft,in Hospital Vital Signs from 01/05/2017 2:05 AM:* Height : 5/10 ft,in * Temperature : 96.2 F * Pulse : 68 * Respirations : 18 * BP : 131/72 Hospital Vital Signs from 01/04/2017 11:06 PM:* Height : 5/10 ft,in * Temperature : 97.2 F * Pulse : 77 * Respirations : 20 * BP : 135/64 Hospital Vital Signs from 01/04/2017 7:09 PM:* Height : 5/10 ft,in * Temperature : 98.6 F * Pulse : 67 * Respirations : 20 * BP : 148/72 Hospital Vital Signs from 01/04/2017 3:25 PM:* Height : 5/10 ft,in * Temperature : 98.1 F * Pulse : 63 * Respirations : 20 * BP : 132/78 Hospital Vital Signs from 01/04/2017 11:31 AM:* Height : 5/10 ft,in * Temperature : 97.8 F * Pulse : 59 * Respirations : 18 * BP : 153/81 Hospital Vital Signs from 01/04/2017 8:37 AM:* Height : 5/10 ft,in Hospital Vital Signs from 01/04/2017 7:52 AM:* Height : 5/10 ft,in * Temperature : 97.3 F * Pulse : 58 * Respirations : 18 * BP : 157/74 Hospital Vital Signs from 01/04/2017 5:43 AM:* Weight : 156.2/ kg * Height : 5/10 ft,in Hospital Vital Signs from 01/04/2017 5:29 AM:* Height : 5/10 ft,in * Temperature : 97.6 F * Pulse : 56 * Respirations : 18 * BP : 163/77 Results Chemistry from 01/05/2017 4:49 AMSODIUM 140 MMOL/L (136-145 MMOL/L) POTASSIUM 3.9 MMOL/L (3.5-5.1 MMOL/L) CHLORIDE 105 MMOL/L (98-107 MMOL/L) TCO2 32.3 MMOL/L H (21.0-32.0 MMOL/L) *ANION GAP 2.7 MMOL/L L (8.0-16.0 MMOL/L) BUN 13 MG/DL (7-18 MG/DL) CREATININE 0.76 MG/DL (0.70-1.30 MG/DL) *BUN/CREATININE RATIO 17.1 H (9.1-17.0 ) GLUCOSE 191 MG/DL H (65-99 MG/DL) *GFR EST NON AFR [place] >90 ML/MIN (Reference Range: not available) *GFR EST AFR AMER >90 ML/MIN (Reference Range: not available) CALCIUM 8.4 MG/DL L (8.5-10.1 MG/DL) Chemistry from 01/04/2017 12:46 PMTROPONIN-I <0.017 NG/ML (0.000-0.056 NG/ML) Chemistry from 01/04/2017 8:47 AMSODIUM 140 MMOL/L (136-145 MMOL/L) POTASSIUM 3.4 MMOL/L L (3.5-5.1 MMOL/L) CHLORIDE 105 MMOL/L (98-107 MMOL/L) TCO2 32.0 MMOL/L (21.0-32.0 MMOL/L) *ANION GAP 3.0 MMOL/L L (8.0-16.0 MMOL/L) BUN 9 MG/DL (7-18 MG/DL) CREATININE 0.76 MG/DL (0.70-1.30 MG/DL) *BUN/CREATININE RATIO 11.8 (9.1-17.0 ) GLUCOSE 188 MG/DL H (65-99 MG/DL) *GFR EST NON AFR [place] >90 ML/MIN (Reference Range: not available) *GFR EST AFR AMER >90 ML/MIN (Reference Range: not available) CALCIUM 8.3 MG/DL L (8.5-10.1 MG/DL) Chemistry from 01/04/2017 6:16 AM*EST AVG GLUCOSE 234.6 gm/dl (Reference Range: not available) TROPONIN-I <0.017 NG/ML (0.000-0.056 NG/ML) CHOLESTEROL 108 MG/DL (50-199 MG/DL) TRIGLYCERIDES 102 MG/DL (0-149 MG/DL) HDL CHOLESTEROL 31 MG/DL L (40-60 MG/DL) *LDL (CALCULATED) CHOL 57 MG/DL (0-99 MG/DL) IRON 12 MCG/DL L (65-175 MCG/DL) IRON BINDING CAPACITY 388 MCG/DL (250-450 MCG/DL) *PERCENT SATURATION 3 % L (20-55 %) HEMOGLOBIN A1C 9.8 % H (4.5-6.2 %) VITAMIN B12 366 PG/ML (180-914 PG/ML) FOLATES >20.0 NG/ML (>3.0- NG/ML) FERRITIN 10 NG/ML L (30-400 NG/ML) Hematology from 01/05/2017 4:49 AMWBC 4.3 X10e3/UL (3.6-11.2 X10e3/UL) RBC 4.84 X10e6/UL (4.06-5.63 X10e6/UL) HEMOGLOBIN 9.2 G/DL L (12.5-16.3 G/DL) HEMATOCRIT 31.2 % L (36.7-47.1 %) *MCV 64.5 FL L (80.0-100.0 FL) *MCH 19.1 PG L (27.0-33.0 PG) *MCHC 29.6 G/DL L (32.0-36.0 G/DL) *RDW 19.8 % H (12.3-17.0 %) *RDWSD 45.5 (37.1-47.8 ) PLATELET 158 X10e3/UL L (159-386 X10e3/UL) *MPV 8.5 FL (7.4-10.4 FL) AUTOMATED DIFF PERFORMED (Reference Range: not available) SEGS 65.8 % (Reference Range: not available) *LYMPHOCYTES 20.2 % (Reference Range: not available) *MONOCYTES 7.9 % (Reference Range: not available) *EOSINOPHILS 4.9 % (Reference Range: not available) *BASOPHILS 1.2 % (Reference Range: not available) *ABSOLUTE NEUTROPHILS 2.90 X10e3/UL (1.80-7.80 X10e3/UL) *ABSOLUTE LYMPHOCYTES 0.90 X10e3/UL L (1.00-3.00 X10e3/UL) *ABSOLUTE MONOCYTES 0.30 X10e3/UL (0.30-1.00 X10e3/UL) *ABSOLUTE EOSINOPHILS 0.20 X10e3/UL (0.00-0.50 X10e3/UL) *ABSOLUTE BASOPHILS 0.10 X10e3/UL (0.00-0.20 X10e3/UL) *POLYCHROMASIA 1+ (Reference Range: not available) *HYPOCHROMASIA 2+ (Reference Range: not available) MICROCYTIC 2+ (Reference Range: not available) OVALOCYTES 1+ (Reference Range: not available) BASOPHILIC STIPPLING 1+ (Reference Range: not available) Hematology from 01/04/2017 11:47 PMHEMOGLOBIN 9.1 G/DL L (12.5-16.3 G/DL) Hematology from 01/04/2017 5:44 PMHEMOGLOBIN 9.3 G/DL L (12.5-16.3 G/DL) Hematology from 01/04/2017 12:46 PMHEMOGLOBIN 9.1 G/DL L (12.5-16.3 G/DL) Hematology from 01/04/2017 8:47 AMWBC 5.2 X10e3/UL (3.6-11.2 X10e3/UL) RBC 4.69 X10e6/UL (4.06-5.63 X10e6/UL) HEMOGLOBIN 8.9 G/DL L (12.5-16.3 G/DL) HEMATOCRIT 30.1 % L (36.7-47.1 %) *MCV 64.2 FL L (80.0-100.0 FL) *MCH 19.1 PG L (27.0-33.0 PG) *MCHC 29.7 G/DL L (32.0-36.0 G/DL) *RDW 19.6 % H (12.3-17.0 %) *RDWSD 45.1 (37.1-47.8 ) PLATELET 155 X10e3/UL L (159-386 X10e3/UL) *MPV 8.3 FL (7.4-10.4 FL) AUTOMATED DIFF PERFORMED (Reference Range: not available) SEGS 69.6 % (Reference Range: not available) *LYMPHOCYTES 18.4 % (Reference Range: not available) *MONOCYTES 7.2 % (Reference Range: not available) *EOSINOPHILS 4.1 % (Reference Range: not available) *BASOPHILS 0.7 % (Reference Range: not available) *ABSOLUTE NEUTROPHILS 3.60 X10e3/UL (1.80-7.80 X10e3/UL) *ABSOLUTE LYMPHOCYTES 1.00 X10e3/UL (1.00-3.00 X10e3/UL) *ABSOLUTE MONOCYTES 0.40 X10e3/UL (0.30-1.00 X10e3/UL) *ABSOLUTE EOSINOPHILS 0.20 X10e3/UL (0.00-0.50 X10e3/UL) *ABSOLUTE BASOPHILS 0.00 X10e3/UL (0.00-0.20 X10e3/UL) *POLYCHROMASIA 1+ (Reference Range: not available) *HYPOCHROMASIA 2+ (Reference Range: not available) MICROCYTIC 2+ (Reference Range: not available) POIKILOCYTOSIS 3+ (Reference Range: not available) TARGET CELLS 1+ (Reference Range: not available) *TEARDROP CELLS 1+ (Reference Range: not available) OVALOCYTES 1+ (Reference Range: not available) BASOPHILIC STIPPLING 1+ (Reference Range: not available) Hematology from 01/04/2017 6:16 AMHEMOGLOBIN 9.2 G/DL L (12.5-16.3 G/DL) Coagulation from 01/04/2017 6:16 AMD-DIMER 1.13 MG/L FEU H (0.00-0.50 MG/L FEU) CT Scan from 01/04/2017 7:35 PMCT CEREBRAL W/O CONTRAST History: Syncope - 780.2 . Priors: None. Findings: Ventricles and Extra axial spaces: Normal in size and morphology for the patient's age. Hemorrhage: None. Cerebral parenchyma: Mild patchy supratentorial nonspecific white matter hypodensities. Kunz-white matter interfaces are otherwise maintained. Mass effect/midline shift: None. Brainstem/Cerebellum: Normal. Calvarium: Normal. Visualized Paranasal sinuses/Mastoids: Clear apart from a mild sphenoid sinus mucosal thickening. Impression: No acute intracranial hemorrhage or mass effect. Mild nonspecific supratentorial white matter hypodensities, likely related to chronic small vessel ischemia in a patient this age. Mild chronic sphenoid sinus inflammatory disease. Electronically signed by: BESS ROSARIO Dictated: 01/05/2017 14:21 (Reference Range: not available) Problems Encounter Diagnosis * Acute Pain Status:Active. * Anemia Status:Active. * Chest Pain Status:Active. * Chronic Pain Status:Active. * Diabetes Mellitus Status:Active. * Fall Risk Status:Active. * Hypertensive Disorder Status:Active. * Microcytic Anemia Status:Active. * Mobility Impairment Status:Active. * Near Syncope Status:Active. Additional Problems * Skin Integrity Impairment Risk Comment:Problem resolved by [facility] Workflow upon Discharge, Status:Resolved. Encounters Encounter Diagnosis * Acute Pain Status:Active. * Anemia Status:Active. * Chest Pain Status:Active. * Chronic Pain Status:Active. * Diabetes Mellitus Status:Active. * Fall Risk Status:Active. * Hypertensive Disorder Status:Active. * Microcytic Anemia Status:Active. * Mobility Impairment Status:Active. * Near Syncope Status:Active. Plan of Care Follow-up Appointments from 01/05/2017 10:45 AM:* #1 Office appointment: : Call [facility] for Appointment within 1 week. Treatment Plan from 01/05/2017 11:08 AM:* Care Management Note : BODY,TD,TH,BUTTON ,INPUT,SELECT,TEXTAREA{FONT-SIZE: 10pt; FONT-FAMILY: [place],Helvetica; COLOR: black;} P,DIV,UL,OL,BLOCKQUOTE{MARGIN-BOTTOM: 0px; MARGIN-TOP: 0px;} BODY{MARGIN : 5px;} Patient discharging to home later today. Medicare M[place] form reviewed with Patient and questions answered. Denied further needs at this time. Copy of signed form placed in chart and given to Patient. SW notified of discharge. Treatment Plan from 01/04/2017 7:41 AM:* Care Management Note : BODY,TD,TH,BUTTON, INPUT,SELECT,TEXTAREA{FONT-SIZE: 10pt; FONT-FAMILY: [place],Helvetica; COLOR: black;} P,DIV,UL,OL,BLOCKQUOTE{MARGIN-BOTTOM: 0px; MARGIN-TOP: 0px;} BODY{MARGIN : 5px;} Patient was admitted as outpatient observation d/t chest pain and presyncope. Troponin's thus far are negative. Patients Hgb is noted to be low as well. Patient was placed on tele, remains NPO, IVF running, started on IV protonix, and Hgb is being monitored every 6 hours x4. CM will continue to follow. Hgb 9.2, Ddimer 1.13 97.6, 56, 8, 163/77, 96% RA Procedures No relevant procedures performed. Immunizations No immunizations administered or ordered. Hospital Course Hospital Discharge Instructions How to care for yourself at home from 01/05/2017 10:45 AM:* Discharge Activity : Activity as tolerated * Discharge Diet : Diet as directed by tray setter * Discharge Diet: : Diabetic Diet * Call your doctor if: : Fever over 101 F or severe chills,Chest pain or other unexplained symptoms,Tingling or numbness develops,A sudden increase or decrease in weight,You have persistent or worsening symptoms,If you have Heart Failure and you gain 3 pounds within 1 week or your symptoms worsen. (Weigh at home tomorrow morning) * Specific Discharge Teaching Instructions provided: : No * Discharge on Warfarin : No Allergies, Adverse Reactions, Alerts This section is retail sales representative of the current allergy information, [...] Allergy. * No IV Contrast Allergy. Medication It is the responsibility of the patient or patient retail sales representative to confirm the list of medications with either the patient's personal care provider or the patient's follow-up care provider to ensure the patient has an appropriate list of medications to take at home. Discharge medications New medications* traMADol 50 mg Tablet, Ordered By: SHANI PERRY MD Directions: 1 tablet oral three times a day PRN pain Continued medications* montelukast 10 mg Tablet, Ordered By: SHANI PERRY MD Directions: 1 tablet oral daily * sertraline 100 mg Tablet, Ordered By: SHANI PERRY MD Directions: 1 tablet oral daily * omeprazole 40 mg capsule,delayed release(DR/EC), Ordered By: SHANI PERRY MD Directions: 1 capsule oral daily before breakfast * traZODone 100 mg Tablet, Ordered By: SHANI PERRY MD Directions: 1 tablet oral daily at bedtime * cetirizine 10 mg Tablet, Ordered By: SHANI PERRY MD Directions: 1 tablet oral daily * albuterol sulfate (Proventil HFA) 90 mcg HFA Aerosol Inhaler, Ordered By: SHANI PERRY MD Directions: 2 puff by inhalation four times daily PRN shortness of breath * aspirin (Aspir-81) 81 mg tablet,delayed release (/EC), Ordered By: SHANI PERRY MD Directions: 1 tablet oral daily every morning * hydrOXYzine HCl 25 mg Tablet, Ordered By: SHANI PERRY MD Directions: 1 tablet oral three times a day * meloxicam 15 mg Tablet, Ordered By: SHANI PERRY MD Directions: 1 tablet oral daily * carvedilol 6.25 mg Tablet, Ordered By: SHANI PERYR MD Directions: 1 tablet oral daily * insulin aspart (NovoLOG) 100 unit/mL Solution, Ordered By: SHANI PERRY MD Directions: 15 unit subcutaneous three times a day with or after meal * amLODIPine 10 mg Tablet, Ordered By: SHANI PERRY MD Directions: 1 tablet oral daily * ezetimibe (ZeTIA) 10 mg Tablet, Ordered By: SHANI PERRY MD Directions: 1 tablet oral daily at bedtime * hydrochlorothiazide 25 mg Tablet, Ordered By: SHANI PERRY MD Directions: 1 tablet oral daily * atorvastatin 10 mg Tablet, Ordered By: SHANI PERRY MD Directions: 1 tablet oral daily at bedtime Changed medications* fluticasone-salmeterol (Advair Diskus) 100 mcg-50 mcg/Dose blister with device, Ordered By: SHANI PERRY MD Directions: 1 puff by inhalation twice a day * insulin detemir (Levemir) 100 unit/mL Solution, Ordered By: SHANI PERRY MD Directions: 60 unit subcutaneous every hs * busPIRone 10 mg Tablet, Ordered By: SHANI PERRY MD Directions: 1 tablet 10mg in am and at noon, 20mg at hs daily Stopped medications* oxyCODONE-acetaminophen 10 mg-325 mg Tablet Directions: 2 tablet q 4-6 hours Additional Instructions: TK 1 T PO Q 6 H PRN P
--- NOTE | 2017-01-27 16:27 | NUR ---
JENNY CONDE IN
--- NOTE | 2017-01-27 16:32 | ERPDOC ---
Departure Disposition Decision Date: January 27, 2017 Disposition Decision Time: 17:11 Disposition: 01 DISCHARGED HOME, SELF-CARE Impression Impression Impression: Primary Impression: Chest pain Chest pain type: unspecified Qualified Codes: R07.9 - Chest pain, unspecified Severity: Moderate Condition: Stable Seen By: Mid-level only Patient Instructions: Chest Pain (ED) Problems/Meds/Labs Reviewed?: Yes Medications reviewed and manag: Yes Additional Instructions: Your labs today are all normal. EKG is normal as well. I have reviewed your chart and your hemoglobin has been low over the last month. I do encourage you to follow up with your primary care provider for this and for your concerns about passing out. Follow up care ordered?: Yes Mental Status: Alert, Oriented HPI - Chest Pain General Chief Complaint: Chest Pain Stated Complaint: CP Time Seen by Provider: 16:15 Source: patient Exam Limitations: no limitations HPI - Chest Pain Initial Comments He was at home today and was talking to his daughter. He had onset of chest pain that radiates to his left arm. He did not take anything for the pain at home. Does state that he was SOA, nauseated and dizzy. He does go for primary care at [facility]. States that he gets whichever Dr that is available that day. He was admitted in May of 2016 for chest pain rule out. Had a heart cath per Dr Carbajal. At that time the heart cath showed mild coronary artery disease and EF of about 65%. He is diabetic. During his admission, review of dismissal summary does show that he was going to be dismissed but had refused. Cardiology did put in for hospitalist consult to help with management of his comorbidities. The next day they had noted that he had an episode of fred cardia down to 38 while asleep and 51 while awake. They did cut his home dose of Coreg down to 12.5mg per day from 25mg and were going to hold his pain medication to see if this affected his heart rate. He then left AMA. Occurred At: home Onset/Timing: Gradual Duration: 1 hr Activities at Onset/Context: rest Location: substernal Quality: sharp Associated Symptoms: nausea/vomiting (nausea), shortness of breath, DENIES: abdominal pain, back pain, diaphoresis, dizziness, edema, fast HR, fatigue, fever/chills, headache, heartburn, irregular HR, rash, slow HR, swelling/lump in chest, syncope, weakness Chest Pain Radiation: arms (left arm) Nitro Today/Relief: no nitro taken today Aspirin Treatment Today: 81 mg x 1 Allergies: Coded Allergies: fentanyl (Verified Allergy, Unknown, VOMITING, 12/04/16) indomethacin (Verified Allergy, Unknown, 12/04/16) ketorolac (Verified Allergy, Unknown, 12/04/16) morphine (Verified Allergy, Unknown, 12/04/16) naproxen (Verified Allergy, Unknown, 12/04/16) Uncoded Allergies: PAPER TAPE (Allergy, Unknown, SKIN BLISTERS, 05/14/16) Past History Patient Surgical History Bilateral knee replacements Bilateral elbow surgeries Removal of ganglion cyst from left wrist Surgery on left foot Past Medical History Metabolic: diabetes, hypercholesterolemia, hypertension Cardiac: CAD, [place] Respiratory: asthma Musculoskeletal: osteoarthritis Psychological: anxiety, depression Surgical History Joint: knee Family History Family PMH: FOUND: CAD, depression Vaccines Hx Influenza Vaccination: Yes (2015) Hx Pneumococcal Vaccination: No Social History Does patient use chewing tobac: No Second Hand Exposure: No Substance Use Type: does not use Alcohol Intake: none Marital Status: Single Housing: house Service: No Occupational Hazard: No Review of Systems Constitutional Constitutional: DENIES: chills, dizziness, fatigue, fever, weakness Cardiovascular Cardiac: chest pain, DENIES: dyspnea on exertion, orthopnea Rhythm/Rate: DENIES: irregular beat, palpitations Vascular: DENIES: pedal edema, unilateral swelling Pulmonary Respiratory: DENIES: cough, dyspnea, sputum, tachypnea GI Upper Abdomen: DENIES: nausea, pain, vomiting Lower Abdomen: DENIES: constipation, diarrhea, pain Integumentary Skin: DENIES: rash Neurological General: DENIES: headache, numbness, tingling, weakness Physical Exam General General Nourishment: well nourished, well developed, appears stated age, no acute distress, adult General Body Habitus: well groomed Vitals and Pain First Documented Vital Signs Date Time Temp Pulse Resp B/P Pulse Ox O2 Delivery O2 Flow Rate FiO2 01/27/17 16:23 98.7 67 20 144/71 94 Room Air Weight: Kilograms: Height (feet): 5 Height (inches): 10.00 Triage Pain Scale: RN VS reviewed by Provider: Yes Normal Exams: Neck: Full range of motion, without adenopathy, JVD, bruits or thyromegaly Chest/Resp: Clear all luevano, with good airflow, and symmetry bilaterally CV: Regular rate and rhythm, without murmur or gallop, Pulses 2+ all extremities, capillary refill, <2 seconds all ext., no pedal edema noted Abdomen: Bowel sounds positive, soft, non-tender, non-distended, no hepatosplenomegaly, masses or bruits noted Lymphatic: No lymphadenopathy, or lymphedema noted Neurologic: Patient is alert, and oriented Psychiatric: Patient exhibits, appropriate attention, emotion and affect Differential Diagnoses Considering: Acute [place], Anxiety/Panic, Angina, Costochondritis, Esophageal Spasm , GERD Progress Results/Orders Orders Procedure Category Date Status Time Cbc W/Auto LAB 01/27/17 Complete Diff-Reflex Manual 16:18 Bmp - Basic Metabolic LAB 01/27/17 Complete Panel 16:18 Troponin I W LAB 01/27/17 Complete Hemolysis Index 16:18 EKG EKG 01/27/17 Logged 16:18 Chest 1 View RAD 01/27/17 Taken 16:18 Iv Lock (Ed Only) EDM 01/27/17 Transmitted 16:18 Ondansetron Inj PHA 01/27/17 Complete (Zofran) 17:00 Lab Results Laboratory Tests Test 01/27/17 16:26 White Blood Count 7.9T/MM3 Red Blood Count 4.75M/MM3 Hemoglobin 8.9GM/DL Hematocrit 31.5% Mean Corpuscular Volume 66.3UM3 Mean Corpuscular Hemoglobin 18.7UUG Mean Corpuscular Hemoglobin Concent 28.3GM/DL RDW Standard Deviation 43.7FL Platelet Count 202T/MM3 Mean Platelet Volume 9.8UM3 Immature Granulocyte % (Auto) 0.3% Neutrophils (%) (Auto) 72.4% Lymphocytes (%) (Auto) 16.9% Monocytes (%) (Auto) 6.7% Eosinophils (%) (Auto) 3.3% Basophils (%) (Auto) 0.4% Absolute Immature Granulocyte (auto 0.02T/MM3 Absolute Neutrophils (auto) 5.8T/MM3 Absolute Lymphocytes (auto) 1.3T/MM3 Absolute Monocytes (auto) 0.5T/MM3 Absolute Eosinophils (auto) 0.3T/MM3 Absolute Basophils (auto) 0.0T/MM3 Turbidity < 20 Sodium Level 147MEQ/L Potassium Level 3.5MEQ/L Chloride Level 103MEQ/L Carbon Dioxide Level 30MEQ/L Anion Gap 14MEQ/L Blood Urea Nitrogen 11.0MG/DL Creatinine 0.9MG/DL Glomerular Filtration Rate Calc 85 BUN/Creatinine Ratio 12RATIO Glucose Level 148MG/DL Calculated Osmolality 284MOSM/KG Calcium Level 8.8MG/DL Icterus Index < 2 Troponin I < 0.012ng/ml Chemistry Specimen Hemolysis < 15 Medications Current ED Medications Ondansetron HCl (Zofran) 4 mg O ONCE IV ; Start 01/27/17 at 17:00; Stop at 17:01; Status DC Progress Progress CBC, BMP, and troponin today are normal. He has not asked for pain medication while in ER. His daughter did voice some concern that he had passed out at home. Review of XMS does show that he has been evaluated in several ERs in [place] over the last month. Was evaluated in [place] on 01/01/14 and . Was evaluated in [place] on 01/04/17 and 01/25/17. Was admitted on 01/04/[address] of his head that was negative and also had serial hemoglobins drawn every 6 hours and did show Hgb was stable at that time of 9.1, 9.3, and 9.1, Was also evaluated in [facility] on 01/09/17. Most of these visits were for chest pain. Has had negative troponin each time. I did talk with him about his labs today. His daughter does discuss concern that he would need to be admitted. I did state that his labs look good and he had a negative heart cath in May of 2016. I did mention his Ct of his head on 01/04/17 so no need for admission identified today. He then proceeded to remove the monitoring on him and took out his IV. Left unit before signing dismissal instructions. Xray Xray : Reason for Exam: chest pain Xray: CXR Portable Interpretation: Normal ANIYAH GOODE APRN January 27, 2017 16:32
[2017-01-27 16:33] LABS: BASOPHILS % (AUTO) 0.4 % (0-2); EOSINOPHILS # (AUTO) 0.3 T/MM3 (0-0.5); EOSINOPHILS % (AUTO) 3.3 % (0-4); HCT - HEMATOCRIT 31.5 % (41-53); HGB - HEMOGLOBIN 8.9 GM/DL (13.5-17.5); IMMATURE GRANULOCYTE # (AUTO) 0.02 T/MM3 (0.00-0.03); IMMATURE GRANULOCYTE % (AUTO) 0.3 % (0.0-0.5); LYMPHOCYTES # (AUTO) 1.3 T/MM3 (1-4.8); LYMPHOCYTES % (AUTO) 16.9 % (23-45); MEAN CORPUSCULAR HGB 18.7 UUG (26-34); MEAN CORPUSCULAR HGB CONC(MCHC 28.3 GM/DL (31-37); MEAN CORPUSCULAR VOLUME 66.3 UM3 (80-100); MEAN PLATELET VOLUME 9.8 UM3 (9.4-12.4); MONOCYTES # (AUTO) 0.5 T/MM3 (0-0.8); MONOCYTES % (AUTO) 6.7 % (0-9.0); NEUTROPHILS #(AUTO)-ABSOLUTE 5.8 T/MM3 (1.8-7.7); NEUTROPHILS % (AUTO) 72.4 % (33-66); RED BLOOD COUNT 4.75 M/MM3 (4.50-5.90); WBC - WHITE BLOOD COUNT 7.9 T/MM3 (4.5-11.0)
[2017-01-27] MEDS ORDERED: BUSP15TA3 PO ×2 (16:36)
[2017-01-27] MEDS ORDERED: FLUT1DIS INH (16:40)
[2017-01-27 16:41] LABS: ANION GAP 14 MEQ/L (5-15); BUN/CREATININE RATIO 12 RATIO (6-26); CALCIUM 8.8 MG/DL (8.4-10.2); CHLORIDE 103 MEQ/L (98-107); CO2 - CARBON DIOXIDE 30 MEQ/L (22-30); CREATININE 0.9 MG/DL (0.8-1.5); GLOMERULAR FILTRATION RATE 85; GLUCOSE 148 MG/DL (75-110); POTASSIUM 3.5 MEQ/L (3.6-5); SODIUM 147 MEQ/L (134-144)
--- NOTE | 2017-01-27 16:50 | NUR ---
COMFORT NURSE CHECKED ON PT. HE SAYS HE FEELS LOUSY. NURSE ASKED WHAT FELT LOUSY, PT SAYS MY KNEE. HE PULLED UP PANT LEG TO SHOW ABRASION ON RT KNEE. NURSE ASKED HOW HE GOT THAT, HE REPLIED "WHEN I FELL." NURSE ASKED WHEN HE FELL. HIS DAUGHTER SAID. "YOU DIDN'T LET HIM FINISH TELLING HIS STORY." NURSE ASKED PT WHAT HE WANTED TO TELL ME. HE REPORTS HE WAS TALKING WITH HIS DAUGHTER WHEN HE HAD SUDDEN CHEST PAIN THAT WENT INTO HIS L ARM. HE SAYS HE STOOD UP & PASSED OUT. NURSE ASKED IF HE HIT HIS HEAD. HE SAID HE DIDN'T KNOW. NURSE ASKED IF THIS DAUGHTER IS THE ONE HE PASSED OUT IN FRONT OF. HE REPORTS SHE IS THE ONLY DAUGHTER I HAVE. NURSE ASKED DAUGHTER IF HE HIT HIS HEAD, SHE WAS UNSURE. SHE REPORTS HE WAS OUT ONLY LESS THAN A MINUTE. PT SAYS CHEST PAIN IS NOW 4/10. STILL HAS NAUSEA. REPORTED TO JENNY CONDE.
[2017-01-27] MEDS ORDERED: ONDANSETRON 4mg/2ml INJECTION IV ONE (17:00)
--- NOTE | 2017-01-27 17:05 | NUR ---
JENNY CONDE IN TO SHARE TEST RESULTS WITH PT. AFTER SHE LEFT THE ROOM, THE DAUGHTER PULLED THE CURTAIN SHUT. NURSE WENT TO DRAW UP ANNETTE FOR PT.
[2017-01-27 17:13] VITALS: BP 139/68; PULSE 67; RESP 20; O2SAT 92
--- NOTE | 2017-01-27 17:13 | NUR ---
DISMISSAL NURSE APPROACHED PT ROOM TO GIVE ZOFRAN & DRESS HIS RT KNEE, PT & DAUGHTER THREW OPEN THE CURTAIN & STARTED FOR THE EXIT. NURSE CALLED TO THEM & TOLD THEM SHE HAD MEDS FOR NAUSEA & INSTRUCTIONS. PT & DAUGHTER KEPT WALKING & IGNORED NURSE'S ATTEMPTS TO STOP THEM. NURSE OBSERVED THAT PT OR DAUGHTER HAD REMOVED HIS IV FROM RT HAND & TAPED A DRSG OVER THE SITE PRIOR TO LEAVING. PT DID STOP LONG ENOUGH FOR NURSE TO CUT OFF HIS NAME BAND. OTHERWISE, HE BRUSHED NURSE OFF & REFUSED TO COMMUNICATE WITH ME. (PT CAME IN HOSPITAL WC TO RM INITIALLY, BUT AMBULATED OUT THE DOOR WITHOUT DIFFICULTY.)
--- OUTSIDE RECORDS SUMMARY | 2017-01-27 17:24 | XMS REPORT | Continuity of Care Document ---
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 Type 2 diabetes mellitus without complications 06/14/2016 06/19/2016 [facility] Chest pain, unspecified 06/19/2016 [facility] Hypothyroidism, unspecified 06/14/2016 06/19/2016 [facility] Essential (primary) hypertension 06/14/2016 06/19/2016 [facility] Other chest pain 06/19/2016 [facility] Hypertensive heart disease without heart failure 2015 [facility] Atherosclerotic heart disease of [place] coronary artery without angina pectoris 06/19/2016 [facility] Old myocardial infarction 06/19/2016 [facility] Hyperlipidemia, unspecified 06/19/2016 [facility] Hypertensive disorder, systemic arterial (disorder) Active Problem 06/19/2016 [facility] Obesity (disorder) Active Problem 06/19/2016 Added based on documentation of BMI=48.2. [facility] Localized edema 06/19/2016 [facility] Type 2 diabetes mellitus with hyperglycemia 06/19/2016 [facility] Unspecified asthma, uncomplicated 06/19/2016 [facility] Other specified hypothyroidism 06/19/2016 [facility] Other specified anxiety disorders 06/19/2016 [facility] Bradycardia, unspecified 06/19/2016 [facility] Atrioventricular block, first degree 06/19/2016 [facility] Unspecified right bundle-branch block 06/19/2016 [facility] Family history of ischemic heart disease and other diseases of the circulatory system 06/19/2016 [facility] 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 Medications Medication Details Route Status Patient Instructions Ordering Provider Order Date Source hydroxyzine hydrochloride 25 mg oral tablet </br>=25 mg, 1 tab, PO, Daily, # 30 tab, 0 Refill(s) Active [facility] albuterol-ipratropium 3 mg-0.5 mg/3 ml inhalation solution </br>3 mL, Inhalation, four times per day, # 30 EA, 0 Refill(s) Active [facility] Dulera 100 mcg-5 mcg/inh inhalation aerosol </br>2 puff, Inhalation, BID, # 13 gm, 0 Refill(s) Active [facility] Acetaminophen 325 MG / Oxycodone Hydrochloride 10 MG Oral Tablet [Percocet 10/ 325] </br>2 tab, PO, Q6H, PRN for pain, 0 Refill(s) Active [facility] Zyrtec </br>Daily, 0 Refill(s) Active [facility] buspirone 10 mg oral tablet </br>=10 mg, 1 tab, PO, TID, # 270 tab, 0 Refill(s) Active [facility] omeprazole 20 mg oral enteric coated capsule </br>=20 mg, 1 cap, PO, BID, # 60 cap, 3 Refill(s) Active [facility] montelukast 10 mg oral tablet </br>=10 mg, 1 tab, PO, QPM, # 30 tab, 0 Refill(s) Active [facility] Sertraline </br>PO, Daily, 0 Refill(s) Active [facility] Hydrochlorothiazide </br>PO, Daily, 0 Refill(s) Active [facility] atorvastatin </br>PO, QHS, 0 Refill(s) Active [facility] meloxicam 15 mg oral tablet </br>=15 mg, 1 tab, PO, Daily, # 30 tab, 0 Refill(s) Active [facility] Amlodipine </br>PO, Daily, 0 Refill(s) Active [facility] carvedilol 25 mg oral tablet </br>=25 mg, 1 tab, PO, BID, # 60 tab, 0 Refill(s) Active [facility] ezetimibe 10 MG Oral Tablet [Zetia] </br>=10 mg, 1 tab, PO, Daily, # 30 tab, 0 Refill(s) Active [facility] trazodone 50 mg oral tablet </br>50 mg 1 tab, PO, QHS, # 30 tab, 0 Refill(s) Active [facility] Levemir </br>Subcutaneous, 0 Refill(s) Active [facility] levothyroxine 0.2 mg oral tablet </br>=200 mcg, 1 tab, PO, Daily, # 30 tab, 0 Refill(s), tab Active [facility] aspirin 81 mg oral tablet, chewable </br>=81 mg, 1 tab, Chewed, Daily, tablet, chewable Active [facility] Humalog 100 unit(s)/ml subcutaneous injection </br>=10 Units, 0.1 mL, Subcutaneous, AC, # 9 mL, 1 Refill(s), injection Active [facility] Aspirin </br>81 mg,=1 tab, tablet, chewable, Daily, Chewed, Start date 06/13/16 9:00:00< br></br>Notes: TIME CRITICAL MED IF SCHEDULED Active [facility] heparin </br>5,000 Units,=1 mL, injection, Q12H, Subcutaneous, Start date 06/12/16 21:00 :00
</br>Notes: TIME CRITICAL MED IF SCHEDULED Active [facility] Insulin Lispro </br>SLIDING SCALE, injection, Subcutaneous, ACHS, Start date 06/12/16 21:00:00< br></br>Notes: TIME CRITICAL MED IF SCHEDULED Active [facility] Albuterol / Ipratropium </br>3 mL, solution, Q4H, Nebulized, Start date 06/12/16 20:00:00 Active [facility] Levoxyl </br>100 mcg,=1 tab, tab, ONCE, PO, Start date 06/14/16 12:44:00, Stop date 12:44:00
</br>Notes: DO NOT ADMINISTER WITH MAGNESIUM, CALCIUM, ALUMINUM, OR IRON PRODUCTS Inactive [facility] Normal Saline 50 mL IVPB Flush </br>25 mL, injection, As Needed, IVPush, PRN Flush, Start date 06/13/16 0:49: 00 Active [facility] Percocet 10/325 </br>2 tab, tab, Q6H, PO, PRN Pain Severe (7-10), Start date 06/12/16 18:43:00< br></br>Notes: Not to exceed 4000 mg of acetaminophen TOTAL in 24 hours. TIME CRITICAL MED IF SCHEDULED Active [facility] Trazodone </br>100 mg,=2 tab, tab, QHS, PO, Start date 06/12/16 21:00:00 Active [facility] pantoprazole </br>40 mg,=1 tab, enteric coated tab, Daily, PO, Start date 06/12/16 18:42:00, No
</br>Notes: DO NOT CRUSH Active [facility] montelukast </br>10 mg,=1 tab, tab, QPM, PO, Start date 06/12/16 17:00:00 Active [facility] Piroxicam </br>20 mg,=2 cap, cap, Daily, PO, Start date 06/12/16 18:40:00
</br>Notes: * TIME CRITICAL MED IF SCHEDULED Active [facility] Insulin Glargine </br>40 Units,=0.4 mL, injection, QHS, Subcutaneous, Start date 06/12/16 21:00: 00
</br>Notes: TIME CRITICAL MED IF SCHEDULED Active [facility] Humalog </br>10 Units,=0.1 mL, injection, AC, Subcutaneous, Start date 06/12/16 18:35:00
</br>Notes: TIME CRITICAL MED IF SCHEDULED Active [facility] Hydroxyzine </br>25 mg,=1 cap, cap, TID, PO, Start date 06/12/16 18:35:00 Active [facility] Budesonide 0.16 MG/ACTUAT / formoterol fumarate 0.0045 MG/ACTUAT Metered Dose Inhaler </br>2 puff, inhaler, BID, Inhalation, Start date 06/12/16 20:00:00
</br> Notes: TIME CRITICAL MED IF SCHEDULED Active [facility] Zetia </br>10 mg,=1 tab, tab, Daily, PO, Start date 06/13/16 9:00:00 Active [facility] Claritin </br>10 mg,=1 tab, tab, Daily, PO, Start date 06/13/16 9:00:00 Active [facility] Buspirone </br>10 mg,=1 tab, tab, TID, PO, Start date 06/12/16 18:29:00 Active [facility] carvedilol </br>12.5 mg,=1 tab, tab, BID, PO, Start date 06/12/16 21:00:00
</br>Notes: TAKE WITH FOOD Active [facility] Thyroxine </br>200 mcg,=1 tab, tab, Daily, PO, Start date 06/13/16 12:02:00
</br>Notes : DO NOT ADMINISTER WITH MAGNESIUM, CALCIUM, ALUMINUM, OR IRON PRODUCTS Active [facility] No Known Medications No known medications Active [facility], [facility] Allergies, Adverse Reactions, Alerts Substance Category Reaction Severity Reaction type Status Date Reported Comments Source Fentanyl Assertion Drug allergy [facility] Indocin Assertion Drug allergy [facility] morphine Assertion Drug allergy [facility] naproxen Assertion Drug allergy [facility] Tape Assertion Drug allergy [facility] Toradol Assertion Drug allergy [facility] Indomethacin Assertion Drug allergy [facility] Morphine Assertion Drug allergy [facility] Naproxen Assertion Drug allergy [facility] Ketorolac Assertion Drug allergy [facility] Immunizations Immunization Date Given Site Status Last Updated Comments Source No data available for this section No data available for this section [facility] Results Order Name Results Value Reference Range Date Interpretation Comments Source Point Of Care-Glucose Glucose POC 205 mg/dL 64 - 108 [facility] Discharge Summary Discharge Summary Patient: ESSIE LOPEZ Age: 66 years Sex: Male : 52 Associated Diagnoses: None Author: Hernán Rivera Discharge Information Date of Admission: Admitted 06/12/2016, 06/14/2016. Attending Physician: Lawson Mckeon Primary Service: Green Medicine. Primary Diagnosis present or suspected on admission: Chest pain - [id number]-[id number] R07.9 Secondary Diagnosis present or suspected on admission: Benign essential hypertension - [id number] I10 Type 2 diabetes mellitus with hemoglobin A1c goal of less than 7.0% - [id number] E11.9 Diagnosis aquired during hospitalization Subclinical hypothyroidism - [id number]-IZ E03.9 Discharge or Transfer Condition: At discharge, [...] diabetes mellitus, hypertension, hyperlipidemia, CAD with h/o NE in 2007 (underwent cath, likely had 30-40% [...] the need for establishing a PCP in [place] as he will need a sleep study, [...] as he was going straight home to [place] on discharge. Stressed importance of establishing care with a PCP. Hernán Rivera MD PGY1 [phone] I agree with the above documentation. Thanks, Jayesh Mckeon DO 06/14/2016 [facility] Point Of Care-Glucose Glucose POC 277 mg/dL 64 - 108 [facility] Chemistry GFR -Luxembourger null >=60 mL/min/1.73m2 [facility] Hematology MPV 8.0 FL 7.4 - 10.4 06/14/2016 [facility] Student Note - Education Only Student [...] of all cause mortality/ new or recurrent NE/ severe recurrent ischemia, at 14 days - Pt has a h/o NE 8 yrs back (likely NSTEMI). He does have strong family h/o CAD. He also has not had a recent stress test or cardiology follow up since NE. - Will plan for stress echo today [...] pending stress test today Cb LORENZO 06/14/2016 [facility] Inpatient Progress Note Inpatient Progress Note [...] M with h/o HTN, DM, HLD, h/o NE 8 yrs ago presented with chest pain: Chest pain - DDx: ACS (UA/NSTEMI) vs GERD vs musculoskeletal - EKG no ST-T changes and troponins negative x3 - PATRICK risk score of 97 which is low. - 1.2% risk of mortality in current admission - 3.2-3.5% risk of mortality in 6 months - 6.8% risk of NE or in 1 yr - TYE risk score of 2 which suggests 8% risk of all cause mortality/ new or recurrent NE/ severe recurrent ischemia, at 14 days - Pt has a h/o NE 8 yrs back (likely NSTEMI). He does have strong family h/o CAD. He also has not had a recent stress test or cardiology follow up since NE. - Continue coreg, atorvastatin, ezetimibe - Coreg [...] stress test today Hernán Rivera MD PGY1 [phone] 06/14/2016 [facility] Point Of Care-Glucose Oper ID [id number] 06/14/2016 [facility] Point Of Care-Glucose Glucose POC 278 mg/dL 64 - 108 08/2016 [facility] Urinalysis UA Bacteria 3+ *ABN* (06/13/16 1:53 PM) 2015 [facility] Urine Drug Screen U Oxycodone Positive *NA* (06/13/16 1:53 PM) 2015 [facility] Student Note - Education Only Student [...] type 2, dyslipidemia, CAD with h/ o NE in 2007 (underwent cath, likely had 30-40% [...] like sensation and felt like his previous NE, radiating along his left arm/forearm, lasted for [...] study done outpatient. Cb Sena MSV 06/13/2016 [facility] Chemistry Troponin-T null <=0.03 ng/mL 06/13/2016 [facility] Endocrinology Labs T4 Free 1.01 ng/dL 0.60 - 1.60 2015 [facility] Inpatient Progress Note Inpatient Progress Note Patient: ESSIE LOPEZ Age: 66 years Sex: Male : 54 Associated Diagnoses: None Author: Hernán Rivera Subjective Patient doing well this morning. No complaints. Denies chest pain since admission. He is from [place] and reports he does not have a [...] M with h/o HTN, DM, HLD, h/o NE 8 yrs ago presented with chest pain: Chest pain - DDx: ACS (UA/NSTEMI) vs GERD vs musculoskeletal - EKG no ST-T changes and troponins negative x3 - PATRICK risk score of 97 which is low. - 1.2% risk of mortality in current admission - 3.2-3.5% risk of mortality in 6 months - 6.8% risk of NE or in 1 yr - TYE risk score of 2 which suggests 8% risk of all cause mortality/ new or recurrent NE/ severe recurrent ischemia, at 14 days - Pt has a h/o NE 8 yrs back (likely NSTEMI). He does have strong family h/o CAD. He also has not had a recent stress test or cardiology follow up since NE. - Will plan for stress echo tomorrow [...] stress test tomorrow Hernán Rivera MD PGY1 [phone] I agree with the above documentation. 06/13/2016 [facility] Chemistry ALBUMIN 4.2 g/dL 3.5 - 4.8 06/13/2016 [facility] Endocrinology Labs HGB A1C 10.5 % 4.6 - 6.2 06/13/2016 [facility] Hematology [place] % 7.9 % 1.0 - 9.0 06/13/2016 [facility] Chemistry Troponin-T null <=0.03 ng/mL 06/13/2016 [facility] Chemistry Pro B-Type Natriuretic Peptide 9 pg/mL 2015 [facility] Coagulation APTT 33.9 s 24.0 - 36.5 06/12/2016 [facility] Hematology WBC 6.30 10^3/cmm 4.30 - [phone] 06/12/2016 [facility] Point Of Care-Glucose Oper ID [id number] 06/12/2016 [facility] History and Physical History and Physical [...] type 2, dyslipidemia, CAD with h/ o NE in 2007 (underwent cath, likely had 30-40% [...] like sensation and felt like his previous NE, radiating along his left arm/forearm, lasted for [...] breathing for some time. Patient is from [place] and is visiting his daughter and friends here. He last saw a physician 3 months ago. He is not on aspirin as he takes NSAIDs for his knee pain. PMH: HTN, DM type 2, dyslipidemia, CAD with h/o NE in 2007 (underwent cath, likely had 30-40% [...] mg/dL LOW BUN/CREA RATIO 20.5 HI GFR -Luxembourger >90 mL/min/1.73m2 GFR Non -Luxembourger >90 mL/min/1.73m2 CALCIUM 9.1 mg/dL CALC. OSMO 294 mOsm/kg MAGNESIUM 1.9 mg/dL Pro B-Type Natriuretic Peptide 9 pg/mL NA Troponin-T <0.01 ng/mL 3/cmm 6/cmm Hemoglobin 11.9 g/dL LOW Hematocrit 36.8 % LOW MCV 76.5 FL LOW MCH 24.6 PG LOW MCHC 32.2 g/dL 3/cmm MPV 8.7 FL RDW 16.6 % HI Gran % 68.7 % Lymph % 19.2 % LOW [place] % 7.7 % Eos % 3.5 % Baso % 0.9 % 3/cmm 3/cmm 3/cmm 3/cmm 3/cmm NRBC Auto 0.0 /100WBC NA PROTHROMBIN 10.6 sec INR 1.0 NA APTT 33.9 sec 06/12/16 14:39 GLUCOSE 255 mg/dL HI Oper ID [id number] . XR chest Impression: Low lung volume. Bibasilar subsegmental atelectasis. No consolidation. EKG: Rate 66 bpm, normal sinus rhythm, left axis deviation, normal durations and intervals, left anterior fascicular block, no evidence of chamber enlargement, no ST-T changes Impression and Plan 66 yo M with h/o HTN, DM, HLD, h/o NE 8 yrs ago presented with chest pain: Chest pain - DDx: ACS (UA/NSTEMI) vs GERD vs musculoskeletal - Vitals stable, EKG no ST-T changes and trop x 1 negative - PATRICK risk score of 97 which is low. - 1.2% risk of mortality in current admission - 3.2-3.5% risk of mortality in 6 months - 6.8% risk of NE or in 1 yr - TYE risk score of 2 which suggests 8% risk of all cause mortality/ new or recurrent NE/ severe recurrent ischemia, at 14 days - Pt has a h/o NE 8 yrs back (likely NSTEMI). He does [...] smoke Paloma Sweeney MD PGY2 Internal medicine [phone] 06/12/2016 [facility] XR Chest 2 Views [id number] XR Chest 2 Views [id number] Name: ESSIE LOPEZ Diagnostic Radiology Accession Number Exam Exam Date/Time Ordering Physician [id number] XR Chest 2 Views 06/12/2016 16:55 CDT Peter Prieto Prasad CPT code 40436 Reason For Exam (XR Chest 2 Views) chest pain Report XR Chest 2 Views [id number] Reason for exam: chest pain Comparison: None. [...] Technologist: Jackie Parsons RT(R)(CT),Bertha Mcgraw RT(R)(CT) 06/12/2016 [facility] ED Note - Provider ED Note [...] arm. Diaphoresis +. No leg pain. Had NE 8 yrs ago. Pain better now. PE: _Lungs - CTA(b), no r,r,w; Heart - S1S2, no m,r,g; LEs - NT calf, no pitting edema. Impression: _ Orders: _EKG, CXR, labs ordered Disposition: _ History of Present Illness 52-year-old male with past medical history significant for NE 8 years ago (no stents placed ) as well as diabetes, hypertension, dyslipidemia, who is from [place] currently here visiting friends presents to ER chief complaint of chest pain that he describes as a pressure-like sensation that is midsternal radiating down his left arm which began approximately 30 minutes prior to arrival all he was sitting on the couch watching TV. He notes that this pain is similar to his previous NE. Pain is nonpositional, nonpleuritic, nonexertional. He has [...] documented.. Past Medical/ Family/ Social History PMH: NE in 2007, DM, HTN, DLD PSH: R [...] Nurse Collect Radiology: XR Chest 2 Views [id number] (Order): Stat, 06/12/16 14:59, chest pain, ED [...] Indicator O2 Sat Nursing (Order): 06/12/16 17:35 Middle Stitcher (Order): 06/12/16 17:35 Pharmacy: aspirin (Order): 324 mg, Chewed, ONCE . Results review: Lab results : All Laboratory 06/12/16 15:02 Sodium 138 mmol/L Potassium 4.0 mmol/L Chloride 97 mmol/L CO2 25 mmol/L Anion Gap 16 mmol/L Glucose 222 mg/dL HI BUN 16 mg/dL Creatinine 0.78 mg/dL LOW BUN/Creat Ratio 20.5 HI GFR -Luxembourger >90 mL/min/1.73m2 GFR Non -Luxembourger >90 mL/min/1.73m2 Calcium 9.1 mg/dL Osmo (Calc) 294 mOsm/kg Magnesium 1.9 mg/dL Pro B-Type Natriuretic Peptide 9 pg/mL NA Troponin-T <0.01 ng/mL 3/cmm 6/cmm Hemoglobin 11.9 g/dL LOW Hematocrit 36.8 % LOW MCV 76.5 FL LOW MCH 24.6 PG LOW MCHC 32.2 g/dL 3/cmm MPV 8.7 FL RDW 16.6 % HI Gran % 68.7 % Lymph % 19.2 % LOW [place] % 7.7 % Eos % 3.5 % Baso % 0.9 % 3/cmm 3/cmm 3/cmm 3/cmm 3/cmm NRBC Auto 0.0 /100WBC NA Protime 10.6 sec INR 1.0 NA APTT 33.9 sec 06/12/16 14:39 Glucose POC 255 mg/dL HI 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 Chest X-Ray: No acute disease process, [...] . Impression and Plan Other chest pain ([id number]-[id number] R07.89) CAD Plan Condition: Improved. Disposition: Admit: [...] from [facility] , hx of CAD- states NE in 2007, no intervention. notes l sided cp starting at rest today that was similar to prior NE, minmal pain now. vitals noted, On exam, afebrile, non toxic, VSS. CTA B, RRR, no edema, ecg - no acute findings, trop neg, however given multiple risks and hx of NE will admit for ACS r/o Attending Signature: [...] 14:42 Oxygen Saturation 93 % . 06/12/2016 [facility] Vital Signs Vital Sign Value Date Comments Source Oxygen Saturation 94 % 2015 [facility] Resp. Rate 16 BRMIN 2015 [facility] Heart Rate 80 bpm 06/14/2016 [facility] Systolic BP 136 mmHg 2015 [facility] Diastolic BP 88 mmHg 2015 [facility] Oxygen Therapy Room air
</br>(06/14/16 12:26 PM) 06/14/2016 [facility] Oxygen Saturation 94 % 2015 [facility] Temperature Oral 97.5 [degF] 06/14/2016 [facility] Heart Rate 78 bpm 06/14/2016 [facility] Resp. Rate 16 BRMIN 2015 [facility] Systolic BP 133 mmHg 2015 [facility] Diastolic BP 84 mmHg 2015 [facility] Oxygen Therapy Room air
</br>(06/14/16 8:58 AM) 06/14/2016 [facility] Temperature Oral 97.5 [degF] 06/14/2016 [facility] Resp. Rate 17 BRMIN 2015 [facility] Oxygen Saturation 97 % 2015 [facility] Oxygen Therapy Room air
</br>(06/14/16 6:00 AM) 06/14/2016 [facility] Mean Arterial Pressure 97 mmHg 06/14/2016 [facility] Temperature Oral 98.5 [degF] 06/14/2016 [facility] Systolic BP 135 mmHg 2015 [facility] Diastolic BP 78 mmHg 2015 [facility] Mean Arterial Pressure 105 mmHg 06/14/2016 [facility] Cuff Size Adult Long Cuff
</br>(06/14/16 12:00 AM ) 06/14/2016 [facility] BP Site Right Arm
</br>(06/14/16 12:00 AM) 06/14/2016 [facility] Mean Arterial Pressure 112 mmHg 06/14/2016 [facility] Cuff Size Adult Long Cuff
</br>(06/13/16 8:00 PM) 06/14/2016 [facility] BP Site Right Arm
</br>(06/13/16 8:00 PM) 06/14/2016 [facility] Cuff Size Adult Long Cuff
</br>(06/13/16 4:42 PM) 06/13/2016 [facility] BP Site Right Arm
</br>(06/13/16 4:42 PM) 06/13/2016 [facility] Temperature Temporal Artery 97.2 [degF] 06/13/2016 [facility] Temperature Temporal Artery 98.5 [degF] 06/13/2016 [facility] Mean Arterial Pressure 85 mmHg 06/12/2016 [facility] Systolic BP 115 mmHg 2015 [facility] Diastolic BP 70 mmHg 2015 [facility] Heart Rate 77 bpm 06/12/2016 [facility] Oxygen Therapy Room air
</br>(06/12/16 6:19 PM) 06/12/2016 [facility] Oxygen Saturation 96 % 2015 [facility] Resp. Rate 20 BRMIN 2015 [facility] Heart Rate 66 bpm 06/12/2016 [facility] Resp. Rate 18 BRMIN 2015 [facility] Oxygen Saturation 93 % 2015 [facility] Systolic BP 120 mmHg 2015 [facility] Diastolic BP 71 mmHg 2015 [facility] Temperature Oral 98.0 [degF] 06/12/2016 [facility] Temperature Route Oral
</br>(06/12/16 2:42 PM) 06/12/2016 [facility] Oxygen Therapy Room air
</br>(06/12/16 2:42 PM) 06/12/2016 [facility] Encounters Location Location Details Encounter Type Encounter Number Reason For Visit Attending Provider ADM Date DC Date Status Source [facility] Emergency [id number] Fátima Bhandari 06/12/2016 06/13/2016 [facility] OBSERVATION [id number] Lawson Mckeon 201506/14/2016 [facility] CD:[id number] Inpatient [id number] Jane Everardo 07/08/2016 07/10/2016 Active [facility] Procedures Procedure Code Date Perfomer Comments Source No data available for this section [facility] Echo [facility] Nuc Stress test [facility] Plan of Care Social History Assessment and Plan Date Assessment and Plan Source Author:Rani Mistry Title:ED Discharge Instructions Date:06/12/[address] [address] Emergency Department [phone] Emergency Department Discharge Instructions Name : ESSIE [...] talk to your doctor or call [employer] [place] [employer] at [phone] ([phone]). If you have thoughts about committing suicide or otherwise hurting yourself, please call [phone] or call Crisis Line at . If your primary care provider is a [facility] physician or you would like to establish care at [facility] please call [phone] to schedule an appointment. If you are a new patient you may have to wait up to 60 days for a scheduled appointment. If you need to establish care sooner, you may want to look for other options. PAYMENT GUIDELINES FOR [facility] PATIENTS: [facility] now requires all self-pay and partial [facility] discount patients to make a down payment before receiving non-emergency care. In most cases, your down payment will be 25 percent of your charges. If you currently receive a 100% [facility] discount , these new guidelines do not apply to you. We accept puente, check, Visa and MasterCard. If you are a self-pay patient and would like to discuss discounted services or Medicaid, please contact [facility] at [phone]. Remember: at the time of your appointment, you must present a photo ID as well as your insurance card or the required down payment, or your appointment will be rescheduled for another day. If you have commercial insurance and [facility] is not on your list of providers, [...] medications to every visit with us at [facility]. Your safety and education around medications [...] Name Status Details XR Chest 2 Views [id number] Ordered Stat, 06/12/16 14:59:00, chest pain, ED [...] RESULTS! [facility] Sign up today for [facility] for access to your health records 25/03. [employer] allows you to: Request an appointment Check your lab results Communicate with your providers and care team See provider notes from your visit View immunization records View current medication Sign up Today! Ask your healthcare provider or a [facility] associate for help, or email [email or web address]. [email or web address] JOHN Kaba DANIEL M, have received the attached patient education materials/ instructions and have verbalized understanding/Yo recibi educacion, materiales instrucciones de paciente y se me a explicado verbalmente para mi propia comprension: Patient/Guardian Signature Date Firma de paciente/guardian Fecha Witness Signature Date Firma de Testigo Fecha [facility] Author:Tyson Rosales Title:Chest Pain *ED Date:06/12/16 Impression and Plan Other chest pain (MQG60-PE R07.89) CAD Plan Condition: Improved. Disposition: Admit: Time 06/12/16 18:44:00, to Inpatient Unit. Counseled: Patient, Regarding diagnosis, Regarding diagnostic results, Regarding treatment plan, Regarding prescription, Patient indicated understanding of instructions. [facility] Author:Hernán Rivera Title:Discharge Summary* ([facility]) Date:06/14/16 Patient: ESSIE LOPEZ Age: 66 years Sex: Male : 54 Associated Diagnoses: None Author: Hernán Rivera Discharge Information Date of Admission: Admitted 06/12/2016, 06/14/2016. Attending Physician: Lawson Mckeon Primary Service: Green Medicine. Primary Diagnosis present or suspected on admission: Chest pain - DJT53-CL R07.9 Secondary Diagnosis present or suspected on admission: Benign essential hypertension - TDH24-GF I10 Type 2 diabetes mellitus with hemoglobin A1c goal of less than 7.0% - HYD72-AD E11.9 Diagnosis aquired during hospitalization Subclinical hypothyroidism - EFH40-DI E03.9 Discharge or Transfer Condition: At discharge, [...] diabetes mellitus, hypertension, hyperlipidemia, CAD with h/o NE in 2007 (underwent cath, likely had 30-40% [...] the need for establishing a PCP in [place] as he will need a sleep study, [...] as he was going straight home to [place] on discharge. Stressed importance of establishing care with a PCP. Hernán Rivera MD PGY1 [phone] I agree with the above documentation. Thanks, Jayesh Mckeon DO Addendum by Lawson Mckeon on June 14, 2016 20:08 [facility] Author:Hernán Rivera Title:Inpatient Clinical Summary Date:06/14/16 [facility] Patient Discharge Instructions Visit Information/Informacion de Visita Name/Nombre:ESSIE LOPEZ Date of /Fecha de Nacimiento: 1950 12:00 AM Current Date/Time/Fecha/Hora Actual: 06/14/16 13:36:46 Physicians/Medicos Clinic Provider/Proveedor de Clinica: Resident Provider: Paloma Sweeney Attending Provider: Lawson Mckeon Discharge Diagnosis/Diagnstico al ser dado de mauri: Benign essential hypertension; Chest pain; Subclinical hypothyroidism; Type 2 diabetes mellitus with hemoglobin A1c goal of less than 7.0% The [facility] would like to thank you for allowing us to assist you with your healthcare needs. The following includes patient education materials and information regarding your injury/illness. [facility] quisieran agradecerle por permitirnos ayudarlo con erin [...] appointment within two weeks, please call for [facility] or for [place]. Por favor llame al [facility] o [place] , en cristobal no lo hayan llamado dentro de dos semanas para darle kathy marek. Your Upcoming Appointments/Erin proximas citas Please bring all home medications to every visit with us at [facility]. Your safety and education around medications [...] talk to your doctor or call [employer] [place] [employer] at 2-339-RVSBNOW ([phone]). If you have thoughts about committing suicide or otherwise hurting yourself, please call 911 or call Crisis Line at . Take Charge of Your Health with [facility] Sign up today for [facility] for access to your health records 25/03. [facility] allows you to: Request an appointment Check your lab results Communicate with your providers and care team See provider notes from your visit View immunization records View current medication Sign up Today! Ask your healthcare provider or a [facility] associate for help, or email [email or web address]. [email or web address] Author:Hernán Rivera Title:Progress Note Date:06/14/16 Impression and Plan 66 yo M with h/o HTN, DM, HLD, h/o NE 8 yrs ago presented with chest pain: Chest pain - DDx: ACS (UA/NSTEMI) vs GERD vs musculoskeletal - EKG no ST-T changes and troponins negative x3 - PATRICK risk score of 97 which is low. - 1.2% risk of mortality in current admission - 3.2-3.5% risk of mortality in 6 months - 6.8% risk of NE or in 1 yr - TYE risk score of 2 which suggests 8% risk of all cause mortality/ new or recurrent NE/ severe recurrent ischemia, at 14 days - Pt has a h/o NE 8 yrs back (likely NSTEMI). He does have strong family h/o CAD. He also has not had a recent stress test or cardiology follow up since NE. - Continue coreg, atorvastatin, ezetimibe - Coreg [...] stress test today Hernán Rivera MD PGY1 [phone] [facility] Author:Paloma Sweeney Title:ACS rule out Date:06/12/16 [...] type 2, dyslipidemia, CAD with h/ o NE in 2007 (underwent cath, likely had 30-40% [...] like sensation and felt like his previous NE, radiating along his left arm/forearm, lasted for [...] breathing for some time. Patient is from [place] and is visiting his daughter and friends here. He last saw a physician 3 months ago. He is not on aspirin as he takes NSAIDs for his knee pain. PMH: HTN, DM type 2, dyslipidemia, CAD with h/o NE in 2007 (underwent cath, likely had 30-40% [...] mg/dL LOW BUN/CREA RATIO 20.5 HI GFR -Luxembourger >90 mL/min/1.73m2 GFR Non -Luxembourger >90 mL/min/1.73m2 CALCIUM 9.1 mg/dL CALC. OSMO [...] 68.7 % Lymph % 19.2 % LOW [place]orne % 7.7 % Eos % 3.5 % Baso % 0.9 % Gran 4.3 10^3/cmm Lymph 1.2 10^3/cmm [place] 0.5 10^3/cmm Eos 0.20 10^3/cmm Baso 0.10 10^3/cmm NRBC Auto 0.0 /100WBC NA PROTHROMBIN 10.6 sec INR 1.0 NA APTT 33.9 sec 06/12/16 14:39 GLUCOSE 255 mg/dL MS Oper ID [id number] . XR chest Impression: Low lung volume. Bibasilar subsegmental atelectasis. No consolidation. EKG: Rate 66 bpm, normal sinus rhythm, left axis deviation, normal durations and intervals, left anterior fascicular block, no evidence of chamber enlargement, no ST-T changes Impression and Plan 66 yo M with h/o HTN, DM, HLD, h/o NE 8 yrs ago presented with chest pain: Chest pain - DDx: ACS (UA/NSTEMI) vs GERD vs musculoskeletal - Vitals stable, EKG no ST-T changes and trop x 1 negative - PATRICK risk score of 97 which is low. - 1.2% risk of mortality in current admission - 3.2-3.5% risk of mortality in 6 months - 6.8% risk of NE or in 1 yr - TYE risk score of 2 which suggests 8% risk of all cause mortality/ new or recurrent NE/ severe recurrent ischemia, at 14 days - Pt has a h/o NE 8 yrs back (likely NSTEMI). He does [...] smoke Paloma Sweeney MD PGY2 Internal medicine [phone] I have reviewed the history, physical, impression [...] Lawson Mckeon on June 13, 2016 16:45 [facility] Family History Value Date Source Advance Directives Order Name Results Value Date Source
--- OUTSIDE RECORDS SUMMARY | 2017-01-27 17:25 | XMS REPORT | Continuity of Care Document ---
Author Author [facility] Organization [facility] Address Unknown Phone Unavailable Care Team Providers Care Contract Agent Name Role Phone No Pcp, Na Primary Care Physician Unavailable Source Comments Some departments are not documenting in the electronic medical record. If you do not see the information that you expected, contact Release of Information in the Health Information Management department at [phone] for further assistance in locating additional records.[facility] Active Allergies and Adverse Reactions [...] Taken Blood Pressure 109/79 07/24/2016 2:30 PM COREMAKER APPRENTICE Pulse 59 07/24/2016 2:30 PM COREMAKER APPRENTICE Temperature 36.8 C (98.2 F) 07/24/2016 12:48 PM COREMAKER APPRENTICE Respiratory Rate - - Height 1.778 m (5' 10") 07/07/2016 12:53 AM CDT Weight 151.955 kg (335 lb) 07/07/2016 12:53 AM CDT Body Mass Index 48.07 07/07/2016 12:53 AM CDT Oxygen Saturation 94% 07/24/2016 2:29 PM COREMAKER APPRENTICE Plan of Care Health Maintenance Due Date Last Done Comments Hepatitis C Screening 1950 Physical (Comprehensive) 1959 Exam Pertussis Vaccine 1963 Tetanus Vaccine 1969 Colorectal Cancer 2002 Screening Shingles Vaccine 2012 Influenza Vaccine 05/03/2017 Results from Last 3 Months Not on file
--- OUTSIDE RECORDS SUMMARY | 2017-01-27 17:26 | XMS REPORT ---
Author Author GENERATED, SYSTEM Organization Unknown Address Unknown Phone Unavailable Care Team Providers Care Dye Weigher Helper Name Role Phone UNASSIGNED DOCTOR MD RENZO DOCTOR PP [phone] Reason For Visit Chief Complaint RT KNEE [...] Allergies, Adverse Reactions, Alerts This section is patient service representative of the current allergy information, at [...]
--- OUTSIDE RECORDS SUMMARY | 2017-01-27 17:27 | XMS REPORT ---
Author Author GENERATED, SYSTEM Organization Unknown Address Unknown Phone Unavailable Care Team Providers Care Executive Asst Name Role Phone PP Unavailable Reason For [...]
--- OUTSIDE RECORDS SUMMARY | 2017-01-27 17:31 | XMS REPORT ---
Author Author GENERATED, SYSTEM Organization Unknown Address Unknown Phone Unavailable Care Team Providers Care Cable Machine Operator Name Role Phone UNASSIGNED DOCTOR , DOCTOR PP [phone] Reason For Visit Reason for Visit from [...] H (65-99 MG/DL) *GFR EST NON AFR CAMBODIAN >90 ML/MIN *GFR EST AFR AMER >90 [...] Care Management Note : Pt is from [place] and is known to ED staff due to visits by pt and pt's adult daughter and pt getting angry when his demands are not met. Pt and daughter known to travel to multiple providers in [place] and [place]. [employer] on pt shows in the past year, he has received 25 narcotic prescriptions from 23 different providers filled at 12 different pharmacies. PCP is at [facility] in [place]. Today, pt states they have no money and he refuses to eat anything at the hospital unless we feed daughter too. Pt expects his daughter to stay in hospital with him. Pt also states they have a vehicle here but do not have gas money to get back home. JONA Moreno, Administrative Hearing Officer and SW updated. Procedures No relevant procedures [...]
--- OUTSIDE RECORDS SUMMARY | 2017-01-27 17:31 | XMS REPORT ---
Author Author GENERATED, SYSTEM Organization Unknown Address Unknown Phone Unavailable Care Team Providers Care Business Services Sales Agent Name Role Phone UNASSIGNED DOCTOR MD RENZO DOCTOR PP [phone] Reason For Visit Reason for Visit from [...] H (65-99 MG/DL) *GFR EST NON AFR [place] >90 ML/MIN (Reference Range: not available) *GFR [...] H (65-99 MG/DL) *GFR EST NON AFR [place] >90 ML/MIN (Reference Range: not available) *GFR [...] 10:45 AM:* #1 Office appointment: : Call [facility] for Appointment within 1 week. Treatment Plan from 01/05/2017 11:08 AM:* Care Management Note : BODY,TD,TH,BUTTON ,INPUT,SELECT,TEXTAREA{FONT-SIZE: 10pt; FONT-FAMILY: [place],Helvetica; COLOR: black;} P,DIV,UL,OL,BLOCKQUOTE{MARGIN-BOTTOM: 0px; MARGIN-TOP: 0px;} BODY{MARGIN : 5px;} Patient discharging to home later today. Medicare M[place]ETA form reviewed with Patient and questions answered. Denied further needs at this time. Copy of signed form placed in chart and given to Patient. SW notified of discharge. Treatment Plan from 01/04/2017 7:41 AM:* Care Management Note : BODY,TD,TH,BUTTON, INPUT,SELECT,TEXTAREA{FONT-SIZE: 10pt; FONT-FAMILY: [place],Helvetica; COLOR: black;} P,DIV,UL,OL,BLOCKQUOTE{MARGIN-BOTTOM: 0px; MARGIN-TOP: 0px;} BODY{MARGIN [...] Discharge Diet : Diet as directed by sanitation officer * Discharge Diet: : Diabetic Diet * [...] Allergies, Adverse Reactions, Alerts This section is contact representative of the current allergy information, at [...] the responsibility of the patient or patient contact representative to confirm the list of medications [...] carvedilol 6.25 mg Tablet, Ordered By: SHANI PERRY MD [...]
--- NOTE | 2017-01-28 10:21 | DI ---
Indication: ITS.REASON: chest pain PROCEDURE: CHEST 1 VIEW: Encounter: Initial Comparison: May 14, 2016 FINDINGS: The lungs are clear. There is no abnormal airspace opacity, pleural effusion or pneumothorax identified. Poor visualization of the left lung base felt to be due to soft tissue overlap and patient body habitus. The heart size, pulmonary vasculature and mediastinum are stable. Cardiac monitoring device. IMPRESSION: No acute cardiopulmonary abnormality. .
== END 2017-01-27 17:13 | disposition home or self-care (01) ==
LOC: ED 16:13
DX: R07.89 Other chest pain (principal); M79.602 Pain in left arm; R11.0 Nausea; R06.02 Shortness of breath; R42 Dizziness and giddiness; I10 Essential (primary) hypertension; I25.10 Atherosclerotic heart disease of native coronary artery without angina pectoris; I25.2 Old myocardial infarction
CPT/HCPCS: 36000; 80048; 84484; 85025; 93005